=== PATIENT | male | born 1980 | race Caucasian/White ===

== ENCOUNTER 2017-05-05 04:35 | Inpatient (IN) | payer OTHER ==
[~2017-05-05] VITALS: Ht 180.3 cm; Wt 136.3 kg
[2017-05-05] VITALS (35 sets, daily range): BP systolic 122–194; BP diastolic 56–106; PULSE 59–83; TEMP 36.7–37.1; O2SAT 92–100; Ht 180.3 cm; Wt 136.3 kg
[~2017-05-05 04:35] MED LIST: AMLO10TA2 PO; APR25 PO; ASPI81TA85 PO; ATV/1 PO; B-COCAP2 PO; CALC1CAP36 PO; CARV25TA2 PO; CLON0.5T3 PO; DILT240C57 PO; FOLI1TAB7 PO; FURO40TA3 PO; GLIM4TAB PO; INSUINJ4 SC; LISI40TA PO; MINO2.5T PO; SEVE1TAB PO; SIMV40TA4 PO
--- NOTE | 2017-05-05 08:14 | History and Physical ---
History & Physical Date & Time of Service: May 05, 2017 at 08:13 Chief Complaint: Hyperkalemia Primary Care Physician: Romie Paez D.O. History of Present Illness Source: patient This is a 36 yo M with PMHx of ESRD on HD MWF, HTN, HLD, obesity, hx of MRSA, chronic venous stasis changes with weeping leg wound, hx of DVT, depression, anxiety, chronic low back pain, morbid obesity, CARMEN, hx of DM but pt reports is not currently taking any medications, GERD, who presents from [facility] for hyperkalemia, volume overload and needs for emergent dialysis. The patient received dialysis at [facility] dialysis [facility] in [facility]. Reports he has missed 5 dialysis sessions, with his last being on 04/23 due to his car breaking down and not being able to get transported there. He reports since then he has becoming progressively short of breath, and that it worsened over the past 2-3 days. He reports his normal weight is around 270 lbs, and does not know if or how much weight he has gained. He has been less able to ambulate long distances, and chronically uses a cane. He has been taking regularly scheduled medications, however reports his manages this, although she doesn't live with him. Last time he took lasix was yesterday. The patient has been self medicating with ativan and roxicodone for pain associated with his legs which has also increased in the past 2-3 days. He reports being prescribed ativan 1 mg 2-3 times per day for anxiety, although it is written for only once daily. His klonopin is written as 0.5 mg prior to dialysis sessions, but the patient admits he has been using them in the past 10 days even without dialysis. Nursing notes his bottle is currently emptied, and was only recently filled on 04/23 for 12 pills which should have been a 1 month supply. The patient reports requiring paracentesis in the past, with last time being about 2 months ago wher he reports multiple containers of fluid were drained, but doesn't know a specific volume. He currently reports his abdomen is nearly as big as he's ever seen it. He has not eaten x 2 days due to nausea, but no vomiting. Pt denies any GI illnesses, and had a regular BM yesterday morning. At OSH: K elevated at 8.4, and Cr.= 17.30 (rechecking), CBC is essentially WNL. No imaging studies were obtained. An EKG shows 1st degree AV block with old RBBB. Initial trop at 0300 was 0.047 , BNP > 250,000 He received calcium gluconate 1 gm, dextrose 25 g and insulin 10 U in attempts to reduce hyperkalemia. He also got Lasix 40 mg IV, sodium polystyrene sulfonate 15 gm. Pts BP was noted elevated and was administered hydralazine 10 mg IV and enalapril 1.25 mg IV. He was given dilaudid 0.5 mg once. Past Medical/Surgical History ESRD on HD MWF\ HTN HLD obesity hx of MRSA chronic venous stasis changes with weeping leg wound hx of DVT depression anxiety chronic low back pain morbid obesity CARMEN hx of DM but pt reports is not currently taking any medications GERD Family History Mother: DM, heart disease requiring triple bypass Father: HTN, DM Social History Smoking Status: Current Every Day Smoker Smokeless Tobacco Use: No Alcohol Use: none Marital Status: Housing status: lives with family (mother and son) Occupational Status: unemployed Allergies Coded Allergies: Ketorolac Tromethamine (Verified Allergy, Unknown, Itchiness and hives, 09/05/14) Reported by PT Tramadol (Verified Allergy, Unknown, Itchiness and hives, 09/05/14) Reported by PT Acetaminophen (Verified Adverse Reaction, Unknown, NAUSEA,VOMITING, ) REPORTED BY PT. Codeine (Verified Adverse Reaction, Unknown, NAUSEA,VOMITING, 05/05/17) REPORTED BY PT. Home Medications Scheduled Amlodipine Besylate (Norvasc), 10 MG PO DAILY Aspirin (Aspirin Dr), 81 MG PO DAILY Calcitriol (Calcitriol), 1 MCG PO UD Carvedilol (Coreg), 25 MG PO BID Cinecalcet (Sensipar), 60 MG PO DAILY Clonazepam (Klonopin), 0.5 MG PO UD Diltiazem Hcl Coated Beads (Cardizem Cd), 240 MG PO DAILY Fentanyl (Fentanyl), 12 MCG TD EVERY 3 DAYS Folic Acid (Folvite), 1 MG PO DAILY Furosemide (Lasix), 40 MG PO DAILY Gabapentin (Neurontin), 100 MG PO TID Lisinopril (Zestril), 40 MG PO BID Lorazepam (Ativan), 1 MG PO HS Metoclopramide (Reglan), 5 MG PO ACHS Multivitamin (Multivitamin), 1 TAB PO DAILY Nadolol (Corgard), 80 MG PO HS Pantoprazole (Protonix), 40 MG PO DAILY Sevelamer Hydroch (Renagel), 800 MG PO TIDM Simvastatin (Zocor), 40 MG PO HS Valsartan (Diovan), 160 MG PO DAILY Vitamin B Cmplx/Vitc/Folic Ac (Nephrocaps), 1 CAP PO HS Scheduled PRN Cyclobenzaprine Hcl (Flexeril), 10 MG PO TID PRN for Pain Oxycodone/Acetaminophen 10MG/325MG (Percocet 10MG/325MG), 1 TAB PO Q6 PRN for Pain Review of Systems Constitutional: + chills, No fever, No sweats, No fatigue Eyes: No diplopia, No problem reported ENT: + problem reported (dry mouth), No trouble swallowing Cardiovascular: + orthopnea, + edema (BLE), No chest pain, No palpitations Abdomen: + pain, + nausea, No vomiting, No diarrhea, No constipation Musculoskeletal: + swelling, No joint pain, No calf pain Genitourinary - Male: + problem reported (does make small amount of urine, twice daily), No dysuria Neurologic: No weakness, No numbness/tingling Psychiatric: + depression symptoms, + anxiety, + substance abuse Integumentary: + problem reported (weeping on left lower leg), No rash, No itch Physical Exam Vital Signs Date Time Temp Pulse Resp B/P (MAP) Pulse Ox O2 Delivery O2 Flow Rate FiO2 05/05/17 07:00 37.1 77 17 194/102 General Appearance: + obese, + pertinent finding (appears older than stated age ) Head: normocephalic, atraumatic Eyes: PERRL, EOMI, + pertinent finding (MM dry) ENT: hearing grossly normal, pharynx normal Neck: no adenopathy, + JVD (mild) Respiratory/Chest: lungs clear, no respiratory distress, no accessory muscle use Cardiovascular: regular rate, rhythm, normal peripheral pulses, + JVD (mild), + systolic murmur Abdomen/GI: non tender, + pertinent finding (hypoactive bowel sounds, + dullness to percussion) Back: normal inspection Extremities/Musculoskelatal: + pertinent finding (+ AVF with bruit and palpable trill in RUE, chronic venous stasis changes with weeping leg wounds on Left lateral side, weeping over R lateral lower leg, + decreased sensation to light touch. ) Neurologic/Psych: alert, oriented x 3 Skin: warm/dry Diagnostics Laboratory Results Microbiology Results 05/05/17 MRSA DNA Surveillance Screen, Received Pending EKG From OSH - reviewed showing NSR with 1st degree AV block with possible old RBBB. NO signs of ST wave inversions or acute ischemia. Impression Assessment and Plan This is a 36 yo M with PMHx of ESRD on HD MWF, HTN, HLD, obesity, hx of MRSA, chronic venous stasis changes with weeping leg wound, hx of DVT, depression, anxiety, chronic low back pain, morbid obesity, CARMEN, hx of DM but pt reports is not currently taking any medications, GERD, who presents from [facility] for hyperkalemia, volume overload and needs for emergent dialysis. ESRD on HD Hyperkalemia Volume overload - Admitted to ICU as transfer from [place] - Nephrology consulted, plan for emergent dialysis today. I spoke with Dr. Luna at bedside. He will not get dialysis tomorrow as staff not present, likely repeat dialysis on Sunday and resume regular MWF schedule. - checking CMP, LFTs, INR, ammonia - Received insulin, calcium gluconate and dextrose at OSH - Renal diet - Will continue nephrocaps - Daily weights - Strict I/Os ? Cirrhosis - Hx of paracentesis ~ 2 months ago, , possibly that he was supposed to be on lactulose 30 mg daily on 04/[address] Samaniego ?? - Checking RUQ u/s to assess liver, and checking abdominal US for possible drainage - Checking ammonia level - Follow LFTs Elevated Trop - Will trend x 2 more sets, initial was 0.047 - Elevated BNP was > 250,000 at OSH. - EKG reviewed from OSH - Check am EKG in am and prn chest pain HTN - Continue on carvedilol 25 mg BID, nadolol 80 mg HS, valsartan 160 mg, cardiazem 240 mg QPM, pt unsure of losartan so hold for now. - PRN hydralazine ordered DM II - Pt denies being diabetic, trend glucose with accuchecks and check Hgb A1C, lipids. Outpatient records showed lantus 10 U QAM and glimepiride Venous stasis changes BLE - Check wound culture of weeping area on left lateral leg - wound consult, pt apparently was following several months ago but no longer is - will need set up as outpatient - No antibiotics right now with no WBC, afebrile, no erythema for now. Chronic Pain - Unable to verify with pt specific of fentanyl patch - checking controlled substance meds, allow dilaudid 0.5 mg Q4H for now. Depression/Anxiety - Pt klonopin and clonazepam being used differently than prescriped, - HOLD for now. GERD - Cont reglan, protonix daily. DVT ppx: heparin subq, CODE STATUS: FULL CODE Disposition: From home, d/c likely in 2-3 days PA Physician Supervision Note: I interviewed and examined the patient. Discussed with Bette Lewis PAC and agree with findings and plan as documented in the note. Any exceptions or clarifications are listed here: None This patient is a transfer from [facility] with acute on chronic renal failure in need of hemodialysis. Reportedly renal failure hypertension he also suffers from diabetes liver failure which might be Vanessa depression and anxiety as elevated troponin Patient was comfortable currently on dialysis his vitals were appropriate for being on dialysis His heart is regular His lungs have decreased breath sounds at bases and crackles slight his abdomen is morbidly obese and difficult to examine His lower extremities are with changes of chronic venous stasis some minor skin changes which would require wound care nursing spine Acute on chronic renal failure requiring dialysis, treating diabetes with insulin management, trending troponins although likely based upon renal failure. Documented By: Vin Currie Level of Care Telemetry Resuscitation Status FULL RESUSCITATION VTE Prophylaxis VTE Risk Assessment Done? Y/N: Yes Risk Level: Moderate Given or contraindicated: Unfractionated heparin SQ
[2017-05-05] MEDS ORDERED: CINA60TA PO (08:15)
[2017-05-05] MEDS ORDERED: MULT-506 PO (08:15)
[2017-05-05] MEDS ORDERED: PANT40TA PO (08:15)
[2017-05-05] MEDS ORDERED: METO-157 PO (08:15)
[2017-05-05] MEDS ORDERED: FRS/40 PO (08:15)
[2017-05-05] MEDS ORDERED: OXYC-106 PO (08:15)
[2017-05-05] MEDS ORDERED: LOSA1TAB PO (08:15)
[2017-05-05] MEDS ORDERED: CYCL10TA6 PO (08:15)
[2017-05-05] MEDS ORDERED: DVN/160 PO (08:15)
[2017-05-05] MEDS ORDERED: NADO40TA PO (08:15)
[2017-05-05] MEDS ORDERED: GABA-112 PO (08:15)
[2017-05-05] MEDS ORDERED: DRGTP12 TD (08:17)
[2017-05-05] MEDS ORDERED: INFLUENZA VIRUS QUAD VACCINE 0.5 ML SYR IM. ONE (08:30)
[2017-05-05] MEDS ORDERED: PNEUMOCOCCAL ADMINISTRATION CHARGE ONE (08:30)
[2017-05-05] MEDS ORDERED: INFLUENZA ADMINISTRATION CHARGE ONE (08:30)
[2017-05-05] MEDS ORDERED: PNEUMOCOCCAL POLYSACCHARIDES 25 MCG/0.5 ML VIAL/SYR IM. ONE (08:30)
[2017-05-05] MEDS ORDERED: FENTANYL 12 MCG/HR TDSY TD SCH (09:15)
[2017-05-05 09:20] LABS: BASO % 0.5 %; BASO ABS # 0.04 K/uL (0-0.2); COMPLETE YES; EOS % 4.1 %; HEMATOCRIT 30.4 % (42-52); IG% 0.2 %; LYMPH ABS # 1.07 K/uL (1.2-3.4); MEAN CELL VOLUME 91.6 fL (80-100); MEAN CORPUSCULAR HEMOGLOBIN 28.6 pg (25-34); MEAN CORPUSCULAR HGB CONC 31.3 g/dl (32-36); MONO % 8.4 %; NEUT % 73.8 %; PLATELET COUNT 177 K/uL (130-400); RED BLOOD COUNT 3.32 M/uL (4.7-6.1); WHITE BLOOD COUNT 8.25 K/uL (4.8-10.8)
[2017-05-05 09:29] LABS: INR 1.2 (0.9-1.1); PARTIAL THROMBOPLASTIN RATIO 1.2; PROTHROMBIN TIME (PATIENT) 12.7 SECONDS (9.0-12.0)
[2017-05-05 10:02] LABS: HEPATITIS B AB POS
--- NOTE | 2017-05-05 10:11 | Nephrology Consultation ---
Nephrology Consultation Date & Providers Date of Consultation: May 05, 2017. Primary Care Provider: Romie Paez D.O. Referring Provider: Reason for Consultation Evaluation and management for ESRD with volume overload and hyperkalemia and need for emergency dialysis. History of Present Illness Jd is a 36-year-old gentlemen with past medical history significant for end- stage renal disease on hemodialysis, hypertension, questionable history of cirrhosis with ascites admitted to the hospital as a direct transfer from [facility] for emergency dialysis for hyperkalemia and volume overload. Medical records from [facility] EMR reviewed in detail during patient's visit. Jd has end-stage renal disease secondary to hypertensive nephropathy, has been on hemodialysis Sunday, Sunday, Sunday at [facility] dialysis unit at [place] for last several years. Primary hand paint mixer is Dr. Loaiza. His last dialysis was in April 24 and he missed dialysis for almost 2 weeks since and patient attributes that to difficulty with transportation to and from dialysis unit. He still urinates and has been on Lasix 40 daily. However, over last 1 week he was getting progressively short of breath and tired with any exertion and presented to [facility] ER yesterday. On arrival there he was found to have systolic blood pressure more than 200, significantly volume overloaded with respiratory distress and pulmonary congestion on x-ray. His potassium was 8.4. We were consulted for transfer as a direct admit for emergency hemodialysis. Currently he denies any significant shortness of breath, requiring 4 L of oxygen via nasal cannula to maintain oxygen saturation above 90, main complain is fatigue. He has hypertension has been on amlodipine, valsartan however intensive care unit nurse reviewed his medication bottles and found that he did not refill any prescription over last 1 year. He has history of being noncompliant with dialysis and he mentioned that previously he went without dialysis many times for almost a week but this time he has been without dialysis for nearly 2 weeks. He has questionable history of cirrhosis, ascites requiring paracentesis at certain interval, last paracentesis was few months ago. His a ex-smoker, denies drinking alcohol currently, no history of diabetes or coronary artery disease. Allergies Coded Allergies: Ketorolac Tromethamine (Verified Allergy, Unknown, Itchiness and hives, 09/05/14) Reported by PT Tramadol (Verified Allergy, Unknown, Itchiness and hives, 09/05/14) Reported by PT Acetaminophen (Verified Adverse Reaction, Unknown, NAUSEA,VOMITING, ) REPORTED BY PT. Codeine (Verified Adverse Reaction, Unknown, NAUSEA,VOMITING, 05/05/17) REPORTED BY PT. Social History Smoking Status: Never Smoker Review of Systems A complete review of systems was performed. Pertinent positives are noted above. All other systems are negative. Physical Exam Date Time Temp Pulse Resp B/P (MAP) Pulse Ox O2 Delivery O2 Flow Rate FiO2 05/05/17 07:00 37.1 77 17 194/102 100 Nasal Cannula 5.0 GENERAL: young male, AAA x 3, not in any distress. HEENT: Atraumatic, normocephalic. NECK: Supple, no JVD, no carotid bruit appreciated. ENT: No sinus tenderness MOUTH and THROAT: Moist oral mucosa, no oral ulcer or pharyngeal erythema RESPIRATORY: bibasilar rales. CARDIOVASCULAR: S1, S2 normal, rate rhythm regular. ABDOMEN: Soft, nontender, positive bowel sound. MUSCULOSKELETAL: No CVA tenderness. No joint swelling, erythema or tenderness. Normal range of motion. SKIN: No skin rash EXTREMITY: lower extremity non pitting edema, chronic ulcer with oozing, skin thickening NEURO: No gross focal neurological deficit, speech fluent. PSYCHIATRY: Normal mood and judgment Laboratory Results Last 24 Hours Test 05/05/17 08:22 Impression (1) End stage renal disease due to hypertension (2) Hyperkalemia (3) Volume overload (4) Hypertensive emergency (5) Secondary hyperparathyroidism of renal origin (6) Anemia (7) Chronic ulcer of leg with fat layer exposed Jd is a 36 y o m with ESRD secondary to hypertensive nephropathy on hemodialysis Sunday, Sunday, Sunday, presented with respiratory distress, volume overload and hyperkalemia after missing dialysis for 2 weeks. Blood pressure elevated with systolic 190s to 210, has evidence of volume overload and pulmonary condition as well as potassium of 8.3. He has a well-functioning left brachiocephalic AV fistula. Recommendations --schedule for emergency dialysis with 2 K bath, UF 3-4 L as tolerated --will skip Sunday unless there is any significant electrolyte abnormality however patient may need dialysis few days [id number] --resume his antihypertensive medications including valsartan, Lasix and amlodipine --PSA 19523 units x1 dose with hemodialysis today --continue on sevelamer and calcitriol --discussed in detail with the patient about the risk associated with missing dialysis volume overloaded electrolyte abnormality including respiratory failure , acute coronary event and sudden cardiac and encourage patient to be compliant with dialysis treatment. --suggest wound culture, blood culture and wound care consult --continue on low-potassium, renal diet Thank you for allowing me to participate in your patient's care. It was a pleasure to see Jd
--- NOTE | 2017-05-05 10:14 | Dialysis Progress Note ---
Hemodialysis Note Date of Service May 05, 2017. Chief Complaint Evaluation for emergency dialysis. Subjective [place] was evaluated during hemodialysis. He is otherwise feeling well but continues to feel fatigue. Blood pressure continues to run high. Review of Systems A complete review of systems was performed. Pertinent positives are noted above. All other systems are negative. Vital Signs Last 8 Hrs Date Time Temp Pulse Resp B/P (MAP) Pulse Ox O2 Delivery O2 Flow Rate FiO2 05/05/17 10:01 73 19 164/87 (112) 100 05/05/17 09:46 72 23 163/90 (114) 98 05/05/17 09:35 Nasal Cannula 6.0 05/05/17 09:34 76 25 173/91 (118) 100 05/05/17 09:34 36.8 83 173/91 (118) 05/05/17 07:09 73 22 194/102 (132) 97 Room Air 05/05/17 07:00 37.1 77 17 194/102 100 Nasal Cannula 5.0 Last Recorded Weight Weight (Kilograms): 141.800 Physical Exam GENERAL: Young male, AAA x 3, not in any distress. NECK: Supple, no JVD. RESPIRATORY: Normal breathing efforts, no accessory muscle use, clear to auscultation bilaterally, no wheezes or rales. CARDIOVASCULAR: S1, S2 normal, rate rhythm regular. EXTREMITY: Nonpitting bilateral lower extremity edema, skin thickening, bilateral chronic ulcer with losing. Left brachiocephalic AV fistula with thrill and bruit NEURO: speech fluent. PSYCHIATRY: Normal mood and judgment Laboratory Results Past 24 Hours 05/05/17 09:06 Red Blood Count 3.32, Mean Corpuscular Volume 91.6, Mean Corpuscular Hemoglobin 28.6, Mean Corpuscular Hemoglobin Concent 31.3, Mean Platelet Volume 9.0, Neutrophils (%) (Auto) 73.8, Lymphocytes (%) (Auto) 13.0, Monocytes (%) (Auto) 8.4, Eosinophils (%) (Auto) 4.1, Basophils (%) (Auto) 0.5, Neutrophils # (Auto) 6.09, Lymphocytes # (Auto) 1.07, Monocytes # (Auto) 0.69, Eosinophils # (Auto) 0.34, Basophils # (Auto) 0.04 Test 05/05/17 09:06 05/05/17 09:09 05/05/17 09:11 05/05/17 09:49 White Blood Count 8.25 K/uL (4.8-10.8) Red Blood Count 3.32 M/uL (4.7-6.1) Hemoglobin 9.5 g/dL (14.0-18.0) Hematocrit 30.4 % (42-52) Mean Corpuscular Volume 91.6 fL (80-100) Mean Corpuscular Hemoglobin 28.6 pg (25-34) Mean Corpuscular Hemoglobin Concent 31.3 g/dl (32-36) Platelet Count 177 K/uL (130-400) Mean Platelet Volume 9.0 fL (7.4-10.4) Neutrophils (%) (Auto) 73.8 % Lymphocytes (%) (Auto) 13.0 % Monocytes (%) (Auto) 8.4 % Eosinophils (%) (Auto) 4.1 % Basophils (%) (Auto) 0.5 % Neutrophils # (Auto) 6.09 K/uL (1.4-6.5) Lymphocytes # (Auto) 1.07 K/uL (1.2-3.4) Monocytes # (Auto) 0.69 K/uL (0.11-0.59) Eosinophils # (Auto) 0.34 K/uL (0-0.5) Basophils # (Auto) 0.04 K/uL (0-0.2) RDW Standard Deviation 52.7 fL (36.4-46.3) RDW Coefficient of Variation 15.5 % (11.5-14.5) Immature Granulocyte % (Auto) 0.2 % Immature Granulocyte # (Auto) 0.02 K/uL (0.00-0.02) Prothrombin Time 12.7 SECONDS (9.0-12.0) Prothromb Time International Ratio 1.2 (0.9-1.1) Activated Partial Thromboplast Time 30.5 SECONDS (21.0-31.0) Partial Thromboplastin Ratio 1.2 Hepatitis B Surface Antibody POS Lactic Acid Level 0.9 mmol/L (0.4-2.0) Test 05/05/17 10:00 Date/Time Source Procedure Growth Status 05/05/17 00:00 Nasal MRSA DNA Surveillance Screen - Final Specimen Positive for MRSA by DNA Probe Complete Allergies Coded Allergies: Ketorolac Tromethamine (Verified Allergy, Unknown, Itchiness and hives, 09/05/14) Reported by PT Tramadol (Verified Allergy, Unknown, Itchiness and hives, 09/05/14) Reported by PT Acetaminophen (Verified Adverse Reaction, Unknown, NAUSEA,VOMITING, ) REPORTED BY PT. Codeine (Verified Adverse Reaction, Unknown, NAUSEA,VOMITING, 05/05/17) REPORTED BY PT. Medications Current Inpatient Medications Medications (Trade) Dose Ordered Sig/Julio Route Start Time Stop Time Status Last Admin Dose Admin Influenza Virus Vaccine Quadrival (Flucelvax Quad Vaccine) 0.5 ml ONCE ONCE IM. 05/05/17 08:30 05/05/17 08:31 UNV Pneumococcal Polysaccharide Vaccine (Pneumovax-23 Inj) 25 mcg ONCE ONCE IM. 05/05/17 08:30 05/05/17 08:31 UNV Heparin Sodium (Porcine) (Heparin Sq 5000 Unit/0.5ml) 5,000 unit Q12 SQ 05/05/17 09:00 06/04/17 08:59 Acetaminophen (Tylenol Tab) 650 mg Q4H PRN PO 05/05/17 08:30 06/04/17 08:29 Pantoprazole Sodium 40 mg/ Syringe 10 ml @ 5 mls/min DAILY IV 05/05/17 09:00 06/04/17 08:59 Hydromorphone HCl (Dilaudid Tab) 0.5 mg Q4H PRN PO 05/05/17 08:30 05/19/17 08:29 Amlodipine Besylate (Norvasc Tab) 10 mg DAILY PO 05/06/17 09:00 06/05/17 08:59 UNV Aspirin (Ecotrin Tab) 81 mg DAILY PO 05/06/17 09:00 06/05/17 08:59 UNV Calcitriol (Rocaltrol Cap) 1 mcg UD PO 05/05/17 09:15 06/04/17 09:14 UNV Carvedilol (Coreg Tab) 25 mg BID PO 05/05/17 21:00 06/04/17 20:59 UNV Cyclobenzaprine HCl (Flexeril Tab) 10 mg TID PRN PO 05/05/17 09:15 06/04/17 09:14 UNV Diltiazem HCl (Cardizem Cd Cap) 240 mg DAILY PO 05/06/17 09:00 06/05/17 08:59 UNV Fentanyl (Duragesic Patch) 12 mcg Q3D TD 05/05/17 09:15 05/19/17 09:14 UNV Folic Acid (Folvite Tab) 1 mg DAILY PO 05/06/17 09:00 06/05/17 08:59 UNV Furosemide (Lasix Tab) 40 mg DAILY PO 05/06/17 09:00 06/05/17 08:59 UNV Gabapentin (Neurontin Cap) 100 mg TID PO 05/05/17 14:00 06/04/17 13:59 UNV Metoclopramide HCl (Reglan Tab) 5 mg ACHS PO 05/05/17 11:00 06/04/17 10:59 UNV Multivitamins (Multivitamin Tab) 1 tab DAILY PO 05/06/17 09:00 06/05/17 08:59 UNV Nadolol (Corgard Tab) 80 mg HS PO 05/05/17 21:00 06/04/17 20:59 UNV Pantoprazole Sodium (Protonix Tab) 40 mg DAILY PO 05/06/17 09:00 06/05/17 08:59 UNV Simvastatin (Zocor Tab) 40 mg HS PO 05/05/17 21:00 06/04/17 20:59 UNV Valsartan (Diovan Tab) 160 mg DAILY PO 05/06/17 09:00 06/05/17 08:59 UNV Vitamin B Complex/ Vit C/Folic Acid (Nephrocaps) 1 cap HS PO 05/05/17 21:00 06/04/17 20:59 UNV Non-Formulary Medication (Cinecalcet (Sensipar)) 60 mg DAILY PO 05/06/17 09:00 06/05/17 08:59 UNV Epoetin Conor (Procrit Inj) 20,000 units ONE IV 05/05/17 09:30 06/04/17 09:29 UNV Sevelamer HCl (Renagel Tab) 800 mg TIDM PO 05/05/17 11:30 06/04/17 11:29 UNV Impression (1) End stage renal disease due to hypertension (2) Hyperkalemia (3) Volume overload (4) Hypertensive emergency (5) Secondary hyperparathyroidism of renal origin (6) Anemia (7) Chronic ulcer of leg with fat layer exposed Jd is a 36 y o m with ESRD secondary to hypertensive nephropathy on hemodialysis Sunday, Sunday, Sunday, presented with respiratory distress, volume overload and hyperkalemia after missing dialysis for 2 weeks. Blood pressure elevated with systolic 190s to 210, has evidence of volume overload and pulmonary condition as well as potassium of 8.3. He has a well-functioning left brachiocephalic AV fistula. Recommendations --schedule for emergency dialysis with 2 K bath, UF 3-4 L as tolerated, will skip Sunday unless there is any significant electrolyte abnormality however patient may need dialysis few days [id number] --resume his antihypertensive medications including valsartan, Lasix and amlodipine --PSA 85161 units x1 dose with hemodialysis today --continue on sevelamer and calcitriol --discussed in detail with the patient about the risk associated with missing dialysis volume overloaded electrolyte abnormality including respiratory failure , acute coronary event and sudden cardiac and encourage patient to be compliant with dialysis treatment. --suggest wound culture, blood culture and wound care consult --continue on low-potassium, renal diet Discussed with dialysis nurse and reviewed the orders. Will be available during dialysis treatment.
[2017-05-05 10:15] LABS: ALB/GLOB RATIO 0.7 (0.9-2); BUN/CREATININE RATIO 5.6 (10-20); CALCIUM 8.8 mg/dl (8.5-10.1); MAGNESIUM 2.1 mg/dl (1.8-2.4); PHOSPHORUS 8.3 mg/dl (2.5-4.9); POTASSIUM 7.4 mmol/L (3.5-5.1)
[2017-05-05] MEDS ORDERED: GLUCOSE 40% GEL 15 GM TUBE PO PRN (10:30)
[2017-05-05] MEDS ORDERED: DEXTROSE 50% 50 ML SYR IV PRN (10:30)
[2017-05-05] MEDS ORDERED: GLUCOSE 10 TABS/TUBE PO PRN (10:30)
[2017-05-05] MEDS ORDERED: GLUCAGON FOR INJ 1 MG VIAL SQ PRN (10:30)
[2017-05-05] MEDS ORDERED: EPOETIN ALFA 20,000 UNITS/ML VIAL IV ONE (11:00)
[2017-05-05] MEDS ORDERED: INSULIN ASPART 100 UNITS/ML 3 ML PEN SC SCH (11:00)
[2017-05-05] MEDS: METOCLOPRAMIDE HCL 10 MG TAB PO SCH ×3 (11:32→20:08)
[2017-05-05] MEDS: SEVELAMER HYDROCH 800 MG TAB PO SCH ×2 (11:32→16:52)
[2017-05-05] MEDS: PANTOprazole INJ 40 MG in SYRINGE 0 ML IV SCH (11:32)
[2017-05-05] MEDS: HEPARIN SOD 5000 UNIT/0.5 ML CARP SQ SCH ×2 (11:33→20:07)
--- NOTE | 2017-05-05 13:09 | Critical Care Consultation ---
Critical Care Consultation Date of Consultation: May 05, 2017. Attending Physician: Vin Currie M.D. Reason for Consultation: Volume overload and hyperkalemia in the setting of mixed 5 sessions of hemodialysis. History of Present Illness I personally examined this patient, reviewed his clinical and laboratory data, troponin chest x-ray in form related to the plan of care. In summary, the patient is a unfortunate 46-year-old morbidly obese man with multiple medical problems including hemodialysis dependent end-stage renal disease, hypertension, hyperlipidemia, chronic venous stasis, DVT, depression, anxiety, chronic back pain, osteoarthritis, diabetes mellitus who skipped 5 sessions of hemodialysis as his car broke and he was not able to get to hemodialysis center. He developed progressively worsening shortness of breath, lethargy and fatigue. He was taken to [facility] emergency room. Patient was found to be grossly fluid overloaded, hypertensive, hyperkalemic with potassium 8.4, creatinine 17. He was treated with glucose, insulin, calcium gluconate, Kayexalate. Patient was transferred critically ill to [facility] for arginine hemodialysis. Past Medical/Surgical History ESRD on HD MWF HTN HLD obesity hx of MRSA chronic venous stasis changes with weeping leg wound hx of DVT depression anxiety chronic low back pain morbid obesity CARMEN hx of DM but pt reports is not currently taking any medications GERD Social History Smoking Status: Never Smoker Smokeless Tobacco Use: No Alcohol Use: none Marital Status: Housing Status: lives with family Occupation Status: unemployed Allergies Coded Allergies: Ketorolac Tromethamine (Verified Allergy, Unknown, Itchiness and hives, 09/05/14) Reported by PT Tramadol (Verified Allergy, Unknown, Itchiness and hives, 09/05/14) Reported by PT Acetaminophen (Verified Adverse Reaction, Unknown, NAUSEA,VOMITING, ) REPORTED BY PT. Codeine (Verified Adverse Reaction, Unknown, NAUSEA,VOMITING, 05/05/17) REPORTED BY PT. Home Medications Scheduled Amlodipine Besylate (Norvasc), 10 MG PO DAILY Aspirin (Aspirin Dr), 81 MG PO DAILY Calcitriol (Calcitriol), 1 MCG PO UD Carvedilol (Coreg), 25 MG PO BID Cinecalcet (Sensipar), 60 MG PO DAILY Clonazepam (Klonopin), 0.5 MG PO UD Diltiazem Hcl Coated Beads (Cardizem Cd), 240 MG PO DAILY Fentanyl (Fentanyl), 12 MCG TD EVERY 3 DAYS Folic Acid (Folvite), 1 MG PO DAILY Furosemide (Lasix), 40 MG PO DAILY Gabapentin (Neurontin), 100 MG PO TID Lisinopril (Zestril), 40 MG PO BID Lorazepam (Ativan), 1 MG PO HS Metoclopramide (Reglan), 5 MG PO ACHS Multivitamin (Multivitamin), 1 TAB PO DAILY Nadolol (Corgard), 80 MG PO HS Pantoprazole (Protonix), 40 MG PO DAILY Sevelamer Hydroch (Renagel), 800 MG PO TIDM Simvastatin (Zocor), 40 MG PO HS Valsartan (Diovan), 160 MG PO DAILY Vitamin B Cmplx/Vitc/Folic Ac (Nephrocaps), 1 CAP PO HS Scheduled PRN Cyclobenzaprine Hcl (Flexeril), 10 MG PO TID PRN for Pain Oxycodone/Acetaminophen 10MG/325MG (Percocet 10MG/325MG), 1 TAB PO Q6 PRN for Pain Current Inpatient Medications Current Inpatient Medications Medications (Trade) Dose Ordered Sig/Julio Route Start Time Stop Time Status Last Admin Dose Admin Heparin Sodium (Porcine) (Heparin Sq 5000 Unit/0.5ml) 5,000 unit Q12 SQ 05/05/17 09:00 06/04/17 08:59 05/05/17 11:33 5,000 UNIT Acetaminophen (Tylenol Tab) 650 mg Q4H PRN PO 05/05/17 08:30 06/04/17 08:29 Pantoprazole Sodium 40 mg/ Syringe 10 ml @ 5 mls/min DAILY IV 05/05/17 09:00 06/04/17 08:59 05/05/17 11:32 5 MLS/MIN Hydromorphone HCl (Dilaudid Tab) 0.5 mg Q4H PRN PO 05/05/17 08:30 05/19/17 08:29 Amlodipine Besylate (Norvasc Tab) 10 mg DAILY PO 05/06/17 09:00 06/05/17 08:59 Aspirin (Ecotrin Tab) 81 mg DAILY PO 05/06/17 09:00 06/05/17 08:59 Calcitriol (Rocaltrol Cap) 1 mcg MoWeFr@0900 PO 05/05/17 10:00 06/04/17 09:59 Carvedilol (Coreg Tab) 25 mg BID PO 05/05/17 21:00 06/04/17 20:59 Cyclobenzaprine HCl (Flexeril Tab) 10 mg TID PRN PO 05/05/17 09:15 06/04/17 09:14 Diltiazem HCl (Cardizem Cd Cap) 240 mg DAILY PO 05/06/17 09:00 06/05/17 08:59 Folic Acid (Folvite Tab) 1 mg DAILY PO 05/06/17 09:00 06/05/17 08:59 Furosemide (Lasix Tab) 40 mg DAILY PO 05/06/17 09:00 06/05/17 08:59 Gabapentin (Neurontin Cap) 100 mg TID PO 05/05/17 14:00 06/04/17 13:59 Metoclopramide HCl (Reglan Tab) 5 mg ACHS PO 05/05/17 11:00 06/04/17 10:59 05/05/17 11:32 5 MG Multivitamins (Multivitamin Tab) 1 tab DAILY PO 05/06/17 09:00 06/05/17 08:59 Nadolol (Corgard Tab) 80 mg HS PO 05/05/17 21:00 06/04/17 20:59 Pantoprazole Sodium (Protonix Tab) 40 mg DAILY PO 05/06/17 09:00 06/05/17 08:59 Simvastatin (Zocor Tab) 40 mg HS PO 05/05/17 21:00 06/04/17 20:59 Valsartan (Diovan Tab) 160 mg DAILY PO 05/06/17 09:00 06/05/17 08:59 Vitamin B Complex/ Vit C/Folic Acid (Nephrocaps) 1 cap HS PO 05/05/17 21:00 06/04/17 20:59 Miscellaneous Information (Order Awaiting Action) 1 ea QS N/A 05/06/17 11:00 06/05/17 10:59 Sevelamer HCl (Renagel Tab) 800 mg TIDM PO 05/05/17 11:30 06/04/17 11:29 05/05/17 11:32 800 MG Glucose (Glucose 40% Gel) 15-30 GRAMS 15 GRAMS... UD PRN PO 05/05/17 10:30 06/04/17 10:29 Glucose (Glucose Chew Tab) 4-8 Tablets 4 Tabl... UD PRN PO 05/05/17 10:30 06/04/17 10:29 Dextrose (Dextrose 50% 50ML Syringe) 25-50ML OF 50% DW IV FOR... UD PRN IV 05/05/17 10:30 06/04/17 10:29 Glucagon (Glucagon Inj) 1 mg UD PRN SQ 05/05/17 10:30 06/04/17 10:29 Review of Systems Constitutional: + fatigue Respiratory: + cough, + shortness of breath, + dyspnea on exertion Cardiovascular: + edema Abdomen: + nausea Psychiatric: + depression symptoms Physical Exam Date Time Temp Pulse Resp B/P (MAP) Pulse Ox O2 Delivery O2 Flow Rate FiO2 05/05/17 12:45 71 157/83 05/05/17 12:30 74 188/100 05/05/17 12:15 78 168/94 05/05/17 12:01 80 19 172/85 (114) 98 Nasal Cannula 5.0 05/05/17 12:00 Nasal Cannula 5.0 05/05/17 12:00 75 172/85 05/05/17 11:45 75 152/92 05/05/17 11:30 80 166/88 05/05/17 11:15 69 140/78 05/05/17 11:00 76 153/73 05/05/17 10:45 74 146/74 05/05/17 10:30 71 144/71 05/05/17 10:15 73 149/74 05/05/17 10:01 73 19 164/87 (112) 100 05/05/17 10:00 73 164/87 05/05/17 09:46 72 23 163/90 (114) 98 05/05/17 09:45 71 163/90 05/05/17 09:35 Nasal Cannula 6.0 05/05/17 09:34 76 25 173/91 (118) 100 05/05/17 09:34 36.8 83 173/91 (118) 05/05/17 07:09 73 22 194/102 (132) 97 05/05/17 07:00 37.1 77 17 194/102 100 Nasal Cannula 5.0 GENERAL: young male, sleepy, easily arousable, slightly uncomfortable due to shortness of breath. HEENT: Atraumatic, normocephalic. NECK: Supple, no carotid bruit appreciated. ENT: No sinus tenderness MOUTH and THROAT: Moist oral mucosa, no oral ulcer or pharyngeal erythema RESPIRATORY: bibasilar rales decreased breath sounds at the bases, CARDIOVASCULAR: S1, S2 normal, rate rhythm regular. ABDOMEN: Soft, large, nontender, positive bowel sound. No hepatosplenomegaly MUSCULOSKELETAL: No CVA tenderness. No joint swelling, erythema or tenderness. Normal range of motion. SKIN: No skin rash EXTREMITY: lower extremity non pitting edema, chronic ulcer with oozing, skin thickening, chronic changes NEURO: No gross focal neurological deficit, speech fluent. PSYCHIATRY: Flat affect Laboratory Results Last 24 Hours Test 05/05/17 09:06 05/05/17 09:09 05/05/17 09:11 05/05/17 09:49 White Blood Count 8.25 K/uL Red Blood Count 3.32 M/uL Hemoglobin 9.5 g/dL Hematocrit 30.4 % Mean Corpuscular Volume 91.6 fL Mean Corpuscular Hemoglobin 28.6 pg Mean Corpuscular Hemoglobin Concent 31.3 g/dl Platelet Count 177 K/uL Mean Platelet Volume 9.0 fL Neutrophils (%) (Auto) 73.8 % Lymphocytes (%) (Auto) 13.0 % Monocytes (%) (Auto) 8.4 % Eosinophils (%) (Auto) 4.1 % Basophils (%) (Auto) 0.5 % Neutrophils # (Auto) 6.09 K/uL Lymphocytes # (Auto) 1.07 K/uL Monocytes # (Auto) 0.69 K/uL Eosinophils # (Auto) 0.34 K/uL Basophils # (Auto) 0.04 K/uL RDW Standard Deviation 52.7 fL RDW Coefficient of Variation 15.5 % Immature Granulocyte % (Auto) 0.2 % Immature Granulocyte # (Auto) 0.02 K/uL Prothrombin Time 12.7 SECONDS Prothromb Time International Ratio 1.2 Activated Partial Thromboplast Time 30.5 SECONDS Partial Thromboplastin Ratio 1.2 Hepatitis B Surface Antigen NEG Hepatitis B Surface Antibody POS Lactic Acid Level 0.9 mmol/L Sodium Level 136 mmol/L Potassium Level 7.4 mmol/L Chloride Level 102 mmol/L Carbon Dioxide Level 23 mmol/L Anion Gap 10.0 mmol/L Blood Urea Nitrogen 96 mg/dl Creatinine 17.00 mg/dl Est Creatinine Clear Calc Drug Dose 8.5 ml/min Estimated GFR () 3.6 Estimated GFR (Non- 3.1 BUN/Creatinine Ratio 5.6 Random Glucose 77 mg/dl Estimated Average Glucose 103 mg/dl Hemoglobin A1c 5.2 % Calcium Level 8.8 mg/dl Phosphorus Level 8.3 mg/dl Magnesium Level 2.1 mg/dl Total Bilirubin 0.6 mg/dl Direct Bilirubin 0.3 mg/dl Aspartate Amino Transf (AST/SGOT) 11 U/L Alanine Aminotransferase (ALT/SGPT) 11 U/L Alkaline Phosphatase 193 U/L Troponin I 0.061 ng/ml Total Protein 6.7 gm/dl Albumin 2.8 gm/dl Globulin 3.9 gm/dl Albumin/Globulin Ratio 0.7 Test 05/05/17 11:31 Bedside Glucose 100 mg/dl Assessment & Plan 1. Noncompliance with hemodialysis, fluid overload, severe hyperkalemia. Patient underwent urgent hemodialysis treatment with removal of 4 L of fluid. 2. Respiratory insufficiency, improvement following [place] removal. 3. Hemodynamics are acceptable. We'll restart his antihypertensive regimen including carvedilol 25 mg BID, nadolol 80 mg HS, valsartan 160 mg, cardiazem. 4. ID: No obvious source of infection... 5. GI: History of present eases, suspect ascites secondary to volume overload. We'll check right upper quadrant ultrasound to assess the liver. 6. Chronic skin changes, seeping lower extremity wounds. Wound care consult. Does not appear to be infected. Off antibiotics. CCT 31 min.7. Patient remains full code.
[2017-05-05] MEDS: GABAPENTIN 100 MG CAP PO SCH ×2 (14:28→20:08)
[2017-05-05] MEDS: CALCITRIOL 0.25 MCG CAP PO SCH (14:29)
[2017-05-05] MEDS: HYDROmorphone HCL 2 MG TAB PO PRN ×3 (15:06→23:47)
[2017-05-05] MEDS: ACETAMINOPHEN 325 MG TAB PO PRN (20:00)
[2017-05-05] MEDS: SIMVASTATIN 40 MG TAB PO SCH (20:07)
[2017-05-05] MEDS: NEPHROCAPS PO SCH (20:08)
[2017-05-05] MEDS ORDERED: CARVEDILOL 25 MG TAB PO SCH (21:00)
[2017-05-05] MEDS ORDERED: NADOLOL 40 MG TAB PO SCH (21:00)
[2017-05-06] VITALS (19 sets, daily range): BP systolic 101–153; BP diastolic 50–90; PULSE 47–59; TEMP 36.2–36.6; O2SAT 93–100
[2017-05-06 00:01] LABS: BUN/CREATININE RATIO 5.2 (10-20); CALCIUM 7.9 mg/dl (8.5-10.1); MAGNESIUM 1.8 mg/dl (1.8-2.4)
[2017-05-06 00:02] LABS: POTASSIUM 5.8 mmol/L (3.5-5.1)
[2017-05-06] MEDS: HYDROmorphone HCL 2 MG TAB PO PRN ×5 (06:06→23:56)
[2017-05-06] MEDS: METOCLOPRAMIDE HCL 10 MG TAB PO SCH ×4 (06:06→20:18)
[2017-05-06 06:10] LABS: INR 1.2 (0.9-1.1); PROTHROMBIN TIME (PATIENT) 12.7 SECONDS (9.0-12.0)
--- NOTE | 2017-05-06 06:21 | DIAGNOSTIC IMAGING REPORT ---
(LIVER) ABDOMEN LIMITED CLINICAL HISTORY: 36 years-old Male presenting with assess for cirrhosis, hyperkalemia, ascites. TECHNIQUE: Real-time grayscale and limited color Doppler ultrasound imaging of the abdomen limited to the right upper quadrant was performed. COMPARISON: None. FINDINGS: Pancreas: Largely obscured due to overlying bowel gas. Liver: Hyperechogenic parenchyma with slightly heterogeneous echotexture, possibly indicating fibrosis or steatosis. The liver measures 20 cm in maximal sagittal dimension. No sonographic evidence of hepatic mass. Main portal vein patent with normal directional flow. Biliary: No intrahepatic biliary ductal dilatation. Common bile duct measures up to 5 mm in diameter. Gallbladder: Decompressed. No gallstones. Right kidney: Cortical thinning with increased echogenicity of the parenchyma. No hydronephrosis. Ascites: Small volume ascites. IMPRESSION: 1. Hyperechogenic and slightly heterogeneous hepatic echotexture, could indicate underlying fibrosis or steatosis. 2. Hepatomegaly. 3. Ascites. 4. Medical renal disease suggested. Electronically signed by: Keith Holly M.D. 05/06/2017 6:19 AM Dictated Date/Time: 05/06/2017 6:16 AM
--- NOTE | 2017-05-06 06:22 | DIAGNOSTIC IMAGING REPORT ---
ASCITES-ABDOMEN LIMITED CLINICAL HISTORY: 36 years-old Male presenting with drew for drainage, ascites. TECHNIQUE: Real-time grayscale ultrasound imaging of the abdomen was performed for a limited and focused evaluation for ascites. COMPARISON: None. FINDINGS: Small volume ascites in the right upper and lower quadrants of the abdomen. Moderate volume ascites in the left upper and lower quadrants. Minimal debris may be present. IMPRESSION: 1. Moderate volume ascites in the left abdomen. Electronically signed by: Keith Holly M.D. 05/06/2017 6:21 AM Dictated Date/Time: 05/06/2017 6:19 AM
[2017-05-06 06:40] LABS: BUN/CREATININE RATIO 5.4 (10-20); CALCIUM 8.1 mg/dl (8.5-10.1); MAGNESIUM 1.9 mg/dl (1.8-2.4); PHOSPHORUS 6.6 mg/dl (2.5-4.9); POTASSIUM 5.9 mmol/L (3.5-5.1)
[2017-05-06 06:53] LABS: HEMATOCRIT 27.3 % (42-52); MEAN CELL VOLUME 91.9 fL (80-100); MEAN CORPUSCULAR HEMOGLOBIN 27.9 pg (25-34); MEAN CORPUSCULAR HGB CONC 30.4 g/dl (32-36); MEAN PLATELET VOLUME 8.8 fL (7.4-10.4); PLATELET COUNT 154 K/uL (130-400); RED BLOOD COUNT 2.97 M/uL (4.7-6.1); WHITE BLOOD COUNT 4.61 K/uL (4.8-10.8)
[2017-05-06] MEDS ORDERED: SODIUM POLYST. SULF SUSP 15G/60ML PO STA ×3 (07:06→13:42)
--- NOTE | 2017-05-06 07:29 | Hospitalist Progress Note ---
Hospitalist Progress Note Date of Service May 06, 2017. (Bette Lewis PA-C) Subjective Pt evaluation today including: conversation w/ patient, physical exam, chart review, lab review, review of studies PO Intake: Excellent Voiding: no voiding problems The patient was seen and examined this morning. Pt reports he was not allowed ativan yesterday, and is having abdominal pain because his stomach is so full of fluid. He did not get much sleep last night. Pt states dialysis went well. Discussion held about taking kayexalate- he reports he didn't really take it as prescribed last month because he felt well, and mentions it tastes bad. He reports again having his stomach drained about 2 months ago at [place]. Reports hx of having ascites drained off 5-6 x in the past 1.5 years. Additional Comments: Constitutional: No fever, No sweats or chills, No fatigue Eyes: No diplopia, No problem reported ENT: No trouble swallowing Cardiovascular: + orthopnea at baseline, + edema (BLE) improving, No chest pain , No palpitations Abdomen: +Abdominal hernia, + pain, +excess fluid, No nausea, No vomiting, No diarrhea, No constipation Musculoskeletal: + swelling- improving, No joint pain, No calf pain Genitourinary - Male: + problem reported (does make small amount of urine, twice daily), No dysuria Neurologic: No weakness, No numbness/tingling Psychiatric: + depression symptoms, + anxiety, + substance abuse Integumentary: + problem reported (weeping on left lower leg improving), No rash, No itch (Bette eLwis PA-C) Objective Vital Signs Date Time Temp Pulse Resp B/P (MAP) Pulse Ox O2 Delivery O2 Flow Rate FiO2 05/06/17 07:01 55 24 138/80 (94) 98 05/06/17 06:53 55 24 135/75 (94) 98 05/06/17 06:04 54 22 135/75 (94) 98 05/06/17 05:01 54 24 116/72 (84) 93 05/06/17 04:01 54 26 123/69 (84) 95 05/06/17 04:00 96 Nasal Cannula 2.0 05/06/17 04:00 36.5 05/06/17 03:01 54 28 131/64 (81) 96 05/06/17 02:01 57 23 101/50 (65) 94 05/06/17 01:01 57 21 107/50 (67) 95 05/06/17 00:01 59 27 131/62 (83) 94 05/06/17 00:01 36.5 05/05/17 23:59 94 Nasal Cannula 2.0 05/05/17 23:01 59 24 125/69 (94) 92 05/05/17 22:01 60 12 122/56 (81) 92 05/05/17 21:01 63 23 138/74 (81) 96 05/05/17 20:01 75 23 183/106 (116) 96 05/05/17 20:00 98 Nasal Cannula 2.0 05/05/17 20:00 36.7 05/05/17 19:01 77 26 176/95 (122) 96 05/05/17 18:00 75 19 178/92 (120) 98 Nasal Cannula 2.0 05/05/17 17:01 36.9 75 23 170/91 (117) 94 Nasal Cannula 2.0 05/05/17 16:01 73 24 170/90 (116) 94 Nasal Cannula 2.0 05/05/17 16:00 Nasal Cannula 2.0 05/05/17 14:16 75 21 153/78 (103) 95 Nasal Cannula 5.0 05/05/17 14:01 73 17 140/73 (95) 95 Nasal Cannula 5.0 05/05/17 13:46 36.7 73 160/72 (101) 05/05/17 13:30 78 152/80 05/05/17 13:15 72 162/83 05/05/17 13:00 76 168/83 05/05/17 12:45 71 157/83 05/05/17 12:30 74 188/100 05/05/17 12:15 78 168/94 05/05/17 12:01 80 19 172/85 (114) 98 Nasal Cannula 5.0 05/05/17 12:00 Nasal Cannula 5.0 05/05/17 12:00 75 172/85 05/05/17 11:45 75 152/92 05/05/17 11:30 80 166/88 05/05/17 11:15 69 140/78 05/05/17 11:00 76 153/73 05/05/17 10:45 74 146/74 05/05/17 10:30 71 144/71 05/05/17 10:15 73 149/74 05/05/17 10:01 73 19 164/87 (112) 100 05/05/17 10:00 73 164/87 05/05/17 09:46 72 23 163/90 (114) 98 05/05/17 09:45 71 163/90 05/05/17 09:35 Nasal Cannula 6.0 05/05/17 09:34 76 25 173/91 (118) 100 05/05/17 09:34 36.8 83 173/91 (118) (Bette Lewis PA-C) Physical Exam Notes: General Appearance: + obese, + pertinent finding (appears older than stated age ) Head: normocephalic, atraumatic Eyes: PERRL, EOMI, + pertinent finding (MM dry) ENT: hearing grossly normal, pharynx normal, + poor dentition - chewing snuff. Neck: no adenopathy, + JVD (mild) Respiratory/Chest: lungs clear, no respiratory distress, no accessory muscle use Cardiovascular: regular rate, rhythm, normal peripheral pulses, + JVD (mild), + systolic murmur Abdomen/GI: non tender, + pertinent finding (hypoactive bowel sounds, + dullness to percussion over LUQ, + abdominal hernia, outpouching area of skin in the RLQ) Back: normal inspection Extremities/Musculoskeletal: + pertinent finding (+ AVF with bruit and palpable trill in RUE, chronic venous stasis changes with weeping leg wounds on Left lateral side, weeping over R lateral lower leg appears improved, + decreased sensation to light touch. ) Neurologic/Psych: alert, oriented x 3 Skin: warm/dry (Bette Lewis PA-C) Laboratory Results Last 24 Hours Test 05/05/17 09:06 05/05/17 09:09 05/05/17 09:11 05/05/17 11:31 White Blood Count 8.25 K/uL Red Blood Count 3.32 M/uL Hemoglobin 9.5 g/dL Hematocrit 30.4 % Mean Corpuscular Volume 91.6 fL Mean Corpuscular Hemoglobin 28.6 pg Mean Corpuscular Hemoglobin Concent 31.3 g/dl Platelet Count 177 K/uL Mean Platelet Volume 9.0 fL Neutrophils (%) (Auto) 73.8 % Lymphocytes (%) (Auto) 13.0 % Monocytes (%) (Auto) 8.4 % Eosinophils (%) (Auto) 4.1 % Basophils (%) (Auto) 0.5 % Neutrophils # (Auto) 6.09 K/uL Lymphocytes # (Auto) 1.07 K/uL Monocytes # (Auto) 0.69 K/uL Eosinophils # (Auto) 0.34 K/uL Basophils # (Auto) 0.04 K/uL RDW Standard Deviation 52.7 fL RDW Coefficient of Variation 15.5 % Immature Granulocyte % (Auto) 0.2 % Immature Granulocyte # (Auto) 0.02 K/uL Prothrombin Time 12.7 SECONDS Prothromb Time International Ratio 1.2 Activated Partial Thromboplast Time 30.5 SECONDS Partial Thromboplastin Ratio 1.2 Hepatitis B Surface Antigen NEG Hepatitis B Surface Antibody POS Lactic Acid Level 0.9 mmol/L Sodium Level 136 mmol/L Potassium Level 7.4 mmol/L Chloride Level 102 mmol/L Carbon Dioxide Level 23 mmol/L Anion Gap 10.0 mmol/L Blood Urea Nitrogen 96 mg/dl Creatinine 17.00 mg/dl Est Creatinine Clear Calc Drug Dose 8.5 ml/min Estimated GFR () 3.6 Estimated GFR (Non- 3.1 BUN/Creatinine Ratio 5.6 Random Glucose 77 mg/dl Estimated Average Glucose 103 mg/dl Hemoglobin A1c 5.2 % Calcium Level 8.8 mg/dl Phosphorus Level 8.3 mg/dl Magnesium Level 2.1 mg/dl Total Bilirubin 0.6 mg/dl Direct Bilirubin 0.3 mg/dl Aspartate Amino Transf (AST/SGOT) 11 U/L Alanine Aminotransferase (ALT/SGPT) 11 U/L Alkaline Phosphatase 193 U/L Troponin I 0.061 ng/ml Total Protein 6.7 gm/dl Albumin 2.8 gm/dl Globulin 3.9 gm/dl Albumin/Globulin Ratio 0.7 Bedside Glucose 100 mg/dl Test 05/05/17 14:46 05/05/17 15:52 05/05/17 17:57 05/05/17 20:02 Ammonia 49.7 umol/L Bedside Glucose 99 mg/dl 93 mg/dl Troponin I 0.061 ng/ml Test 05/05/17 23:12 05/06/17 05:28 05/06/17 06:00 Sodium Level 136 mmol/L 136 mmol/L Potassium Level 5.8 mmol/L 5.9 mmol/L Chloride Level 103 mmol/L 102 mmol/L Carbon Dioxide Level 24 mmol/L 24 mmol/L Anion Gap 9.0 mmol/L 10.0 mmol/L Blood Urea Nitrogen 62 mg/dl 65 mg/dl Creatinine 12.00 mg/dl 12.00 mg/dl Est Creatinine Clear Calc Drug Dose 11.8 ml/min 11.5 ml/min Estimated GFR () 5.5 5.5 Estimated GFR (Non- 4.7 4.7 BUN/Creatinine Ratio 5.2 5.4 Random Glucose 157 mg/dl 81 mg/dl Calcium Level 7.9 mg/dl 8.1 mg/dl Magnesium Level 1.8 mg/dl 1.9 mg/dl White Blood Count 4.61 K/uL Red Blood Count 2.97 M/uL Hemoglobin 8.3 g/dL Hematocrit 27.3 % Mean Corpuscular Volume 91.9 fL Mean Corpuscular Hemoglobin 27.9 pg Mean Corpuscular Hemoglobin Concent 30.4 g/dl Platelet Count 154 K/uL Mean Platelet Volume 8.8 fL RDW Standard Deviation 52.7 fL RDW Coefficient of Variation 15.6 % Prothrombin Time 12.7 SECONDS Prothromb Time International Ratio 1.2 Activated Partial Thromboplast Time 26.0 SECONDS Partial Thromboplastin Ratio 1.0 Phosphorus Level 6.6 mg/dl Bedside Glucose 81 mg/dl (Bette Lewis, PA-C) Assessment and Plan This is a 36 yo M with PMHx of ESRD on HD MWF, HTN, HLD, obesity, hx of MRSA, chronic venous stasis changes with weeping leg wound, hx of DVT, depression, anxiety, chronic low back pain, morbid obesity, CARMEN, hx of DM but pt reports is not currently taking any medications, GERD, who presents from [facility] for hyperkalemia, volume overload and needs for emergent dialysis. ESRD on HD Hyperkalemia Volume overload - Admitted to ICU as transfer from [place] - Nephrology on board - underwent emergent dialysis on 05/05, resume regular MWF schedule as dialysis not in house on Sundays. Pt given Kayexalate 15 gm this am with Cr.=12, and K= 5.9, likely will need to titrate kayexalate up. Recheck PRP at noon. - Renal diet - Will continue nephrocaps - Daily weights - Strict I/Os - A1C- 5.2. No needs to continue iss with accuchecks. Renal disease due to hypertension, not diabetes ? Cirrhosis - Hx of paracentesis ~ 2 months ago, , possibly that he was supposed to be on lactulose 30 mg daily on 04/[address] Samaniego ?? - Checking RUQ u/s to assess liver- IMPRESSION: Moderate volume ascites in the left abdomen. - Liver US: IMPRESSION: 1. Hyperechogenic and slightly heterogeneous hepatic echotexture, could indicate underlying fibrosis or steatosis. 2. Hepatomegaly. 3. Ascites. 4. Medical renal disease suggested. - Ammonia ok, no signs of encephalopathy - Follow LFTs - Will discuss possibility of paracentesis with attending - currently tolerating full diet, no fever, chills, VSS and no leukocytosis. May need diagnostic and therapeutic tap prior to d/c? Elevated Trop - Will trend x 2 more sets, initial was 0.047, the next two consecutive sets were 0.061 - Elevated BNP was > 250,000 at OSH. - EKG reviewed from OSH - Check am EKG in am and prn chest pain - appears stable without changes. HTN - BP dropped quite significantly into 120s/80s with HR around 50s. - Med rec completed yesterday but there are some conflicting orders and pt is a poor historian. - Reduce carvedilol to 25 mg BID, continue valsartan 160 mg, switch cardizem to IR 60 mg Q6H so if needed can hold a dose, and will stop nadolol 80 mg HS. Holding losartan as pt not sure he was on this. Venous stasis changes BLE - Check wound culture of weeping area on left lateral leg - wound consult, pt apparently was following several months ago but no longer is - will need set up as outpatient - No antibiotics right now with no WBC, afebrile, no erythema for now. Chronic Pain - Unable to verify with pt specific of fentanyl patch - checking controlled substance meds, allow dilaudid 0.5 mg Q4H for now. - Pt appears to be using fentanyl patch 12 mcg Q3d as an outpt Depression/Anxiety - Pt klonopin and clonazepam being used differently than prescriped, - HOLD for now. GERD - Cont reglan, protonix daily. DVT ppx: heparin subq, CODE STATUS: FULL CODE Disposition: From home, d/c likely in 2-3 days (Bette Lewis, [place]) PA Physician Supervision Note: I interviewed and examined the patient. Discussed with Bette Lewis PAC and agree with findings and plan as documented in the note. Any exceptions or clarifications are listed here: None Patient is about the same as some improvement in his labs after dialysis potassium remains ultrasound of abdomen shows ascites patient states he was told his about a month ago outside facility looks steatosis hepatitis with these studies could also be from his fluid overload from missing his dialysis Vital signs remained stable exam shows heart is regular with murmur lungs decreased breath sounds at bases abdomen is with normal bowel sounds mildly tender extremities no changes chronic venous stasis Continue supportive care with electrolyte correction trending troponin is likely from his renal disease. Treating his Hyperkalemia. will move to telemetry status Documented By: Vin Currie (Vin Currie M.D.)
[2017-05-06 07:37] LABS: BASO % 0.9 %; BASO ABS # 0.04 K/uL (0-0.2); COMPLETE YES; EOS % 5.6 %; IG% 0.2 %; LYMPH % 21.7 %; MONO % 9.5 %; NEUT % 62.1 %; OVALOCYTES 1+
[2017-05-06] MEDS: MULTIVITAMIN TAB PO SCH (07:37)
[2017-05-06] MEDS: ASPIRIN 81 MG ECTAB PO SCH (07:37)
[2017-05-06] MEDS: SEVELAMER HYDROCH 800 MG TAB PO SCH ×3 (07:37→16:31)
[2017-05-06] MEDS: PANTOprazole SOD 40 MG TAB PO SCH (07:37)
[2017-05-06] MEDS: GABAPENTIN 100 MG CAP PO SCH ×3 (07:37→20:22)
[2017-05-06] MEDS: HEPARIN SOD 5000 UNIT/0.5 ML CARP SQ SCH ×2 (07:38→20:27)
[2017-05-06] MEDS: PANTOprazole INJ 40 MG in SYRINGE 0 ML IV SCH (07:38)
[2017-05-06] MEDS ORDERED: AMLODIPINE BESYLATE 5 MG TAB PO SCH (09:00)
[2017-05-06] MEDS ORDERED: DILTIAZEM HCL 240 MG CAPCR PO SCH (09:00)
[2017-05-06] MEDS: FUROSEMIDE 40 MG TAB PO SCH (09:31)
[2017-05-06] MEDS ORDERED: FUROSEMIDE INJ 120 MG in SYRINGE 0 ML IV SCH (10:00)
[2017-05-06] MEDS: VALSARTAN 80 MG TAB PO SCH (10:06)
[2017-05-06] MEDS: DILTIAZEM HCL 60 MG TAB PO SCH ×3 (10:07→20:19)
[2017-05-06] MEDS: CARVEDILOL 12.5 MG TAB PO SCH ×2 (10:25→20:21)
[2017-05-06] MEDS: SENSIPAR~ORDER AWAITING ACTION SCH ×3 (11:31→22:45)
--- NOTE | 2017-05-06 12:01 | Nephrology Progress Note ---
Nephrology Progress Note Date of Service May 06, 2017. Chief Complaint Follow-up for end-stage renal disease on hemodialysis. Jaiden Miles was seen and examined in his room in ICU this morning. He was lying in bed and complaining of abdominal pain but otherwise denied any shortness of breath or chest pain. Appetite has been decent. Had dialysis yesterday, uneventful. Had 4 liters UF. This morning, his potassium still elevated at 5.9 , has been on low-potassium diet. Review of Systems A complete review of systems was performed. Pertinent positives are noted above. All other systems are negative. Vital Signs Last 8 Hrs Date Time Temp Pulse Resp B/P (MAP) Pulse Ox O2 Delivery O2 Flow Rate FiO2 05/06/17 10:01 52 18 121/67 (85) 94 Nasal Cannula 2.0 05/06/17 09:01 59 28 137/90 (106) 96 Nasal Cannula 2.0 05/06/17 08:01 36.6 56 28 134/77 (96) 99 Nasal Cannula 2.0 05/06/17 08:00 Nasal Cannula 2.0 05/06/17 07:01 55 24 138/80 (99) 98 Nasal Cannula 2.0 05/06/17 07:01 55 24 138/80 (94) 98 05/06/17 06:53 55 24 135/75 (94) 98 05/06/17 06:04 54 22 135/75 (94) 98 05/06/17 05:01 54 24 116/72 (84) 93 05/06/17 04:01 54 26 123/69 (84) 95 05/06/17 04:00 96 Nasal Cannula 2.0 05/06/17 04:00 36.5 Last Recorded Weight Weight (Kilograms): 130.300 Physical Exam GENERAL: Young male, AAA x 3, not in any distress. NECK: Supple, no JVD. RESPIRATORY: Normal breathing efforts, no accessory muscle use, clear to auscultation bilaterally, no wheezes or rales. CARDIOVASCULAR: S1, S2 normal, rate rhythm regular. ABDOMEN: Distended, mild diffuse tenderness, positive bowel sound. EXTREMITY: Bilateral no lower extremity nonpitting edema, skin thickening, chronic ulcer NEURO: speech fluent. PSYCHIATRY: Normal mood and judgment Social History Smokeless Tobacco Use: No Alcohol Use: none Marital Status: Housing Status: lives with family (mother and son) Occupation: unemployed Laboratory Results Past 24 Hours 05/06/17 05:28 Red Blood Count 2.97, Mean Corpuscular Volume 91.9, Mean Corpuscular Hemoglobin 27.9, Mean Corpuscular Hemoglobin Concent 30.4, Mean Platelet Volume 8.8, Neutrophils (%) (Auto) 62.1, Lymphocytes (%) (Auto) 21.7, Monocytes (%) (Auto) 9.5, Eosinophils (%) (Auto) 5.6, Basophils (%) (Auto) 0.9, Neutrophils # (Auto) 2.86, Lymphocytes # (Auto) 1.00, Monocytes # (Auto) 0.44, Eosinophils # (Auto) 0.26, Basophils # (Auto) 0.04 05/05/17 23:12 05/06/17 05:28 Test 05/05/17 14:46 05/05/17 15:52 05/05/17 17:57 05/05/17 20:02 Ammonia 49.7 umol/L (11-32) Bedside Glucose 99 mg/dl (70-99) 93 mg/dl (70-99) Troponin I 0.061 ng/ml (0-0.045) Test 05/05/17 23:12 05/06/17 05:28 05/06/17 06:00 Anion Gap 9.0 mmol/L (3-11) 10.0 mmol/L (3-11) Est Creatinine Clear Calc Drug Dose 11.8 ml/min 11.5 ml/min Estimated GFR () 5.5 5.5 Estimated GFR (Non- 4.7 4.7 BUN/Creatinine Ratio 5.2 (10-20) 5.4 (10-20) Calcium Level 7.9 mg/dl (8.5-10.1) 8.1 mg/dl (8.5-10.1) Magnesium Level 1.8 mg/dl (1.8-2.4) 1.9 mg/dl (1.8-2.4) White Blood Count 4.61 K/uL (4.8-10.8) Red Blood Count 2.97 M/uL (4.7-6.1) Hemoglobin 8.3 g/dL (14.0-18.0) Hematocrit 27.3 % (42-52) Mean Corpuscular Volume 91.9 fL (80-100) Mean Corpuscular Hemoglobin 27.9 pg (25-34) Mean Corpuscular Hemoglobin Concent 30.4 g/dl (32-36) Platelet Count 154 K/uL (130-400) Mean Platelet Volume 8.8 fL (7.4-10.4) Neutrophils (%) (Auto) 62.1 % Lymphocytes (%) (Auto) 21.7 % Monocytes (%) (Auto) 9.5 % Eosinophils (%) (Auto) 5.6 % Basophils (%) (Auto) 0.9 % Neutrophils # (Auto) 2.86 K/uL (1.4-6.5) Lymphocytes # (Auto) 1.00 K/uL (1.2-3.4) Monocytes # (Auto) 0.44 K/uL (0.11-0.59) Eosinophils # (Auto) 0.26 K/uL (0-0.5) Basophils # (Auto) 0.04 K/uL (0-0.2) RDW Standard Deviation 52.7 fL (36.4-46.3) RDW Coefficient of Variation 15.6 % (11.5-14.5) Immature Granulocyte % (Auto) 0.2 % Immature Granulocyte # (Auto) 0.01 K/uL (0.00-0.02) Ovalocytes 1+ Prothrombin Time 12.7 SECONDS (9.0-12.0) Prothromb Time International Ratio 1.2 (0.9-1.1) Activated Partial Thromboplast Time 26.0 SECONDS (21.0-31.0) Partial Thromboplastin Ratio 1.0 Phosphorus Level 6.6 mg/dl (2.5-4.9) Bedside Glucose 81 mg/dl (70-99) Allergies Coded Allergies: Ketorolac Tromethamine (Verified Allergy, Unknown, Itchiness and hives, 09/05/14) Reported by PT Tramadol (Verified Allergy, Unknown, Itchiness and hives, 09/05/14) Reported by PT Acetaminophen (Verified Adverse Reaction, Unknown, NAUSEA,VOMITING, ) REPORTED BY PT. Codeine (Verified Adverse Reaction, Unknown, NAUSEA,VOMITING, 05/05/17) REPORTED BY PT. Medications Current Inpatient Medications Medications (Trade) Dose Ordered Sig/Julio Route Start Time Stop Time Status Last Admin Dose Admin Heparin Sodium (Porcine) (Heparin Sq 5000 Unit/0.5ml) 5,000 unit Q12 SQ 05/05/17 09:00 06/04/17 08:59 05/06/17 07:38 5,000 UNIT Acetaminophen (Tylenol Tab) 650 mg Q4H PRN PO 05/05/17 08:30 06/04/17 08:29 05/05/17 20:00 650 MG Pantoprazole Sodium 40 mg/ Syringe 10 ml @ 5 mls/min DAILY IV 05/05/17 09:00 06/04/17 08:59 05/05/17 11:32 5 MLS/MIN Hydromorphone HCl (Dilaudid Tab) 0.5 mg Q4H PRN PO 05/05/17 08:30 05/19/17 08:29 05/06/17 10:07 0.5 MG Aspirin (Ecotrin Tab) 81 mg DAILY PO 05/06/17 09:00 06/05/17 08:59 05/06/17 07:37 81 MG Calcitriol (Rocaltrol Cap) 1 mcg MoWeFr@0900 PO 05/05/17 10:00 06/04/17 09:59 05/05/17 14:29 1 MCG Cyclobenzaprine HCl (Flexeril Tab) 10 mg TID PRN PO 05/05/17 09:15 06/04/17 09:14 Folic Acid (Folvite Tab) 1 mg DAILY PO 05/06/17 09:00 06/05/17 08:59 05/06/17 07:37 1 MG Furosemide (Lasix Tab) 40 mg DAILY PO 05/06/17 09:00 06/05/17 08:59 Gabapentin (Neurontin Cap) 100 mg TID PO 05/05/17 14:00 06/04/17 13:59 05/06/17 07:37 100 MG Metoclopramide HCl (Reglan Tab) 5 mg ACHS PO 05/05/17 11:00 06/04/17 10:59 05/06/17 11:41 5 MG Multivitamins (Multivitamin Tab) 1 tab DAILY PO 05/06/17 09:00 06/05/17 08:59 05/06/17 07:37 1 TAB Pantoprazole Sodium (Protonix Tab) 40 mg DAILY PO 05/06/17 09:00 06/05/17 08:59 05/06/17 07:37 40 MG Simvastatin (Zocor Tab) 40 mg HS PO 05/05/17 21:00 06/04/17 20:59 05/05/17 20:07 40 MG Valsartan (Diovan Tab) 160 mg DAILY PO 05/06/17 09:00 06/05/17 08:59 05/06/17 10:06 160 MG Vitamin B Complex/ Vit C/Folic Acid (Nephrocaps) 1 cap HS PO 05/05/17 21:00 06/04/17 20:59 05/05/17 20:08 1 CAP Miscellaneous Information (Order Awaiting Action) 1 ea QS N/A 05/06/17 11:00 06/05/17 10:59 Sevelamer HCl (Renagel Tab) 800 mg TIDM PO 05/05/17 11:30 06/04/17 11:29 05/06/17 11:41 800 MG Glucose (Glucose 40% Gel) 15-30 GRAMS 15 GRAMS... UD PRN PO 05/05/17 10:30 06/04/17 10:29 Glucose (Glucose Chew Tab) 4-8 Tablets 4 Tabl... UD PRN PO 05/05/17 10:30 06/04/17 10:29 Dextrose (Dextrose 50% 50ML Syringe) 25-50ML OF 50% DW IV FOR... UD PRN IV 05/05/17 10:30 06/04/17 10:29 Glucagon (Glucagon Inj) 1 mg UD PRN SQ 05/05/17 10:30 06/04/17 10:29 Carvedilol (Coreg Tab) 12.5 mg BID PO 05/06/17 09:00 06/04/17 20:59 Diltiazem HCl (Cardizem Tab) 60 mg Q6H PO 05/06/17 09:00 06/05/17 08:59 05/06/17 10:07 60 MG Impression (1) End stage renal disease due to hypertension (2) Hyperkalemia (3) Volume overload (4) Hypertensive emergency (5) Secondary hyperparathyroidism of renal origin (6) Anemia (7) Chronic ulcer of leg with fat layer exposed Jd is a 36 y o m with ESRD secondary to hypertensive nephropathy on hemodialysis Sunday, Sunday, Sunday, presented with respiratory distress, volume overload and hyperkalemia after missing dialysis for 2 weeks. Blood pressure elevated with systolic 190s to 210, has evidence of volume overload and pulmonary condition as well as potassium of 8.3. He has a well-functioning left brachiocephalic AV fistula. Recommendations --patient received 1 dose of Kayexalate this morning, will wait for the repeat potassium level, if potassium stays below 5.7, weight on dialysis tomorrow otherwise we may have to schedule for emergency dialysis this afternoon --will give 1 extra dose of Lasix 120 mg IV --continue antihypertensive medications including valsartan, Lasix and amlodipine --continue on sevelamer and calcitriol --continue on low-potassium, renal diet Will follow
[2017-05-06 13:26] LABS: BUN/CREATININE RATIO 5.1 (10-20); CALCIUM 8.1 mg/dl (8.5-10.1); POTASSIUM 5.6 mmol/L (3.5-5.1)
--- NOTE | 2017-05-06 13:49 | Critical Care Progress Note ---
Critical Care Progress Note Date of Service May 06, 2017. Attending Dr. Pato Hwang I personally examined this patient, reviewed his clinical and laboratory data, troponin chest x-ray in form related to the plan of care. In summary, the patient is a unfortunate 46-year-old morbidly obese man with multiple medical problems including hemodialysis dependent end-stage renal disease, hypertension, hyperlipidemia, chronic venous stasis, DVT, depression, anxiety, chronic back pain, osteoarthritis, diabetes mellitus who skipped 5 sessions of hemodialysis as his car broke and he was not able to get to hemodialysis center. He developed progressively worsening shortness of breath, lethargy and fatigue. He was taken to [facility] emergency room. Patient was found to be grossly fluid overloaded, hypertensive, hyperkalemic with potassium 8.4, creatinine 17. He was treated with glucose, insulin, calcium gluconate, Kayexalate. Patient was transferred critically ill to [facility] for arginine hemodialysis. Objective GENERAL: young male, sleepy, easily arousable, slightly uncomfortable due to shortness of breath. HEENT: Atraumatic, normocephalic. NECK: Supple, no carotid bruit appreciated. ENT: No sinus tenderness MOUTH and THROAT: Moist oral mucosa, no oral ulcer or pharyngeal erythema RESPIRATORY: bibasilar rales decreased breath sounds at the bases, CARDIOVASCULAR: S1, S2 normal, rate rhythm regular. ABDOMEN: Soft, large, nontender, positive bowel sound. No hepatosplenomegaly MUSCULOSKELETAL: No CVA tenderness. No joint swelling, erythema or tenderness. Normal range of motion. SKIN: No skin rash EXTREMITY: lower extremity non pitting edema, chronic ulcer with oozing, skin thickening, chronic changes NEURO: No gross focal neurological deficit, speech fluent. PSYCHIATRY: Flat affect Assessment & Plan 1. Noncompliance with hemodialysis, fluid overload, severe hyperkalemia. Patient underwent urgent hemodialysis treatment yesterday with removal of 4 L of fluid. Mild hyperkalemia this morning. Patient was treated with Kayexalate. If there is any improvement in lowering potassium level next modalities treatment will be scheduled for tomorrow. 2. Respiratory: Good gas exchange on room air. 3. Hemodynamics are acceptable. Hypertension is adequately controlled on Cardizem, carvedilol, valsartan. Lasix was restarted. 4. ID: No obvious source of infection. 5. GI: Tolerates diet well. Ultrasound of the liver revealed hyperechogenic and slightly heterogenous hepatic echotexture, could indicate underlying fibrosis or steatosis, hepatomegaly, ascites. No biliary tree obstruction. Suspect changes from increased right sided pressures. 6. Chronic skin changes, seeping lower extremity wounds. Wound care consult. Does not appear to be infected. Off antibiotics. He has improved so we'll transfer him to the regular nursing floor for further management. [id number] note. [place] II Score Date Score Was Generated: May 06, 2017 Consults & Procedures Consultants: Nephrology. Critical care medicine. Procedures: None. Data Medications: Current Inpatient Medications Medications (Trade) Dose Ordered Sig/Julio Route Start Time Stop Time Status Last Admin Dose Admin Heparin Sodium (Porcine) (Heparin Sq 5000 Unit/0.5ml) 5,000 unit Q12 SQ 05/05/17 09:00 06/04/17 08:59 05/06/17 07:38 5,000 UNIT Acetaminophen (Tylenol Tab) 650 mg Q4H PRN PO 05/05/17 08:30 06/04/17 08:29 05/05/17 20:00 650 MG Pantoprazole Sodium 40 mg/ Syringe 10 ml @ 5 mls/min DAILY IV 05/05/17 09:00 06/04/17 08:59 05/05/17 11:32 5 MLS/MIN Hydromorphone HCl (Dilaudid Tab) 0.5 mg Q4H PRN PO 05/05/17 08:30 05/19/17 08:29 05/06/17 10:07 0.5 MG Aspirin (Ecotrin Tab) 81 mg DAILY PO 05/06/17 09:00 06/05/17 08:59 05/06/17 07:37 81 MG Calcitriol (Rocaltrol Cap) 1 mcg MoWeFr@0900 PO 05/05/17 10:00 06/04/17 09:59 05/05/17 14:29 1 MCG Cyclobenzaprine HCl (Flexeril Tab) 10 mg TID PRN PO 05/05/17 09:15 06/04/17 09:14 Folic Acid (Folvite Tab) 1 mg DAILY PO 05/06/17 09:00 06/05/17 08:59 05/06/17 07:37 1 MG Furosemide (Lasix Tab) 40 mg DAILY PO 05/06/17 09:00 06/05/17 08:59 Gabapentin (Neurontin Cap) 100 mg TID PO 05/05/17 14:00 06/04/17 13:59 05/06/17 07:37 100 MG Metoclopramide HCl (Reglan Tab) 5 mg ACHS PO 05/05/17 11:00 06/04/17 10:59 05/06/17 11:41 5 MG Multivitamins (Multivitamin Tab) 1 tab DAILY PO 05/06/17 09:00 06/05/17 08:59 05/06/17 07:37 1 TAB Pantoprazole Sodium (Protonix Tab) 40 mg DAILY PO 05/06/17 09:00 06/05/17 08:59 05/06/17 07:37 40 MG Simvastatin (Zocor Tab) 40 mg HS PO 05/05/17 21:00 06/04/17 20:59 05/05/17 20:07 40 MG Valsartan (Diovan Tab) 160 mg DAILY PO 05/06/17 09:00 06/05/17 08:59 05/06/17 10:06 160 MG Vitamin B Complex/ Vit C/Folic Acid (Nephrocaps) 1 cap HS PO 05/05/17 21:00 06/04/17 20:59 05/05/17 20:08 1 CAP Miscellaneous Information (Order Awaiting Action) 1 ea QS N/A 05/06/17 11:00 06/05/17 10:59 Sevelamer HCl (Renagel Tab) 800 mg TIDM PO 05/05/17 11:30 06/04/17 11:29 05/06/17 11:41 800 MG Glucose (Glucose 40% Gel) 15-30 GRAMS 15 GRAMS... UD PRN PO 05/05/17 10:30 06/04/17 10:29 Glucose (Glucose Chew Tab) 4-8 Tablets 4 Tabl... UD PRN PO 05/05/17 10:30 06/04/17 10:29 Dextrose (Dextrose 50% 50ML Syringe) 25-50ML OF 50% DW IV FOR... UD PRN IV 05/05/17 10:30 06/04/17 10:29 Glucagon (Glucagon Inj) 1 mg UD PRN SQ 05/05/17 10:30 06/04/17 10:29 Carvedilol (Coreg Tab) 12.5 mg BID PO 05/06/17 09:00 06/04/17 20:59 Diltiazem HCl (Cardizem Tab) 60 mg Q6H PO 05/06/17 09:00 06/05/17 08:59 05/06/17 10:07 60 MG Vital Signs: Date Time Temp Pulse Resp B/P (MAP) Pulse Ox O2 Delivery O2 Flow Rate FiO2 05/06/17 12:44 36.3 54 18 119/66 (83) 98 Room Air 05/06/17 12:22 36.6 57 15 95 2.0 05/06/17 12:00 Nasal Cannula 2.0 05/06/17 11:01 57 15 153/87 (109) 95 Nasal Cannula 2.0 05/06/17 10:01 52 18 121/67 (85) 94 Nasal Cannula 2.0 05/06/17 09:01 59 28 137/90 (106) 96 Nasal Cannula 2.0 05/06/17 08:01 36.6 56 28 134/77 (96) 99 Nasal Cannula 2.0 05/06/17 08:00 Nasal Cannula 2.0 05/06/17 07:01 55 24 138/80 (99) 98 Nasal Cannula 2.0 05/06/17 07:01 55 24 138/80 (94) 98 05/06/17 06:53 55 24 135/75 (94) 98 05/06/17 06:04 54 22 135/75 (94) 98 05/06/17 05:01 54 24 116/72 (84) 93 05/06/17 04:01 54 26 123/69 (84) 95 05/06/17 04:00 96 Nasal Cannula 2.0 05/06/17 04:00 36.5 05/06/17 03:01 54 28 131/64 (81) 96 05/06/17 02:01 57 23 101/50 (65) 94 05/06/17 01:01 57 21 107/50 (67) 95 05/06/17 00:01 59 27 131/62 (83) 94 05/06/17 00:01 36.5 05/05/17 23:59 94 Nasal Cannula 2.0 05/05/17 23:01 59 24 125/69 (94) 92 05/05/17 22:01 60 12 122/56 (81) 92 05/05/17 21:01 63 23 138/74 (81) 96 05/05/17 20:01 75 23 183/106 (116) 96 05/05/17 20:00 98 Nasal Cannula 2.0 05/05/17 20:00 36.7 05/05/17 19:01 77 26 176/95 (122) 96 05/05/17 18:00 75 19 178/92 (120) 98 Nasal Cannula 2.0 05/05/17 17:01 36.9 75 23 170/91 (117) 94 Nasal Cannula 2.0 05/05/17 16:01 73 24 170/90 (116) 94 Nasal Cannula 2.0 05/05/17 16:00 Nasal Cannula 2.0 05/05/17 14:16 75 21 153/78 (103) 95 Nasal Cannula 5.0 05/05/17 14:01 73 17 140/73 (95) 95 Nasal Cannula 5.0 05/05/17 13:46 36.7 73 160/72 (101) Laboratory Results: Last 24 Hours Test 05/05/17 14:46 05/05/17 15:52 05/05/17 17:57 05/05/17 20:02 Ammonia 49.7 umol/L Bedside Glucose 99 mg/dl 93 mg/dl Troponin I 0.061 ng/ml Test 05/05/17 23:12 05/06/17 05:28 05/06/17 06:00 05/06/17 12:05 Sodium Level 136 mmol/L 136 mmol/L 138 mmol/L Potassium Level 5.8 mmol/L 5.9 mmol/L 5.6 mmol/L Chloride Level 103 mmol/L 102 mmol/L 102 mmol/L Carbon Dioxide Level 24 mmol/L 24 mmol/L 26 mmol/L Anion Gap 9.0 mmol/L 10.0 mmol/L 10.0 mmol/L Blood Urea Nitrogen 62 mg/dl 65 mg/dl 66 mg/dl Creatinine 12.00 mg/dl 12.00 mg/dl 13.00 mg/dl Est Creatinine Clear Calc Drug Dose 11.8 ml/min 11.5 ml/min 10.6 ml/min Estimated GFR () 5.5 5.5 5.0 Estimated GFR (Non- 4.7 4.7 4.3 BUN/Creatinine Ratio 5.2 5.4 5.1 Random Glucose 157 mg/dl 81 mg/dl 103 mg/dl Calcium Level 7.9 mg/dl 8.1 mg/dl 8.1 mg/dl Magnesium Level 1.8 mg/dl 1.9 mg/dl White Blood Count 4.61 K/uL Red Blood Count 2.97 M/uL Hemoglobin 8.3 g/dL Hematocrit 27.3 % Mean Corpuscular Volume 91.9 fL Mean Corpuscular Hemoglobin 27.9 pg Mean Corpuscular Hemoglobin Concent 30.4 g/dl Platelet Count 154 K/uL Mean Platelet Volume 8.8 fL Neutrophils (%) (Auto) 62.1 % Lymphocytes (%) (Auto) 21.7 % Monocytes (%) (Auto) 9.5 % Eosinophils (%) (Auto) 5.6 % Basophils (%) (Auto) 0.9 % Neutrophils # (Auto) 2.86 K/uL Lymphocytes # (Auto) 1.00 K/uL Monocytes # (Auto) 0.44 K/uL Eosinophils # (Auto) 0.26 K/uL Basophils # (Auto) 0.04 K/uL RDW Standard Deviation 52.7 fL RDW Coefficient of Variation 15.6 % Immature Granulocyte % (Auto) 0.2 % Immature Granulocyte # (Auto) 0.01 K/uL Ovalocytes 1+ Prothrombin Time 12.7 SECONDS Prothromb Time International Ratio 1.2 Activated Partial Thromboplast Time 26.0 SECONDS Partial Thromboplastin Ratio 1.0 Phosphorus Level 6.6 mg/dl Bedside Glucose 81 mg/dl
[2017-05-06] MEDS: SIMVASTATIN 40 MG TAB PO SCH (20:18)
[2017-05-06] MEDS: NEPHROCAPS PO SCH (20:18)
[2017-05-06] MEDS: EUCERIN CR 120 GM JAR EXT SCH (20:23)
[2017-05-06] MEDS ORDERED: NURSING VERBAL MED ORDER ONE (21:45)
[2017-05-06] MEDS ORDERED: LORAZEPAM 1 MG TAB PO ONE (22:00)
[2017-05-07] VITALS (26 sets, daily range): BP systolic 108–152; BP diastolic 54–80; PULSE 53–62; TEMP 36.6; O2SAT 94–99
[2017-05-07] MEDS: DILTIAZEM HCL 60 MG TAB PO SCH ×3 (01:17→23:46)
[2017-05-07 06:24] LABS: BASO % 0.7 %; BASO ABS # 0.04 K/uL (0-0.2); EOS % 8.5 %; HEMATOCRIT 28.2 % (42-52); IG% 0.4 %; LYMPH % 16.5 %; LYMPH ABS # 0.89 K/uL (1.2-3.4); MEAN CELL VOLUME 92.8 fL (80-100); MEAN CORPUSCULAR HEMOGLOBIN 28.3 pg (25-34); MEAN CORPUSCULAR HGB CONC 30.5 g/dl (32-36); MEAN PLATELET VOLUME 8.8 fL (7.4-10.4); MONO % 9.6 %; NEUT % 64.3 %; PLATELET COUNT 157 K/uL (130-400); RED BLOOD COUNT 3.04 M/uL (4.7-6.1); WHITE BLOOD COUNT 5.41 K/uL (4.8-10.8)
[2017-05-07 06:43] LABS: INR 1.1 (0.9-1.1); PARTIAL THROMBOPLASTIN RATIO 1.1; PROTHROMBIN TIME (PATIENT) 12.2 SECONDS (9.0-12.0)
[2017-05-07 07:05] LABS: BUN/CREATININE RATIO 5.5 (10-20); CALCIUM 8.1 mg/dl (8.5-10.1); PHOSPHORUS 7.8 mg/dl (2.5-4.9); POTASSIUM 5.9 mmol/L (3.5-5.1)
[2017-05-07 07:08] LABS: COMPLETE YES; HYPERSEGMENTED POLYS 1+
[2017-05-07] MEDS: HYDROmorphone HCL 2 MG TAB PO PRN ×3 (08:18→22:02)
[2017-05-07] MEDS: PANTOprazole INJ 40 MG in SYRINGE 0 ML IV SCH (08:19)
[2017-05-07] MEDS: METOCLOPRAMIDE HCL 10 MG TAB PO SCH ×4 (08:19→21:53)
[2017-05-07] MEDS: SEVELAMER HYDROCH 800 MG TAB PO SCH ×3 (08:19→16:41)
[2017-05-07] MEDS: FUROSEMIDE 40 MG TAB PO SCH (08:20)
[2017-05-07] MEDS: EUCERIN CR 120 GM JAR EXT SCH ×2 (08:20→21:59)
[2017-05-07] MEDS: VALSARTAN 80 MG TAB PO SCH (08:21)
[2017-05-07] MEDS: MULTIVITAMIN TAB PO SCH (08:21)
[2017-05-07] MEDS: ASPIRIN 81 MG ECTAB PO SCH (08:22)
[2017-05-07] MEDS: CALCITRIOL 0.25 MCG CAP PO SCH (08:22)
[2017-05-07] MEDS: GABAPENTIN 100 MG CAP PO SCH ×3 (08:23→21:53)
[2017-05-07] MEDS: PANTOprazole SOD 40 MG TAB PO SCH (08:23)
[2017-05-07] MEDS: HEPARIN SOD 5000 UNIT/0.5 ML CARP SQ SCH ×2 (08:24→21:58)
[2017-05-07] MEDS ORDERED: CLONAZEPAM 1 MG TAB ONE (08:35)
[2017-05-07] MEDS: CARVEDILOL 12.5 MG TAB PO SCH ×2 (09:00→21:53)
--- NOTE | 2017-05-07 10:14 | Nephrology Progress Note ---
Nephrology Progress Note Date of Service May 07, 2017. Chief Complaint Follow-up for end-stage renal disease on hemodialysis. Jaiden Miles was seen and examined in his room in ICU this morning. He was lying in bed and complaining of abdominal pain but otherwise denied any shortness of breath or chest pain. No fever,chills. Appetite has been decent. BP stable, potassium still elevated, has been on low-potassium diet. Review of Systems A complete review of systems was performed. Pertinent positives are noted above. All other systems are negative. Vital Signs Last 8 Hrs Date Time Temp Pulse Resp B/P (MAP) Pulse Ox O2 Delivery O2 Flow Rate FiO2 05/07/17 09:45 56 135/75 05/07/17 09:30 59 152/80 05/07/17 09:07 36.6 59 146/78 (100) 05/07/17 08:30 94 Nasal Cannula 5.0 05/07/17 07:40 36.6 57 18 108/54 (72) 94 5.0 05/07/17 04:00 Nasal Cannula 5.0 05/07/17 03:59 36.6 54 21 135/75 (95) 98 Nasal Cannula 5.0 Last Recorded Weight Weight (Kilograms): 141.800 Physical Exam GENERAL: young male, AAA x 3, not in any distress. NECK: Supple, no JVD. RESPIRATORY: Normal breathing efforts, no accessory muscle use, clear to auscultation bilaterally, no wheezes or rales. CARDIOVASCULAR: S1, S2 normal, rate rhythm regular. ABDOMEN: Distended, mild diffuse tenderness, positive bowel sound EXTREMITY: Bilateral lower extremity with chronic ulcer, the rough thickened skin. NEURO: speech fluent. PSYCHIATRY: Normal mood and judgment Social History Smokeless Tobacco Use: No Alcohol Use: none Marital Status: Housing Status: lives with family (mother and son) Occupation: unemployed Laboratory Results Past 24 Hours 05/07/17 06:08 Red Blood Count 3.04, Mean Corpuscular Volume 92.8, Mean Corpuscular Hemoglobin 28.3, Mean Corpuscular Hemoglobin Concent 30.5, Mean Platelet Volume 8.8, Neutrophils (%) (Auto) 64.3, Lymphocytes (%) (Auto) 16.5, Monocytes (%) (Auto) 9.6, Eosinophils (%) (Auto) 8.5, Basophils (%) (Auto) 0.7, Neutrophils # (Auto) 3.48, Lymphocytes # (Auto) 0.89, Monocytes # (Auto) 0.52, Eosinophils # (Auto) 0.46, Basophils # (Auto) 0.04 05/06/17 12:05 05/07/17 06:08 Test 05/06/17 12:05 05/06/17 21:39 05/07/17 06:04 05/07/17 06:08 Anion Gap 10.0 mmol/L (3-11) 10.0 mmol/L (3-11) Est Creatinine Clear Calc Drug Dose 10.6 ml/min 11.0 ml/min Estimated GFR () 5.0 5.0 Estimated GFR (Non- 4.3 4.3 BUN/Creatinine Ratio 5.1 (10-20) 5.5 (10-20) Calcium Level 8.1 mg/dl (8.5-10.1) 8.1 mg/dl (8.5-10.1) Bedside Glucose 99 mg/dl (70-99) 80 mg/dl (70-99) White Blood Count 5.41 K/uL (4.8-10.8) Red Blood Count 3.04 M/uL (4.7-6.1) Hemoglobin 8.6 g/dL (14.0-18.0) Hematocrit 28.2 % (42-52) Mean Corpuscular Volume 92.8 fL (80-100) Mean Corpuscular Hemoglobin 28.3 pg (25-34) Mean Corpuscular Hemoglobin Concent 30.5 g/dl (32-36) Platelet Count 157 K/uL (130-400) Mean Platelet Volume 8.8 fL (7.4-10.4) Neutrophils (%) (Auto) 64.3 % Lymphocytes (%) (Auto) 16.5 % Monocytes (%) (Auto) 9.6 % Eosinophils (%) (Auto) 8.5 % Basophils (%) (Auto) 0.7 % Neutrophils # (Auto) 3.48 K/uL (1.4-6.5) Lymphocytes # (Auto) 0.89 K/uL (1.2-3.4) Monocytes # (Auto) 0.52 K/uL (0.11-0.59) Eosinophils # (Auto) 0.46 K/uL (0-0.5) Basophils # (Auto) 0.04 K/uL (0-0.2) RDW Standard Deviation 52.9 fL (36.4-46.3) RDW Coefficient of Variation 15.5 % (11.5-14.5) Immature Granulocyte % (Auto) 0.4 % Immature Granulocyte # (Auto) 0.02 K/uL (0.00-0.02) Hypersegmented Polys 1+ Red Blood Cell Morphology Unremarkable Prothrombin Time 12.2 SECONDS (9.0-12.0) Prothromb Time International Ratio 1.1 (0.9-1.1) Activated Partial Thromboplast Time 28.3 SECONDS (21.0-31.0) Partial Thromboplastin Ratio 1.1 Phosphorus Level 7.8 mg/dl (2.5-4.9) Magnesium Level 2.0 mg/dl (1.8-2.4) Allergies Coded Allergies: Ketorolac Tromethamine (Verified Allergy, Unknown, Itchiness and hives, 09/05/14) Reported by PT Tramadol (Verified Allergy, Unknown, Itchiness and hives, 09/05/14) Reported by PT Acetaminophen (Verified Adverse Reaction, Unknown, NAUSEA,VOMITING, ) REPORTED BY PT. Codeine (Verified Adverse Reaction, Unknown, NAUSEA,VOMITING, 05/05/17) REPORTED BY PT. Medications Current Inpatient Medications Medications (Trade) Dose Ordered Sig/Julio Route Start Time Stop Time Status Last Admin Dose Admin Heparin Sodium (Porcine) (Heparin Sq 5000 Unit/0.5ml) 5,000 unit Q12 SQ 05/05/17 09:00 06/04/17 08:59 05/07/17 08:24 5,000 UNIT Acetaminophen (Tylenol Tab) 650 mg Q4H PRN PO 05/05/17 08:30 06/04/17 08:29 05/05/17 20:00 650 MG Pantoprazole Sodium 40 mg/ Syringe 10 ml @ 5 mls/min DAILY IV 05/05/17 09:00 06/04/17 08:59 05/07/17 08:19 5 MLS/MIN Hydromorphone HCl (Dilaudid Tab) 0.5 mg Q4H PRN PO 05/05/17 08:30 05/19/17 08:29 05/07/17 08:18 0.5 MG Aspirin (Ecotrin Tab) 81 mg DAILY PO 05/06/17 09:00 06/05/17 08:59 05/07/17 08:22 81 MG Calcitriol (Rocaltrol Cap) 1 mcg MoWeFr@0900 PO 05/05/17 10:00 06/04/17 09:59 05/07/17 08:22 1 MCG Cyclobenzaprine HCl (Flexeril Tab) 10 mg TID PRN PO 05/05/17 09:15 06/04/17 09:14 Folic Acid (Folvite Tab) 1 mg DAILY PO 05/06/17 09:00 06/05/17 08:59 05/07/17 08:21 1 MG Furosemide (Lasix Tab) 40 mg DAILY PO 05/06/17 09:00 06/05/17 08:59 05/07/17 08:20 40 MG Gabapentin (Neurontin Cap) 100 mg TID PO 05/05/17 14:00 06/04/17 13:59 05/07/17 08:23 100 MG Metoclopramide HCl (Reglan Tab) 5 mg ACHS PO 05/05/17 11:00 06/04/17 10:59 05/07/17 08:19 5 MG Multivitamins (Multivitamin Tab) 1 tab DAILY PO 05/06/17 09:00 06/05/17 08:59 05/07/17 08:21 1 TAB Pantoprazole Sodium (Protonix Tab) 40 mg DAILY PO 05/06/17 09:00 06/05/17 08:59 05/07/17 08:23 40 MG Simvastatin (Zocor Tab) 40 mg HS PO 05/05/17 21:00 06/04/17 20:59 05/06/17 20:18 40 MG Valsartan (Diovan Tab) 160 mg DAILY PO 05/06/17 09:00 06/05/17 08:59 05/07/17 08:21 160 MG Vitamin B Complex/ Vit C/Folic Acid (Nephrocaps) 1 cap HS PO 05/05/17 21:00 06/04/17 20:59 05/06/17 20:18 1 CAP Miscellaneous Information (Order Awaiting Action) 1 ea QS N/A 05/06/17 11:00 06/05/17 10:59 Sevelamer HCl (Renagel Tab) 800 mg TIDM PO 05/05/17 11:30 06/04/17 11:29 05/07/17 08:19 800 MG Glucose (Glucose 40% Gel) 15-30 GRAMS 15 GRAMS... UD PRN PO 05/05/17 10:30 06/04/17 10:29 Glucose (Glucose Chew Tab) 4-8 Tablets 4 Tabl... UD PRN PO 05/05/17 10:30 06/04/17 10:29 Dextrose (Dextrose 50% 50ML Syringe) 25-50ML OF 50% DW IV FOR... UD PRN IV 05/05/17 10:30 06/04/17 10:29 Glucagon (Glucagon Inj) 1 mg UD PRN SQ 05/05/17 10:30 06/04/17 10:29 Carvedilol (Coreg Tab) 12.5 mg BID PO 05/06/17 09:00 06/04/17 20:59 Diltiazem HCl (Cardizem Tab) 60 mg Q6H PO 05/06/17 09:00 06/05/17 08:59 05/06/17 20:19 60 MG Multi-Ingredient Ointment (Eucerin Unscented Cr) 1 appln BID EXT 05/06/17 21:00 06/05/17 20:59 05/07/17 08:20 1 APPLN Clonazepam (Klonopin Tab) 1 mg UD PRN PO 05/07/17 08:45 06/06/17 08:44 Impression (1) End stage renal disease due to hypertension (2) Hyperkalemia (3) Volume overload (4) Hypertensive emergency (5) Secondary hyperparathyroidism of renal origin (6) Anemia (7) Chronic ulcer of leg with fat layer exposed Jd is a 36 y o m with ESRD secondary to hypertensive nephropathy on hemodialysis Sunday, Sunday, Sunday, presented with respiratory distress, volume overload and hyperkalemia after missing dialysis for 2 weeks. Blood pressure elevated with systolic 190s to 210, has evidence of volume overload and pulmonary condition as well as potassium of 8.3. He has a well-functioning left brachiocephalic AV fistula. Recommendations --plan for dialysis this morning with 2 K bath and 4 L UF --continue antihypertensive medications including valsartan, Lasix and amlodipine --continue on sevelamer and calcitriol --continue on low-potassium, renal diet --avoid IV fluid Will follow
--- NOTE | 2017-05-07 15:45 | Progress Note ---
Subjective Date of Service: May 07, 2017. Subjective pt is feeling somewhat better, for dialysis, did discuss with Dr Luna and will consider diagnostic paracentesis as has some abdominal pain, still with weakness and leg swelling Review of Systems Constitutional: + weakness, + fatigue, No fever, No chills Respiratory: + dyspnea on exertion, No cough, No shortness of breath Cardiac: + orthopnea, + edema, No chest pain, No PND Abdomen: No pain, No nausea, No vomiting, No diarrhea Musculoskeletal: No joint pain, No muscle pain Neurologic: No memory loss, No paralysis, No weakness Psychiatric: + depression symptoms, + anxiety Endo: + fatigue Skin: + rash, + new/changing skin lesions Objective Vital Signs Date Time Temp Pulse Resp B/P (MAP) Pulse Ox O2 Delivery O2 Flow Rate FiO2 05/07/17 13:25 36.6 57 129/64 (85) 05/07/17 13:15 53 111/56 05/07/17 13:00 55 109/62 05/07/17 12:45 54 133/61 05/07/17 12:30 55 135/68 05/07/17 12:15 56 132/59 05/07/17 12:05 Nasal Cannula 5.0 05/07/17 12:00 57 122/63 05/07/17 11:45 60 114/77 05/07/17 11:30 60 124/63 05/07/17 11:15 57 125/68 05/07/17 11:00 57 110/66 05/07/17 10:45 62 123/69 05/07/17 10:30 61 141/64 05/07/17 10:15 61 137/80 05/07/17 10:00 57 122/67 05/07/17 09:45 56 135/75 05/07/17 09:30 59 152/80 05/07/17 09:07 36.6 59 146/78 (100) 05/07/17 08:30 94 Nasal Cannula 5.0 05/07/17 07:40 36.6 57 18 108/54 (72) 94 5.0 05/07/17 04:00 Nasal Cannula 5.0 05/07/17 03:59 36.6 54 21 135/75 (95) 98 Nasal Cannula 5.0 05/06/17 23:59 Nasal Cannula 5.0 05/06/17 23:44 36.4 52 18 104/71 (82) 99 5.0 05/06/17 20:00 Nasal Cannula 5.0 05/06/17 19:53 36.3 47 20 113/67 (82) 100 Nasal Cannula 5.0 05/06/17 16:34 36.2 51 18 136/79 (98) 100 Nasal Cannula 5.0 05/06/17 16:00 Nasal Cannula 2.0 Physical Exam General Appearance: + mild distress, + obese Respiratory/Chest: no respiratory distress, + decreased breath sounds Cardiovascular: regular rate, rhythm, no murmur Abdomen: soft, + distended, + guarding, + tenderness Extremities: + pedal edema, + pertinent finding (changes of chronic venous stasis) Neurologic/Psychiatric: alert, oriented x 3 Laboratory Results Last 24 Hours Test 05/06/17 21:39 05/07/17 06:04 05/07/17 06:08 05/07/17 11:13 Bedside Glucose 99 mg/dl 80 mg/dl 110 mg/dl White Blood Count 5.41 K/uL Red Blood Count 3.04 M/uL Hemoglobin 8.6 g/dL Hematocrit 28.2 % Mean Corpuscular Volume 92.8 fL Mean Corpuscular Hemoglobin 28.3 pg Mean Corpuscular Hemoglobin Concent 30.5 g/dl Platelet Count 157 K/uL Mean Platelet Volume 8.8 fL Neutrophils (%) (Auto) 64.3 % Lymphocytes (%) (Auto) 16.5 % Monocytes (%) (Auto) 9.6 % Eosinophils (%) (Auto) 8.5 % Basophils (%) (Auto) 0.7 % Neutrophils # (Auto) 3.48 K/uL Lymphocytes # (Auto) 0.89 K/uL Monocytes # (Auto) 0.52 K/uL Eosinophils # (Auto) 0.46 K/uL Basophils # (Auto) 0.04 K/uL RDW Standard Deviation 52.9 fL RDW Coefficient of Variation 15.5 % Immature Granulocyte % (Auto) 0.4 % Immature Granulocyte # (Auto) 0.02 K/uL Hypersegmented Polys 1+ Red Blood Cell Morphology Unremarkable Prothrombin Time 12.2 SECONDS Prothromb Time International Ratio 1.1 Activated Partial Thromboplast Time 28.3 SECONDS Partial Thromboplastin Ratio 1.1 Sodium Level 137 mmol/L Potassium Level 5.9 mmol/L Chloride Level 102 mmol/L Carbon Dioxide Level 25 mmol/L Anion Gap 10.0 mmol/L Blood Urea Nitrogen 72 mg/dl Creatinine 13.00 mg/dl Est Creatinine Clear Calc Drug Dose 11.0 ml/min Estimated GFR () 5.0 Estimated GFR (Non- 4.3 BUN/Creatinine Ratio 5.5 Random Glucose 72 mg/dl Calcium Level 8.1 mg/dl Phosphorus Level 7.8 mg/dl Magnesium Level 2.0 mg/dl Assessment and Plan 36 yo M presented with acute on chronic end stage renal disease with volume overload and hyperkalemia due to missing hemodialysis appointments, significant venous stasis changes to lower extremities and open wounds ESRD on HD/Hyperkalemia, original cause HTN nephropathy, will have Dr Cheryl cartagena ? Cirrhosis/ [facility] suggested - Hx of paracentesis ~ 2 months ago, will consider diagnostic tap, as has some abdominal pain but not acute abdomen Elevated Trop, felt secondary to renal disease HTN carvedilol to 25 mg BID, stop nadolol 80 mg HS. Holding losartan and make diltiazem not extended release Venous stasis changes BLE wound consult,- No antibiotics right now with no WBC, afebrile, culture is polymicrobial, will follow clinically Chronic Pain dilaudid 0.5 mg Q4H, fentanyl patch 12 mcg Q3d as an outpt Depression/Anxiety klonipin pre dialysis. GERD reglan, protonix daily. DVT ppx: heparin subq, CODE STATUS: FULL CODE
[2017-05-07] MEDS: CYCLOBENZAPRINE HCL 10 MG TAB PO PRN (17:14)
[2017-05-07] MEDS ORDERED: ALBUMIN HUMAN 25% 12.5 GM/50 ML VIAL IV ONE ×2 (18:15→21:15)
--- NOTE | 2017-05-07 19:06 | DIAGNOSTIC IMAGING REPORT ---
PARACENTESIS ABDOMEN W/IMAGING CLINICAL HISTORY: 36 years-old Male presenting with pt with persistent ascites and abd pain rule out SBP. COMPARISON: 05/06/2017. PROCEDURE: The procedure and its risks, benefits and alternatives were discussed with the patient, and written informed consent was obtained. A timeout was performed to confirm patient identity. Limited ultrasound of the abdomen was performed to determine a safe needle entry site. The left lower quadrant was prepped and draped in the usual aseptic fashion. 1% Lidocaine was used for local anesthesia. A paracentesis needle-sheath was inserted into the peritoneal space using ultrasound guidance. The needle was removed and the sheath was connected to tubing and a vacuum suction device. A total of 2.12 L of clear yellow ascites was aspirated (120 mL sent to the laboratory for evaluation). The sheath was removed, and a dressing applied. The patient tolerated the procedure well. No immediate complications. IMPRESSION: Ultrasound-guided diagnostic and therapeutic paracentesis with aspiration of 2.12 L of ascites. Electronically signed by: Keith Holly M.D. 05/07/2017 7:04 PM Dictated Date/Time: 05/07/2017 7:03 PM
[2017-05-07 20:17] LABS: PERIT FL WBC 226 /uL (0-300); PERITONEAL FLUID RBC < 3000 /uL
[2017-05-07] MEDS: SIMVASTATIN 40 MG TAB PO SCH (21:53)
[2017-05-07] MEDS: NEPHROCAPS PO SCH (21:53)
[2017-05-08] VITALS (8 sets, daily range): BP systolic 112–170; BP diastolic 53–97; PULSE 55–60; TEMP 36.4–37; O2SAT 95–100
[2017-05-08] MEDS: HYDROmorphone HCL 2 MG TAB PO PRN ×4 (04:44→20:32)
--- NOTE | 2017-05-08 05:24 | Progress Note ---
Subjective Date of Service: May 08, 2017. Subjective pt is grumpy still with abdominal pain, he feels his legs are about the same for him, multiple loose ends Review of Systems Constitutional: No fever, No chills Respiratory: + shortness of breath, No cough Cardiac: + orthopnea, + PND, + edema, No chest pain Abdomen: + pain, + nausea, + problem reported (distension) Psychiatric: + depression symptoms, + anxiety Objective Vital Signs Date Time Temp Pulse Resp B/P (MAP) Pulse Ox O2 Delivery O2 Flow Rate FiO2 05/08/17 04:00 Nasal Cannula 5.0 05/08/17 03:45 37.0 58 20 128/76 (93) 99 Nasal Cannula 4.0 05/08/17 00:01 37.0 05/07/17 23:59 Nasal Cannula 5.0 05/07/17 23:52 58 16 123/59 (80) 96 Nasal Cannula 5.0 05/07/17 20:30 99 Nasal Cannula 4.5 05/07/17 20:15 36.6 57 16 149/74 (99) 96 Nasal Cannula 4.0 05/07/17 16:45 36.6 54 16 139/65 (89) 97 Nasal Cannula 5.0 05/07/17 16:30 97 Nasal Cannula 5.0 05/07/17 13:25 36.6 57 129/64 (85) 05/07/17 13:15 53 111/56 05/07/17 13:00 55 109/62 05/07/17 12:45 54 133/61 05/07/17 12:30 55 135/68 05/07/17 12:15 56 132/59 05/07/17 12:05 Nasal Cannula 5.0 05/07/17 12:00 57 122/63 05/07/17 11:45 60 114/77 05/07/17 11:30 60 124/63 05/07/17 11:15 57 125/68 05/07/17 11:00 57 110/66 05/07/17 10:45 62 123/69 05/07/17 10:30 61 141/64 05/07/17 10:15 61 137/80 05/07/17 10:00 57 122/67 05/07/17 09:45 56 135/75 05/07/17 09:30 59 152/80 05/07/17 09:07 36.6 59 146/78 (100) 05/07/17 08:30 94 Nasal Cannula 5.0 05/07/17 07:40 36.6 57 18 108/54 (72) 94 5.0 Physical Exam General Appearance: + mild distress, + obese Respiratory/Chest: + decreased breath sounds, + accessory muscle use Cardiovascular: regular rate, rhythm, + systolic murmur Abdomen: + distended, + guarding, + tenderness, + pertinent finding (umbilical hernia) Extremities: + pedal edema, + pertinent finding (chronic venous stasis dermatitis) Neurologic/Psychiatric: alert, oriented x 3 Laboratory Results Last 24 Hours Test 05/07/17 06:04 05/07/17 06:08 05/07/17 11:13 05/07/17 16:25 Bedside Glucose 80 mg/dl 110 mg/dl 88 mg/dl White Blood Count 5.41 K/uL Red Blood Count 3.04 M/uL Hemoglobin 8.6 g/dL Hematocrit 28.2 % Mean Corpuscular Volume 92.8 fL Mean Corpuscular Hemoglobin 28.3 pg Mean Corpuscular Hemoglobin Concent 30.5 g/dl Platelet Count 157 K/uL Mean Platelet Volume 8.8 fL Neutrophils (%) (Auto) 64.3 % Lymphocytes (%) (Auto) 16.5 % Monocytes (%) (Auto) 9.6 % Eosinophils (%) (Auto) 8.5 % Basophils (%) (Auto) 0.7 % Neutrophils # (Auto) 3.48 K/uL Lymphocytes # (Auto) 0.89 K/uL Monocytes # (Auto) 0.52 K/uL Eosinophils # (Auto) 0.46 K/uL Basophils # (Auto) 0.04 K/uL RDW Standard Deviation 52.9 fL RDW Coefficient of Variation 15.5 % Immature Granulocyte % (Auto) 0.4 % Immature Granulocyte # (Auto) 0.02 K/uL Hypersegmented Polys 1+ Red Blood Cell Morphology Unremarkable Prothrombin Time 12.2 SECONDS Prothromb Time International Ratio 1.1 Activated Partial Thromboplast Time 28.3 SECONDS Partial Thromboplastin Ratio 1.1 Sodium Level 137 mmol/L Potassium Level 5.9 mmol/L Chloride Level 102 mmol/L Carbon Dioxide Level 25 mmol/L Anion Gap 10.0 mmol/L Blood Urea Nitrogen 72 mg/dl Creatinine 13.00 mg/dl Est Creatinine Clear Calc Drug Dose 11.0 ml/min Estimated GFR () 5.0 Estimated GFR (Non- 4.3 BUN/Creatinine Ratio 5.5 Random Glucose 72 mg/dl Calcium Level 8.1 mg/dl Phosphorus Level 7.8 mg/dl Magnesium Level 2.0 mg/dl Test 05/08/17 04:44 Assessment and Plan 36 yo M presented with acute on chronic end stage renal disease with volume overload and hyperkalemia due to missing hemodialysis appointments, significant venous stasis changes to lower extremities and open wounds ESRD on HD/Hyperkalemia, original cause HTN nephropathy, will have Dr Luna continues to manage ? Cirrhosis/ [facility] suggested - Hx of paracentesis ~ 2 months ago, s/p paracentesis, wbc just under cut off for SBP(<250), will await culture, no clinical signs of infection, gi medicine makes xifaxan bid and will look at [facility] Elevated Trop, felt secondary to renal disease, favorable trend HTN carvedilol to 25 mg BID, stop nadolol 80 mg HS. Holding losartan and make diltiazem not extended release with hold parameters Venous stasis changes BLE wound consult,-, culture is polymicrobial some MRSA noted, will start on po linezolid and have ID Evaluation Chronic Pain dilaudid 0.5 - 1mg Q4H, fentanyl patch 12 mcg Q3d as an outpt Depression/Anxiety klonipin pre dialysis. GERD reglan, protonix daily. DVT ppx: heparin subq, CODE STATUS: FULL CODE
[2017-05-08] MEDS: DILTIAZEM HCL 60 MG TAB PO SCH ×3 (06:09→22:49)
[2017-05-08] MEDS: METOCLOPRAMIDE HCL 10 MG TAB PO SCH ×4 (06:09→20:39)
[2017-05-08 07:06] LABS: BASO % 0.7 %; BASO ABS # 0.03 K/uL (0-0.2); EOS % 7.5 %; HEMATOCRIT 27.5 % (42-52); IG% 0.2 %; LYMPH ABS # 0.68 K/uL (1.2-3.4); MEAN CELL VOLUME 93.5 fL (80-100); MEAN CORPUSCULAR HEMOGLOBIN 27.6 pg (25-34); MEAN CORPUSCULAR HGB CONC 29.5 g/dl (32-36); MEAN PLATELET VOLUME 9.1 fL (7.4-10.4); MONO % 13.2 %; NEUT % 63.4 %; PLATELET COUNT 144 K/uL (130-400); RED BLOOD COUNT 2.94 M/uL (4.7-6.1); WHITE BLOOD COUNT 4.53 K/uL (4.8-10.8)
[2017-05-08 07:14] LABS: INR 1.1 (0.9-1.1); PARTIAL THROMBOPLASTIN RATIO 1.1; PROTHROMBIN TIME (PATIENT) 12.3 SECONDS (9.0-12.0)
[2017-05-08] MEDS: SEVELAMER HYDROCH 800 MG TAB PO SCH ×4 (07:30→16:46)
[2017-05-08 07:32] LABS: COMPLETE YES
[2017-05-08 07:57] LABS: BUN/CREATININE RATIO 4.8 (10-20); CREATININE 9.4 mg/dl (0.60-1.40); MAGNESIUM 1.8 mg/dl (1.8-2.4); PHOSPHORUS 5.9 mg/dl (2.5-4.9); POTASSIUM 5.4 mmol/L (3.5-5.1)
[2017-05-08] MEDS: GABAPENTIN 100 MG CAP PO SCH ×3 (09:00→20:42)
[2017-05-08] MEDS: EUCERIN CR 120 GM JAR EXT SCH ×2 (09:00→21:41)
[2017-05-08] MEDS: HEPARIN SOD 5000 UNIT/0.5 ML CARP SQ SCH ×2 (09:00→20:55)
[2017-05-08] MEDS: MULTIVITAMIN TAB PO SCH (09:00)
[2017-05-08] MEDS: FUROSEMIDE 40 MG TAB PO SCH (09:00)
[2017-05-08] MEDS: VALSARTAN 80 MG TAB PO SCH (09:00)
[2017-05-08] MEDS: CARVEDILOL 12.5 MG TAB PO SCH ×2 (09:00→19:25)
[2017-05-08] MEDS: PANTOprazole SOD 40 MG TAB PO SCH (09:00)
[2017-05-08] MEDS: ASPIRIN 81 MG ECTAB PO SCH (09:00)
--- NOTE | 2017-05-08 09:49 | Nephrology Progress Note ---
Nephrology Progress Note Date of Service May 08, 2017. Chief Complaint Follow-up for end-stage renal disease on hemodialysis. Jaiden Miles was seen and examined in his room this morning. He was having breakfast and complaining of abdominal pain but otherwise denied any shortness of breath or chest pain. No fever,chills. Appetite has been decent. BP stable, potassium still elevated, has been on low-potassium diet. Review of Systems A complete review of systems was performed. Pertinent positives are noted above. All other systems are negative. Vital Signs Last 8 Hrs Date Time Temp Pulse Resp B/P (MAP) Pulse Ox O2 Delivery O2 Flow Rate FiO2 05/08/17 08:10 37.0 55 18 128/72 (90) 95 Nasal Cannula 4.0 05/08/17 06:09 57 112/53 (72) 05/08/17 04:00 Nasal Cannula 5.0 05/08/17 03:45 37.0 58 20 128/76 (93) 99 Nasal Cannula 4.0 Last Recorded Weight Weight (Kilograms): 134.500 Physical Exam GENERAL: young male, AAA x 3, not in any distress. NECK: Supple, no JVD. RESPIRATORY: Normal breathing efforts, no accessory muscle use, clear to auscultation bilaterally, no wheezes or rales. CARDIOVASCULAR: S1, S2 normal, rate rhythm regular. ABDOMEN: Distended, mild diffuse tenderness, positive bowel sound EXTREMITY: Bilateral lower extremity with chronic ulcer, the rough thickened skin. NEURO: speech fluent. PSYCHIATRY: Normal mood and judgment Social History Smokeless Tobacco Use: No Alcohol Use: none Marital Status: Housing Status: lives with family (mother and son) Occupation: unemployed Laboratory Results Past 24 Hours 05/08/17 06:37 Red Blood Count 2.94, Mean Corpuscular Volume 93.5, Mean Corpuscular Hemoglobin 27.6, Mean Corpuscular Hemoglobin Concent 29.5, Mean Platelet Volume 9.1, Neutrophils (%) (Auto) 63.4, Lymphocytes (%) (Auto) 15.0, Monocytes (%) (Auto) 13.2, Eosinophils (%) (Auto) 7.5, Basophils (%) (Auto) 0.7, Neutrophils # (Auto ) 2.87, Lymphocytes # (Auto) 0.68, Monocytes # (Auto) 0.60, Eosinophils # (Auto ) 0.34, Basophils # (Auto) 0.03 05/08/17 06:37 Test 05/07/17 11:13 05/07/17 16:25 05/08/17 06:37 Bedside Glucose 110 mg/dl (70-99) 88 mg/dl (70-99) White Blood Count 4.53 K/uL (4.8-10.8) Red Blood Count 2.94 M/uL (4.7-6.1) Hemoglobin 8.1 g/dL (14.0-18.0) Hematocrit 27.5 % (42-52) Mean Corpuscular Volume 93.5 fL (80-100) Mean Corpuscular Hemoglobin 27.6 pg (25-34) Mean Corpuscular Hemoglobin Concent 29.5 g/dl (32-36) Platelet Count 144 K/uL (130-400) Mean Platelet Volume 9.1 fL (7.4-10.4) Neutrophils (%) (Auto) 63.4 % Lymphocytes (%) (Auto) 15.0 % Monocytes (%) (Auto) 13.2 % Eosinophils (%) (Auto) 7.5 % Basophils (%) (Auto) 0.7 % Neutrophils # (Auto) 2.87 K/uL (1.4-6.5) Lymphocytes # (Auto) 0.68 K/uL (1.2-3.4) Monocytes # (Auto) 0.60 K/uL (0.11-0.59) Eosinophils # (Auto) 0.34 K/uL (0-0.5) Basophils # (Auto) 0.03 K/uL (0-0.2) RDW Standard Deviation 53.2 fL (36.4-46.3) RDW Coefficient of Variation 15.6 % (11.5-14.5) Immature Granulocyte % (Auto) 0.2 % Immature Granulocyte # (Auto) 0.01 K/uL (0.00-0.02) Red Blood Cell Morphology Unremarkable Prothrombin Time 12.3 SECONDS (9.0-12.0) Prothromb Time International Ratio 1.1 (0.9-1.1) Activated Partial Thromboplast Time 29.6 SECONDS (21.0-31.0) Partial Thromboplastin Ratio 1.1 Anion Gap 8.0 mmol/L (3-11) Est Creatinine Clear Calc Drug Dose 14.9 ml/min Estimated GFR () 7.3 Estimated GFR (Non- 6.3 BUN/Creatinine Ratio 4.8 (10-20) Calcium Level 8.0 mg/dl (8.5-10.1) Phosphorus Level 5.9 mg/dl (2.5-4.9) Magnesium Level 1.8 mg/dl (1.8-2.4) Allergies Coded Allergies: Ketorolac Tromethamine (Verified Allergy, Unknown, Itchiness and hives, 09/05/14) Reported by PT Tramadol (Verified Allergy, Unknown, Itchiness and hives, 09/05/14) Reported by PT Acetaminophen (Verified Adverse Reaction, Unknown, NAUSEA,VOMITING, ) REPORTED BY PT. Codeine (Verified Adverse Reaction, Unknown, NAUSEA,VOMITING, 05/05/17) REPORTED BY PT. Medications Current Inpatient Medications Medications (Trade) Dose Ordered Sig/Julio Route Start Time Stop Time Status Last Admin Dose Admin Heparin Sodium (Porcine) (Heparin Sq 5000 Unit/0.5ml) 5,000 unit Q12 SQ 05/05/17 09:00 06/04/17 08:59 05/07/17 21:58 5,000 UNIT Acetaminophen (Tylenol Tab) 650 mg Q4H PRN PO 05/05/17 08:30 06/04/17 08:29 05/05/17 20:00 650 MG Pantoprazole Sodium 40 mg/ Syringe 10 ml @ 5 mls/min DAILY IV 05/05/17 09:00 06/04/17 08:59 05/07/17 08:19 5 MLS/MIN Aspirin (Ecotrin Tab) 81 mg DAILY PO 05/06/17 09:00 06/05/17 08:59 05/07/17 08:22 81 MG Calcitriol (Rocaltrol Cap) 1 mcg MoWeFr@0900 PO 05/05/17 10:00 06/04/17 09:59 05/07/17 08:22 1 MCG Cyclobenzaprine HCl (Flexeril Tab) 10 mg TID PRN PO 05/05/17 09:15 06/04/17 09:14 05/07/17 17:14 10 MG Folic Acid (Folvite Tab) 1 mg DAILY PO 05/06/17 09:00 06/05/17 08:59 05/07/17 08:21 1 MG Furosemide (Lasix Tab) 40 mg DAILY PO 05/06/17 09:00 06/05/17 08:59 05/07/17 08:20 40 MG Gabapentin (Neurontin Cap) 100 mg TID PO 05/05/17 14:00 06/04/17 13:59 05/07/17 21:53 100 MG Metoclopramide HCl (Reglan Tab) 5 mg ACHS PO 05/05/17 11:00 06/04/17 10:59 05/08/17 06:09 5 MG Multivitamins (Multivitamin Tab) 1 tab DAILY PO 05/06/17 09:00 06/05/17 08:59 05/07/17 08:21 1 TAB Pantoprazole Sodium (Protonix Tab) 40 mg DAILY PO 05/06/17 09:00 06/05/17 08:59 05/07/17 08:23 40 MG Simvastatin (Zocor Tab) 40 mg HS PO 05/05/17 21:00 06/04/17 20:59 05/07/17 21:53 40 MG Valsartan (Diovan Tab) 160 mg DAILY PO 05/06/17 09:00 06/05/17 08:59 05/07/17 08:21 160 MG Vitamin B Complex/ Vit C/Folic Acid (Nephrocaps) 1 cap HS PO 05/05/17 21:00 06/04/17 20:59 05/07/17 21:53 1 CAP Miscellaneous Information (Order Awaiting Action) 1 ea QS N/A 05/06/17 11:00 06/05/17 10:59 Sevelamer HCl (Renagel Tab) 800 mg TIDM PO 05/05/17 11:30 06/04/17 11:29 05/07/17 16:41 800 MG Glucose (Glucose 40% Gel) 15-30 GRAMS 15 GRAMS... UD PRN PO 05/05/17 10:30 06/04/17 10:29 Glucose (Glucose Chew Tab) 4-8 Tablets 4 Tabl... UD PRN PO 05/05/17 10:30 06/04/17 10:29 Dextrose (Dextrose 50% 50ML Syringe) 25-50ML OF 50% DW IV FOR... UD PRN IV 05/05/17 10:30 06/04/17 10:29 Glucagon (Glucagon Inj) 1 mg UD PRN SQ 05/05/17 10:30 06/04/17 10:29 Carvedilol (Coreg Tab) 12.5 mg BID PO 05/06/17 09:00 06/04/17 20:59 05/07/17 21:53 12.5 MG Multi-Ingredient Ointment (Eucerin Unscented Cr) 1 appln BID EXT 05/06/17 21:00 06/05/17 20:59 05/07/17 21:59 1 APPLN Clonazepam (Klonopin Tab) 1 mg UD PRN PO 05/07/17 08:45 06/06/17 08:44 Diltiazem HCl (Cardizem Tab) 60 mg Q8H PO 05/07/17 23:00 06/06/17 22:59 05/08/17 06:09 60 MG Hydromorphone HCl (Dilaudid Tab) 1 mg Q4H PRN PO 05/08/17 07:30 05/22/17 07:29 Sodium Polystyrene Sulfonate (Kayexalate Susp) 15 gm NOW STAT PO 05/08/17 09:23 05/08/17 09:24 UNV Rifaximin (Xifaxan Tab) 550 mg BID PO 05/08/17 21:00 06/07/17 20:59 UNV Polyethylene (Miralax Powder Packet) 17 gm BID PO 05/08/17 21:00 06/07/17 20:59 UNV Impression (1) End stage renal disease due to hypertension (2) Hyperkalemia (3) Volume overload (4) Hypertensive emergency (5) Secondary hyperparathyroidism of renal origin (6) Anemia (7) Chronic ulcer of leg with fat layer exposed Jd is a 36 y o m with ESRD secondary to hypertensive nephropathy on hemodialysis Sunday, Sunday, Sunday, presented with respiratory distress, volume overload and hyperkalemia after missing dialysis for 2 weeks. Blood pressure elevated with systolic 190s to 210, has evidence of volume overload and pulmonary condition as well as potassium of 8.3. He has a well-functioning left brachiocephalic AV fistula. Recommendations --BP, volume status stable, had HD yesterday but K still slightly elevated --kayexalate 15 gm po x 1 dose --plan for dialysis tomorrow with 2 K bath and 4 L UF --continue antihypertensive medications including valsartan, Lasix and amlodipine --continue on sevelamer and calcitriol --continue on low-potassium, renal diet --avoid IV fluid Will follow
[2017-05-08] MEDS ORDERED: LINEZOLID 600 MG TAB PO SCH (10:15)
--- NOTE | 2017-05-08 10:28 | Gastrointestinal Consultation ---
Gastrointestinal Consultation Date of Consultation: May 08, 2017 Attending Physician: Dr. Currie Consulting Physician: Kylee Young PA-C Reason for Consultation: Ascites, liver disease History of Present Illness Patient is a 36 year old male with an unfortunate medical history including ESRD on HD, MRSA, HTN, HLD, depression, anxiety, chronic low back pain, morbid obesity, diabetes mellitus type 2, Venous stasis issues, & GERD. The patient was transferred from [facility] for some unclear reason after he missed 3 dialysis sessions and was volume overloaded. The patient reports a history of being diagnosed with cirrhosis while hospitalized at [facility] in [place]. He states that he had many tests performed, but he is unaware of the outcome. He reports he has not seen a personal caregiver since. He reports he has intermittently been undergoing therapeutic paracenteses approximately every 2 months. He reports large volumes have been drained, often requiring albumin replacement. He admits to being noncompliant with his home doses of diuretic therapy as well as his Lactulose. He denies being prescribed Xifaxan. He reports a history of hepatic encephalopathy. He reports heavy alcohol use from his teens-20s. He is unsure if he was given a reason for cirrhosis, but it is presumed [place]ST[place] vs alcoholic per our records. He denies a history of IVDA. He denies family history of liver disease. He underwent a paracentesis yesterday during which time 2.1 L was removed. Fluid studies were sent for--WBC count was <250. Albumin is pending as is fluid culture. He does not have physical exam findings of SBP at the present time. He received dialysis yesterday. He is receiving Lasix 40 mg daily at present. Past Medical/Surgical History ESRD on HD, MRSA, HTN, HLD depression, anxiety, low back pain, CARMEN, Obesity, diabetes mellitus 2, GERD, cirrhosis Past Medical History: As per HPI Past Surgical History: Dialysis catheter placement Social History Smoking Status: Never Smoker Alcohol Use: heavy (in teens and 20s) Drug Use: none Marital Status: Housing Status: lives with family Occupation Status: unemployed Allergies Coded Allergies: Ketorolac Tromethamine (Verified Allergy, Unknown, Itchiness and hives, 09/05/14) Reported by PT Tramadol (Verified Allergy, Unknown, Itchiness and hives, 09/05/14) Reported by PT Acetaminophen (Verified Adverse Reaction, Unknown, NAUSEA,VOMITING, ) REPORTED BY PT. Codeine (Verified Adverse Reaction, Unknown, NAUSEA,VOMITING, 05/05/17) REPORTED BY PT. Current Medications Home Meds and Scripts Medications Dose Route/Sig Max Daily Dose Days Date Category Dose Instructions Fentanyl 12 Mcg Tdsy 12 Mcg TD EVERY 3 DAYS 05/05/17 Reported Percocet 10MG/325MG (Oxycodone/Acetaminophen) Tab 1 Tab PO Q6 PRN 05/05/17 Reported Multivitamin (Multivitamins) Tab 1 Tab PO DAILY 05/05/17 Reported Lasix (Furosemide) 40 Mg Tab 40 Mg PO DAILY 05/05/17 Reported Protonix (Pantoprazole Sodium) 40 Mg Tab 40 Mg PO DAILY 05/05/17 Reported Sensipar (Cinecalcet) 60 Mg Tab 60 Mg PO DAILY 05/05/17 Reported Neurontin (Gabapentin) 100 Mg Cap 100 Mg PO TID 05/05/17 Reported Diovan (Valsartan) 160 Mg Tab 160 Mg PO DAILY 05/05/17 Reported Flexeril (Cyclobenzaprine Hcl) 10 Mg Tab 10 Mg PO TID PRN 05/05/17 Reported Reglan (Metoclopramide HCl) 10 Mg Tab 5 Mg PO ACHS 05/05/17 Reported Corgard (Nadolol) 40 Mg Tab 80 Mg PO HS 05/05/17 Reported Klonopin (Clonazepam) 0.5 Mg Tab 0.5 Mg PO UD 09/05/14 Reported TAKE 0.5 ON DIALYSIS DAYS. Nephrocaps (Vitamin B Complex/Vit C/Folic Acid) 1 Cap Cap 1 Cap PO HS 07/30/14 Reported Renagel (Sevelamer HCl) 800 Mg Tab 800 Mg PO TIDM 07/30/14 Reported Cardizem Cd (Diltiazem Hcl Coated Beads) 240 Mg Cap 240 Mg PO DAILY 07/30/14 Reported Ativan (Lorazepam) 1 Mg Tab 1 Mg PO HS 07/30/14 Reported Zestril (Lisinopril) 40 Mg Tab 40 Mg PO BID 07/30/14 Reported Folvite (Folic Acid) 1 Mg Tab 1 Mg PO DAILY 07/30/14 Reported Norvasc (Amlodipine Besylate) 10 Mg Tab 10 Mg PO DAILY 07/30/14 Reported Coreg (Carvedilol) 25 Mg Tab 25 Mg PO BID 07/30/[address] (Aspirin) 81 Mg Tab 81 Mg PO DAILY 07/30/14 Reported Zocor (Simvastatin) 40 Mg Tab 40 Mg PO HS 07/30/14 Reported Calcitriol 0.25 Mcg Cap 1 Mcg PO UD 07/30/14 Reported TAKE 4 CAPSULES IN THE MORNING ON DIALYSIS DAYS. Review of Systems Constitutional: + fatigue, No fever, No chills Eyes: No problem reported Respiratory: + dyspnea on exertion, No cough Cardiac: No chest pain Abdomen: + pain, No nausea, No vomiting, No diarrhea, No constipation, No GI bleeding Musculoskeletal: + swelling, No joint pain Psych: No problem reported Skin: + color change Physical Exam Date Time Temp Pulse Resp B/P (MAP) Pulse Ox O2 Delivery O2 Flow Rate FiO2 05/08/17 08:10 37.0 55 18 128/72 (90) 95 Nasal Cannula 4.0 05/08/17 06:09 57 112/53 (72) 05/08/17 04:00 Nasal Cannula 5.0 05/08/17 03:45 37.0 58 20 128/76 (93) 99 Nasal Cannula 4.0 05/08/17 00:01 37.0 05/07/17 23:59 Nasal Cannula 5.0 05/07/17 23:52 58 16 123/59 (80) 96 Nasal Cannula 5.0 05/07/17 20:30 99 Nasal Cannula 4.5 05/07/17 20:15 36.6 57 16 149/74 (99) 96 Nasal Cannula 4.0 05/07/17 16:45 36.6 54 16 139/65 (89) 97 Nasal Cannula 5.0 05/07/17 16:30 97 Nasal Cannula 5.0 05/07/17 13:25 36.6 57 129/64 (85) 05/07/17 13:15 53 111/56 05/07/17 13:00 55 109/62 05/07/17 12:45 54 133/61 05/07/17 12:30 55 135/68 05/07/17 12:15 56 132/59 05/07/17 12:05 Nasal Cannula 5.0 05/07/17 12:00 57 122/63 05/07/17 11:45 60 114/77 05/07/17 11:30 60 124/63 05/07/17 11:15 57 125/68 05/07/17 11:00 57 110/66 05/07/17 10:45 62 123/69 05/07/17 10:30 61 141/64 05/07/17 10:15 61 137/80 General Appearance: no apparent distress Eyes: normal inspection, PERRL ENT: hearing grossly normal Respiratory/Chest: lungs clear Cardiovascular: regular rate, rhythm Abdomen: normal bowel sounds, non tender, soft Extremities: + swelling Neurologic/Psych: alert, oriented x 3 Skin: + pertinent finding (discoloring of lower extremities) Laboratory Results Last 24 Hours Test 05/07/17 11:13 05/07/17 16:25 05/08/17 06:37 Bedside Glucose 110 mg/dl 88 mg/dl White Blood Count 4.53 K/uL Red Blood Count 2.94 M/uL Hemoglobin 8.1 g/dL Hematocrit 27.5 % Mean Corpuscular Volume 93.5 fL Mean Corpuscular Hemoglobin 27.6 pg Mean Corpuscular Hemoglobin Concent 29.5 g/dl Platelet Count 144 K/uL Mean Platelet Volume 9.1 fL Neutrophils (%) (Auto) 63.4 % Lymphocytes (%) (Auto) 15.0 % Monocytes (%) (Auto) 13.2 % Eosinophils (%) (Auto) 7.5 % Basophils (%) (Auto) 0.7 % Neutrophils # (Auto) 2.87 K/uL Lymphocytes # (Auto) 0.68 K/uL Monocytes # (Auto) 0.60 K/uL Eosinophils # (Auto) 0.34 K/uL Basophils # (Auto) 0.03 K/uL RDW Standard Deviation 53.2 fL RDW Coefficient of Variation 15.6 % Immature Granulocyte % (Auto) 0.2 % Immature Granulocyte # (Auto) 0.01 K/uL Red Blood Cell Morphology Unremarkable Prothrombin Time 12.3 SECONDS Prothromb Time International Ratio 1.1 Activated Partial Thromboplast Time 29.6 SECONDS Partial Thromboplastin Ratio 1.1 Sodium Level 135 mmol/L Potassium Level 5.4 mmol/L Chloride Level 99 mmol/L Carbon Dioxide Level 28 mmol/L Anion Gap 8.0 mmol/L Blood Urea Nitrogen 45 mg/dl Creatinine 9.40 mg/dl Est Creatinine Clear Calc Drug Dose 14.9 ml/min Estimated GFR () 7.3 Estimated GFR (Non- 6.3 BUN/Creatinine Ratio 4.8 Random Glucose 103 mg/dl Calcium Level 8.0 mg/dl Phosphorus Level 5.9 mg/dl Magnesium Level 1.8 mg/dl Impression Patient is a 36 year old male with ascites and a reported history of cirrhosis which he states was diagnosed with cirrhosis. He is hospitalized with volume overload after missing 1 week of hemodialysis for his ESRD. Plan 1) Obtain records from [facility] as patient has had a work-up from GI & hepatology there. 2) Await fluid culture & albumin to calculate SAAG from paracentesis that was performed. 3) Continue Lasix as dosed by nephrology. Continue hemodialysis per their recommendations. 4) Continue to monitor volume status & continually reevaluate need for repeat paracentesis. 5) Add Xifaxan 550 mg BID for hepatic encephalopathy as patient reports previous struggles with his ammonia level as well as his mental status. He is non-compliant with Lactulose and refuses to take this. Discussed Miralax and titrating dosage to 3 bowel movements daily. 6) Pending review of records, patient will likely need further work-up for liver disease and monitoring for HCC surveillance as well as variceal screening. This can all likely be completed as an outpatient. He may need evaluation per hepatology as an outpatient as well. Thank you for allowing us to participate in the care of this patient. If you should have any further questions or concerns, do not hesitate to contact us. Agree with LUCILLE Rogel as above Abd: Soft, Distended, NT Continue current therapy Will need full evaluation at Hepatology upon discharge Continue supportive care.
[2017-05-08] MEDS ORDERED: SODIUM POLYST. SULF SUSP 15G/60ML PO ONE (10:30)
[2017-05-08] MEDS: SENSIPAR~ORDER AWAITING ACTION SCH ×4 (10:35→23:22)
[2017-05-08] MEDS: PANTOprazole INJ 40 MG in SYRINGE 0 ML IV SCH (10:35)
--- NOTE | 2017-05-08 11:50 | Medical Consult ---
Consultation Date of Consultation: May 08, 2017. Attending Physician: Vin Currie M.D. Reason for Consultation: significance of MRSA in wound culture History of Present Illness 36-year-old male with end-stage renal disease on dialysis from hypertensive nephropathy who was admitted May 05 with 3 day history of progressively worsening shortness of breath and leg swelling. He was found to have severe fluid overload and has been treated with dialysis. Has also had problem with worsening ascites from his chronic liver disease, and has undergone paracentesis with results unremarkable so far. He has suffered from severe lower extremity edema with chronic venous stasis disease. Has bilateral leg ulcerations which have not been healing well. Cultures have been taken and have grown MRSA as well as Acinetobacter. Patient has not been on antibiotics, no fever. Past Medical/Surgical History Medical Problems: (1) Anemia (2) Chronic ulcer of leg with fat layer exposed (3) End stage renal disease due to hypertension (4) Hyperkalemia (5) Hypertensive emergency (6) Secondary hyperparathyroidism of renal origin (7) Volume overloa (8) Cirrhosis Family History noncontributory Social History Smoking Status: Never Smoker Smokeless Tobacco Use: No Alcohol Use: none Drug Use: none Marital Status: Housing Status: lives with family Occupation Status: unemployed Allergies Coded Allergies: Ketorolac Tromethamine (Verified Allergy, Unknown, Itchiness and hives, 09/05/14) Reported by PT Tramadol (Verified Allergy, Unknown, Itchiness and hives, 09/05/14) Reported by PT Acetaminophen (Verified Adverse Reaction, Unknown, NAUSEA,VOMITING, ) REPORTED BY PT. Codeine (Verified Adverse Reaction, Unknown, NAUSEA,VOMITING, 05/05/17) REPORTED BY PT. Current Inpatient Medications Current Inpatient Medications Medications (Trade) Dose Ordered Sig/Julio Route Start Time Stop Time Status Last Admin Dose Admin Heparin Sodium (Porcine) (Heparin Sq 5000 Unit/0.5ml) 5,000 unit Q12 SQ 05/05/17 09:00 06/04/17 08:59 05/08/17 09:00 5,000 UNIT Acetaminophen (Tylenol Tab) 650 mg Q4H PRN PO 05/05/17 08:30 06/04/17 08:29 05/05/17 20:00 650 MG Pantoprazole Sodium 40 mg/ Syringe 10 ml @ 5 mls/min DAILY IV 05/05/17 09:00 06/04/17 08:59 05/07/17 08:19 5 MLS/MIN Aspirin (Ecotrin Tab) 81 mg DAILY PO 05/06/17 09:00 06/05/17 08:59 05/08/17 09:00 81 MG Calcitriol (Rocaltrol Cap) 1 mcg MoWeFr@0900 PO 05/05/17 10:00 06/04/17 09:59 05/07/17 08:22 1 MCG Cyclobenzaprine HCl (Flexeril Tab) 10 mg TID PRN PO 05/05/17 09:15 06/04/17 09:14 05/07/17 17:14 10 MG Folic Acid (Folvite Tab) 1 mg DAILY PO 05/06/17 09:00 06/05/17 08:59 05/08/17 09:00 1 MG Furosemide (Lasix Tab) 40 mg DAILY PO 05/06/17 09:00 06/05/17 08:59 05/08/17 09:00 40 MG Gabapentin (Neurontin Cap) 100 mg TID PO 05/05/17 14:00 06/04/17 13:59 05/08/17 09:00 100 MG Metoclopramide HCl (Reglan Tab) 5 mg ACHS PO 05/05/17 11:00 06/04/17 10:59 05/08/17 10:39 5 MG Multivitamins (Multivitamin Tab) 1 tab DAILY PO 05/06/17 09:00 06/05/17 08:59 05/08/17 09:00 1 TAB Pantoprazole Sodium (Protonix Tab) 40 mg DAILY PO 05/06/17 09:00 06/05/17 08:59 05/08/17 09:00 40 MG Simvastatin (Zocor Tab) 40 mg HS PO 05/05/17 21:00 06/04/17 20:59 05/07/17 21:53 40 MG Valsartan (Diovan Tab) 160 mg DAILY PO 05/06/17 09:00 06/05/17 08:59 05/08/17 09:00 160 MG Vitamin B Complex/ Vit C/Folic Acid (Nephrocaps) 1 cap HS PO 05/05/17 21:00 06/04/17 20:59 05/07/17 21:53 1 CAP Miscellaneous Information (Order Awaiting Action) 1 ea QS N/A 05/06/17 11:00 06/05/17 10:59 Sevelamer HCl (Renagel Tab) 800 mg TIDM PO 05/05/17 11:30 06/04/17 11:29 05/08/17 11:12 800 MG Glucose (Glucose 40% Gel) 15-30 GRAMS 15 GRAMS... UD PRN PO 05/05/17 10:30 06/04/17 10:29 Glucose (Glucose Chew Tab) 4-8 Tablets 4 Tabl... UD PRN PO 05/05/17 10:30 06/04/17 10:29 Dextrose (Dextrose 50% 50ML Syringe) 25-50ML OF 50% DW IV FOR... UD PRN IV 05/05/17 10:30 06/04/17 10:29 Glucagon (Glucagon Inj) 1 mg UD PRN SQ 05/05/17 10:30 06/04/17 10:29 Carvedilol (Coreg Tab) 12.5 mg BID PO 05/06/17 09:00 06/04/17 20:59 05/08/17 09:00 12.5 MG Multi-Ingredient Ointment (Eucerin Unscented Cr) 1 appln BID EXT 05/06/17 21:00 06/05/17 20:59 05/08/17 09:00 1 APPLN Clonazepam (Klonopin Tab) 1 mg UD PRN PO 05/07/17 08:45 06/06/17 08:44 Diltiazem HCl (Cardizem Tab) 60 mg Q8H PO 05/07/17 23:00 06/06/17 22:59 05/08/17 06:09 60 MG Hydromorphone HCl (Dilaudid Tab) 1 mg Q4H PRN PO 05/08/17 07:30 05/22/17 07:29 05/08/17 09:14 1 MG Rifaximin (Xifaxan Tab) 550 mg BID PO 05/08/17 20:00 06/07/17 20:59 Polyethylene (Miralax Powder Packet) 17 gm BID PO 05/08/17 20:00 06/07/17 20:59 Linezolid (Zyvox Tab) 600 mg BID PO 05/08/17 10:15 05/18/17 10:14 05/08/17 11:20 600 MG Review of Systems Constitutional: + fatigue, No fever Eyes: No problem reported ENT: No problem reported Respiratory: + shortness of breath Cardiovascular: + edema Abdomen: + pain Musculoskeletal: + swelling Genitourinary - Male: No problem reported Neurologic: No problem reported Psychiatric: No problem reported Hematologic / Lymphatic: No problem reported Integumentary: + new/changing skin lesions Allergic / Immunologic: No problem reported Physical Exam Date Time Temp Pulse Resp B/P (MAP) Pulse Ox O2 Delivery O2 Flow Rate FiO2 05/08/17 11:08 57 16 149/83 (105) 100 Nasal Cannula 5.0 05/08/17 08:10 37.0 55 18 128/72 (90) 95 Nasal Cannula 4.0 05/08/17 08:00 99 Nasal Cannula 5.0 05/08/17 06:09 57 112/53 (72) 05/08/17 04:00 Nasal Cannula 5.0 05/08/17 03:45 37.0 58 20 128/76 (93) 99 Nasal Cannula 4.0 05/08/17 00:01 37.0 05/07/17 23:59 Nasal Cannula 5.0 05/07/17 23:52 58 16 123/59 (80) 96 Nasal Cannula 5.0 05/07/17 20:30 99 Nasal Cannula 4.5 05/07/17 20:15 36.6 57 16 149/74 (99) 96 Nasal Cannula 4.0 05/07/17 16:45 36.6 54 16 139/65 (89) 97 Nasal Cannula 5.0 05/07/17 16:30 97 Nasal Cannula 5.0 05/07/17 13:25 36.6 57 129/64 (85) 05/07/17 13:15 53 111/56 05/07/17 13:00 55 109/62 05/07/17 12:45 54 133/61 05/07/17 12:30 55 135/68 05/07/17 12:15 56 132/59 05/07/17 12:05 Nasal Cannula 5.0 05/07/17 12:00 57 122/63 General Appearance: WD/WN, no apparent distress Head: normocephalic, atraumatic Eyes: normal inspection, EOMI, sclerae normal ENT: normal ENT inspection, pharynx normal Neck: supple, no adenopathy, thyroid normal, trachea midline Respiratory/Chest: chest non-tender, lungs clear, normal breath sounds, no respiratory distress Cardiovascular: regular rate, rhythm, no gallop, no murmur Abdomen/GI: normal bowel sounds, no organomegaly, + tenderness, + distended Back: normal inspection, no CVA tenderness Extremities/Musculoskelatal: + inflammation, + swelling Neurologic/Psych: alert, oriented x 3 Skin: normal color, no rash, + pertinent finding (Bilateral lower extremity venous stasis disease, ulceration) Lymphatic: no adenopathy Laboratory Results RUN DATE: 05/08/17 [facility] PAGE 1 RUN TIME: 952 Specimen Inquiry PATIENT: TIANNA OCHOA [facility] : [id number] AGE/SX: 36/M ROOM: 08 REG : 05/06/[address]: Vin Currie M : 1980 BED: 1 DIS : STATUS: ADM IN TLOC: SPEC #: [id number] FERNANDO: 05/05/17 STATUS: BEVERLY REQ #: [id number] RECD: 05/05/[address] [facility] [address]: Bette Lewis PA-C SOURCE: SKIN ENTR: 05/05/17 [facility] DR: Vin Currie M.D. [facility]: Romie Rodgers D.O. Mockus, Linas., MD Nasreen, Fahima MD Pasquariello, Rick D M.D. ORDERED: SURF BOWEN SCHNEIDER/BRANDON COMMENTS: Has Specimen Been Obtained/Collected? Y Procedure Result Verified Site GRAM STAIN Final 05/06/17-816 RESULT MANY GRAM POSITIVE COCCI RARE GRAM POSITIVE BACILLI RARE EPITHELIAL CELLS NO WBCs SEEN SURFACE WOUND CULTURE Final 05/08/17-09 Organism 1 ACINETOBACTER BAUMANNII/HAEMOL QUANITY MANY SENS SENSITIVITY TO FOLLOW +MIXWOUND PLUS LOW COUNTS OF PROBABLE SKIN ALYSE Organism 2 STAPHYLOCOCCUS AUREUS QUANITY MANY SENS SENSITIVITY TO FOLLOW SENSITIVITY RESULT INDICATES A METHICILLIN RESISTANT STAPH. AUREUS. PHONED TO KARL ROMERO ON 05/08/17 AT 0904 BY Claritza Verduzco. Results were verbalized back to [facility]. RESULTS WERE ALSO CALLED TO [facility] INFECTION CONTROL ANSWERING MACHINE ON 05/08/17 BY CONTINUED ON NEXT PAGE RUN DATE: 05/08/17 [facility] PAGE 2 RUN TIME: 0953 Specimen Inquiry SPEC: [id number] PATIENT: DONTIANNA Mily [id number] ( Continued) Procedure Result Verified Site SURFACE WOUND CULTURE Final (continued) 05/08/17-952 SALENA AMIN M.I.CUziel RX M.I.C. RX --------- ------ --------- ------ TRIMET/SULFA >2/38 R <=0.5/9.5 S * OXACILLIN >2 R AMPICILLIN/SUL <=8/4 S CEFTAZIDIME 8 S CEFEPIME 8 S VANCOMYCIN 2 S GENTAMICIN <=4 S TOBRAMYCIN <=4 S ERYTHROMYCIN >4 R TETRACYCLINE <=4 S AMIKACIN <=16 S CIPROFLOXACIN <=1 S LEVOFLOXACIN <=2 S CLINDAMYCIN <=0.5 S DAPTOMYCIN <=0.5 S RIFAMPIN <=1 S 1. ACINETOBACTER BAUMANNII/HAEMOL Target Route Dose RX AB Cost M.I.C. IQ ------ ----- ------ -- ------ -------- - ------ TRIMET/SULFA R >2/38 AMPICILLIN/SUL S <=8/4 CEFTAZIDIME S 8 CEFEPIME S 8 GENTAMICIN S <=4 TOBRAMYCIN S <=4 AMIKACIN S <=16 CIPROFLOXACIN S <=1 LEVOFLOXACIN S <=2 2. STAPHYLOCOCCUS AUREUS Target Route Dose RX AB Cost M.I.C. IQ ------ ----- ------ -- ------ -------- - ------ TRIMET/SULFA S <=0.5/ 9.5 * OXACILLIN R * >2 VANCOMYCIN S 2 ERYTHROMYCIN R >4 TETRACYCLINE S <=4 CLINDAMYCIN S <=0.5 DAPTOMYCIN S <=0.5 RIFAMPIN S <=1 S = SENSITIVE I = INTERMEDIATE R = RESISTANT END OF REPORT Last 24 Hours Test 05/07/17 16:25 05/08/17 06:37 Bedside Glucose 88 mg/dl White Blood Count 4.53 K/uL Red Blood Count 2.94 M/uL Hemoglobin 8.1 g/dL Hematocrit 27.5 % Mean Corpuscular Volume 93.5 fL Mean Corpuscular Hemoglobin 27.6 pg Mean Corpuscular Hemoglobin Concent 29.5 g/dl Platelet Count 144 K/uL Mean Platelet Volume 9.1 fL Neutrophils (%) (Auto) 63.4 % Lymphocytes (%) (Auto) 15.0 % Monocytes (%) (Auto) 13.2 % Eosinophils (%) (Auto) 7.5 % Basophils (%) (Auto) 0.7 % Neutrophils # (Auto) 2.87 K/uL Lymphocytes # (Auto) 0.68 K/uL Monocytes # (Auto) 0.60 K/uL Eosinophils # (Auto) 0.34 K/uL Basophils # (Auto) 0.03 K/uL RDW Standard Deviation 53.2 fL RDW Coefficient of Variation 15.6 % Immature Granulocyte % (Auto) 0.2 % Immature Granulocyte # (Auto) 0.01 K/uL Red Blood Cell Morphology Unremarkable Prothrombin Time 12.3 SECONDS Prothromb Time International Ratio 1.1 Activated Partial Thromboplast Time 29.6 SECONDS Partial Thromboplastin Ratio 1.1 Sodium Level 135 mmol/L Potassium Level 5.4 mmol/L Chloride Level 99 mmol/L Carbon Dioxide Level 28 mmol/L Anion Gap 8.0 mmol/L Blood Urea Nitrogen 45 mg/dl Creatinine 9.40 mg/dl Est Creatinine Clear Calc Drug Dose 14.9 ml/min Estimated GFR () 7.3 Estimated GFR (Non- 6.3 BUN/Creatinine Ratio 4.8 Random Glucose 103 mg/dl Calcium Level 8.0 mg/dl Phosphorus Level 5.9 mg/dl Magnesium Level 1.8 mg/dl CC: Vin Currie M.D. Filipowicz, Gwendolyn G., Romie Modi D.O. Endcc: [~ rep ct add3]] ASCITES-ABDOMEN LIMITED CLINICAL HISTORY: 36 years-old Male presenting with drew for drainage, ascites. TECHNIQUE: Real-time grayscale ultrasound imaging of the abdomen was performed for a limited and focused evaluation for ascites. COMPARISON: None. FINDINGS: Small volume ascites in the right upper and lower quadrants of the abdomen. Moderate volume ascites in the left upper and lower quadrants. Minimal debris may be present. IMPRESSION: 1. Moderate volume ascites in the left abdomen. Electronically signed by: Keith Holly M.D. 05/06/2017 6:21 AM Dictated Date/Time: 05/06/2017 6:19 AM The status of this report is Signed. Draft = Not yet reviewed Assessment & Plan 36-year-old male with severe lower extremity chronic venous stasis disease with superficial ulceration and weeping. Antibiotics may provide some benefit in reducing bacterial burden to help in wound healing, and will begin patient on combination of doxycycline and levofloxacin to cover MRSA and Acinetobacter. Will follow clinical response.
[2017-05-08] MEDS ORDERED: LEVOFLOXACIN 500 MG TAB PO ONE (14:00)
[2017-05-08] MEDS: POLYETHYLENE (MIRALAX) 17 GM PACK PO SCH (20:38)
[2017-05-08] MEDS: NEPHROCAPS PO SCH (20:41)
[2017-05-08] MEDS: RIFAXIMIN TAB 550 MG TAB PO SCH (20:44)
[2017-05-08] MEDS: DOXYCYCLINE HYCLATE 100 MG CAP PO SCH (20:46)
[2017-05-08] MEDS: SIMVASTATIN 40 MG TAB PO SCH (20:47)
[2017-05-09] VITALS (23 sets, daily range): BP systolic 124–171; BP diastolic 51–95; PULSE 51–63; TEMP 36.3–36.8; O2SAT 100
[2017-05-09] MEDS: HYDROmorphone HCL 2 MG TAB PO PRN ×4 (01:02→13:58)
[2017-05-09 06:02] LABS: BASO % 0.7 %; BASO ABS # 0.04 K/uL (0-0.2); EOS % 7.7 %; HEMATOCRIT 29.1 % (42-52); IG% 0.2 %; LYMPH ABS # 0.89 K/uL (1.2-3.4); MEAN CELL VOLUME 94.2 fL (80-100); MEAN CORPUSCULAR HEMOGLOBIN 28.8 pg (25-34); MEAN CORPUSCULAR HGB CONC 30.6 g/dl (32-36); MEAN PLATELET VOLUME 8.9 fL (7.4-10.4); NEUT % 64.4 %; PLATELET COUNT 148 K/uL (130-400); RED BLOOD COUNT 3.09 M/uL (4.7-6.1); WHITE BLOOD COUNT 5.56 K/uL (4.8-10.8)
[2017-05-09] MEDS: METOCLOPRAMIDE HCL 10 MG TAB PO SCH ×4 (06:07→21:47)
[2017-05-09] MEDS: DILTIAZEM HCL 60 MG TAB PO SCH ×3 (06:09→23:57)
[2017-05-09 06:22] LABS: INR 1.1 (0.9-1.1); PARTIAL THROMBOPLASTIN RATIO 1.1; PROTHROMBIN TIME (PATIENT) 12.2 SECONDS (9.0-12.0)
[2017-05-09 06:45] LABS: BUN/CREATININE RATIO 4.9 (10-20); CALCIUM 8.4 mg/dl (8.5-10.1); MAGNESIUM 1.8 mg/dl (1.8-2.4); PHOSPHORUS 6.3 mg/dl (2.5-4.9); POTASSIUM 5.5 mmol/L (3.5-5.1)
[2017-05-09 06:59] LABS: COMPLETE YES; HYPERSEGMENTED POLYS 1+
[2017-05-09] MEDS: GABAPENTIN 100 MG CAP PO SCH ×3 (08:00→21:50)
[2017-05-09] MEDS: SEVELAMER HYDROCH 800 MG TAB PO SCH ×3 (08:00→21:48)
[2017-05-09] MEDS: CLONAZEPAM 1 MG TAB PO PRN (08:23)
[2017-05-09] MEDS: PANTOprazole INJ 40 MG in SYRINGE 0 ML IV SCH (08:24)
[2017-05-09] MEDS: HEPARIN SOD 5000 UNIT/0.5 ML CARP SQ SCH ×2 (09:00→22:01)
--- NOTE | 2017-05-09 10:16 | Nephrology Progress Note ---
Nephrology Progress Note Date of Service May 09, 2017. Chief Complaint Follow-up for end-stage renal disease on hemodialysis. Jaiden Miles was seen and examined in his room this morning during HD treatment. He was complaining of abdominal pain but otherwise denied any shortness of breath or chest pain. No fever,chills. Appetite has been decent. BP stable, potassium still elevated, has been on low-potassium diet. Review of Systems A complete review of systems was performed. Pertinent positives are noted above. All other systems are negative. Vital Signs Last 8 Hrs Date Time Temp Pulse Resp B/P (MAP) Pulse Ox O2 Delivery O2 Flow Rate FiO2 05/09/17 09:45 54 142/71 05/09/17 09:30 55 145/74 05/09/17 09:23 55 138/74 05/09/17 09:03 36.5 57 155/82 (106) 05/09/17 07:43 36.4 56 18 163/90 (114) 100 Nasal Cannula 05/09/17 06:00 60 161/89 (113) 100 Nasal Cannula 5.0 Last Recorded Weight Weight (Kilograms): 141.000 Physical Exam GENERAL: young male, AAA x 3, not in any distress. NECK: Supple, no JVD. RESPIRATORY: Normal breathing efforts, no accessory muscle use, clear to auscultation bilaterally, no wheezes or rales. CARDIOVASCULAR: S1, S2 normal, rate rhythm regular. ABDOMEN: Distended, mild diffuse tenderness, positive bowel sound EXTREMITY: Bilateral lower extremity with chronic ulcer, rough thickened skin. NEURO: speech fluent. PSYCHIATRY: Normal mood and judgment Social History Smokeless Tobacco Use: No Alcohol Use: none Drug Use: none Marital Status: Housing Status: lives with family (mother and son) Occupation: unemployed Laboratory Results Past 24 Hours 05/09/17 05:40 Red Blood Count 3.09, Mean Corpuscular Volume 94.2, Mean Corpuscular Hemoglobin 28.8, Mean Corpuscular Hemoglobin Concent 30.6, Mean Platelet Volume 8.9, Neutrophils (%) (Auto) 64.4, Lymphocytes (%) (Auto) 16.0, Monocytes (%) (Auto) 11.0, Eosinophils (%) (Auto) 7.7, Basophils (%) (Auto) 0.7, Neutrophils # (Auto ) 3.58, Lymphocytes # (Auto) 0.89, Monocytes # (Auto) 0.61, Eosinophils # (Auto ) 0.43, Basophils # (Auto) 0.04 05/09/17 05:40 Test 05/08/17 19:45 05/09/17 05:40 Bedside Glucose 131 mg/dl (70-99) White Blood Count 5.56 K/uL (4.8-10.8) Red Blood Count 3.09 M/uL (4.7-6.1) Hemoglobin 8.9 g/dL (14.0-18.0) Hematocrit 29.1 % (42-52) Mean Corpuscular Volume 94.2 fL (80-100) Mean Corpuscular Hemoglobin 28.8 pg (25-34) Mean Corpuscular Hemoglobin Concent 30.6 g/dl (32-36) Platelet Count 148 K/uL (130-400) Mean Platelet Volume 8.9 fL (7.4-10.4) Neutrophils (%) (Auto) 64.4 % Lymphocytes (%) (Auto) 16.0 % Monocytes (%) (Auto) 11.0 % Eosinophils (%) (Auto) 7.7 % Basophils (%) (Auto) 0.7 % Neutrophils # (Auto) 3.58 K/uL (1.4-6.5) Lymphocytes # (Auto) 0.89 K/uL (1.2-3.4) Monocytes # (Auto) 0.61 K/uL (0.11-0.59) Eosinophils # (Auto) 0.43 K/uL (0-0.5) Basophils # (Auto) 0.04 K/uL (0-0.2) RDW Standard Deviation 52.7 fL (36.4-46.3) RDW Coefficient of Variation 15.4 % (11.5-14.5) Immature Granulocyte % (Auto) 0.2 % Immature Granulocyte # (Auto) 0.01 K/uL (0.00-0.02) Hypersegmented Polys 1+ Red Blood Cell Morphology Unremarkable Prothrombin Time 12.2 SECONDS (9.0-12.0) Prothromb Time International Ratio 1.1 (0.9-1.1) Activated Partial Thromboplast Time 29.2 SECONDS (21.0-31.0) Partial Thromboplastin Ratio 1.1 Anion Gap 10.0 mmol/L (3-11) Est Creatinine Clear Calc Drug Dose 12.7 ml/min Estimated GFR () 6.1 Estimated GFR (Non- 5.2 BUN/Creatinine Ratio 4.9 (10-20) Calcium Level 8.4 mg/dl (8.5-10.1) Phosphorus Level 6.3 mg/dl (2.5-4.9) Magnesium Level 1.8 mg/dl (1.8-2.4) Allergies Coded Allergies: Ketorolac Tromethamine (Verified Allergy, Unknown, Itchiness and hives, 09/05/14) Reported by PT Tramadol (Verified Allergy, Unknown, Itchiness and hives, 09/05/14) Reported by PT Acetaminophen (Verified Adverse Reaction, Unknown, NAUSEA,VOMITING, ) REPORTED BY PT. Codeine (Verified Adverse Reaction, Unknown, NAUSEA,VOMITING, 05/05/17) REPORTED BY PT. Medications Current Inpatient Medications Medications (Trade) Dose Ordered Sig/Julio Route Start Time Stop Time Status Last Admin Dose Admin Heparin Sodium (Porcine) (Heparin Sq 5000 Unit/0.5ml) 5,000 unit Q12 SQ 05/05/17 09:00 06/04/17 08:59 05/08/17 20:55 5,000 UNIT Acetaminophen (Tylenol Tab) 650 mg Q4H PRN PO 05/05/17 08:30 06/04/17 08:29 05/05/17 20:00 650 MG Pantoprazole Sodium 40 mg/ Syringe 10 ml @ 5 mls/min DAILY IV 05/05/17 09:00 06/04/17 08:59 05/09/17 08:24 5 MLS/MIN Aspirin (Ecotrin Tab) 81 mg DAILY PO 05/06/17 09:00 06/05/17 08:59 05/08/17 09:00 81 MG Calcitriol (Rocaltrol Cap) 1 mcg MoWeFr@0900 PO 05/05/17 10:00 06/04/17 09:59 05/07/17 08:22 1 MCG Cyclobenzaprine HCl (Flexeril Tab) 10 mg TID PRN PO 05/05/17 09:15 06/04/17 09:14 05/07/17 17:14 10 MG Folic Acid (Folvite Tab) 1 mg DAILY PO 05/06/17 09:00 11/7/17 08:59 05/08/17 09:00 1 MG Furosemide (Lasix Tab) 40 mg DAILY PO 05/06/17 09:00 06/05/17 08:59 05/08/17 09:00 40 MG Gabapentin (Neurontin Cap) 100 mg TID PO 05/05/17 14:00 06/04/17 13:59 05/08/17 20:42 100 MG Metoclopramide HCl (Reglan Tab) 5 mg ACHS PO 05/05/17 11:00 06/04/17 10:59 05/09/17 06:07 5 MG Multivitamins (Multivitamin Tab) 1 tab DAILY PO 05/06/17 09:00 06/05/17 08:59 05/08/17 09:00 1 TAB Pantoprazole Sodium (Protonix Tab) 40 mg DAILY PO 05/06/17 09:00 06/05/17 08:59 05/08/17 09:00 40 MG Simvastatin (Zocor Tab) 40 mg HS PO 05/05/17 21:00 06/04/17 20:59 05/08/17 20:47 40 MG Valsartan (Diovan Tab) 160 mg DAILY PO 05/06/17 09:00 06/05/17 08:59 05/08/17 09:00 160 MG Vitamin B Complex/ Vit C/Folic Acid (Nephrocaps) 1 cap HS PO 05/05/17 21:00 06/04/17 20:59 05/08/17 20:41 1 CAP Miscellaneous Information (Order Awaiting Action) 1 ea QS N/A 05/06/17 11:00 06/05/17 10:59 Sevelamer HCl (Renagel Tab) 800 mg TIDM PO 05/05/17 11:30 06/04/17 11:29 05/08/17 16:46 800 MG Glucose (Glucose 40% Gel) 15-30 GRAMS 15 GRAMS... UD PRN PO 05/05/17 10:30 06/04/17 10:29 Glucose (Glucose Chew Tab) 4-8 Tablets 4 Tabl... UD PRN PO 05/05/17 10:30 06/04/17 10:29 Dextrose (Dextrose 50% 50ML Syringe) 25-50ML OF 50% DW IV FOR... UD PRN IV 10/7/17 10:30 06/04/17 10:29 Glucagon (Glucagon Inj) 1 mg UD PRN SQ 05/05/17 10:30 06/04/17 10:29 Carvedilol (Coreg Tab) 12.5 mg BID PO 05/06/17 09:00 06/04/17 20:59 05/08/17 09:00 12.5 MG Multi-Ingredient Ointment (Eucerin Unscented Cr) 1 appln BID EXT 05/06/17 21:00 06/05/17 20:59 05/08/17 21:41 1 APPLN Clonazepam (Klonopin Tab) 1 mg UD PRN PO 05/07/17 08:45 06/06/17 08:44 05/09/17 08:23 1 MG Diltiazem HCl (Cardizem Tab) 60 mg Q8H PO 05/07/17 23:00 06/06/17 22:59 05/09/17 06:09 60 MG Hydromorphone HCl (Dilaudid Tab) 1 mg Q4H PRN PO 05/08/17 07:30 05/22/17 07:29 05/09/17 08:24 1 MG Rifaximin (Xifaxan Tab) 550 mg BID PO 05/08/17 20:00 06/07/17 20:59 05/08/17 20:44 550 MG Polyethylene (Miralax Powder Packet) 17 gm BID PO 05/08/17 20:00 06/07/17 20:59 05/08/17 20:38 17 GM Doxycycline Hyclate (Vibramycin Cap) 100 mg BID PO 05/08/17 20:00 05/18/17 19:59 05/08/17 20:46 100 MG Levofloxacin (Levaquin Tab) 500 mg Q48H PO 05/10/17 11:00 05/18/17 10:59 Impression (1) End stage renal disease due to hypertension (2) Hyperkalemia (3) Volume overload (4) Hypertensive emergency (5) Secondary hyperparathyroidism of renal origin (6) Anemia (7) Chronic ulcer of leg with fat layer exposed Jd is a 36 y o m with ESRD secondary to hypertensive nephropathy on hemodialysis Sunday, Sunday, Sunday, presented with respiratory distress, volume overload and hyperkalemia after missing dialysis for 2 weeks. Has known h/o noncompliance with HD Rx and medications. Blood pressure was elevated with systolic 190s to 210, on admission potassium of 8.3 and had emergency dialysis. He has a well-functioning left brachiocephalic AV fistula. Chronic leg ulcer growing MRSA. Questionable h/o cirrhosis, ascites. Recommendations --HD now with 2 k bath and 4 L UF --continue antihypertensive medications including valsartan, Lasix and amlodipine --continue on sevelamer and calcitriol --continue on low-potassium, renal diet --avoid IV fluid Will follow
[2017-05-09] MEDS: SENSIPAR~ORDER AWAITING ACTION SCH ×2 (11:11→16:00)
[2017-05-09] MEDS: CARVEDILOL 12.5 MG TAB PO SCH ×2 (13:39→21:49)
[2017-05-09] MEDS: ASPIRIN 81 MG ECTAB PO SCH (13:56)
[2017-05-09] MEDS: EUCERIN CR 120 GM JAR EXT SCH ×2 (13:56→19:55)
[2017-05-09] MEDS: VALSARTAN 80 MG TAB PO SCH (13:56)
[2017-05-09] MEDS: RIFAXIMIN TAB 550 MG TAB PO SCH ×2 (13:57→21:55)
[2017-05-09] MEDS: MULTIVITAMIN TAB PO SCH (13:57)
[2017-05-09] MEDS: CALCITRIOL 0.25 MCG CAP PO SCH (13:57)
[2017-05-09] MEDS: PANTOprazole SOD 40 MG TAB PO SCH (13:57)
[2017-05-09] MEDS: FUROSEMIDE 40 MG TAB PO SCH (13:57)
[2017-05-09] MEDS: DOXYCYCLINE HYCLATE 100 MG CAP PO SCH ×2 (13:57→21:53)
[2017-05-09] MEDS: POLYETHYLENE (MIRALAX) 17 GM PACK PO SCH ×2 (13:59→21:51)
[2017-05-09] MEDS: HYDROmorphone INJ 1 MG/ML SYR IV PRN ×2 (18:57→23:57)
--- NOTE | 2017-05-09 20:11 | Infectious Disease Progress Nt ---
Progress Note Date of Service May 09, 2017. Subjective Pt evaluation today including: conversation w/ patient, physical exam, chart review, lab review, review of studies, conversation w/ it sales consultant, review of inpatient medication list Patient is status post hemodialysis. Still with abdominal leg pain. Remains afebrile. Cultures remain negative. All Other Systems: Reviewed and Negative Medications Current Inpatient Medications Medications (Trade) Dose Ordered Sig/Julio Route Start Time Stop Time Status Last Admin Dose Admin Heparin Sodium (Porcine) (Heparin Sq 5000 Unit/0.5ml) 5,000 unit Q12 SQ 05/05/17 09:00 06/04/17 08:59 05/08/17 20:55 5,000 UNIT Acetaminophen (Tylenol Tab) 650 mg Q4H PRN PO 05/05/17 08:30 06/04/17 08:29 05/05/17 20:00 650 MG Pantoprazole Sodium 40 mg/ Syringe 10 ml @ 5 mls/min DAILY IV 05/05/17 09:00 06/04/17 08:59 05/09/17 08:24 5 MLS/MIN Aspirin (Ecotrin Tab) 81 mg DAILY PO 05/06/17 09:00 06/05/17 08:59 05/09/17 13:56 81 MG Calcitriol (Rocaltrol Cap) 1 mcg MoWeFr@0900 PO 05/05/17 10:00 06/04/17 09:59 05/09/17 13:57 1 MCG Cyclobenzaprine HCl (Flexeril Tab) 10 mg TID PRN PO 05/05/17 09:15 06/04/17 09:14 05/07/17 17:14 10 MG Folic Acid (Folvite Tab) 1 mg DAILY PO 05/06/17 09:00 06/05/17 08:59 05/09/17 13:56 1 MG Furosemide (Lasix Tab) 40 mg DAILY PO 05/06/17 09:00 06/05/17 08:59 05/09/17 13:57 40 MG Gabapentin (Neurontin Cap) 100 mg TID PO 05/05/17 14:00 06/04/17 13:59 05/09/17 13:58 100 MG Metoclopramide HCl (Reglan Tab) 5 mg ACHS PO 05/05/17 11:00 06/04/17 10:59 05/09/17 13:58 5 MG Multivitamins (Multivitamin Tab) 1 tab DAILY PO 05/06/17 09:00 06/05/17 08:59 05/09/17 13:57 1 TAB Pantoprazole Sodium (Protonix Tab) 40 mg DAILY PO 05/06/17 09:00 06/05/17 08:59 05/09/17 13:57 40 MG Simvastatin (Zocor Tab) 40 mg HS PO 05/05/17 21:00 06/04/17 20:59 05/08/17 20:47 40 MG Valsartan (Diovan Tab) 160 mg DAILY PO 05/06/17 09:00 06/05/17 08:59 05/09/17 13:56 160 MG Vitamin B Complex/ Vit C/Folic Acid (Nephrocaps) 1 cap HS PO 05/05/17 21:00 06/04/17 20:59 05/08/17 20:41 1 CAP Miscellaneous Information (Order Awaiting Action) 1 ea QS N/A 05/06/17 11:00 06/05/17 10:59 Sevelamer HCl (Renagel Tab) 800 mg TIDM PO 05/05/17 11:30 06/04/17 11:29 05/09/17 13:58 800 MG Glucose (Glucose 40% Gel) 15-30 GRAMS 15 GRAMS... UD PRN PO 05/05/17 10:30 06/04/17 10:29 Glucose (Glucose Chew Tab) 4-8 Tablets 4 Tabl... UD PRN PO 05/05/17 10:30 06/04/17 10:29 Dextrose (Dextrose 50% 50ML Syringe) 25-50ML OF 50% DW IV FOR... UD PRN IV 05/05/17 10:30 06/04/17 10:29 Glucagon (Glucagon Inj) 1 mg UD PRN SQ 05/05/17 10:30 06/04/17 10:29 Carvedilol (Coreg Tab) 12.5 mg BID PO 05/06/17 09:00 06/04/17 20:59 05/08/17 09:00 12.5 MG Multi-Ingredient Ointment (Eucerin Unscented Cr) 1 appln BID EXT 05/06/17 21:00 06/05/17 20:59 05/09/17 19:55 1 APPLN Clonazepam (Klonopin Tab) 1 mg UD PRN PO 05/07/17 08:45 06/06/17 08:44 05/09/17 08:23 1 MG Diltiazem HCl (Cardizem Tab) 60 mg Q8H PO 05/07/17 23:00 06/06/17 22:59 05/09/17 13:58 60 MG Hydromorphone HCl (Dilaudid Tab) 1 mg Q4H PRN PO 05/08/17 07:30 05/22/17 07:29 05/09/17 13:58 1 MG Rifaximin (Xifaxan Tab) 550 mg BID PO 05/08/17 20:00 06/07/17 20:59 05/09/17 13:57 550 MG Polyethylene (Miralax Powder Packet) 17 gm BID PO 05/08/17 20:00 06/07/17 20:59 05/08/17 20:38 17 GM Doxycycline Hyclate (Vibramycin Cap) 100 mg BID PO 05/08/17 20:00 05/18/17 19:59 05/09/17 13:57 100 MG Levofloxacin (Levaquin Tab) 500 mg Q48H PO 05/10/17 11:00 05/18/17 10:59 Hydromorphone HCl (Dilaudid Inj) 1 mg Q4H PRN IV 05/09/17 17:30 05/23/17 17:29 05/09/17 18:57 1 MG Objective Vital Signs Date Time Temp Pulse Resp B/P (MAP) Pulse Ox O2 Delivery O2 Flow Rate FiO2 05/09/17 16:25 36.3 56 18 166/86 (112) 100 Nasal Cannula 5.0 05/09/17 16:00 Nasal Cannula 5.0 05/09/17 13:29 36.5 57 134/64 (87) 05/09/17 13:15 54 147/74 05/09/17 13:00 52 128/76 05/09/17 12:45 54 171/69 05/09/17 12:30 51 129/63 05/09/17 12:15 58 135/76 05/09/17 12:00 54 124/56 05/09/17 11:45 60 129/67 05/09/17 11:35 Nasal Cannula 5.0 05/09/17 11:30 55 129/69 05/09/17 11:15 58 137/65 05/09/17 11:00 55 124/67 05/09/17 10:45 56 127/64 05/09/17 10:30 55 127/64 05/09/17 10:15 54 125/62 05/09/17 10:00 54 126/51 05/09/17 09:45 54 142/71 05/09/17 09:30 55 145/74 05/09/17 09:23 55 138/74 05/09/17 09:03 36.5 57 155/82 (106) 05/09/17 07:43 36.4 56 18 163/90 (114) 100 Nasal Cannula 05/09/17 06:00 60 161/89 (113) 100 Nasal Cannula 5.0 05/09/17 01:25 Nasal Cannula 5.0 05/09/17 00:16 36.8 63 18 161/95 (117) 100 Nasal Cannula 5.0 05/08/17 22:45 60 170/97 (121) Physical Exam General Appearance: WD/WN, + mild distress Eyes: normal inspection, sclerae normal ENT: normal ENT inspection, pharynx normal Neck: supple, no adenopathy, trachea midline Respiratory/Chest: chest non-tender, lungs clear, normal breath sounds, no respiratory distress Cardiovascular: regular rate, rhythm, no gallop, no murmur Abdomen: normal bowel sounds, no organomegaly, + distended, + tenderness Extremities: non-tender, + swelling Neurologic/Psychiatric: alert, oriented x 3 Skin: normal color, no rash Lymphatic: no adenopathy Laboratory Results Last 24 Hours Test 05/09/17 05:40 05/09/17 17:49 White Blood Count 5.56 K/uL Red Blood Count 3.09 M/uL Hemoglobin 8.9 g/dL Hematocrit 29.1 % Mean Corpuscular Volume 94.2 fL Mean Corpuscular Hemoglobin 28.8 pg Mean Corpuscular Hemoglobin Concent 30.6 g/dl Platelet Count 148 K/uL Mean Platelet Volume 8.9 fL Neutrophils (%) (Auto) 64.4 % Lymphocytes (%) (Auto) 16.0 % Monocytes (%) (Auto) 11.0 % Eosinophils (%) (Auto) 7.7 % Basophils (%) (Auto) 0.7 % Neutrophils # (Auto) 3.58 K/uL Lymphocytes # (Auto) 0.89 K/uL Monocytes # (Auto) 0.61 K/uL Eosinophils # (Auto) 0.43 K/uL Basophils # (Auto) 0.04 K/uL RDW Standard Deviation 52.7 fL RDW Coefficient of Variation 15.4 % Immature Granulocyte % (Auto) 0.2 % Immature Granulocyte # (Auto) 0.01 K/uL Hypersegmented Polys 1+ Red Blood Cell Morphology Unremarkable Prothrombin Time 12.2 SECONDS Prothromb Time International Ratio 1.1 Activated Partial Thromboplast Time 29.2 SECONDS Partial Thromboplastin Ratio 1.1 Sodium Level 135 mmol/L Potassium Level 5.5 mmol/L Chloride Level 100 mmol/L Carbon Dioxide Level 25 mmol/L Anion Gap 10.0 mmol/L Blood Urea Nitrogen 54 mg/dl Creatinine 11.00 mg/dl Est Creatinine Clear Calc Drug Dose 12.7 ml/min Estimated GFR () 6.1 Estimated GFR (Non- 5.2 BUN/Creatinine Ratio 4.9 Random Glucose 99 mg/dl Calcium Level 8.4 mg/dl Phosphorus Level 6.3 mg/dl Magnesium Level 1.8 mg/dl Total Bilirubin 0.4 mg/dl Direct Bilirubin 0.2 mg/dl Aspartate Amino Transf (AST/SGOT) 8 U/L Alanine Aminotransferase (ALT/SGPT) 11 U/L Alkaline Phosphatase 171 U/L Total Protein 6.1 gm/dl Albumin 2.4 gm/dl Lipase 108 U/L Assessment and Plan 36-year-old male with severe lower extremity chronic venous stasis disease with superficial ulceration and weeping. Antibiotics may provide some benefit in reducing bacterial burden to help in wound healing, and will begin patient on combination of doxycycline and levofloxacin to cover MRSA and Acinetobacter. Will follow clinical response.
--- NOTE | 2017-05-09 20:48 | DIAGNOSTIC IMAGING REPORT ---
CT OF THE ABDOMEN AND PELVIS WITH ORAL CONTRAST CLINICAL HISTORY: Severe abdominal pain. Evaluate for pancreatitis. COMPARISON STUDY: Right upper quadrant ultrasound May 06, 2017. TECHNIQUE: Axial images of the abdomen and pelvis were obtained without IV contrast. Oral contrast was administered. FINDINGS: Visualized portions of the lower chest demonstrate gynecomastia, moderate cardiomegaly and extensive coronary artery calcification, greater than expected for age. There is extensive atherosclerotic plaque within the abdominal aorta and branch vessels. Evaluation of the abdomen and pelvis is suboptimal on this unenhanced exam. There is probable fatty infiltration of the liver. There is possible fissural widening. The size of the spleen is normal. Unenhanced images of the adrenal glands and pancreas are normal. Both kidneys are markedly atrophic. There is no hydronephrosis. There is moderate to large abdominal and pelvic ascites with extensive subcutaneous edema and skin thickening of the anterior abdominal wall. There is no bowel obstruction. No pneumatosis, free air or portal venous gas is present. No lymphadenopathy is identified. No suspicious skeletal lesions are identified. There is diffuse increased sclerosis of skeletal structures which could be related to chronic renal failure. Note is made of an ascites containing umbilical hernia. IMPRESSION: 1. No CT evidence of acute pancreatitis on this unenhanced exam. 2. Moderate to large abdominal and pelvic ascites with extensive subcutaneous edema and skin thickening of the anterior abdominal wall which could be due to anasarca or cellulitis. 3. Moderate cardiomegaly. 4. Extensive atherosclerotic plaque, including coronary artery calcification, greater than expected for age. 5. Fatty infiltration of the liver. 6. Study compromised given lack of IV contrast and artifact related to body wall contacting the gantry. Electronically signed by: Doyle Herron M.D. 05/09/2017 8:47 PM Dictated Date/Time: 05/09/2017 8:35 PM
--- NOTE | 2017-05-09 21:48 | Progress Note ---
Subjective Date of Service: May 09, 2017. Subjective Pt evaluation today including: conversation w/ patient, physical exam, chart review, lab review, review of studies (recent u/s of abdomen, etc), review of inpatient medication list Pain: abdomen; left flank radiating to left groin, and epigastric; started wkend PO Intake: eating 100% meals despite his abdominal pain had HD today without any events c/o ongoing abdominal pain takes dilaudid orally at home for chronic pain in back as well as fentanyl patch complains we have not drained enough fluid from his abdomen no vomiting no diarrhea no constipation denies dyspnea Review of Systems Constitutional: No fever, No chills Respiratory: No shortness of breath Cardiac: No chest pain Abdomen: + pain, No nausea, No vomiting, No diarrhea, No constipation, No GI bleeding Objective Vital Signs Date Time Temp Pulse Resp B/P (MAP) Pulse Ox O2 Delivery O2 Flow Rate FiO2 05/09/17 16:25 36.3 56 18 166/86 (112) 100 Nasal Cannula 5.0 05/09/17 16:00 Nasal Cannula 5.0 05/09/17 13:29 36.5 57 134/64 (87) 05/09/17 13:15 54 147/74 05/09/17 13:00 52 128/76 05/09/17 12:45 54 171/69 05/09/17 12:30 51 129/63 05/09/17 12:15 58 135/76 05/09/17 12:00 54 124/56 05/09/17 11:45 60 129/67 05/09/17 11:35 Nasal Cannula 5.0 05/09/17 11:30 55 129/69 05/09/17 11:15 58 137/65 05/09/17 11:00 55 124/67 05/09/17 10:45 56 127/64 05/09/17 10:30 55 127/64 05/09/17 10:15 54 125/62 05/09/17 10:00 54 126/51 05/09/17 09:45 54 142/71 05/09/17 09:30 55 145/74 05/09/17 09:23 55 138/74 05/09/17 09:03 36.5 57 155/82 (106) 05/09/17 07:43 36.4 56 18 163/90 (114) 100 Nasal Cannula 05/09/17 06:00 60 161/89 (113) 100 Nasal Cannula 5.0 05/09/17 01:25 Nasal Cannula 5.0 05/09/17 00:16 36.8 63 18 161/95 (117) 100 Nasal Cannula 5.0 05/08/17 22:45 60 170/97 (121) 05/08/17 19:37 Nasal Cannula 5.0 Physical Exam General Appearance: no apparent distress, + obese ENT: pharynx normal Neck: no JVD Respiratory/Chest: lungs clear, no respiratory distress, no accessory muscle use Cardiovascular: regular rate, rhythm, no gallop, no murmur Abdomen: no organomegaly, + distended (with ascites), + tenderness (epigastric - severe), + hernia (umbilical - reducible) Extremities: + pedal edema, + swelling Neurologic/Psychiatric: alert, oriented x 3 Skin: + pertinent finding (severe stasis changes b/l shins) Comments: vascular - left arm fistula Laboratory Results Last 24 Hours Test 05/08/17 19:45 05/09/17 05:40 05/09/17 17:49 Bedside Glucose 131 mg/dl White Blood Count 5.56 K/uL Red Blood Count 3.09 M/uL Hemoglobin 8.9 g/dL Hematocrit 29.1 % Mean Corpuscular Volume 94.2 fL Mean Corpuscular Hemoglobin 28.8 pg Mean Corpuscular Hemoglobin Concent 30.6 g/dl Platelet Count 148 K/uL Mean Platelet Volume 8.9 fL Neutrophils (%) (Auto) 64.4 % Lymphocytes (%) (Auto) 16.0 % Monocytes (%) (Auto) 11.0 % Eosinophils (%) (Auto) 7.7 % Basophils (%) (Auto) 0.7 % Neutrophils # (Auto) 3.58 K/uL Lymphocytes # (Auto) 0.89 K/uL Monocytes # (Auto) 0.61 K/uL Eosinophils # (Auto) 0.43 K/uL Basophils # (Auto) 0.04 K/uL RDW Standard Deviation 52.7 fL RDW Coefficient of Variation 15.4 % Immature Granulocyte % (Auto) 0.2 % Immature Granulocyte # (Auto) 0.01 K/uL Hypersegmented Polys 1+ Red Blood Cell Morphology Unremarkable Prothrombin Time 12.2 SECONDS Prothromb Time International Ratio 1.1 Activated Partial Thromboplast Time 29.2 SECONDS Partial Thromboplastin Ratio 1.1 Sodium Level 135 mmol/L Potassium Level 5.5 mmol/L Chloride Level 100 mmol/L Carbon Dioxide Level 25 mmol/L Anion Gap 10.0 mmol/L Blood Urea Nitrogen 54 mg/dl Creatinine 11.00 mg/dl Est Creatinine Clear Calc Drug Dose 12.7 ml/min Estimated GFR () 6.1 Estimated GFR (Non- 5.2 BUN/Creatinine Ratio 4.9 Random Glucose 99 mg/dl Calcium Level 8.4 mg/dl Phosphorus Level 6.3 mg/dl Magnesium Level 1.8 mg/dl Total Bilirubin 0.4 mg/dl Direct Bilirubin 0.2 mg/dl Aspartate Amino Transf (AST/SGOT) 8 U/L Alanine Aminotransferase (ALT/SGPT) 11 U/L Alkaline Phosphatase 171 U/L Total Protein 6.1 gm/dl Albumin 2.4 gm/dl Lipase 108 U/L Assessment and Plan 36yo male - 1. severe abdominal pain - just had paracentesis and cell counts not c/w SBP. Will recheck CT abd/pelvis - r/o kidney stone, pancreatitis, obstruction, any other pathology check LFTs and lipase dilaudid IV prn 2. cirrhosis with decompensation - cont HD per dialysis schedule will likely need another therapeutic paracentesis 3. ESRD on HD M/W/F - appreciate nephrology consultation & assistance with HD needs 4. recent hyperkalemia - severe - 2nd to #3 - K today just about normal 5. DVT proph - heparin BID 6. anemia of chronic kidney disease - H/H stable 7. T2DM - controlled 8. HTN - poor control; follow and reassess after dialysis as BPs may improve with such 9. chronic LE wounds - surface culture from [facility] with MRSA, etc - appreciate ID consultation - continue doxycycline & levaquin by mouth 10. morbid obesity w/ BMI 42 11. CARMEN - noted Continued [facility] stay due to: multiple IV medications needed Discharge planning: uncertain
[2017-05-09] MEDS: SIMVASTATIN 40 MG TAB PO SCH (21:54)
[2017-05-09] MEDS: NEPHROCAPS PO SCH (21:56)
[2017-05-10] VITALS (8 sets, daily range): BP systolic 142–175; BP diastolic 68–84; PULSE 57–70; TEMP 36.5–36.7; O2SAT 94–100
[2017-05-10] MEDS: HYDROmorphone INJ 1 MG/ML SYR IV PRN ×3 (03:56→12:48)
[2017-05-10] MEDS: METOCLOPRAMIDE HCL 10 MG TAB PO SCH ×4 (05:52→19:52)
[2017-05-10] MEDS: DILTIAZEM HCL 60 MG TAB PO SCH ×3 (05:53→23:48)
[2017-05-10] MEDS: SENSIPAR~ORDER AWAITING ACTION SCH ×4 (08:00→19:21)
[2017-05-10] MEDS: EUCERIN CR 120 GM JAR EXT SCH ×2 (08:29→19:50)
[2017-05-10] MEDS: CARVEDILOL 12.5 MG TAB PO SCH ×2 (08:30→19:51)
[2017-05-10] MEDS: SEVELAMER HYDROCH 800 MG TAB PO SCH ×3 (08:30→15:38)
[2017-05-10] MEDS: PANTOprazole INJ 40 MG in SYRINGE 0 ML IV SCH (08:30)
[2017-05-10] MEDS: ASPIRIN 81 MG ECTAB PO SCH (08:31)
[2017-05-10] MEDS: VALSARTAN 80 MG TAB PO SCH (08:31)
[2017-05-10] MEDS: MULTIVITAMIN TAB PO SCH (08:31)
[2017-05-10] MEDS: FUROSEMIDE 40 MG TAB PO SCH (08:31)
[2017-05-10] MEDS: PANTOprazole SOD 40 MG TAB PO SCH (08:31)
[2017-05-10] MEDS: RIFAXIMIN TAB 550 MG TAB PO SCH ×2 (08:31→19:52)
[2017-05-10] MEDS: POLYETHYLENE (MIRALAX) 17 GM PACK PO SCH ×2 (08:32→20:00)
[2017-05-10] MEDS: DOXYCYCLINE HYCLATE 100 MG CAP PO SCH ×2 (08:32→19:52)
[2017-05-10] MEDS: GABAPENTIN 100 MG CAP PO SCH ×3 (08:32→19:51)
[2017-05-10] MEDS: HEPARIN SOD 5000 UNIT/0.5 ML CARP SQ SCH ×2 (08:34→21:00)
[2017-05-10 08:37] LABS: BUN/CREATININE RATIO 4.9 (10-20); CALCIUM 8.7 mg/dl (8.5-10.1); CREATININE 8.1 mg/dl (0.60-1.40); PHOSPHORUS 4.9 mg/dl (2.5-4.9); POTASSIUM 5.3 mmol/L (3.5-5.1)
--- NOTE | 2017-05-10 09:40 | Nephrology Progress Note ---
Nephrology Progress Note Date of Service May 10, 2017. Chief Complaint Follow-up for end-stage renal disease on hemodialysis. Jaiden Miles was seen and examined in his room this morning. Had HD yesterday, had 4 L UF. He was complaining of abdominal pain but otherwise denied any shortness of breath or chest pain. No fever,chills. Appetite has been decent. BP stable, potassium still elevated, has been on low-potassium diet. Review of Systems A complete review of systems was performed. Pertinent positives are noted above. All other systems are negative. Vital Signs Last 8 Hrs Date Time Temp Pulse Resp B/P (MAP) Pulse Ox O2 Delivery O2 Flow Rate FiO2 05/10/17 06:00 62 164/80 (108) 05/10/17 00:48 36.7 64 20 175/80 (111) 100 5.0 05/10/17 00:30 Nasal Cannula 5.0 Last Recorded Weight Weight (Kilograms): 137.000 Physical Exam GENERAL: young male, AAA x 3, not in any distress. NECK: Supple, no JVD. RESPIRATORY: Normal breathing efforts, no accessory muscle use, clear to auscultation bilaterally, no wheezes or rales. CARDIOVASCULAR: S1, S2 normal, rate rhythm regular. ABDOMEN: Distended, mild diffuse tenderness, positive bowel sound EXTREMITY: Bilateral lower extremity with chronic ulcer, rough thickened skin. NEURO: speech fluent. PSYCHIATRY: Normal mood and judgment Social History Smokeless Tobacco Use: No Alcohol Use: none Drug Use: none Marital Status: Housing Status: lives with family (mother and son) Occupation: unemployed Laboratory Results Past 24 Hours Test 05/09/17 17:49 05/10/17 04:44 Total Bilirubin 0.4 mg/dl (0.2-1) Direct Bilirubin 0.2 mg/dl (0-0.2) Aspartate Amino Transf (AST/SGOT) 8 U/L (15-37) Alanine Aminotransferase (ALT/SGPT) 11 U/L (12-78) Alkaline Phosphatase 171 U/L (45-117) Total Protein 6.1 gm/dl (6.4-8.2) Albumin 2.4 gm/dl (3.4-5.0) Lipase 108 U/L (73-393) Allergies Coded Allergies: Ketorolac Tromethamine (Verified Allergy, Unknown, Itchiness and hives, 09/05/14) Reported by PT Tramadol (Verified Allergy, Unknown, Itchiness and hives, 09/05/14) Reported by PT Acetaminophen (Verified Adverse Reaction, Unknown, NAUSEA,VOMITING, ) REPORTED BY PT. Codeine (Verified Adverse Reaction, Unknown, NAUSEA,VOMITING, 05/05/17) REPORTED BY PT. Medications Current Inpatient Medications Medications (Trade) Dose Ordered Sig/Julio Route Start Time Stop Time Status Last Admin Dose Admin Heparin Sodium (Porcine) (Heparin Sq 5000 Unit/0.5ml) 5,000 unit Q12 SQ 05/05/17 09:00 06/04/17 08:59 05/09/17 22:01 5,000 UNIT Acetaminophen (Tylenol Tab) 650 mg Q4H PRN PO 05/05/17 08:30 06/04/17 08:29 05/05/17 20:00 650 MG Pantoprazole Sodium 40 mg/ Syringe 10 ml @ 5 mls/min DAILY IV 05/05/17 09:00 06/04/17 08:59 05/09/17 08:24 5 MLS/MIN Aspirin (Ecotrin Tab) 81 mg DAILY PO 05/06/17 09:00 06/05/17 08:59 05/09/17 13:56 81 MG Calcitriol (Rocaltrol Cap) 1 mcg MoWeFr@0900 PO 05/05/17 10:00 06/04/17 09:59 05/09/17 13:57 1 MCG Cyclobenzaprine HCl (Flexeril Tab) 10 mg TID PRN PO 05/05/17 09:15 06/04/17 09:14 05/07/17 17:14 10 MG Folic Acid (Folvite Tab) 1 mg DAILY PO 05/06/17 09:00 06/05/17 08:59 05/09/17 13:56 1 MG Furosemide (Lasix Tab) 40 mg DAILY PO 05/06/17 09:00 06/05/17 08:59 05/09/17 13:57 40 MG Gabapentin (Neurontin Cap) 100 mg TID PO 05/05/17 14:00 06/04/17 13:59 05/09/17 21:50 100 MG Metoclopramide HCl (Reglan Tab) 5 mg ACHS PO 05/05/17 11:00 06/04/17 10:59 05/10/17 05:52 5 MG Multivitamins (Multivitamin Tab) 1 tab DAILY PO 05/06/17 09:00 06/05/17 08:59 05/09/17 13:57 1 TAB Pantoprazole Sodium (Protonix Tab) 40 mg DAILY PO 05/06/17 09:00 06/05/17 08:59 05/09/17 13:57 40 MG Simvastatin (Zocor Tab) 40 mg HS PO 05/05/17 21:00 06/04/17 20:59 05/09/17 21:54 40 MG Valsartan (Diovan Tab) 160 mg DAILY PO 05/06/17 09:00 06/05/17 08:59 05/09/17 13:56 160 MG Vitamin B Complex/ Vit C/Folic Acid (Nephrocaps) 1 cap HS PO 05/05/17 21:00 06/04/17 20:59 05/09/17 21:56 1 CAP Miscellaneous Information (Order Awaiting Action) 1 ea QS N/A 05/06/17 11:00 06/05/17 10:59 Sevelamer HCl (Renagel Tab) 800 mg TIDM PO 05/05/17 11:30 06/04/17 11:29 05/09/17 21:48 800 MG Glucose (Glucose 40% Gel) 15-30 GRAMS 15 GRAMS... UD PRN PO 05/05/17 10:30 06/04/17 10:29 Glucose (Glucose Chew Tab) 4-8 Tablets 4 Tabl... UD PRN PO 05/05/17 10:30 06/04/17 10:29 Dextrose (Dextrose 50% 50ML Syringe) 25-50ML OF 50% DW IV FOR... UD PRN IV 05/05/17 10:30 06/04/17 10:29 Glucagon (Glucagon Inj) 1 mg UD PRN SQ 05/05/17 10:30 06/04/17 10:29 Carvedilol (Coreg Tab) 12.5 mg BID PO 05/06/17 09:00 06/04/17 20:59 05/09/17 21:49 12.5 MG Multi-Ingredient Ointment (Eucerin Unscented Cr) 1 appln BID EXT 05/06/17 21:00 06/05/17 20:59 05/09/17 19:55 1 APPLN Clonazepam (Klonopin Tab) 1 mg UD PRN PO 05/07/17 08:45 06/06/17 08:44 05/09/17 08:23 1 MG Diltiazem HCl (Cardizem Tab) 60 mg Q8H PO 05/07/17 23:00 06/06/17 22:59 05/10/17 05:53 60 MG Hydromorphone HCl (Dilaudid Tab) 1 mg Q4H PRN PO 05/08/17 07:30 05/22/17 07:29 05/09/17 13:58 1 MG Rifaximin (Xifaxan Tab) 550 mg BID PO 05/08/17 20:00 06/07/17 20:59 05/09/17 21:55 550 MG Polyethylene (Miralax Powder Packet) 17 gm BID PO 05/08/17 20:00 06/07/17 20:59 05/09/17 21:51 17 GM Doxycycline Hyclate (Vibramycin Cap) 100 mg BID PO 05/08/17 20:00 05/18/17 19:59 05/09/17 21:53 100 MG Levofloxacin (Levaquin Tab) 500 mg Q48H PO 05/10/17 11:00 05/18/17 10:59 Hydromorphone HCl (Dilaudid Inj) 1 mg Q4H PRN IV 05/09/17 17:30 05/23/17 17:29 05/10/17 03:56 1 MG Albumin Human (Albumin 25%) 25 gm ONE ONCE IV 05/10/17 07:30 05/10/17 07:31 UNV Impression (1) End stage renal disease due to hypertension (2) Hyperkalemia (3) Volume overload (4) Hypertensive emergency (5) Secondary hyperparathyroidism of renal origin (6) Anemia (7) Chronic ulcer of leg with fat layer exposed Jd is a 36 y o m with ESRD secondary to hypertensive nephropathy on hemodialysis Sunday, Sunday, Sunday, presented with respiratory distress, volume overload and hyperkalemia after missing dialysis for 2 weeks. Has known h/o noncompliance with HD Rx and medications. Blood pressure was elevated with systolic 190s to 210, on admission potassium of 8.3 and had emergency dialysis. He has a well-functioning left brachiocephalic AV fistula. Chronic leg ulcer growing MRSA. Questionable h/o cirrhosis, ascites. Recommendations --plan for HD tomorrow with 2 k bath --discontinue valsartan as K remain elevated --BP better on amlodipine --received SHOLA 86120 unit on 04/29/17 --continue on sevelamer and calcitriol --continue on low-potassium, renal diet --avoid IV fluid Will follow
--- NOTE | 2017-05-10 10:10 | Gastroenterology Progress Note ---
Progress Note Date of Service: May 10, 2017 Subjective Pt evaluation today including: conversation w/ patient, physical exam, lab review, review of studies Patient is a 36 yo male with cirrhosis struggling with volume overload managed by nephrology and ascites. Patient reports he feels that his abdomen is becoming more fluid-filled. CT imaging yesterday indicated moderate to large volume ascites. He reports abdominal discomfort, bloating, and fatigue. He denies new complaints at present. He had dialysis yesterday. Review of Systems Constitutional: No fever, No chills Eyes: No problem reported Respiratory: + dyspnea on exertion, No cough, No shortness of breath Cardiac: No chest pain Abdomen: + pain, + problem reported (ascites), No nausea, No vomiting, No diarrhea Musculoskeletal: No problem reported Psych: No problem reported Skin: No problem reported Medications Current Inpatient Medications Medications (Trade) Dose Ordered Sig/Julio Route Start Time Stop Time Status Last Admin Dose Admin Heparin Sodium (Porcine) (Heparin Sq 5000 Unit/0.5ml) 5,000 unit Q12 SQ 05/05/17 09:00 06/04/17 08:59 05/10/17 08:34 5,000 UNIT Acetaminophen (Tylenol Tab) 650 mg Q4H PRN PO 05/05/17 08:30 06/04/17 08:29 05/05/17 20:00 650 MG Pantoprazole Sodium 40 mg/ Syringe 10 ml @ 5 mls/min DAILY IV 05/05/17 09:00 06/04/17 08:59 05/10/17 08:30 5 MLS/MIN Aspirin (Ecotrin Tab) 81 mg DAILY PO 05/06/17 09:00 06/05/17 08:59 05/10/17 08:31 81 MG Calcitriol (Rocaltrol Cap) 1 mcg MoWeFr@0900 PO 05/05/17 10:00 06/04/17 09:59 05/09/17 13:57 1 MCG Cyclobenzaprine HCl (Flexeril Tab) 10 mg TID PRN PO 05/05/17 09:15 06/04/17 09:14 05/07/17 17:14 10 MG Folic Acid (Folvite Tab) 1 mg DAILY PO 05/06/17 09:00 06/05/17 08:59 05/10/17 08:31 1 MG Furosemide (Lasix Tab) 40 mg DAILY PO 05/06/17 09:00 06/05/17 08:59 05/10/17 08:31 40 MG Gabapentin (Neurontin Cap) 100 mg TID PO 05/05/17 14:00 06/04/17 13:59 05/10/17 08:32 100 MG Metoclopramide HCl (Reglan Tab) 5 mg ACHS PO 05/05/17 11:00 06/04/17 10:59 05/10/17 05:52 5 MG Multivitamins (Multivitamin Tab) 1 tab DAILY PO 05/06/17 09:00 06/05/17 08:59 05/10/17 08:31 1 TAB Pantoprazole Sodium (Protonix Tab) 40 mg DAILY PO 05/06/17 09:00 06/05/17 08:59 05/10/17 08:31 40 MG Simvastatin (Zocor Tab) 40 mg HS PO 05/05/17 21:00 06/04/17 20:59 05/09/17 21:54 40 MG Vitamin B Complex/ Vit C/Folic Acid (Nephrocaps) 1 cap HS PO 05/05/17 21:00 06/04/17 20:59 05/09/17 21:56 1 CAP Miscellaneous Information (Order Awaiting Action) 1 ea QS N/A 05/06/17 11:00 06/05/17 10:59 Sevelamer HCl (Renagel Tab) 800 mg TIDM PO 05/05/17 11:30 06/04/17 11:29 05/10/17 08:30 800 MG Glucose (Glucose 40% Gel) 15-30 GRAMS 15 GRAMS... UD PRN PO 05/05/17 10:30 06/04/17 10:29 Glucose (Glucose Chew Tab) 4-8 Tablets 4 Tabl... UD PRN PO 05/05/17 10:30 06/04/17 10:29 Dextrose (Dextrose 50% 50ML Syringe) 25-50ML OF 50% DW IV FOR... UD PRN IV 05/05/17 10:30 06/04/17 10:29 Glucagon (Glucagon Inj) 1 mg UD PRN SQ 05/05/17 10:30 06/04/17 10:29 Carvedilol (Coreg Tab) 12.5 mg BID PO 05/06/17 09:00 06/04/17 20:59 05/10/17 08:30 12.5 MG Multi-Ingredient Ointment (Eucerin Unscented Cr) 1 appln BID EXT 05/06/17 21:00 06/05/17 20:59 05/10/17 08:29 1 APPLN Clonazepam (Klonopin Tab) 1 mg UD PRN PO 05/07/17 08:45 06/06/17 08:44 05/09/17 08:23 1 MG Diltiazem HCl (Cardizem Tab) 60 mg Q8H PO 05/07/17 23:00 06/06/17 22:59 05/10/17 05:53 60 MG Hydromorphone HCl (Dilaudid Tab) 1 mg Q4H PRN PO 05/08/17 07:30 05/22/17 07:29 05/09/17 13:58 1 MG Rifaximin (Xifaxan Tab) 550 mg BID PO 05/08/17 20:00 06/07/17 20:59 05/10/17 08:31 550 MG Polyethylene (Miralax Powder Packet) 17 gm BID PO 05/08/17 20:00 06/07/17 20:59 05/09/17 21:51 17 GM Doxycycline Hyclate (Vibramycin Cap) 100 mg BID PO 05/08/17 20:00 05/18/17 19:59 05/10/17 08:32 100 MG Levofloxacin (Levaquin Tab) 500 mg Q48H PO 05/10/17 11:00 05/18/17 10:59 Hydromorphone HCl (Dilaudid Inj) 1 mg Q4H PRN IV 05/09/17 17:30 05/23/17 17:29 05/10/17 08:29 1 MG Albumin Human (Albumin 25%) 12.5 gm TODAY@1000,1100 IV 05/10/17 10:00 05/10/17 23:59 Objective Vital Signs Date Time Temp Pulse Resp B/P (MAP) Pulse Ox O2 Delivery O2 Flow Rate FiO2 05/10/17 09:30 Nasal Cannula 5.0 05/10/17 07:46 36.7 57 18 142/68 (92) 100 5.0 05/10/17 06:00 62 164/80 (108) 05/10/17 00:48 36.7 64 20 175/80 (111) 100 5.0 05/10/17 00:30 Nasal Cannula 5.0 05/09/17 16:25 36.3 56 18 166/86 (112) 100 Nasal Cannula 5.0 05/09/17 16:00 Nasal Cannula 5.0 05/09/17 13:29 36.5 57 134/64 (87) 05/09/17 13:15 54 147/74 05/09/17 13:00 52 128/76 05/09/17 12:45 54 171/69 05/09/17 12:30 51 129/63 05/09/17 12:15 58 135/76 05/09/17 12:00 54 124/56 05/09/17 11:45 60 129/67 05/09/17 11:35 Nasal Cannula 5.0 05/09/17 11:30 55 129/69 05/09/17 11:15 58 137/65 05/09/17 11:00 55 124/67 05/09/17 10:45 56 127/64 05/09/17 10:30 55 127/64 05/09/17 10:15 54 125/62 05/09/17 10:00 54 126/51 Physical Exam General Appearance: WD/WN, no apparent distress Eyes: normal inspection, PERRL Respiratory/Chest: lungs clear, normal breath sounds Cardiovascular: regular rate, rhythm Abdomen: normal bowel sounds, + tenderness, + pertinent finding (ascites) Extremities: non-tender Neurologic/Psych: alert, oriented x 3 Skin: normal color Laboratory Results Last 24 Hours Test 05/09/17 17:49 05/10/17 07:43 Total Bilirubin 0.4 mg/dl Direct Bilirubin 0.2 mg/dl Aspartate Amino Transf (AST/SGOT) 8 U/L Alanine Aminotransferase (ALT/SGPT) 11 U/L Alkaline Phosphatase 171 U/L Total Protein 6.1 gm/dl Albumin 2.4 gm/dl Lipase 108 U/L Sodium Level 135 mmol/L Potassium Level 5.3 mmol/L Chloride Level 99 mmol/L Carbon Dioxide Level 28 mmol/L Anion Gap 8.0 mmol/L Blood Urea Nitrogen 39 mg/dl Creatinine 8.10 mg/dl Est Creatinine Clear Calc Drug Dose 17.5 ml/min Estimated GFR () 8.8 Estimated GFR (Non- 7.6 BUN/Creatinine Ratio 4.9 Random Glucose 85 mg/dl Calcium Level 8.7 mg/dl Phosphorus Level 4.9 mg/dl Assessment and Plan Patient is a 36 yo male with cirrhosis and ascites. 1) Await records from [facility] hepatology/GI 2) Paracentesis today with fluid studies as ordered. Albumin replacement pending volume removed. 3) Continue Lasix as dose by nephrology. 4) Xifaxan 550 mg BID. Discussed Miralax & setting a goal of 3 bowel movements daily minimum. 5) Patient will need an outpatient hepatology evaluation upon discharge. Thank you for allowing us to participate in the care of this patient. If you should have any further questions or concerns, do not hesitate to contact us. Agree with LUCILLE Rogel as above Abd: Distended, +BS No evidence of SBP on ascitic fluid studies Continue current therapy
[2017-05-10] MEDS: LEVOFLOXACIN 500 MG TAB PO SCH (12:48)
[2017-05-10] MEDS ORDERED: NURSING VERBAL MED ORDER ONE (13:30)
--- NOTE | 2017-05-10 14:39 | DIAGNOSTIC IMAGING REPORT ---
ULTRASOUND GUIDED DIAGNOSTIC AND THERAPEUTIC PARACENTESIS CLINICAL HISTORY: Ascites. Cirrhosis. COMPARISON STUDY: CT of the abdomen and pelvis May 09, 2017. PROCEDURE: The risks, benefits, and alternatives to the procedure were discussed with the patient including the risk of bleeding, infection and injury to adjacent structures. The patient agreed to the procedure and informed written consent was obtained. Following real-time ultrasound localization, the skin of the left lower quadrant was prepped and draped. Following local anesthesia with Xylocaine, the sheath paracentesis needle was inserted and approximately 7 liters of straw-colored fluid was removed by vacuum suction. The patient tolerated the procedure well and no immediate complications were evident. IMPRESSION: Ultrasound-guided paracentesis with removal of 7 liters of ascites. 1 L of ascites was sent to the laboratory for analysis. Electronically signed by: Doyle Herron M.D. 05/10/2017 2:38 PM Dictated Date/Time: 05/10/2017 2:31 PM
[2017-05-10] MEDS: ALBUMIN HUMAN 25% 12.5 GM/50 ML VIAL IV SCH ×2 (15:37→16:11)
[2017-05-10] MEDS ORDERED: ALBUMIN HUMAN 25% 12.5 GM/50 ML VIAL IV ONE (16:00)
[2017-05-10 16:54] LABS: PERIT FL WBC 312 /uL (0-300); PERITONEAL FLUID RBC < 3000 /uL
[2017-05-10] MEDS: OXYCODONE HCL IR 5 MG TAB (IMMEDIATE RELEASE) PO PRN (18:09)
[2017-05-10] MEDS: SIMVASTATIN 40 MG TAB PO SCH (19:52)
[2017-05-10] MEDS: NEPHROCAPS PO SCH (19:52)
[2017-05-10] MEDS: ACETAMINOPHEN 325 MG TAB PO PRN (21:33)
[2017-05-11] VITALS (24 sets, daily range): BP systolic 103–149; BP diastolic 46–76; PULSE 55–64; TEMP 36.4–36.6; O2SAT 92–100
[2017-05-11] MEDS: OXYCODONE HCL IR 5 MG TAB (IMMEDIATE RELEASE) PO PRN ×4 (00:48→22:38)
--- NOTE | 2017-05-11 00:58 | Progress Note ---
Subjective Date of Service: May 10, 2017. Subjective Pt evaluation today including: conversation w/ patient, physical exam, chart review, lab review, review of studies (CT abd/pelvis, ascitic fluid studies ), review of inpatient medication list Pain: abdomen, severe at times, requesting dilaudid PO Intake: tolerating meals; eating 100% of meals upon my arrival patient was sleeping he awoke easily immediately started complaining of abdominal pain but appeared comfortable states he "takes dilaudid 3mg by mouth at a time" for chronic back pain at home states he has been on it for "a few months" has been on fentanyl patch for several years no other new complaints Review of Systems Constitutional: No fever Respiratory: No shortness of breath Cardiac: No chest pain Abdomen: + pain, No nausea, No vomiting, No diarrhea, No constipation, No GI bleeding Objective Vital Signs Date Time Temp Pulse Resp B/P (MAP) Pulse Ox O2 Delivery O2 Flow Rate FiO2 05/10/17 17:30 65 153/80 (104) 05/10/17 16:45 70 143/78 (99) 94 Room Air 05/10/17 16:04 Nasal Cannula 5.0 05/10/17 15:33 36.5 57 18 162/84 (110) 100 Nasal Cannula 5.0 05/10/17 09:30 Nasal Cannula 5.0 05/10/17 07:46 36.7 57 18 142/68 (92) 100 5.0 05/10/17 06:00 62 164/80 (108) 05/10/17 00:48 36.7 64 20 175/80 (111) 100 5.0 05/10/17 00:30 Nasal Cannula 5.0 Physical Exam General Appearance: no apparent distress, + obese, + pertinent finding (looks older than stated age) ENT: pharynx normal Neck: no JVD Respiratory/Chest: lungs clear, no respiratory distress, no accessory muscle use Cardiovascular: regular rate, rhythm, no gallop Abdomen: + distended (with ascites), + tenderness (multiple locations, worst in the mid abdomen (epigastric region)), + hernia (umbilical) Extremities: + pedal edema, + swelling (no change) Neurologic/Psychiatric: alert, oriented x 3 Skin: + pertinent finding (severe stasis changes b/l legs, left leg is larger than right leg ) Laboratory Results Last 24 Hours Test 05/10/17 00:00 05/10/17 07:43 Peritoneal Fluid Color YELLOW Peritoneal Fluid Appearance CLEAR Peritoneal Fluid WBC 312 /uL Peritoneal Fluid RBC < 3000 /uL Peritoneal Fld Mononuclear WBCs (%) 91.6 % Peritoneal Fld Polynuclear WBCs (%) 8.4 % Peritoneal Fluid Total Protein 3.0 g/dl Peritoneal Fluid Albumin 1.4 g/dl Sodium Level 135 mmol/L Potassium Level 5.3 mmol/L Chloride Level 99 mmol/L Carbon Dioxide Level 28 mmol/L Anion Gap 8.0 mmol/L Blood Urea Nitrogen 39 mg/dl Creatinine 8.10 mg/dl Est Creatinine Clear Calc Drug Dose 17.5 ml/min Estimated GFR () 8.8 Estimated GFR (Non- 7.6 BUN/Creatinine Ratio 4.9 Random Glucose 85 mg/dl Calcium Level 8.7 mg/dl Phosphorus Level 4.9 mg/dl Assessment and Plan 36yo male - 1. severe abdominal pain - ongoing. Despite the pain he is eating 100% of meals. No nausea, emesis or diarrhea. CT abd/pelvis without pancreatitis, mass, renal stones, or other findings except the ascites. Suspect the ascites is causing some discomfort but his tenderness appears out of proportion to his complaints. He underwent diagnostic/therapeutic paracentesis - cell counts NOT c/w SBP. Previous culture of the ascites fluid from earlier paracentesis was negative. LFTs & lipase acceptable. Exact etiology?? 2. cirrhosis with decompensation - cont HD per dialysis schedule s/p therapeutic paracentesis today gave 37.5gm of albumin following the paracentesis 3. ESRD on HD M/W/F - appreciate nephrology consultation & assistance with HD needs 4. recent hyperkalemia - severe - 2nd to #3 - K nearly normal 5. DVT proph - heparin BID 6. anemia of chronic kidney disease - H/H stable 7. T2DM - controlled 8. HTN - if still high tomorrow then adjust meds 9. chronic LE wounds - surface culture from LLE with MRSA, etc - appreciate ID consultation - continue doxycycline & levaquin by mouth 10. morbid obesity w/ BMI 42 11. CARMEN - noted 12. chronic pain syndrome - I researched the [facility] Narcotic Database and the patient does NOT receive dilaudid by any provider It appears he follows with pain management in [place] will address this with patient tomorrow d/c any dilaudid oxycodone prn only (he is prescribed such by pain management as outpatient) making slow progress Continued [facility] stay due to: multiple IV medications needed Discharge planning: uncertain
[2017-05-11] MEDS: CYCLOBENZAPRINE HCL 10 MG TAB PO PRN (01:19)
[2017-05-11] MEDS: METOCLOPRAMIDE HCL 10 MG TAB PO SCH ×4 (06:40→20:10)
[2017-05-11] MEDS: DILTIAZEM HCL 60 MG TAB PO SCH ×3 (06:40→22:36)
[2017-05-11 07:47] LABS: HEMATOCRIT 25.5 % (42-52); MEAN CELL VOLUME 94.8 fL (80-100); MEAN CORPUSCULAR HGB CONC 30.6 g/dl (32-36); MEAN PLATELET VOLUME 9.2 fL (7.4-10.4); PLATELET COUNT 110 K/uL (130-400); RED BLOOD COUNT 2.69 M/uL (4.7-6.1); WHITE BLOOD COUNT 4.58 K/uL (4.8-10.8)
[2017-05-11] MEDS: POLYETHYLENE (MIRALAX) 17 GM PACK PO SCH ×2 (08:00→20:00)
[2017-05-11] MEDS: SENSIPAR~ORDER AWAITING ACTION SCH ×2 (08:00→16:00)
[2017-05-11] MEDS: EUCERIN CR 120 GM JAR EXT SCH ×2 (08:19→20:00)
[2017-05-11] MEDS: CALCITRIOL 0.25 MCG CAP PO SCH (08:21)
[2017-05-11] MEDS: SEVELAMER HYDROCH 800 MG TAB PO SCH ×3 (08:21→17:59)
[2017-05-11] MEDS: GABAPENTIN 100 MG CAP PO SCH ×3 (08:30→20:07)
[2017-05-11] MEDS: HEPARIN SOD 5000 UNIT/0.5 ML CARP SQ SCH ×2 (08:30→20:15)
[2017-05-11 08:38] LABS: BUN/CREATININE RATIO 5.7 (10-20); CALCIUM 8.3 mg/dl (8.5-10.1); CREATININE 9.5 mg/dl (0.60-1.40); POTASSIUM 5.8 mmol/L (3.5-5.1)
[2017-05-11] MEDS ORDERED: IRON SUCROSE INJ 100 MG in SYRINGE 0 ML IV SCH (09:00)
[2017-05-11] MEDS ORDERED: EPOETIN ALFA 10,000 UNITS/ML VIAL IV SCH (09:00)
[2017-05-11] MEDS: CLONAZEPAM 1 MG TAB PO PRN (09:08)
--- NOTE | 2017-05-11 10:42 | Nephrology Progress Note ---
Nephrology Progress Note Date of Service May 11, 2017. Chief Complaint ESRD Subjective No acute events overnight. Jd continues to experience back pain. He was sleeping when I entered his room this morning. He told me that he did not feel like speaking. He did not endorse any shortness of breath. Plan for HD reviewed. Review of Systems A complete review of systems was performed. Pertinent positives are noted above. All other systems are negative. Vital Signs Last 8 Hrs Date Time Temp Pulse Resp B/P (MAP) Pulse Ox O2 Delivery O2 Flow Rate FiO2 05/11/17 10:30 55 124/47 05/11/17 10:15 55 112/56 05/11/17 10:10 57 117/63 05/11/17 08:27 36.6 55 19 129/72 (91) 92 5.0 05/11/17 06:40 55 20 121/63 (82) 98 Nasal Cannula 5.0 Last Recorded Weight Weight (Kilograms): 137.000 Physical Exam General Appearance: WD/WN, no apparent distress Head: normocephalic, atraumatic Eyes: normal inspection, sclerae normal ENT: normal ENT inspection, pharynx normal Neck: supple, no JVD Respiratory/Chest: lungs clear, no accessory muscle use, + decreased breath sounds Cardiovascular: regular rate, rhythm, no gallop Abdomen/GI: non tender, soft Extremities/Musculoskelatal: normal inspection, + pedal edema, + pertinent finding (AVF with thrill and bruit) Neurologic/Psych: alert, + depressed affect Social History Smokeless Tobacco Use: No Alcohol Use: none Drug Use: none Marital Status: Housing Status: lives with family (mother and son) Occupation: unemployed Laboratory Results Past 24 Hours 05/11/17 07:23 05/11/17 07:23 Test 05/11/17 07:23 Red Blood Count 2.69 M/uL (4.7-6.1) Mean Corpuscular Volume 94.8 fL (80-100) Mean Corpuscular Hemoglobin 29.0 pg (25-34) Mean Corpuscular Hemoglobin Concent 30.6 g/dl (32-36) RDW Standard Deviation 53.4 fL (36.4-46.3) RDW Coefficient of Variation 15.5 % (11.5-14.5) Mean Platelet Volume 9.2 fL (7.4-10.4) Anion Gap 7.0 mmol/L (3-11) Est Creatinine Clear Calc Drug Dose 14.9 ml/min Estimated GFR () 7.2 Estimated GFR (Non- 6.3 BUN/Creatinine Ratio 5.7 (10-20) Calcium Level 8.3 mg/dl (8.5-10.1) Allergies Coded Allergies: Ketorolac Tromethamine (Verified Allergy, Unknown, Itchiness and hives, 09/05/14) Reported by PT Tramadol (Verified Allergy, Unknown, Itchiness and hives, 09/05/14) Reported by PT Acetaminophen (Verified Adverse Reaction, Unknown, NAUSEA,VOMITING, ) REPORTED BY PT. Codeine (Verified Adverse Reaction, Unknown, NAUSEA,VOMITING, 05/05/17) REPORTED BY PT. Medications Current Inpatient Medications Medications (Trade) Dose Ordered Sig/Julio Route Start Time Stop Time Status Last Admin Dose Admin Heparin Sodium (Porcine) (Heparin Sq 5000 Unit/0.5ml) 5,000 unit Q12 SQ 05/05/17 09:00 06/04/17 08:59 05/10/17 08:34 5,000 UNIT Acetaminophen (Tylenol Tab) 650 mg Q4H PRN PO 05/05/17 08:30 06/04/17 08:29 05/10/17 21:33 650 MG Aspirin (Ecotrin Tab) 81 mg DAILY PO 05/06/17 09:00 06/05/17 08:59 05/10/17 08:31 81 MG Calcitriol (Rocaltrol Cap) 1 mcg MoWeFr@0900 PO 05/05/17 10:00 06/04/17 09:59 05/11/17 08:21 1 MCG Cyclobenzaprine HCl (Flexeril Tab) 10 mg TID PRN PO 05/05/17 09:15 06/04/17 09:14 05/11/17 01:19 10 MG Folic Acid (Folvite Tab) 1 mg DAILY PO 05/06/17 09:00 06/05/17 08:59 05/10/17 08:31 1 MG Furosemide (Lasix Tab) 40 mg DAILY PO 05/06/17 09:00 06/05/17 08:59 05/10/17 08:31 40 MG Gabapentin (Neurontin Cap) 100 mg TID PO 05/05/17 14:00 06/04/17 13:59 05/10/17 19:51 100 MG Metoclopramide HCl (Reglan Tab) 5 mg ACHS PO 05/05/17 11:00 06/04/17 10:59 05/11/17 06:40 5 MG Multivitamins (Multivitamin Tab) 1 tab DAILY PO 05/06/17 09:00 06/05/17 08:59 05/10/17 08:31 1 TAB Pantoprazole Sodium (Protonix Tab) 40 mg DAILY PO 05/06/17 09:00 06/05/17 08:59 05/10/17 08:31 40 MG Simvastatin (Zocor Tab) 40 mg HS PO 05/05/17 21:00 06/04/17 20:59 05/10/17 19:52 40 MG Vitamin B Complex/ Vit C/Folic Acid (Nephrocaps) 1 cap HS PO 05/05/17 21:00 06/04/17 20:59 05/10/17 19:52 1 CAP Miscellaneous Information (Order Awaiting Action) 1 ea QS N/A 05/06/17 11:00 06/05/17 10:59 Sevelamer HCl (Renagel Tab) 800 mg TIDM PO 05/05/17 11:30 06/04/17 11:29 05/11/17 08:21 800 MG Glucose (Glucose 40% Gel) 15-30 GRAMS 15 GRAMS... UD PRN PO 05/05/17 10:30 06/04/17 10:29 Glucose (Glucose Chew Tab) 4-8 Tablets 4 Tabl... UD PRN PO 05/05/17 10:30 06/04/17 10:29 Dextrose (Dextrose 50% 50ML Syringe) 25-50ML OF 50% DW IV FOR... UD PRN IV 05/05/17 10:30 06/04/17 10:29 Glucagon (Glucagon Inj) 1 mg UD PRN SQ 05/05/17 10:30 06/04/17 10:29 Carvedilol (Coreg Tab) 12.5 mg BID PO 05/06/17 09:00 06/04/17 20:59 05/10/17 19:51 12.5 MG Multi-Ingredient Ointment (Eucerin Unscented Cr) 1 appln BID EXT 05/06/17 21:00 06/05/17 20:59 05/11/17 08:19 1 APPLN Clonazepam (Klonopin Tab) 1 mg UD PRN PO 05/07/17 08:45 06/06/17 08:44 05/11/17 09:08 1 MG Diltiazem HCl (Cardizem Tab) 60 mg Q8H PO 05/07/17 23:00 06/06/17 22:59 05/11/17 06:40 60 MG Rifaximin (Xifaxan Tab) 550 mg BID PO 05/08/17 20:00 06/07/17 20:59 05/10/17 19:52 550 MG Polyethylene (Miralax Powder Packet) 17 gm BID PO 05/08/17 20:00 06/07/17 20:59 05/09/17 21:51 17 GM Doxycycline Hyclate (Vibramycin Cap) 100 mg BID PO 05/08/17 20:00 05/18/17 19:59 05/10/17 19:52 100 MG Levofloxacin (Levaquin Tab) 500 mg Q48H PO 05/10/17 11:00 05/18/17 10:59 05/10/17 12:48 500 MG Oxycodone HCl (Roxicodone Immediate Rel Tab) 10 mg Q6H PRN PO 05/10/17 11:00 05/24/17 10:59 05/11/17 08:18 10 MG Iron Sucrose 100 mg/Syringe 5 ml @ 0 mls/min TODAY@0900 IV 05/11/17 09:00 05/11/17 18:00 Epoetin Conor (Procrit Inj) 10,000 units TODAY@0900 IV 05/11/17 09:00 05/11/17 18:00 Impression (1) End stage renal disease due to hypertension (2) Hyperkalemia (3) Volume overload (4) Hypertensive emergency (5) Secondary hyperparathyroidism of renal origin (6) Anemia (7) Chronic ulcer of leg with fat layer exposed Jd is a 36 year-old male with ESRD secondary to hypertensive nephropathy. He is on hemodialysis Sunday, Sunday, Sunday. He presented with respiratory distress, volume overload and hyperkalemia after missing dialysis for 2 weeks. There is a history of noncompliance with HD Rx and medications. He had hypertensive urgency and severe hyperkalemia necessitating emergent dialysis on admission. He has a well-functioning left brachiocephalic AV fistula. Chronic leg ulcer growing MRSA. Questionable h/o cirrhosis, ascites. Recommendations -- Orders for HD have been entered today. Patient evaluated at treatment start as well. Qb appropriate. BP acceptable. -- 2K bath for hyperkalemia and reviewed low K diet. -- Epogen today with HD. Venofer if tolerated by patient. -- Sevelamer and calcitriol as ordered for CKD/MBD -- Low-potassium, renal diet
[2017-05-11] MEDS: PANTOprazole SOD 40 MG TAB PO SCH (14:30)
[2017-05-11] MEDS: ASPIRIN 81 MG ECTAB PO SCH (14:30)
[2017-05-11] MEDS: FUROSEMIDE 40 MG TAB PO SCH (14:30)
[2017-05-11] MEDS: RIFAXIMIN TAB 550 MG TAB PO SCH ×2 (14:31→20:08)
[2017-05-11] MEDS: DOXYCYCLINE HYCLATE 100 MG CAP PO SCH (14:31)
[2017-05-11] MEDS: CARVEDILOL 12.5 MG TAB PO SCH ×2 (14:31→20:06)
[2017-05-11] MEDS: MULTIVITAMIN TAB PO SCH (14:33)
--- NOTE | 2017-05-11 14:47 | Infectious Disease Progress Nt ---
Progress Note Date of Service May 11, 2017. Subjective Pt evaluation today including: conversation w/ patient, physical exam, chart review, lab review, review of studies, conversation w/ test consultant, review of inpatient medication list Continues to complain of back pain. Denies shortness of breath. Remains afebrile. All Other Systems: Reviewed and Negative Medications Current Inpatient Medications Medications (Trade) Dose Ordered Sig/Julio Route Start Time Stop Time Status Last Admin Dose Admin Heparin Sodium (Porcine) (Heparin Sq 5000 Unit/0.5ml) 5,000 unit Q12 SQ 05/05/17 09:00 06/04/17 08:59 05/11/17 08:30 5,000 UNIT Acetaminophen (Tylenol Tab) 650 mg Q4H PRN PO 05/05/17 08:30 06/04/17 08:29 05/10/17 21:33 650 MG Aspirin (Ecotrin Tab) 81 mg DAILY PO 05/06/17 09:00 06/05/17 08:59 05/11/17 14:30 81 MG Calcitriol (Rocaltrol Cap) 1 mcg MoWeFr@0900 PO 05/05/17 10:00 06/04/17 09:59 05/11/17 08:21 1 MCG Cyclobenzaprine HCl (Flexeril Tab) 10 mg TID PRN PO 05/05/17 09:15 06/04/17 09:14 05/11/17 01:19 10 MG Folic Acid (Folvite Tab) 1 mg DAILY PO 05/06/17 09:00 06/05/17 08:59 05/11/17 14:31 1 MG Furosemide (Lasix Tab) 40 mg DAILY PO 05/06/17 09:00 06/05/17 08:59 05/11/17 14:30 40 MG Gabapentin (Neurontin Cap) 100 mg TID PO 05/05/17 14:00 06/04/17 13:59 05/11/17 14:30 100 MG Metoclopramide HCl (Reglan Tab) 5 mg ACHS PO 05/05/17 11:00 06/04/17 10:59 05/11/17 14:30 5 MG Multivitamins (Multivitamin Tab) 1 tab DAILY PO 05/06/17 09:00 06/05/17 08:59 05/11/17 14:33 1 TAB Pantoprazole Sodium (Protonix Tab) 40 mg DAILY PO 05/06/17 09:00 06/05/17 08:59 05/11/17 14:30 40 MG Simvastatin (Zocor Tab) 40 mg HS PO 05/05/17 21:00 06/04/17 20:59 05/10/17 19:52 40 MG Vitamin B Complex/ Vit C/Folic Acid (Nephrocaps) 1 cap HS PO 05/05/17 21:00 06/04/17 20:59 05/10/17 19:52 1 CAP Miscellaneous Information (Order Awaiting Action) 1 ea QS N/A 05/06/17 11:00 06/05/17 10:59 Sevelamer HCl (Renagel Tab) 800 mg TIDM PO 05/05/17 11:30 06/04/17 11:29 05/11/17 14:31 800 MG Glucose (Glucose 40% Gel) 15-30 GRAMS 15 GRAMS... UD PRN PO 05/05/17 10:30 06/04/17 10:29 Glucose (Glucose Chew Tab) 4-8 Tablets 4 Tabl... UD PRN PO 05/05/17 10:30 06/04/17 10:29 Dextrose (Dextrose 50% 50ML Syringe) 25-50ML OF 50% DW IV FOR... UD PRN IV 05/05/17 10:30 06/04/17 10:29 Glucagon (Glucagon Inj) 1 mg UD PRN SQ 05/05/17 10:30 06/04/17 10:29 Carvedilol (Coreg Tab) 12.5 mg BID PO 05/06/17 09:00 06/04/17 20:59 05/11/17 14:31 12.5 MG Multi-Ingredient Ointment (Eucerin Unscented Cr) 1 appln BID EXT 05/06/17 21:00 06/05/17 20:59 05/11/17 08:19 1 APPLN Clonazepam (Klonopin Tab) 1 mg UD PRN PO 05/07/17 08:45 06/06/17 08:44 05/11/17 09:08 1 MG Diltiazem HCl (Cardizem Tab) 60 mg Q8H PO 05/07/17 23:00 06/06/17 22:59 05/11/17 06:40 60 MG Rifaximin (Xifaxan Tab) 550 mg BID PO 05/08/17 20:00 06/07/17 20:59 05/11/17 14:31 550 MG Polyethylene (Miralax Powder Packet) 17 gm BID PO 05/08/17 20:00 06/07/17 20:59 05/09/17 21:51 17 GM Doxycycline Hyclate (Vibramycin Cap) 100 mg BID PO 05/08/17 20:00 05/18/17 19:59 05/11/17 14:31 100 MG Levofloxacin (Levaquin Tab) 500 mg Q48H PO 05/10/17 11:00 05/18/17 10:59 05/10/17 12:48 500 MG Oxycodone HCl (Roxicodone Immediate Rel Tab) 10 mg Q6H PRN PO 05/10/17 11:00 05/24/17 10:59 05/11/17 08:18 10 MG Iron Sucrose 100 mg/Syringe 5 ml @ 0 mls/min TODAY@0900 IV 05/11/17 09:00 05/11/17 18:00 05/11/17 11:29 5 MLS/MIN Epoetin Conor (Procrit Inj) 10,000 units TODAY@0900 IV 05/11/17 09:00 05/11/17 18:00 05/11/17 13:31 10,000 UNITS Objective Vital Signs Date Time Temp Pulse Resp B/P (MAP) Pulse Ox O2 Delivery O2 Flow Rate FiO2 05/11/17 13:45 57 130/65 05/11/17 13:30 59 140/69 05/11/17 13:15 59 135/62 05/11/17 13:00 59 125/67 05/11/17 12:30 56 103/55 05/11/17 12:00 60 126/67 05/11/17 11:45 60 126/67 05/11/17 11:30 57 119/66 05/11/17 11:15 59 128/66 05/11/17 11:00 55 116/48 05/11/17 10:45 55 116/48 05/11/17 10:30 55 124/47 05/11/17 10:15 55 112/56 05/11/17 10:10 57 117/63 05/11/17 08:30 98 Nasal Cannula 5.0 05/11/17 08:27 36.6 55 19 129/72 (91) 92 5.0 05/11/17 06:40 55 20 121/63 (82) 98 Nasal Cannula 5.0 05/11/17 00:00 94 Nasal Cannula 5.0 05/10/17 23:51 36.6 64 19 155/83 (107) 99 Nasal Cannula 5.0 05/10/17 20:00 94 Nasal Cannula 5.0 05/10/17 17:30 65 153/80 (104) 05/10/17 16:45 70 143/78 (99) 94 Room Air 05/10/17 16:04 Nasal Cannula 5.0 05/10/17 15:33 36.5 57 18 162/84 (110) 100 Nasal Cannula 5.0 Physical Exam General Appearance: WD/WN, no apparent distress Eyes: normal inspection, sclerae normal ENT: normal ENT inspection, pharynx normal Neck: supple, no adenopathy, trachea midline Respiratory/Chest: chest non-tender, lungs clear, normal breath sounds, no respiratory distress Cardiovascular: regular rate, rhythm, no gallop, no murmur Abdomen: normal bowel sounds, no organomegaly, + distended, + tenderness Extremities: non-tender, no calf tenderness, + swelling Neurologic/Psychiatric: alert, oriented x 3 Skin: normal color, no rash Lymphatic: no adenopathy Laboratory Results Last 24 Hours Test 05/11/17 07:23 White Blood Count 4.58 K/uL Red Blood Count 2.69 M/uL Hemoglobin 7.8 g/dL Hematocrit 25.5 % Mean Corpuscular Volume 94.8 fL Mean Corpuscular Hemoglobin 29.0 pg Mean Corpuscular Hemoglobin Concent 30.6 g/dl RDW Standard Deviation 53.4 fL RDW Coefficient of Variation 15.5 % Platelet Count 110 K/uL Mean Platelet Volume 9.2 fL Sodium Level 135 mmol/L Potassium Level 5.8 mmol/L Chloride Level 101 mmol/L Carbon Dioxide Level 28 mmol/L Anion Gap 7.0 mmol/L Blood Urea Nitrogen 54 mg/dl Creatinine 9.50 mg/dl Est Creatinine Clear Calc Drug Dose 14.9 ml/min Estimated GFR () 7.2 Estimated GFR (Non- 6.3 BUN/Creatinine Ratio 5.7 Random Glucose 106 mg/dl Calcium Level 8.3 mg/dl Assessment and Plan 36-year-old male with severe lower extremity chronic venous stasis disease with superficial ulceration and weeping. Antibiotics may provide some benefit in reducing bacterial burden to help in wound healing, and will continue doxycycline and levofloxacin to cover MRSA and Acinetobacter. Will follow clinical response.
[2017-05-11] MEDS ORDERED: VANCOMYCIN INJ 1,000 MG in SODIUM CHLORIDE 0.9% 250ML 250 ML IV STA (17:42)
[2017-05-11] MEDS ORDERED: VANCOMYCIN CONSULT ACTIVE PRN (18:00)
[2017-05-11] MEDS ORDERED: VANCOMYCIN INJ 2,000 MG in SODIUM CHLORIDE 0.9% 500ML 500 ML IV SCH (18:30)
--- NOTE | 2017-05-11 18:57 | Pharmacy Progress Note ---
Pharmacy Abx Initial Consult Date of Service May 11, 2017. Pharmacy Dosing Scope Date of Consult: 05/11/17 Consultation requested by: Dr. Ling Pharmacy is consulted to initiate Vancomycin IV dosing therapy for an abdominal wall cellulitis, order appropriate labs and adjust drug dose/frequency. Subjective The patient is a 36 year old male admitted on May 05, 2017 at 08:38. Objective Height (Feet): 5 Height (Inches): 11.00 Weight (Kilograms): 133.600 Vital Signs (Past 12Hrs) Vital Signs Past 12 Hours Date Time Temp Pulse Resp B/P (MAP) Pulse Ox O2 Delivery O2 Flow Rate FiO2 05/11/17 15:40 36.4 60 20 143/74 (97) 100 Nasal Cannula 5.0 05/11/17 14:00 36.6 60 120/46 (70) 05/11/17 13:45 57 130/65 05/11/17 13:30 59 140/69 05/11/17 13:15 59 135/62 05/11/17 13:00 59 125/67 05/11/17 12:30 56 103/55 05/11/17 12:00 60 126/67 05/11/17 11:45 60 126/67 05/11/17 11:30 57 119/66 05/11/17 11:15 59 128/66 05/11/17 11:00 55 116/48 05/11/17 10:45 55 116/48 05/11/17 10:30 55 124/47 05/11/17 10:15 55 112/56 05/11/17 10:10 57 117/63 05/11/17 10:00 36.6 56 114/59 (77) 05/11/17 08:30 98 Nasal Cannula 5.0 05/11/17 08:27 36.6 55 19 129/72 (91) 92 5.0 Lab Results (24Hrs) Laboratory Tests (24 Hours) Test 05/11/17 07:23 White Blood Count 4.58 K/uL (4.8-10.8) L Micro Results Date/Time Source Procedure Growth Status 05/05/17 00:00 Nasal MRSA DNA Surveillance Screen - Final Specimen Positive for MRSA by DNA Probe Complete 05/10/17 00:00 Ascities Fluid Gram Stain - Final Resulted 05/10/17 00:00 [facility] Fluid Bacterial Culture - Preliminary NO GROWTH TO DATE. Resulted 05/07/17 00:00 Ascities Fluid Acid Fast Stain - Final Resulted 05/07/17 00:00 Ascities Fluid Mycobacterial Culture Pending Resulted 05/07/17 00:00 Ascities Fluid Gram Stain - Final Resulted 05/07/17 00:00 Ascities Fluid Bacterial Culture - Preliminary NO GROWTH TO DATE. Resulted 05/05/17 16:00 Skin Leg Lower Left Gram Stain - Final Complete 05/05/17 16:00 Wound Culture - Final Acinetobacter Baumannii/Haemol Staphylococcus Aureus Complete Risk Factors for Resistance * Hospitalization for 48 hours or more within the past 90 days (transferred from [facility] 05/05/17) * Current hospitalization > 5 days * Chronic dialysis within the past 30 days -- ESRD on intermittent hemodialysis every M/W/ * History of infection with a multidrug-resistant organism: MRSA, chronic weeping leg wound Assessment & Plan Assessment 36 year old male: * ESRD on HD every M/W/F (last treatment 05/11/17) * obesity (BMI greater than 35kg/m2, BMI= 41kg/m2) * hx of MRSA * chronic weeping leg wound Plan Pharmacy has been consulted for treatment of abdominal wall cellulitis Vancomycin IV * Loading dose: 2000 mg (15 mg/kg) * Goal trough level for cellulitis : ~15 mcg/mL * Random level ordered for 05/14/17 with AM labs * A less than traditional dose and/or extended dosing interval have been selected due to likelihood of drug accumulation in obese patient with h/o CKD. Pharmacy will continue to follow and will adjust dose/frequency as necessary. Thank you.
[2017-05-11] MEDS: NEPHROCAPS PO SCH (20:09)
[2017-05-11] MEDS: SIMVASTATIN 40 MG TAB PO SCH (20:10)
--- NOTE | 2017-05-11 20:13 | Progress Note ---
Subjective Date of Service: May 11, 2017. Subjective Pt evaluation today including: conversation w/ patient, physical exam, chart review, lab review, review of studies (paracentesis fluid studies), conversation w/ office 365 consultant (GI), review of inpatient medication list Pain: ongoing - abdominal - acute; chronic low back pain PO Intake: 100% of meals Voiding: no voiding problems (voids seldomly but still makes some urine) continues to c/o abdominal pain when asked to point to where it hurts the most he states "all over" again I asked him to take several fingers and point to the worst area he localizes it to the lower quadrants food does NOT make the pain worse no nausea or emesis when asked it if feels like it is on the surface of the abdomen or deep he states "deep" but had a hard time answering that question very irritable during the encounter does confirm he is on 24/7 oxygen at home Review of Systems Constitutional: No fever, No chills Respiratory: No shortness of breath Cardiac: No chest pain Abdomen: + see HPI, + pain, No nausea, No vomiting, No diarrhea, No constipation, No GI bleeding Male : No dysuria Objective Vital Signs Date Time Temp Pulse Resp B/P (MAP) Pulse Ox O2 Delivery O2 Flow Rate FiO2 05/11/17 15:40 36.4 60 20 143/74 (97) 100 Nasal Cannula 5.0 05/11/17 14:00 36.6 60 120/46 (70) 05/11/17 13:45 57 130/65 05/11/17 13:30 59 140/69 05/11/17 13:15 59 135/62 05/11/17 13:00 59 125/67 05/11/17 12:30 56 103/55 05/11/17 12:00 60 126/67 05/11/17 11:45 60 126/67 05/11/17 11:30 57 119/66 05/11/17 11:15 59 128/66 05/11/17 11:00 55 116/48 05/11/17 10:45 55 116/48 05/11/17 10:30 55 124/47 05/11/17 10:15 55 112/56 05/11/17 10:10 57 117/63 05/11/17 10:00 36.6 56 114/59 (77) 05/11/17 08:30 98 Nasal Cannula 5.0 05/11/17 08:27 36.6 55 19 129/72 (91) 92 5.0 05/11/17 06:40 55 20 121/63 (82) 98 Nasal Cannula 5.0 05/11/17 00:00 94 Nasal Cannula 5.0 05/10/17 23:51 36.6 64 19 155/83 (107) 99 Nasal Cannula 5.0 Physical Exam General Appearance: no apparent distress, + obese ENT: pharynx normal Neck: no JVD Respiratory/Chest: lungs clear, no respiratory distress, no accessory muscle use Cardiovascular: regular rate, rhythm, no gallop Abdomen: normal bowel sounds, soft, no organomegaly, + tenderness (b/l lower quadrants) Extremities: + pedal edema, + swelling (severe lymphedema b/l ) Neurologic/Psychiatric: alert, oriented x 3, + depressed affect, + pertinent finding (irritable ) Skin: + pertinent finding (severe stasis changes of b/l legs with macerated skin and mild weeping - improved from prior exams) Comments: on the abdominal wall there is mild erythema/pink extending from the groin up towards the umbilical line this area is mildly warm to palpation this is the area where he is most tender the tenderness extends in a linear/horizontal fashion from left to right optifoam in place on left side of abdomen Laboratory Results Last 24 Hours Test 05/11/17 07:23 White Blood Count 4.58 K/uL Red Blood Count 2.69 M/uL Hemoglobin 7.8 g/dL Hematocrit 25.5 % Mean Corpuscular Volume 94.8 fL Mean Corpuscular Hemoglobin 29.0 pg Mean Corpuscular Hemoglobin Concent 30.6 g/dl RDW Standard Deviation 53.4 fL RDW Coefficient of Variation 15.5 % Platelet Count 110 K/uL Mean Platelet Volume 9.2 fL Sodium Level 135 mmol/L Potassium Level 5.8 mmol/L Chloride Level 101 mmol/L Carbon Dioxide Level 28 mmol/L Anion Gap 7.0 mmol/L Blood Urea Nitrogen 54 mg/dl Creatinine 9.50 mg/dl Est Creatinine Clear Calc Drug Dose 14.9 ml/min Estimated GFR () 7.2 Estimated GFR (Non- 6.3 BUN/Creatinine Ratio 5.7 Random Glucose 106 mg/dl Calcium Level 8.3 mg/dl Assessment and Plan 36yo male - 1. severe abdominal pain - ongoing. Despite the pain he is eating 100% of meals. No nausea, emesis or diarrhea. CT abd/pelvis without pancreatitis, mass, renal stones, or other findings except the ascites. Despite 7 liters of ascites extracted yesterday he has no pain relief. Ascites cell counts on 2 occasions w/o SBP. Culture x 2 from the ascites negative. LFTs & lipase acceptable. Since he still makes urine send for u/a and urine cx. Looking at the abdominal wall does he have abdominal wall cellulitis? Could he also have a mild amount of panniculitis? CT with some suggestion of cellulitis of the abdominal wall. Stop the doxy. Start IV vancomycin; pharmacy consulted. Cont levaquin. Reassess in am. Pain control. 2. cirrhosis with decompensation - cont HD per dialysis schedule s/p therapeutic paracentesis yesterday with 7 liters. tolerated such. s/p albumin following the paracentesis 3. ESRD on HD M/W/F - appreciate nephrology consultation & assistance with HD needs 4. recent hyperkalemia - severe - 2nd to #3 - improved from admission. 5. DVT proph - heparin BID 6. anemia of chronic kidney disease - H/H worse today; to receive procrit/Fe on HD today. CBC in am. 7. T2DM - controlled 8. HTN - improved. 9. chronic LE wounds - surface culture from LLE with MRSA, etc - appreciate ID consultation - continue abx 10. morbid obesity w/ BMI 42 11. CARMEN - noted 12. chronic pain syndrome - I researched the [facility] Narcotic Database and the patient does NOT receive dilaudid by any provider It appears he follows with pain management in [place] when I asked him today why he had told me he took dilaudid at home he became very irritated, yelling & cursing, stating that his gives him his pain medications and that he sometimes doesn't know what he is taking cont oxycodone; reasonable to adjust to 15mg q4h prn (prescribed oxy's by pain management) 13. chronic hypoxic respiratory failure - on [place] O2 and stable Continued [facility] stay due to: multiple IV medications needed Discharge planning: home
[2017-05-12] VITALS: O2SAT 94
[2017-05-12] MEDS: OXYCODONE HCL IR 5 MG TAB (IMMEDIATE RELEASE) PO PRN ×4 (03:21→22:05)
[2017-05-12 03:37] LABS: URINE APPEARANCE CLEAR (CLEAR); URINE BILIRUBIN NEG (NEG); URINE COLOR YELLOW; URINE EPITHELIAL CELL AUTO 0-5 /lpf (0-5); URINE NITRITE NEG (NEG); URINE PH 8.5 (4.5-7.5); URINE SPECIFIC GRAVITY 1.007 (1.000-1.030); UROBILINOGEN NEG (NEG)
[2017-05-12 04:02] LABS: BENZODIAZEPINE, URINE NEG (NEG); COCAINE,URINE NEG (NEG); PHENCYCLIDINE, URINE NEG (NEG)
[2017-05-12 04:12] LABS: MANUAL MICROSCOPIC REQUIRED? NO; REVIEW REQ? NO; SULFASALICYLIC ACID POS (NEG)
[2017-05-12 06:14] LABS: BASO % 0.6 %; BASO ABS # 0.03 K/uL (0-0.2); EOS % 7.1 %; HEMATOCRIT 26.3 % (42-52); IG% 0.4 %; LYMPH ABS # 0.79 K/uL (1.2-3.4); MEAN CELL VOLUME 94.9 fL (80-100); MEAN CORPUSCULAR HEMOGLOBIN 29.2 pg (25-34); MEAN CORPUSCULAR HGB CONC 30.8 g/dl (32-36); MEAN PLATELET VOLUME 8.9 fL (7.4-10.4); MONO % 12.1 %; NEUT % 63.8 %; PLATELET COUNT 126 K/uL (130-400); RED BLOOD COUNT 2.77 M/uL (4.7-6.1); WHITE BLOOD COUNT 4.95 K/uL (4.8-10.8)
[2017-05-12] MEDS: METOCLOPRAMIDE HCL 10 MG TAB PO SCH ×4 (06:36→21:51)
[2017-05-12] MEDS: DILTIAZEM HCL 60 MG TAB PO SCH ×3 (06:37→22:05)
[2017-05-12 06:42] LABS: COMPLETE YES; OVALOCYTES 1+; TEAR DROP CELLS OCCASIONAL
[2017-05-12 07:14] VITALS: BP 129/62; PULSE 63; TEMP 36.8; O2SAT 97
[2017-05-12] MEDS: SENSIPAR~ORDER AWAITING ACTION SCH ×3 (08:00→16:00)
[2017-05-12] MEDS: POLYETHYLENE (MIRALAX) 17 GM PACK PO SCH ×2 (08:00→21:48)
[2017-05-12] MEDS: EUCERIN CR 120 GM JAR EXT SCH ×2 (08:10→21:49)
[2017-05-12] MEDS: CARVEDILOL 12.5 MG TAB PO SCH ×2 (08:13→21:56)
[2017-05-12] MEDS: FUROSEMIDE 40 MG TAB PO SCH ×2 (08:14→17:29)
[2017-05-12] MEDS: ASPIRIN 81 MG ECTAB PO SCH (08:14)
[2017-05-12] MEDS: PANTOprazole SOD 40 MG TAB PO SCH (08:15)
[2017-05-12] MEDS: MULTIVITAMIN TAB PO SCH (08:15)
[2017-05-12] MEDS: GABAPENTIN 100 MG CAP PO SCH ×3 (08:15→21:57)
[2017-05-12] MEDS: RIFAXIMIN TAB 550 MG TAB PO SCH ×2 (08:16→21:50)
[2017-05-12] MEDS: SEVELAMER HYDROCH 800 MG TAB PO SCH ×3 (08:17→17:30)
[2017-05-12] MEDS: HEPARIN SOD 5000 UNIT/0.5 ML CARP SQ SCH ×2 (08:19→21:52)
[2017-05-12] MEDS: LEVOFLOXACIN 500 MG TAB PO SCH (12:19)
--- NOTE | 2017-05-12 12:26 | Nephrology Progress Note ---
Nephrology Progress Note Date of Service May 12, 2017. Chief Complaint ESRD Subjective No acute events overnight. Jd was sleeping when I entered his room. He was drowsy and kept his eyes closed during our discussion. He states that he continues to have "pain all over." He states that he can hardly get out of bed because it hurts too much. He said that the medications are not workings for him anymore an he thinks that he may need something stronger. I asked him if he thought that he was any closer to being discharged and he stated, "not without a lot of pain medicine." He states that the pain is in his arms, neck, back, abdomen and "alll over." We ended the conversation as he started to experience a headache and stated that he needed to go back to sleep. No fevers or chills. No shortness of breath. He tolerated dialysis well yesterday. Review of Systems A complete review of systems was performed. Pertinent positives are noted above. All other systems are negative. Vital Signs Last 8 Hrs Date Time Temp Pulse Resp B/P (MAP) Pulse Ox O2 Delivery O2 Flow Rate FiO2 05/12/17 08:00 Nasal Cannula 5.0 05/12/17 07:14 36.8 63 20 129/62 (84) 97 Room Air Last Recorded Weight Weight (Kilograms): 135.900 Physical Exam General Appearance: no apparent distress, + obese Head: normocephalic, atraumatic Eyes: normal inspection, sclerae normal ENT: normal ENT inspection, pharynx normal Neck: supple, + JVD (increased JVP) Respiratory/Chest: no respiratory distress, no accessory muscle use, + decreased breath sounds Cardiovascular: regular rate, rhythm Abdomen/GI: non tender, soft Extremities/Musculoskelatal: normal inspection, + pertinent finding (LE lympehdema, AVF with thrill and bruit) Neurologic/Psych: alert, + depressed affect Social History Smokeless Tobacco Use: No Alcohol Use: none Drug Use: none Marital Status: Housing Status: lives with family (mother and son) Occupation: unemployed Laboratory Results Past 24 Hours 05/12/17 05:41 Red Blood Count 2.77, Mean Corpuscular Volume 94.9, Mean Corpuscular Hemoglobin 29.2, Mean Corpuscular Hemoglobin Concent 30.8, Mean Platelet Volume 8.9, Neutrophils (%) (Auto) 63.8, Lymphocytes (%) (Auto) 16.0, Monocytes (%) (Auto) 12.1, Eosinophils (%) (Auto) 7.1, Basophils (%) (Auto) 0.6, Neutrophils # (Auto ) 3.16, Lymphocytes # (Auto) 0.79, Monocytes # (Auto) 0.60, Eosinophils # (Auto ) 0.35, Basophils # (Auto) 0.03 05/12/17 05:41 Test 05/12/17 03:20 05/12/17 05:41 Urine Color YELLOW Urine Appearance CLEAR (CLEAR) Urine pH 8.5 (4.5-7.5) Urine Specific [place] 1.007 (1.000-1.030) Urine Protein 2+ (NEG) Urine Glucose (UA) NEG (NEG) Urine Ketones NEG (NEG) Urine Occult Blood NEG (NEG) Urine Nitrite NEG (NEG) Urine Bilirubin NEG (NEG) Urine Urobilinogen NEG (NEG) Urine Leukocyte Esterase TRACE (NEG) Urine WBC (Auto) 1-5 /hpf (0-5) Urine RBC (Auto) 0-4 /hpf (0-4) Urine Hyaline Casts (Auto) 0 /lpf (0-5) Urine Epithelial Cells (Auto) 0-5 /lpf (0-5) Urine Bacteria (Auto) NEG (NEG) Urine Opiates Screen POS (NEG) Urine Methadone, Qualitative NEG (NEG) Urine Barbiturates NEG (NEG) Urine Phencyclidine (PCP) Level NEG (NEG) Ur Amphetamine/Methamphetamine NEG (NEG) MDMA (Ecstasy) Screen NEG (NEG) Urine Benzodiazepines Screen NEG (NEG) Urine Cocaine Metabolite NEG (NEG) Urine Marijuana (THC) NEG (NEG) White Blood Count 4.95 K/uL (4.8-10.8) Red Blood Count 2.77 M/uL (4.7-6.1) Hemoglobin 8.1 g/dL (14.0-18.0) Hematocrit 26.3 % (42-52) Mean Corpuscular Volume 94.9 fL (80-100) Mean Corpuscular Hemoglobin 29.2 pg (25-34) Mean Corpuscular Hemoglobin Concent 30.8 g/dl (32-36) Platelet Count 126 K/uL (130-400) Mean Platelet Volume 8.9 fL (7.4-10.4) Neutrophils (%) (Auto) 63.8 % Lymphocytes (%) (Auto) 16.0 % Monocytes (%) (Auto) 12.1 % Eosinophils (%) (Auto) 7.1 % Basophils (%) (Auto) 0.6 % Neutrophils # (Auto) 3.16 K/uL (1.4-6.5) Lymphocytes # (Auto) 0.79 K/uL (1.2-3.4) Monocytes # (Auto) 0.60 K/uL (0.11-0.59) Eosinophils # (Auto) 0.35 K/uL (0-0.5) Basophils # (Auto) 0.03 K/uL (0-0.2) RDW Standard Deviation 53.4 fL (36.4-46.3) RDW Coefficient of Variation 15.4 % (11.5-14.5) Immature Granulocyte % (Auto) 0.4 % Immature Granulocyte # (Auto) 0.02 K/uL (0.00-0.02) Basophilic Stippling 1+ Tear Drop Cells OCCASIONAL Ovalocytes 1+ Allergies Coded Allergies: Ketorolac Tromethamine (Verified Allergy, Unknown, Itchiness and hives, 09/05/14) Reported by PT Tramadol (Verified Allergy, Unknown, Itchiness and hives, 09/05/14) Reported by PT Acetaminophen (Verified Adverse Reaction, Unknown, NAUSEA,VOMITING, ) REPORTED BY PT. Codeine (Verified Adverse Reaction, Unknown, NAUSEA,VOMITING, 05/05/17) REPORTED BY PT. Medications Current Inpatient Medications Medications (Trade) Dose Ordered Sig/Julio Route Start Time Stop Time Status Last Admin Dose Admin Heparin Sodium (Porcine) (Heparin Sq 5000 Unit/0.5ml) 5,000 unit Q12 SQ 05/05/17 09:00 06/04/17 08:59 05/12/17 08:19 5,000 UNIT Acetaminophen (Tylenol Tab) 650 mg Q4H PRN PO 05/05/17 08:30 06/04/17 08:29 05/10/17 21:33 650 MG Aspirin (Ecotrin Tab) 81 mg DAILY PO 05/06/17 09:00 06/05/17 08:59 05/12/17 08:14 81 MG Calcitriol (Rocaltrol Cap) 1 mcg MoWeFr@0900 PO 05/05/17 10:00 06/04/17 09:59 05/11/17 08:21 1 MCG Cyclobenzaprine HCl (Flexeril Tab) 10 mg TID PRN PO 05/05/17 09:15 06/04/17 09:14 05/11/17 01:19 10 MG Folic Acid (Folvite Tab) 1 mg DAILY PO 05/06/17 09:00 06/05/17 08:59 05/12/17 08:14 1 MG Furosemide (Lasix Tab) 40 mg DAILY PO 05/06/17 09:00 06/05/17 08:59 05/12/17 08:14 40 MG Gabapentin (Neurontin Cap) 100 mg TID PO 05/05/17 14:00 06/04/17 13:59 05/12/17 08:15 100 MG Metoclopramide HCl (Reglan Tab) 5 mg ACHS PO 05/05/17 11:00 06/04/17 10:59 05/12/17 11:16 5 MG Multivitamins (Multivitamin Tab) 1 tab DAILY PO 05/06/17 09:00 06/05/17 08:59 05/12/17 08:15 1 TAB Pantoprazole Sodium (Protonix Tab) 40 mg DAILY PO 05/06/17 09:00 06/05/17 08:59 05/12/17 08:15 40 MG Simvastatin (Zocor Tab) 40 mg HS PO 05/05/17 21:00 06/04/17 20:59 05/11/17 20:10 40 MG Vitamin B Complex/ Vit C/Folic Acid (Nephrocaps) 1 cap HS PO 05/05/17 21:00 06/04/17 20:59 05/11/17 20:09 1 CAP Miscellaneous Information (Order Awaiting Action) 1 ea QS N/A 05/06/17 11:00 06/05/17 10:59 Sevelamer HCl (Renagel Tab) 800 mg TIDM PO 05/05/17 11:30 06/04/17 11:29 05/12/17 08:17 800 MG Glucose (Glucose 40% Gel) 15-30 GRAMS 15 GRAMS... UD PRN PO 05/05/17 10:30 06/04/17 10:29 Glucose (Glucose Chew Tab) 4-8 Tablets 4 Tabl... UD PRN PO 05/05/17 10:30 06/04/17 10:29 Dextrose (Dextrose 50% 50ML Syringe) 25-50ML OF 50% DW IV FOR... UD PRN IV 05/05/17 10:30 06/04/17 10:29 Glucagon (Glucagon Inj) 1 mg UD PRN SQ 05/05/17 10:30 06/04/17 10:29 Carvedilol (Coreg Tab) 12.5 mg BID PO 05/06/17 09:00 06/04/17 20:59 05/12/17 08:13 12.5 MG Multi-Ingredient Ointment (Eucerin Unscented Cr) 1 appln BID EXT 05/06/17 21:00 06/05/17 20:59 05/12/17 08:10 1 APPLN Clonazepam (Klonopin Tab) 1 mg UD PRN PO 05/07/17 08:45 06/06/17 08:44 05/11/17 09:08 1 MG Diltiazem HCl (Cardizem Tab) 60 mg Q8H PO 05/07/17 23:00 06/06/17 22:59 05/12/17 06:37 60 MG Rifaximin (Xifaxan Tab) 550 mg BID PO 05/08/17 20:00 06/07/17 20:59 05/12/17 08:16 550 MG Polyethylene (Miralax Powder Packet) 17 gm BID PO 05/08/17 20:00 06/07/17 20:59 05/09/17 21:51 17 GM Doxycycline Hyclate (Vibramycin Cap) 100 mg BID PO 05/08/17 20:00 05/18/17 19:59 Future Hold 05/11/17 14:31 100 MG Levofloxacin (Levaquin Tab) 500 mg Q48H PO 05/10/17 11:00 05/18/17 10:59 05/10/17 12:48 500 MG Oxycodone HCl (Roxicodone Immediate Rel Tab) 15 mg Q4H PRN PO 05/11/17 17:45 05/24/17 10:59 05/12/17 08:16 15 MG Vancomycin HCl (Consult) 1 ea UD PRN N/A 05/11/17 18:00 06/10/17 17:59 Impression (1) End stage renal disease due to hypertension (2) Hyperkalemia (3) Volume overload (4) Hypertensive emergency (5) Secondary hyperparathyroidism of renal origin (6) Anemia (7) Chronic ulcer of leg with fat layer exposed Jd is a 36 year-old male with ESRD secondary to hypertensive nephropathy. He is on hemodialysis Sunday, Sunday, Sunday. He presented with respiratory distress, volume overload and hyperkalemia after missing dialysis for 2 weeks. He is being treated for lower extremity cellulitis. Chronic leg ulcer growing MRSA. There is a history of noncompliance with HD Rx and medications. He had hypertensive urgency and severe hyperkalemia necessitating emergent dialysis on admission. He has a well-functioning left brachiocephalic AV fistula. He has evidence of advanced chronic liver disease. The patient's primary concern is generalized pain. Unfortunately, he does not seem to comprehend the severity of his multiple medical comorbidities. Overall, his prognosis is guarded due to the patient's failure to appropriately manage ESRD and to address underlying liver disease. Palliative consultation to assist with establishing Jd's overall goals of care given multiple complicated medical conditions would be most appropriate. Recommendations -- Blood pressure, volume status and electrolytes are acceptable -- Monitor metabolic profile daily as inpatient -- No need for HD today -- Maintain strict dietary potassium restriction -- Sevelamer and calcitriol as ordered for CKD/MBD -- Consider palliative consult to assist with goals of care and disposition planning -- Increase furosemide to assist with volume and kaluresis
[2017-05-12] MEDS: FENTANYL 25 MCG/HR TDSY TD SCH (13:45)
[2017-05-12 15:31] VITALS: BP 128/72; PULSE 59; TEMP 36.8; O2SAT 100
[2017-05-12] MEDS: CHECK FENTANYL PATCH PLACEMENT SCH (16:17)
--- NOTE | 2017-05-12 17:03 | Infectious Disease Progress Nt ---
Progress Note Date of Service May 12, 2017. Subjective Pt evaluation today including: conversation w/ patient, physical exam, chart review, lab review, review of studies, conversation w/ process consultant, review of inpatient medication list Patient complaining of pain all over. Remains afebrile. Offers no new specific complaints. All Other Systems: Reviewed and Negative Medications Current Inpatient Medications Medications (Trade) Dose Ordered Sig/Julio Route Start Time Stop Time Status Last Admin Dose Admin Heparin Sodium (Porcine) (Heparin Sq 5000 Unit/0.5ml) 5,000 unit Q12 SQ 05/05/17 09:00 06/04/17 08:59 05/12/17 08:19 5,000 UNIT Acetaminophen (Tylenol Tab) 650 mg Q4H PRN PO 05/05/17 08:30 06/04/17 08:29 05/10/17 21:33 650 MG Aspirin (Ecotrin Tab) 81 mg DAILY PO 05/06/17 09:00 06/05/17 08:59 05/12/17 08:14 81 MG Calcitriol (Rocaltrol Cap) 1 mcg MoWeFr@0900 PO 05/05/17 10:00 06/04/17 09:59 05/11/17 08:21 1 MCG Cyclobenzaprine HCl (Flexeril Tab) 10 mg TID PRN PO 05/05/17 09:15 06/04/17 09:14 05/11/17 01:19 10 MG Folic Acid (Folvite Tab) 1 mg DAILY PO 05/06/17 09:00 06/05/17 08:59 05/12/17 08:14 1 MG Gabapentin (Neurontin Cap) 100 mg TID PO 05/05/17 14:00 06/04/17 13:59 05/12/17 13:48 100 MG Metoclopramide HCl (Reglan Tab) 5 mg ACHS PO 05/05/17 11:00 06/04/17 10:59 05/12/17 16:20 5 MG Multivitamins (Multivitamin Tab) 1 tab DAILY PO 05/06/17 09:00 06/05/17 08:59 05/12/17 08:15 1 TAB Pantoprazole Sodium (Protonix Tab) 40 mg DAILY PO 05/06/17 09:00 06/05/17 08:59 05/12/17 08:15 40 MG Simvastatin (Zocor Tab) 40 mg HS PO 05/05/17 21:00 06/04/17 20:59 05/11/17 20:10 40 MG Vitamin B Complex/ Vit C/Folic Acid (Nephrocaps) 1 cap HS PO 05/05/17 21:00 06/04/17 20:59 05/11/17 20:09 1 CAP Miscellaneous Information (Order Awaiting Action) 1 ea QS N/A 05/06/17 11:00 06/05/17 10:59 Sevelamer HCl (Renagel Tab) 800 mg TIDM PO 05/05/17 11:30 06/04/17 11:29 05/12/17 12:19 800 MG Glucose (Glucose 40% Gel) 15-30 GRAMS 15 GRAMS... UD PRN PO 05/05/17 10:30 06/04/17 10:29 Glucose (Glucose Chew Tab) 4-8 Tablets 4 Tabl... UD PRN PO 05/05/17 10:30 06/04/17 10:29 Dextrose (Dextrose 50% 50ML Syringe) 25-50ML OF 50% DW IV FOR... UD PRN IV 05/05/17 10:30 06/04/17 10:29 Glucagon (Glucagon Inj) 1 mg UD PRN SQ 05/05/17 10:30 06/04/17 10:29 Carvedilol (Coreg Tab) 12.5 mg BID PO 05/06/17 09:00 06/04/17 20:59 05/12/17 08:13 12.5 MG Multi-Ingredient Ointment (Eucerin Unscented Cr) 1 appln BID EXT 05/06/17 21:00 06/05/17 20:59 05/12/17 08:10 1 APPLN Clonazepam (Klonopin Tab) 1 mg UD PRN PO 05/07/17 08:45 06/06/17 08:44 05/11/17 09:08 1 MG Diltiazem HCl (Cardizem Tab) 60 mg Q8H PO 05/07/17 23:00 06/06/17 22:59 05/12/17 16:18 60 MG Rifaximin (Xifaxan Tab) 550 mg BID PO 05/08/17 20:00 06/07/17 20:59 05/12/17 08:16 550 MG Polyethylene (Miralax Powder Packet) 17 gm BID PO 05/08/17 20:00 06/07/17 20:59 05/09/17 21:51 17 GM Doxycycline Hyclate (Vibramycin Cap) 100 mg BID PO 05/08/17 20:00 05/18/17 19:59 Future Hold 05/11/17 14:31 100 MG Levofloxacin (Levaquin Tab) 500 mg Q48H PO 05/10/17 11:00 05/18/17 10:59 05/12/17 12:19 500 MG Oxycodone HCl (Roxicodone Immediate Rel Tab) 15 mg Q4H PRN PO 05/11/17 17:45 05/24/17 10:59 05/12/17 13:49 15 MG Vancomycin HCl (Consult) 1 ea UD PRN N/A 05/11/17 18:00 06/10/17 17:59 Furosemide (Lasix Tab) 80 mg BID17 PO 05/12/17 17:00 06/05/17 08:59 Fentanyl (Duragesic Patch) 25 mcg Q72H TD 05/12/17 13:30 05/26/17 13:29 05/12/17 13:45 25 MCG Miscellaneous (Fentanyl Patch Remove & Waste) 1 ea Q3D N/A 05/15/17 13:30 06/14/17 13:29 Miscellaneous Information (Check Fentanyl Patch Placement) 1 ea QS N/A 05/12/17 16:00 06/11/17 15:59 05/12/17 16:17 1 EA Objective Vital Signs Date Time Temp Pulse Resp B/P (MAP) Pulse Ox O2 Delivery O2 Flow Rate FiO2 05/12/17 15:31 36.8 59 22 128/72 (90) 100 Nasal Cannula 5.0 05/12/17 08:00 Nasal Cannula 5.0 05/12/17 07:14 36.8 63 20 129/62 (84) 97 Room Air 05/12/17 00:00 94 Nasal Cannula 5.0 05/11/17 23:05 36.6 63 20 138/63 (88) 97 Nasal Cannula 5.0 05/11/17 22:34 64 149/76 (100) Physical Exam General Appearance: no apparent distress, + obese, + pertinent finding ( Chronically ill-appearing) Eyes: normal inspection, EOMI, sclerae normal ENT: normal ENT inspection, pharynx normal Neck: supple, no adenopathy, trachea midline Respiratory/Chest: chest non-tender, lungs clear, normal breath sounds, no respiratory distress Cardiovascular: regular rate, rhythm, no gallop, no murmur Abdomen: normal bowel sounds, no organomegaly, + distended, + tenderness Extremities: non-tender, + inflammation, + swelling Neurologic/Psychiatric: alert, oriented x 3 Skin: normal color, no rash Lymphatic: no adenopathy Laboratory Results Last 24 Hours Test 05/12/17 03:20 05/12/17 05:41 Urine Color YELLOW Urine Appearance CLEAR Urine pH 8.5 Urine Specific [place] 1.007 Urine Protein 2+ Urine Glucose (UA) NEG Urine Ketones NEG Urine Occult Blood NEG Urine Nitrite NEG Urine Bilirubin NEG Urine Urobilinogen NEG Urine Leukocyte Esterase TRACE Urine WBC (Auto) 1-5 /hpf Urine RBC (Auto) 0-4 /hpf Urine Hyaline Casts (Auto) 0 /lpf Urine Epithelial Cells (Auto) 0-5 /lpf Urine Bacteria (Auto) NEG Urine Opiates Screen POS Urine Methadone, Qualitative NEG Urine Barbiturates NEG Urine Phencyclidine (PCP) Level NEG Ur Amphetamine/Methamphetamine NEG MDMA (Ecstasy) Screen NEG Urine Benzodiazepines Screen NEG Urine Cocaine Metabolite NEG Urine Marijuana (THC) NEG White Blood Count 4.95 K/uL Red Blood Count 2.77 M/uL Hemoglobin 8.1 g/dL Hematocrit 26.3 % Mean Corpuscular Volume 94.9 fL Mean Corpuscular Hemoglobin 29.2 pg Mean Corpuscular Hemoglobin Concent 30.8 g/dl Platelet Count 126 K/uL Mean Platelet Volume 8.9 fL Neutrophils (%) (Auto) 63.8 % Lymphocytes (%) (Auto) 16.0 % Monocytes (%) (Auto) 12.1 % Eosinophils (%) (Auto) 7.1 % Basophils (%) (Auto) 0.6 % Neutrophils # (Auto) 3.16 K/uL Lymphocytes # (Auto) 0.79 K/uL Monocytes # (Auto) 0.60 K/uL Eosinophils # (Auto) 0.35 K/uL Basophils # (Auto) 0.03 K/uL RDW Standard Deviation 53.4 fL RDW Coefficient of Variation 15.4 % Immature Granulocyte % (Auto) 0.4 % Immature Granulocyte # (Auto) 0.02 K/uL Basophilic Stippling 1+ Tear Drop Cells OCCASIONAL Ovalocytes 1+ Potassium Level 5.2 mmol/L Assessment and Plan 36-year-old male with severe lower extremity chronic venous stasis disease with superficial ulceration and weeping. Antibiotics may provide some benefit in reducing bacterial burden to help in wound healing, and will continue doxycycline and levofloxacin to cover MRSA and Acinetobacter. Will follow clinical response.
--- NOTE | 2017-05-12 19:44 | Progress Note ---
Subjective Date of Service: May 12, 2017. Subjective Pt evaluation today including: conversation w/ patient, physical exam, chart review, lab review, review of studies (ascites fluid), review of inpatient medication list Pain: abdomen and also "all over" PO Intake: eating well 100% of meals Voiding: no voiding problems patient asks when he will be discharged home abdominal pain remains no nausea/emesis/diarrhea c/o pain all over; when asked specifically which locations he says "my hips" and back Review of Systems Constitutional: No fever, No chills Respiratory: No shortness of breath Cardiac: No chest pain Abdomen: + see HPI, + pain Objective Vital Signs Date Time Temp Pulse Resp B/P (MAP) Pulse Ox O2 Delivery O2 Flow Rate FiO2 05/12/17 16:00 Nasal Cannula 5.0 05/12/17 15:31 36.8 59 22 128/72 (90) 100 Nasal Cannula 5.0 05/12/17 08:00 Nasal Cannula 5.0 05/12/17 07:14 36.8 63 20 129/62 (84) 97 Room Air 05/12/17 00:00 94 Nasal Cannula 5.0 05/11/17 23:05 36.6 63 20 138/63 (88) 97 Nasal Cannula 5.0 05/11/17 22:34 64 149/76 (100) Physical Exam General Appearance: no apparent distress, + obese ENT: pharynx normal Neck: no JVD Respiratory/Chest: lungs clear, no respiratory distress, no accessory muscle use Cardiovascular: regular rate, rhythm, no gallop, + systolic murmur (2/6 FLORA LSB ) Abdomen: normal bowel sounds, soft, no organomegaly, + distended (mild, with ascities), + tenderness (lower quadrants - mild), + hernia (umbilical - reducible) Extremities: + pedal edema, + swelling (no change) Neurologic/Psychiatric: alert, oriented x 3 Skin: + pertinent finding (stasis changes legs - weeping improved; hyperpigmentation - severe; lymphedema unchanged) Comments: abdominal wall - cellulitis unchanged; primarily b/l lower quadrants and partially the left flank (and bottom portion of LUQ) Laboratory Results Last 24 Hours Test 05/12/17 03:20 05/12/17 05:41 Urine Color YELLOW Urine Appearance CLEAR Urine pH 8.5 Urine Specific [place] 1.007 Urine Protein 2+ Urine Glucose (UA) NEG Urine Ketones NEG Urine Occult Blood NEG Urine Nitrite NEG Urine Bilirubin NEG Urine Urobilinogen NEG Urine Leukocyte Esterase TRACE Urine WBC (Auto) 1-5 /hpf Urine RBC (Auto) 0-4 /hpf Urine Hyaline Casts (Auto) 0 /lpf Urine Epithelial Cells (Auto) 0-5 /lpf Urine Bacteria (Auto) NEG Urine Opiates Screen POS Urine Methadone, Qualitative NEG Urine Barbiturates NEG Urine Phencyclidine (PCP) Level NEG Ur Amphetamine/Methamphetamine NEG MDMA (Ecstasy) Screen NEG Urine Benzodiazepines Screen NEG Urine Cocaine Metabolite NEG Urine Marijuana (THC) NEG White Blood Count 4.95 K/uL Red Blood Count 2.77 M/uL Hemoglobin 8.1 g/dL Hematocrit 26.3 % Mean Corpuscular Volume 94.9 fL Mean Corpuscular Hemoglobin 29.2 pg Mean Corpuscular Hemoglobin Concent 30.8 g/dl Platelet Count 126 K/uL Mean Platelet Volume 8.9 fL Neutrophils (%) (Auto) 63.8 % Lymphocytes (%) (Auto) 16.0 % Monocytes (%) (Auto) 12.1 % Eosinophils (%) (Auto) 7.1 % Basophils (%) (Auto) 0.6 % Neutrophils # (Auto) 3.16 K/uL Lymphocytes # (Auto) 0.79 K/uL Monocytes # (Auto) 0.60 K/uL Eosinophils # (Auto) 0.35 K/uL Basophils # (Auto) 0.03 K/uL RDW Standard Deviation 53.4 fL RDW Coefficient of Variation 15.4 % Immature Granulocyte % (Auto) 0.4 % Immature Granulocyte # (Auto) 0.02 K/uL Basophilic Stippling 1+ Tear Drop Cells OCCASIONAL Ovalocytes 1+ Potassium Level 5.2 mmol/L Assessment and Plan 36yo male - 1. severe abdominal pain - ongoing. I believe this is 2nd to abdominal wall cellulitis; I cannot rule out component of panniculitis but CT did not show such. Despite the pain he is eating 100% of meals. No nausea, emesis or diarrhea. CT abd/pelvis without pancreatitis, mass, renal stones, or other findings except the ascites. Culture x 2 from the ascites negative. LFTs & lipase acceptable. Urine cx thus far negative. Cont IV vanco Levaquin as well (oral) Pain control. 2. cirrhosis with decompensation - cont HD per dialysis schedule s/p therapeutic paracentesis with 7 liters 2 days ago, and 2 liters earlier in his stay. 3. ESRD on HD M/W/F - appreciate nephrology consultation & assistance with HD needs 4. recent hyperkalemia - severe - 2nd to #3 - improved from admission. 5. DVT proph - heparin BID 6. anemia of chronic kidney disease - H/H acceptable today. 7. T2DM - controlled 8. HTN - improved. 9. chronic LE wounds - surface culture from LLE with MRSA, etc - appreciate ID consultation - continue abx 10. morbid obesity w/ BMI 42 11. CARMEN - noted 12. chronic pain syndrome - I researched the [facility] Narcotic Database and the patient does NOT receive dilaudid by any provider It appears he follows with pain management in [place] he uses fentanyl patch 12mcg at home unsure why it was d/c this admission will resume but increase to 25mcg q3days due to refractory pain despite prn use of oxycodone 13. chronic hypoxic respiratory failure - on [place] O2 and stable Continued [facility] stay due to: multiple IV medications needed Discharge planning: home
[2017-05-12] MEDS: NEPHROCAPS PO SCH (21:51)
[2017-05-12] MEDS: SIMVASTATIN 40 MG TAB PO SCH (21:51)
[2017-05-12 21:55] VITALS: BP 124/75; PULSE 56; O2SAT 98
[2017-05-12 23:57] VITALS: BP 111/71; PULSE 56; TEMP 36.7; O2SAT 100
[2017-05-13] MEDS: CHECK FENTANYL PATCH PLACEMENT SCH ×3 (00:19→16:35)
[2017-05-13] MEDS: OXYCODONE HCL IR 5 MG TAB (IMMEDIATE RELEASE) PO PRN ×5 (03:37→22:34)
[2017-05-13] MEDS: METOCLOPRAMIDE HCL 10 MG TAB PO SCH ×4 (06:01→19:59)
[2017-05-13] MEDS: DILTIAZEM HCL 60 MG TAB PO SCH ×3 (06:05→22:35)
[2017-05-13 07:27] VITALS: BP 130/70; PULSE 61; TEMP 37.3; O2SAT 100
[2017-05-13 07:27] LABS: HEMATOCRIT 28.2 % (42-52); MEAN CORPUSCULAR HGB CONC 30.9 g/dl (32-36); MEAN PLATELET VOLUME 8.7 fL (7.4-10.4); PLATELET COUNT 121 K/uL (130-400); WHITE BLOOD COUNT 5.44 K/uL (4.8-10.8)
[2017-05-13] MEDS: SENSIPAR~ORDER AWAITING ACTION SCH ×3 (08:00→15:39)
[2017-05-13] MEDS: POLYETHYLENE (MIRALAX) 17 GM PACK PO SCH ×2 (08:00→19:57)
[2017-05-13 08:15] LABS: BUN/CREATININE RATIO 6.5 (10-20); CALCIUM 8.6 mg/dl (8.5-10.1); CREATININE 9.2 mg/dl (0.60-1.40); PHOSPHORUS 5.6 mg/dl (2.5-4.9); POTASSIUM 6.4 mmol/L (3.5-5.1)
[2017-05-13] MEDS: EUCERIN CR 120 GM JAR EXT SCH ×2 (08:16→19:56)
[2017-05-13] MEDS: CARVEDILOL 12.5 MG TAB PO SCH ×2 (08:17→20:09)
[2017-05-13] MEDS: ASPIRIN 81 MG ECTAB PO SCH (08:18)
[2017-05-13] MEDS: MULTIVITAMIN TAB PO SCH (08:19)
[2017-05-13] MEDS: PANTOprazole SOD 40 MG TAB PO SCH (08:19)
[2017-05-13] MEDS: GABAPENTIN 100 MG CAP PO SCH ×3 (08:19→19:59)
[2017-05-13] MEDS: SEVELAMER HYDROCH 800 MG TAB PO SCH ×3 (08:20→17:33)
[2017-05-13] MEDS: RIFAXIMIN TAB 550 MG TAB PO SCH ×2 (08:20→20:00)
[2017-05-13] MEDS: FUROSEMIDE 40 MG TAB PO SCH ×2 (08:21→17:32)
[2017-05-13] MEDS: HEPARIN SOD 5000 UNIT/0.5 ML CARP SQ SCH ×2 (08:24→20:10)
[2017-05-13] MEDS ORDERED: SODIUM POLYST. SULF SUSP 15G/60ML PO ONE (09:00)
--- NOTE | 2017-05-13 10:17 | Nephrology Progress Note ---
Nephrology Progress Note Date of Service May 13, 2017. Chief Complaint ESRD Subjective No acute events overnight. Mr. Sanz was sitting in bed this morning. He pain appears to be improving though abdominal pain persists. Jd denies constipation. He denies diarrhea. Appetite reported as good. No high potassium foods identified however patient was using potassium based salt substitute. Brain does not want hemodialysis today. He is receptive to taking a dose of Kayexalate and states that he has used the medication in the past. He will avoid dietary potassium. Jd stated this morning that he has transportation including community transport to hemodialysis. He states that he travels to [place] because he was not happy at [facility] in the past. Review of Systems A complete review of systems was performed. Pertinent positives are noted above. All other systems are negative. Vital Signs Last 8 Hrs Date Time Temp Pulse Resp B/P (MAP) Pulse Ox O2 Delivery O2 Flow Rate FiO2 05/13/17 07:27 37.3 61 16 130/70 (90) 100 Nasal Cannula 5.0 Last Recorded Weight Weight (Kilograms): 136.300 Physical Exam General Appearance: no apparent distress, + obese Head: normocephalic, atraumatic Eyes: normal inspection, sclerae normal ENT: normal ENT inspection, pharynx normal Neck: supple, no JVD Respiratory/Chest: lungs clear, no respiratory distress, no accessory muscle use Cardiovascular: regular rate, rhythm Abdomen/GI: + tenderness, + distended, + pertinent finding (large umbilical hernia) Extremities/Musculoskelatal: normal inspection, + pedal edema (BL LE edema unchanged) Neurologic/Psych: alert, normal mood/affect Social History Smokeless Tobacco Use: No Alcohol Use: none Drug Use: none Marital Status: Housing Status: lives with family (mother and son) Occupation: unemployed Laboratory Results Past 24 Hours 05/13/17 07:16 05/13/17 07:16 Test 05/13/17 07:16 Red Blood Count 3.00 M/uL (4.7-6.1) Mean Corpuscular Volume 94.0 fL (80-100) Mean Corpuscular Hemoglobin 29.0 pg (25-34) Mean Corpuscular Hemoglobin Concent 30.9 g/dl (32-36) RDW Standard Deviation 53.1 fL (36.4-46.3) RDW Coefficient of Variation 15.5 % (11.5-14.5) Mean Platelet Volume 8.7 fL (7.4-10.4) Anion Gap 6.0 mmol/L (3-11) Est Creatinine Clear Calc Drug Dose 15.3 ml/min Estimated GFR () 7.5 Estimated GFR (Non- 6.5 BUN/Creatinine Ratio 6.5 (10-20) Calcium Level 8.6 mg/dl (8.5-10.1) Phosphorus Level 5.6 mg/dl (2.5-4.9) Albumin 2.6 gm/dl (3.4-5.0) Allergies Coded Allergies: Ketorolac Tromethamine (Verified Allergy, Unknown, Itchiness and hives, 09/05/14) Reported by PT Tramadol (Verified Allergy, Unknown, Itchiness and hives, 09/05/14) Reported by PT Acetaminophen (Verified Adverse Reaction, Unknown, NAUSEA,VOMITING, ) REPORTED BY PT. Codeine (Verified Adverse Reaction, Unknown, NAUSEA,VOMITING, 05/05/17) REPORTED BY PT. Medications Current Inpatient Medications Medications (Trade) Dose Ordered Sig/Julio Route Start Time Stop Time Status Last Admin Dose Admin Heparin Sodium (Porcine) (Heparin Sq 5000 Unit/0.5ml) 5,000 unit Q12 SQ 05/05/17 09:00 06/04/17 08:59 05/13/17 08:24 5,000 UNIT Acetaminophen (Tylenol Tab) 650 mg Q4H PRN PO 05/05/17 08:30 06/04/17 08:29 05/10/17 21:33 650 MG Aspirin (Ecotrin Tab) 81 mg DAILY PO 05/06/17 09:00 06/05/17 08:59 05/13/17 08:18 81 MG Calcitriol (Rocaltrol Cap) 1 mcg MoWeFr@0900 PO 05/05/17 10:00 06/04/17 09:59 05/11/17 08:21 1 MCG Cyclobenzaprine HCl (Flexeril Tab) 10 mg TID PRN PO 05/05/17 09:15 06/04/17 09:14 05/11/17 01:19 10 MG Folic Acid (Folvite Tab) 1 mg DAILY PO 05/06/17 09:00 11/7/17 08:59 05/13/17 08:18 1 MG Gabapentin (Neurontin Cap) 100 mg TID PO 05/05/17 14:00 06/04/17 13:59 05/13/17 08:19 100 MG Metoclopramide HCl (Reglan Tab) 5 mg ACHS PO 05/05/17 11:00 06/04/17 10:59 05/13/17 06:01 5 MG Multivitamins (Multivitamin Tab) 1 tab DAILY PO 05/06/17 09:00 06/05/17 08:59 05/13/17 08:19 1 TAB Pantoprazole Sodium (Protonix Tab) 40 mg DAILY PO 05/06/17 09:00 06/05/17 08:59 05/13/17 08:19 40 MG Simvastatin (Zocor Tab) 40 mg HS PO 05/05/17 21:00 06/04/17 20:59 05/12/17 21:51 40 MG Vitamin B Complex/ Vit C/Folic Acid (Nephrocaps) 1 cap HS PO 05/05/17 21:00 06/04/17 20:59 05/12/17 21:51 1 CAP Miscellaneous Information (Order Awaiting Action) 1 ea QS N/A 05/06/17 11:00 06/05/17 10:59 Sevelamer HCl (Renagel Tab) 800 mg TIDM PO 05/05/17 11:30 06/04/17 11:29 05/13/17 08:20 800 MG Glucose (Glucose 40% Gel) 15-30 GRAMS 15 GRAMS... UD PRN PO 05/05/17 10:30 06/04/17 10:29 Glucose (Glucose Chew Tab) 4-8 Tablets 4 Tabl... UD PRN PO 05/05/17 10:30 06/04/17 10:29 Dextrose (Dextrose 50% 50ML Syringe) 25-50ML OF 50% DW IV FOR... UD PRN IV 05/05/17 10:30 06/04/17 10:29 Glucagon (Glucagon Inj) 1 mg UD PRN SQ 05/05/17 10:30 06/04/17 10:29 Carvedilol (Coreg Tab) 12.5 mg BID PO 05/06/17 09:00 06/04/17 20:59 05/13/17 08:17 12.5 MG Multi-Ingredient Ointment (Eucerin Unscented Cr) 1 appln BID EXT 05/06/17 21:00 06/05/17 20:59 05/13/17 08:16 1 APPLN Clonazepam (Klonopin Tab) 1 mg UD PRN PO 05/07/17 08:45 06/06/17 08:44 05/11/17 09:08 1 MG Diltiazem HCl (Cardizem Tab) 60 mg Q8H PO 05/07/17 23:00 06/06/17 22:59 05/13/17 06:05 60 MG Rifaximin (Xifaxan Tab) 550 mg BID PO 05/08/17 20:00 06/07/17 20:59 05/13/17 08:20 550 MG Polyethylene (Miralax Powder Packet) 17 gm BID PO 05/08/17 20:00 06/07/17 20:59 05/09/17 21:51 17 GM Doxycycline Hyclate (Vibramycin Cap) 100 mg BID PO 05/08/17 20:00 05/18/17 19:59 Future Hold 05/11/17 14:31 100 MG Levofloxacin (Levaquin Tab) 500 mg Q48H PO 05/10/17 11:00 05/18/17 10:59 05/12/17 12:19 500 MG Oxycodone HCl (Roxicodone Immediate Rel Tab) 15 mg Q4H PRN PO 05/11/17 17:45 05/24/17 10:59 05/13/17 08:21 15 MG Vancomycin HCl (Consult) 1 ea UD PRN N/A 05/11/17 18:00 06/10/17 17:59 Furosemide (Lasix Tab) 80 mg BID17 PO 05/12/17 17:00 06/05/17 08:59 05/13/17 08:21 80 MG Fentanyl (Duragesic Patch) 25 mcg Q72H TD 05/12/17 13:30 05/26/17 13:29 05/12/17 13:45 25 MCG Miscellaneous (Fentanyl Patch Remove & Waste) 1 ea Q3D N/A 05/15/17 13:30 06/14/17 13:29 Miscellaneous Information (Check Fentanyl Patch Placement) 1 ea QS N/A 05/12/17 16:00 06/11/17 15:59 05/13/17 08:16 1 EA Impression (1) End stage renal disease due to hypertension (2) Hyperkalemia (3) Volume overload (4) Hypertensive emergency (5) Secondary hyperparathyroidism of renal origin (6) Anemia (7) Chronic ulcer of leg with fat layer exposed Jd is a 36 year-old male with ESRD secondary to hypertensive nephropathy. He is on hemodialysis Sunday, Sunday, Sunday. He presented with respiratory distress, volume overload and hyperkalemia after missing dialysis for 2 weeks. He is being treated for lower extremity cellulitis. Chronic leg ulcer growing MRSA. There is a history of noncompliance with HD Rx and medications. He had hypertensive urgency and severe hyperkalemia necessitating emergent dialysis on admission. He has a well-functioning left brachiocephalic AV fistula. He has evidence of advanced chronic liver disease. Brain remains hospitalized for abdominal wall cellulitis/panniculitis. He has hyperkalemia. Diet was reviewed in detail today. Avoiding potassium based sodium substitutes was stressed. Jd was given Kayexalate this morning. Metabolic profile will be repeated this afternoon. Patient was previously on dialysis in [place] but opted to switch to [place]. He denies transportation issues that would affect his ability to get to his treatments in [place] in the future. Recommendations -- Blood pressure, volume status acceptable -- Kayexalate 15 gm x 1 dose this morning -- Repeat metabolic profile this afternoon -- Maintain strict dietary potassium restriction - No more salt substitute -- Sevelamer and calcitriol as ordered for CKD/MBD -- Continue furosemide 80 mg twice daily -- Overall, palliative discussion regarding goals of care moving forward remains
[2017-05-13] MEDS ORDERED: NURSING VERBAL MED ORDER ONE (11:15)
[2017-05-13] MEDS ORDERED: METOCLOPRAMIDE HCL INJ 5 MG/ML 2 ML VIAL IV STA (11:25)
[2017-05-13] MEDS ORDERED: LIDOCAINE HCL 1% 20 ML VIAL ONE (13:33)
[2017-05-13 14:58] VITALS: BP 174/86; PULSE 68; TEMP 36.8; O2SAT 98
[2017-05-13] MEDS ORDERED: IMIPENEM/CILASTATIN CONSULT ACTIVE PRN (16:45)
--- NOTE | 2017-05-13 16:45 | Procedure Note ---
Procedure Note Date of Service May 13, 2017. Procedure Note time - 9945 Procedure - suture closure of leaking paracentesis needle site Verbal consent obtained Description - After betadine prep and draping in sterile fashion, along with 1% lidocaine for local analgesia, one 3-0 prolene suture was used to close the site. Tolerated well. Suture will need to be removed in 10 days. Blood loss - none Tolerated well by patient Jordan Ling MD
[2017-05-13 16:48] LABS: CALCIUM 8.6 mg/dl (8.5-10.1); CREATININE 9.31 mg/dl (0.60-1.40); POTASSIUM 6.2 mmol/L (3.5-5.1)
[2017-05-13] MEDS: IMIPENEM-CILASTATIN 200 MG in DEXTROSE 5% 100ML 100 ML IV SCH (18:18)
[2017-05-13] MEDS: SIMVASTATIN 40 MG TAB PO SCH (19:58)
[2017-05-13] MEDS: NEPHROCAPS PO SCH (19:58)
--- NOTE | 2017-05-13 20:50 | Progress Note ---
Subjective Date of Service: May 13, 2017. Subjective Pt evaluation today including: conversation w/ patient, physical exam, chart review, lab review, conversation w/ hadoop consultant (nephrology, ID), review of inpatient medication list Pain: abdomen - "slightly better" PO Intake: normal, eating well Voiding: no voiding problems (makes urine at least once daily) following kayexalate this AM he had multiple stools and significant nausea needed IV reglan for such his paracentesis site (from the first tap this admission) continues to leak fluid; this is bothersome to him denies any pulmonary symptoms thinks the redness on abdominal wall is worse Review of Systems Constitutional: + fatigue, No fever, No chills Respiratory: No cough, No shortness of breath Cardiac: No chest pain Abdomen: + pain, + nausea, + vomiting, No constipation Male : No dysuria Objective Vital Signs Date Time Temp Pulse Resp B/P (MAP) Pulse Ox O2 Delivery O2 Flow Rate FiO2 05/13/17 16:00 Nasal Cannula 5.0 05/13/17 14:58 36.8 68 18 174/86 (115) 98 Nasal Cannula 6.0 05/13/17 08:00 Nasal Cannula 5.0 05/13/17 07:27 37.3 61 16 130/70 (90) 100 Nasal Cannula 5.0 05/13/17 00:00 Nasal Cannula 5.0 05/12/17 23:57 36.7 56 18 111/71 (84) 100 Nasal Cannula 2.0 05/12/17 21:55 56 124/75 (91) 98 Nasal Cannula 2.0 Physical Exam General Appearance: no apparent distress, + obese ENT: pharynx normal Neck: no JVD Respiratory/Chest: lungs clear, no respiratory distress, no accessory muscle use Cardiovascular: regular rate, rhythm, no gallop, no murmur Abdomen: normal bowel sounds, no organomegaly, + distended (w/ ascites), + tenderness (over areas of cellulitis (RLQ, LUQ, LLQ)) Extremities: + pedal edema (lymphedema - no change) Neurologic/Psychiatric: alert, oriented x 3, + depressed affect Skin: + pertinent finding (severe stasis changes/hyperpigmentation on both legs /feet from lymphedema; areas of macerated skin on legs but wheeping has resolved ; he has 2 abdominal paracentesis holes/tracts on the left abdominal wall; medial hole is leaking clear ascites; erythema/cellultis of abdominal wall is slightly worse in the LUQ area as it appears to track more superiorly; the left flank, right flank, RUQ are spared of cellulitis ) Laboratory Results Last 24 Hours Test 05/13/17 07:16 05/13/17 15:40 White Blood Count 5.44 K/uL Red Blood Count 3.00 M/uL Hemoglobin 8.7 g/dL Hematocrit 28.2 % Mean Corpuscular Volume 94.0 fL Mean Corpuscular Hemoglobin 29.0 pg Mean Corpuscular Hemoglobin Concent 30.9 g/dl RDW Standard Deviation 53.1 fL RDW Coefficient of Variation 15.5 % Platelet Count 121 K/uL Mean Platelet Volume 8.7 fL Sodium Level 132 mmol/L 132 mmol/L Potassium Level 6.4 mmol/L 6.2 mmol/L Chloride Level 99 mmol/L 97 mmol/L Carbon Dioxide Level 27 mmol/L 26 mmol/L Anion Gap 6.0 mmol/L 10.0 mmol/L Blood Urea Nitrogen 60 mg/dl 65 mg/dl Creatinine 9.20 mg/dl 9.31 mg/dl Est Creatinine Clear Calc Drug Dose 15.3 ml/min 15.2 ml/min Estimated GFR () 7.5 7.4 Estimated GFR (Non- 6.5 6.4 BUN/Creatinine Ratio 6.5 7.0 Random Glucose 73 mg/dl 80 mg/dl Calcium Level 8.6 mg/dl 8.6 mg/dl Phosphorus Level 5.6 mg/dl Albumin 2.6 gm/dl Assessment and Plan 36yo male - 1. abdominal wall cellulitis - ongoing despite use of IV vanco (and levaquin, which had been used for his legs). I cannot rule out component of panniculitis but CT did not show such. Spoke with Dr. Ana ansari d/c anatoly, change to imipenem for broader coverage. Cont IV vanco. Serial exams. Pain control. 2. cirrhosis with decompensation - cont HD per dialysis schedule to help with fluid retention. s/p therapeutic paracentesis with 7 liters on one occasion and 2 liters earlier in his stay. One of his paracentesis sites continued with ascites leaking - placed suture to stop leaking. See separate procedure note. [facility] is following. Apparently had w/u at [facility] in [place] for his cirrhosis. Records requested but not received. Recommend referral back there after discharge. Ascites fluid x 2 --- negative for SBP. Cont beta farida and rifaximin for hepatic encephalopathy prevention. 3. ESRD on HD M/W/F - appreciate nephrology consultation & assistance with HD needs To have HD first thing tomorrow am. Apparently he dialyzes in [place] and has had transportation troubles getting there. Could he dialyze at [facility] in [place] (his hometown)?? I spoke to Dr. Elise about this. We will need to reach out to his primary stonework tracer (Dr. Acevedo, [place]) to discuss this possibility. 4. hyperkalemia - severe - improved from admission but ongoing. Cause? dietary? Check cortisol in AM to r/o adrenal insufficiency (but doubt). Kayexalate x 1 given today. NINA & ARB discontinued. 5. DVT proph - heparin BID 6. anemia of chronic kidney disease - H/H acceptable. 7. T2DM - controlled 8. HTN - improved. 9. chronic LE wounds - surface culture from LLE with MRSA and ACINETOBACTER - appreciate ID consultation - continue abx per their recommendations 10. morbid obesity w/ BMI 42 11. CARMEN - noted; on chronic NC O2 12. chronic pain syndrome - I researched the [facility] Narcotic Database and the patient does NOT receive dilaudid by any provider It appears he follows with pain management in [place] he uses fentanyl patch 12mcg at home unsure why it was d/c this admission this was increased to 25mcg q3days due to refractory pain despite prn use of oxycodone (for his abdominal pain) 13. chronic hypoxic respiratory failure - on NC O2 and stable Cont PT, OT Continued [facility] stay due to: multiple IV medications needed, other (abdominal wall cellulitis ) Discharge planning: uncertain
[2017-05-13 23:38] VITALS: BP 131/74; PULSE 60; TEMP 36.3; O2SAT 100
[2017-05-14] VITALS (23 sets, daily range): BP systolic 93–159; BP diastolic 45–81; PULSE 55–74; TEMP 36.4–37.1; O2SAT 97–100
[2017-05-14] MEDS: IMIPENEM-CILASTATIN 200 MG in DEXTROSE 5% 100ML 100 ML IV SCH ×5 (00:13→23:43)
[2017-05-14] MEDS: CHECK FENTANYL PATCH PLACEMENT SCH ×4 (00:13→23:46)
[2017-05-14] MEDS: OXYCODONE HCL IR 5 MG TAB (IMMEDIATE RELEASE) PO PRN ×4 (03:35→21:20)
[2017-05-14] MEDS: METOCLOPRAMIDE HCL 10 MG TAB PO SCH ×4 (05:34→21:08)
[2017-05-14 05:44] LABS: COD UR NEGATIVE NG/ML (CUTOFF=50); HYDROCOD UR NEGATIVE NG/ML (CUTOFF=50); HYDROMOR UR 121 NG/ML (CUTOFF=50); MORPHINE UR NEGATIVE NG/ML (CUTOFF=50); NORHYDROCODONE CONF UR NEGATIVE NG/ML (CUTOFF=50); OXYMORPH UR 159 NG/ML (CUTOFF=50)
[2017-05-14] MEDS: EPOETIN ALFA 4000 UNITS/ML VIAL IV SCH ×2 (06:57→13:01)
[2017-05-14] MEDS: HEPARIN SOD (PORCINE) 1000 UNIT/ML 10 ML VIAL IV SCH ×3 (06:57→09:53)
[2017-05-14] MEDS: SENSIPAR~ORDER AWAITING ACTION SCH ×4 (06:58→23:46)
[2017-05-14] MEDS: DILTIAZEM HCL 60 MG TAB PO SCH ×3 (07:00→22:36)
[2017-05-14] MEDS: POLYETHYLENE (MIRALAX) 17 GM PACK PO SCH ×2 (07:51→21:06)
[2017-05-14] MEDS: SEVELAMER HYDROCH 800 MG TAB PO SCH ×3 (07:51→17:30)
[2017-05-14] MEDS: EUCERIN CR 120 GM JAR EXT SCH ×2 (07:52→21:21)
[2017-05-14] MEDS: HEPARIN SOD 5000 UNIT/0.5 ML CARP SQ SCH ×2 (07:53→21:19)
[2017-05-14] MEDS ORDERED: HEPARIN SOD (PORCINE) 1000 UNIT/ML 10 ML VIAL IV SCH (08:00)
[2017-05-14] MEDS: CARVEDILOL 12.5 MG TAB PO SCH ×2 (08:00→21:06)
[2017-05-14] MEDS: GABAPENTIN 100 MG CAP PO SCH ×3 (08:00→21:06)
[2017-05-14 08:19] LABS: BUN/CREATININE RATIO 7.3 (10-20); CREATININE 10.3 mg/dl (0.60-1.40); FERRITIN 618.7 ng/ml (8.0-388.0); PHOSPHORUS 6.5 mg/dl (2.5-4.9); POTASSIUM 6.7 mmol/L (3.5-5.1)
[2017-05-14] MEDS: CLONAZEPAM 1 MG TAB PO PRN (08:40)
[2017-05-14 08:52] LABS: HEMATOCRIT 27.2 % (42-52); MEAN CELL VOLUME 93.8 fL (80-100); MEAN CORPUSCULAR HEMOGLOBIN 29.7 pg (25-34); MEAN CORPUSCULAR HGB CONC 31.6 g/dl (32-36); MEAN PLATELET VOLUME 8.8 fL (7.4-10.4); PLATELET COUNT 140 K/uL (130-400); WHITE BLOOD COUNT 6.26 K/uL (4.8-10.8)
--- NOTE | 2017-05-14 10:24 | Dialysis Progress Note ---
Hemodialysis Note Date of Service May 14, 2017. Chief Complaint ESRD Subjective Jd was seen and evaluated during hemodialysis this morning. He was sleeping during the treatment. No acute events overnight. Abdominal pain persists. No fevers or chills. Qb appropriate. BP slightly low but acceptable. Dietary restrictions reviewed. Review of Systems A complete review of systems was performed. Pertinent positives are noted above. All other systems are negative. Vital Signs Last 8 Hrs Date Time Temp Pulse Resp B/P (MAP) Pulse Ox O2 Delivery O2 Flow Rate FiO2 05/14/17 10:00 59 98/49 05/14/17 09:45 59 108/52 05/14/17 09:30 62 129/59 05/14/17 09:09 36.5 61 130/64 (86) 05/14/17 08:00 100 Nasal Cannula 6.0 05/14/17 07:14 37.1 55 16 146/81 (102) 100 Nasal Cannula 6.0 Last Recorded Weight Weight (Kilograms): 141.000 Physical Exam General Appearance: no apparent distress, + obese Head: normocephalic, atraumatic Eyes: normal inspection, sclerae normal ENT: normal ENT inspection, pharynx normal Neck: supple, + JVD Respiratory/Chest: lungs clear, no respiratory distress, no accessory muscle use Cardiovascular: regular rate, rhythm Abdomen/GI: soft, + tenderness, + distended, + pertinent finding (warm without noticable improvement in induration) Extremities/Musculoskelatal: normal inspection, + pedal edema (lymphedema) Neurologic/Psych: alert Social History Smokeless Tobacco Use: No Alcohol Use: none Drug Use: none Marital Status: Housing Status: lives with family (mother and son) Occupation: unemployed Laboratory Results Past 24 Hours 05/14/17 08:38 05/13/17 15:40 05/14/17 07:17 Test 05/13/17 15:40 05/14/17 07:17 05/14/17 08:38 Anion Gap 10.0 mmol/L (3-11) 10.0 mmol/L (3-11) Est Creatinine Clear Calc Drug Dose 15.2 ml/min 13.8 ml/min Estimated GFR () 7.4 6.6 Estimated GFR (Non- 6.4 5.7 BUN/Creatinine Ratio 7.0 (10-20) 7.3 (10-20) Calcium Level 8.6 mg/dl (8.5-10.1) 9.0 mg/dl (8.5-10.1) Phosphorus Level 6.5 mg/dl (2.5-4.9) Iron Level 54 mcg/dl (35-175) Total Iron Binding Capacity 314 mcg/dl (250-450) Transferrin 193 mg/dl (200-360) Transferrin % Saturation 20 % (20-50) Ferritin 618.7 ng/ml (8.0-388.0) Albumin 2.8 gm/dl (3.4-5.0) Random Cortisol 7.13 mcg/dl Random Vancomycin Level 15.4 mcg/ml Red Blood Count 2.90 M/uL (4.7-6.1) Mean Corpuscular Volume 93.8 fL (80-100) Mean Corpuscular Hemoglobin 29.7 pg (25-34) Mean Corpuscular Hemoglobin Concent 31.6 g/dl (32-36) RDW Standard Deviation 52.8 fL (36.4-46.3) RDW Coefficient of Variation 15.4 % (11.5-14.5) Mean Platelet Volume 8.8 fL (7.4-10.4) Allergies Coded Allergies: Ketorolac Tromethamine (Verified Allergy, Unknown, Itchiness and hives, 09/05/14) Reported by PT Tramadol (Verified Allergy, Unknown, Itchiness and hives, 09/05/14) Reported by PT Acetaminophen (Verified Adverse Reaction, Unknown, NAUSEA,VOMITING, ) REPORTED BY PT. Codeine (Verified Adverse Reaction, Unknown, NAUSEA,VOMITING, 05/05/17) REPORTED BY PT. Medications Current Inpatient Medications Medications (Trade) Dose Ordered Sig/Julio Route Start Time Stop Time Status Last Admin Dose Admin Heparin Sodium (Porcine) (Heparin Sq 5000 Unit/0.5ml) 5,000 unit Q12 SQ 05/05/17 09:00 06/04/17 08:59 05/13/17 08:24 5,000 UNIT Acetaminophen (Tylenol Tab) 650 mg Q4H PRN PO 05/05/17 08:30 06/04/17 08:29 05/10/17 21:33 650 MG Aspirin (Ecotrin Tab) 81 mg DAILY PO 05/06/17 09:00 06/05/17 08:59 10/15/17 08:18 81 MG Calcitriol (Rocaltrol Cap) 1 mcg MoWeFr@0900 PO 05/05/17 10:00 06/04/17 09:59 05/11/17 08:21 1 MCG Cyclobenzaprine HCl (Flexeril Tab) 10 mg TID PRN PO 05/05/17 09:15 06/04/17 09:14 05/11/17 01:19 10 MG Folic Acid (Folvite Tab) 1 mg DAILY PO 05/06/17 09:00 06/05/17 08:59 05/13/17 08:18 1 MG Gabapentin (Neurontin Cap) 100 mg TID PO 05/05/17 14:00 06/04/17 13:59 05/13/17 19:59 100 MG Metoclopramide HCl (Reglan Tab) 5 mg ACHS PO 05/05/17 11:00 06/04/17 10:59 05/14/17 05:34 5 MG Multivitamins (Multivitamin Tab) 1 tab DAILY PO 05/06/17 09:00 06/05/17 08:59 05/13/17 08:19 1 TAB Pantoprazole Sodium (Protonix Tab) 40 mg DAILY PO 05/06/17 09:00 06/05/17 08:59 05/13/17 08:19 40 MG Simvastatin (Zocor Tab) 40 mg HS PO 05/05/17 21:00 06/04/17 20:59 05/13/17 19:58 40 MG Vitamin B Complex/ Vit C/Folic Acid (Nephrocaps) 1 cap HS PO 05/05/17 21:00 06/04/17 20:59 05/13/17 19:58 1 CAP Miscellaneous Information (Order Awaiting Action) 1 ea QS N/A 05/06/17 11:00 06/05/17 10:59 Sevelamer HCl (Renagel Tab) 800 mg TIDM PO 05/05/17 11:30 06/04/17 11:29 05/14/17 07:51 800 MG Glucose (Glucose 40% Gel) 15-30 GRAMS 15 GRAMS... UD PRN PO 05/05/17 10:30 06/04/17 10:29 Glucose (Glucose Chew Tab) 4-8 Tablets 4 Tabl... UD PRN PO 05/05/17 10:30 06/04/17 10:29 Dextrose (Dextrose 50% 50ML Syringe) 25-50ML OF 50% DW IV FOR... UD PRN IV 05/05/17 10:30 06/04/17 10:29 Glucagon (Glucagon Inj) 1 mg UD PRN SQ 05/05/17 10:30 06/04/17 10:29 Carvedilol (Coreg Tab) 12.5 mg BID PO 05/06/17 09:00 06/04/17 20:59 05/13/17 20:09 12.5 MG Multi-Ingredient Ointment (Eucerin Unscented Cr) 1 appln BID EXT 05/06/17 21:00 06/05/17 20:59 05/14/17 07:52 1 APPLN Clonazepam (Klonopin Tab) 1 mg UD PRN PO 05/07/17 08:45 06/06/17 08:44 05/14/17 08:40 1 MG Diltiazem HCl (Cardizem Tab) 60 mg Q8H PO 05/07/17 23:00 06/06/17 22:59 05/13/17 22:35 60 MG Rifaximin (Xifaxan Tab) 550 mg BID PO 05/08/17 20:00 06/07/17 20:59 05/13/17 20:00 550 MG Polyethylene (Miralax Powder Packet) 17 gm BID PO 05/08/17 20:00 06/07/17 20:59 05/14/17 07:51 17 GM Doxycycline Hyclate (Vibramycin Cap) 100 mg BID PO 05/08/17 20:00 05/18/17 19:59 Future Hold 05/11/17 14:31 100 MG Oxycodone HCl (Roxicodone Immediate Rel Tab) 15 mg Q4H PRN PO 05/11/17 17:45 05/24/17 10:59 05/14/17 07:47 15 MG Vancomycin HCl (Consult) 1 ea UD PRN N/A 05/11/17 18:00 06/10/17 17:59 Furosemide (Lasix Tab) 80 mg BID17 PO 05/12/17 17:00 06/05/17 08:59 05/13/17 17:32 80 MG Fentanyl (Duragesic Patch) 25 mcg Q72H TD 05/12/17 13:30 05/26/17 13:29 05/12/17 13:45 25 MCG Miscellaneous (Fentanyl Patch Remove & Waste) 1 ea Q3D N/A 05/15/17 13:30 06/14/17 13:29 Miscellaneous Information (Check Fentanyl Patch Placement) 1 ea QS N/A 05/12/17 16:00 06/11/17 15:59 05/14/17 07:51 1 EA Epoetin Conor (Procrit Inj) 4,000 units TODAY@0800 IV 05/14/17 08:00 05/14/17 13:59 Imipenem/ Cilastatin Sodium 200 mg/Dextrose 108 ml @ 100 mls/hr Q6H IV 05/13/17 18:00 05/23/17 17:59 05/14/17 05:32 100 MLS/HR Imipenem/ Cilastatin Sodium (Consult) 1 ea UD PRN N/A 05/13/17 16:45 06/12/17 16:44 Impression (1) End stage renal disease due to hypertension (2) Hyperkalemia (3) Volume overload (4) Hypertensive emergency (5) Secondary hyperparathyroidism of renal origin (6) Anemia (7) Chronic ulcer of leg with fat layer exposed Jd is a 36 year-old male with ESRD secondary to hypertensive nephropathy. He is on hemodialysis Sunday, Sunday, Sunday. He presented with respiratory distress, volume overload and hyperkalemia after missing dialysis for 2 weeks. He is being treated for lower extremity cellulitis. Chronic leg ulcer growing MRSA. There is a history of noncompliance with HD Rx and medications. He had hypertensive urgency and severe hyperkalemia necessitating emergent dialysis on admission. He has a well-functioning left brachiocephalic AV fistula. He has evidence of advanced chronic liver disease. Brain remains hospitalized for abdominal wall cellulitis/panniculitis. Diet was reviewed in detail. There is a history of hyperkalemia associated with increased dietary potassium intake. Avoiding potassium based sodium substitutes was stressed. Jd was given Kayexalate yesterday morning. Patient was previously on dialysis in [place] but opted to switch to [place]. He denies transportation issues that would affect his ability to get to his treatments in [place] in the future. Recommendations -- HD today, 4 hours, 2K, UF goal 4 kg -- Qb appropriate -- BP acceptable -- Repeat metabolic profile tomorrow AM -- Epogen 4000 QHD -- Venofer 100 mg QHD - iron studies reviewed this AM -- Maintain strict dietary potassium restriction -- Sevelamer and calcitriol as ordered for CKD/MBD -- Continue furosemide 80 mg twice daily -- Overall, palliative discussion regarding goals of care moving forward remains
[2017-05-14] MEDS: ASPIRIN 81 MG ECTAB PO SCH (13:51)
[2017-05-14] MEDS: CALCITRIOL 0.25 MCG CAP PO SCH (13:51)
[2017-05-14] MEDS: MULTIVITAMIN TAB PO SCH (13:51)
[2017-05-14] MEDS: PANTOprazole SOD 40 MG TAB PO SCH (13:52)
[2017-05-14] MEDS: RIFAXIMIN TAB 550 MG TAB PO SCH ×2 (13:52→21:07)
[2017-05-14] MEDS: FUROSEMIDE 40 MG TAB PO SCH ×2 (13:52→17:30)
--- NOTE | 2017-05-14 14:22 | Pharmacy Progress Note ---
Pharmacy Abx Dose Progress Nt Date of Service May 14, 2017. Pharmacy Dosing Scope Date of Consult: 05/11/17 Consultation requested by: Dr. Ling Pharmacy is consulted to initiate Vancomycin IV dosing therapy for an abdominal wall cellulitis, order appropriate labs and adjust drug dose/frequency. The patient is currently receiving the following antimicrobial agents per Pharmacy consult: Patient receiving intermittent vancomycin based on serial levels between HD sessions. Objective Height (Feet): 5 Height (Inches): 11.00 Weight (Kilograms): 141.000 Vital Signs (Past 12Hrs) Vital Signs Past 12 Hours Date Time Temp Pulse Resp B/P (MAP) Pulse Ox O2 Delivery O2 Flow Rate FiO2 05/14/17 13:00 72 123/65 05/14/17 12:45 65 117/53 05/14/17 12:30 62 107/54 05/14/17 12:15 65 129/58 05/14/17 12:00 65 100/58 05/14/17 11:45 62 106/53 05/14/17 11:30 59 99/47 05/14/17 11:15 68 112/55 05/14/17 11:00 65 107/64 05/14/17 10:45 59 104/53 05/14/17 10:30 58 95/45 05/14/17 10:15 59 93/48 05/14/17 10:00 59 98/49 05/14/17 09:45 59 108/52 05/14/17 09:30 62 129/59 05/14/17 09:09 36.5 61 130/64 (86) 05/14/17 08:00 100 Nasal Cannula 6.0 05/14/17 07:14 37.1 55 16 146/81 (102) 100 Nasal Cannula 6.0 Lab Results (24Hrs) Item Value Date Time Random Vancomycin Level 15.4 mcg/ml 05/14/17 0717 Laboratory Tests (24 Hours) Test 05/14/17 08:38 White Blood Count 6.26 K/uL (4.8-10.8) Micro Results Date/Time Source Procedure Growth Status 05/05/17 00:00 Nasal MRSA DNA Surveillance Screen - Final Specimen Positive for MRSA by DNA Probe Complete 05/12/17 03:20 Urine , Clean Catch Urine Culture - Final NO GROWTH - LESS THAN 1,000 COLONIES/ML Complete 05/10/17 00:00 Ascities Fluid Gram Stain - Final Resulted 05/10/17 00:00 Ascities Fluid Bacterial Culture - Preliminary NO GROWTH TO DATE. Resulted 05/07/17 00:00 Ascities Fluid Acid Fast Stain - Final Resulted 05/07/17 00:00 Ascities Fluid Mycobacterial Culture - Preliminary NO ACID-FAST BACILLI ISOLATED - REPOR... Resulted 05/07/17 00:00 Ascities Fluid Gram Stain - Final Complete 05/07/17 00:00 Ascities Fluid Bacterial Culture - Final NO GROWTH Complete 05/05/17 16:00 Skin Leg Lower Left Gram Stain - Final Complete 05/05/17 16:00 Wound Culture - Final Acinetobacter Baumannii/Haemol Staphylococcus Aureus Complete Risk Factors for Resistance Hospitalization for 48 hours or more within the past 90 days (transferred from [facility] 05/05/17) * Current hospitalization > 5 days * Chronic dialysis within the past 30 days -- ESRD on intermittent hemodialysis every M/W/F * History of infection with a multidrug-resistant organism: MRSA, chronic weeping leg wound Assessment & Plan Assessment 36 year old male: * ESRD on HD every M/W/F (last treatment 05/11/17) * obesity (BMI greater than 35kg/m2, BMI= 41kg/m2) * hx of MRSA * chronic weeping leg wound * Day #4 of vancomycin therapy Plan Vancomycin IV * Based on pre-dialysis Random vanc level of 15.4 mcg/mL a dose of vanco 1000mg was ordered for 1800 post HD. * Goal trough level for cellulitis : ~15 mcg/mL * Random level ordered for: 05/16/17 with am labs. Pharmacy will continue to follow and will adjust dose/frequency as necessary. Thank you.
[2017-05-14 15:26] LABS: BUN/CREATININE RATIO 6.3 (10-20); CALCIUM 7.9 mg/dl (8.5-10.1); CREATININE 5.89 mg/dl (0.60-1.40); POTASSIUM 4.1 mmol/L (3.5-5.1)
--- NOTE | 2017-05-14 15:49 | Family Medicine Progress Note ---
Progress Note Date of Service May 14, 2017. Subjective patient asleep and undergoing dialysis in room. Constitutional: No fever Respiratory: No shortness of breath Cardiovascular: No chest pain Abdomen: + pain Medications Current Inpatient Medications Medications (Trade) Dose Ordered Sig/Julio Route Start Time Stop Time Status Last Admin Dose Admin Heparin Sodium (Porcine) (Heparin Sq 5000 Unit/0.5ml) 5,000 unit Q12 SQ 05/05/17 09:00 06/04/17 08:59 05/13/17 08:24 5,000 UNIT Acetaminophen (Tylenol Tab) 650 mg Q4H PRN PO 05/05/17 08:30 06/04/17 08:29 05/10/17 21:33 650 MG Aspirin (Ecotrin Tab) 81 mg DAILY PO 05/06/17 09:00 06/05/17 08:59 05/14/17 13:51 81 MG Calcitriol (Rocaltrol Cap) 1 mcg MoWeFr@0900 PO 05/05/17 10:00 06/04/17 09:59 05/14/17 13:51 1 MCG Cyclobenzaprine HCl (Flexeril Tab) 10 mg TID PRN PO 05/05/17 09:15 06/04/17 09:14 05/11/17 01:19 10 MG Folic Acid (Folvite Tab) 1 mg DAILY PO 05/06/17 09:00 06/05/17 08:59 05/14/17 13:52 1 MG Gabapentin (Neurontin Cap) 100 mg TID PO 05/05/17 14:00 06/04/17 13:59 05/14/17 13:52 100 MG Metoclopramide HCl (Reglan Tab) 5 mg ACHS PO 05/05/17 11:00 06/04/17 10:59 05/14/17 13:51 5 MG Multivitamins (Multivitamin Tab) 1 tab DAILY PO 05/06/17 09:00 06/05/17 08:59 05/14/17 13:51 1 TAB Pantoprazole Sodium (Protonix Tab) 40 mg DAILY PO 05/06/17 09:00 06/05/17 08:59 05/14/17 13:52 40 MG Simvastatin (Zocor Tab) 40 mg HS PO 05/05/17 21:00 06/04/17 20:59 05/13/17 19:58 40 MG Vitamin B Complex/ Vit C/Folic Acid (Nephrocaps) 1 cap HS PO 05/05/17 21:00 06/04/17 20:59 05/13/17 19:58 1 CAP Miscellaneous Information (Order Awaiting Action) 1 ea QS N/A 05/06/17 11:00 06/05/17 10:59 Sevelamer HCl (Renagel Tab) 800 mg TIDM PO 05/05/17 11:30 06/04/17 11:29 05/14/17 13:51 800 MG Glucose (Glucose 40% Gel) 15-30 GRAMS 15 GRAMS... UD PRN PO 05/05/17 10:30 06/04/17 10:29 Glucose (Glucose Chew Tab) 4-8 Tablets 4 Tabl... UD PRN PO 05/05/17 10:30 06/04/17 10:29 Dextrose (Dextrose 50% 50ML Syringe) 25-50ML OF 50% DW IV FOR... UD PRN IV 05/05/17 10:30 06/04/17 10:29 Glucagon (Glucagon Inj) 1 mg UD PRN SQ 05/05/17 10:30 06/04/17 10:29 Carvedilol (Coreg Tab) 12.5 mg BID PO 05/06/17 09:00 06/04/17 20:59 05/13/17 20:09 12.5 MG Multi-Ingredient Ointment (Eucerin Unscented Cr) 1 appln BID EXT 05/06/17 21:00 06/05/17 20:59 05/14/17 07:52 1 APPLN Clonazepam (Klonopin Tab) 1 mg UD PRN PO 05/07/17 08:45 06/06/17 08:44 05/14/17 08:40 1 MG Diltiazem HCl (Cardizem Tab) 60 mg Q8H PO 05/07/17 23:00 06/06/17 22:59 05/14/17 13:51 60 MG Rifaximin (Xifaxan Tab) 550 mg BID PO 05/08/17 20:00 06/07/17 20:59 05/14/17 13:52 550 MG Polyethylene (Miralax Powder Packet) 17 gm BID PO 05/08/17 20:00 06/07/17 20:59 05/14/17 07:51 17 GM Doxycycline Hyclate (Vibramycin Cap) 100 mg BID PO 05/08/17 20:00 05/18/17 19:59 Future Hold 05/11/17 14:31 100 MG Oxycodone HCl (Roxicodone Immediate Rel Tab) 15 mg Q4H PRN PO 05/11/17 17:45 05/24/17 10:59 05/14/17 15:43 15 MG Vancomycin HCl (Consult) 1 ea UD PRN N/A 05/11/17 18:00 06/10/17 17:59 Furosemide (Lasix Tab) 80 mg BID17 PO 05/12/17 17:00 06/05/17 08:59 05/14/17 13:52 80 MG Fentanyl (Duragesic Patch) 25 mcg Q72H TD 05/12/17 13:30 05/26/17 13:29 05/12/17 13:45 25 MCG Miscellaneous (Fentanyl Patch Remove & Waste) 1 ea Q3D N/A 05/15/17 13:30 06/14/17 13:29 Miscellaneous Information (Check Fentanyl Patch Placement) 1 ea QS N/A 05/12/17 16:00 06/11/17 15:59 05/14/17 15:38 1 EA Imipenem/ Cilastatin Sodium 200 mg/Dextrose 108 ml @ 100 mls/hr Q6H IV 05/13/17 18:00 05/23/17 17:59 05/14/17 13:51 100 MLS/HR Imipenem/ Cilastatin Sodium (Consult) 1 ea UD PRN N/A 05/13/17 16:45 06/12/17 16:44 Vancomycin HCl 1000 mg/Sodium Chloride 270 ml @ 125 mls/hr ONE ONCE IV 05/14/17 18:00 05/14/17 20:09 Objective Vital Signs Last Vital Signs Documentation Date Time Temp Pulse Resp B/P (MAP) Pulse Ox O2 Delivery O2 Flow Rate FiO2 05/14/17 16:24 36.4 74 18 159/73 (101) 97 Room Air 05/14/17 08:00 6.0 Physical Exam General Appearance: no apparent distress, + obese Respiratory/Chest: lungs clear, normal breath sounds, no respiratory distress, no accessory muscle use Cardiovascular: regular rate, rhythm Abdomen: + tenderness, + pertinent finding (erythema over RLQ/LUQ) Extremities: + inflammation, + pedal edema, + pertinent finding (chronic skin changes, peeling) Assessment and Plan 36yo male - 1. abdominal wall cellulitis - likely sec to underlying edema from fluid overload due to dialysis noncompliance IV vanco and imipenem for broader coverage. (was on doxycycline and levofloxacin to cover MRSA and Acinetobacter on admission for chronic LE wounds but switched to Vanco and Imipenem for abd wall cellulitis) Afebrile. Pain control await further ID input. 2. Liver cirrhosis s/p- therapeutic paracentesis with 7 liters on one occasion and 2 liters earlier in his stay. One of his paracentesis sites continued with ascites leaking - placed suture yesterday to stop leaking. Chidi HAMMOND is following. Apparently had w/u at [facility] [address] in [place] for his cirrhosis.- reviewed records; could not find specifics about cirrhosis. Recommend f/u after discharge Ascites fluid x 2 --- negative for SBP. Rifaximin for encephalopathy prevention 3. ESRD on HD M/W/F - HD today Will discuss to CM/Nephro about about switching to [facility] in [place] from [place] 4. hyperkalemia 2/2 noncompliance with HD Random cortisol is normal Repeat bmp in PM NINA & ARB discontinued. 5. DVT proph - heparin BID 6. anemia of chronic kidney disease - H/H acceptable. 7. T2DM - controlled 8. HTN - improved. 9. chronic LE wounds - surface culture from [facility] with MRSA and ACINETOBACTER - was on doxycycline and levofloxacin to cover MRSA and Acinetobacter on admission but switched to Vanco and Imipenem for abd wall cellulitis 10. morbid obesity w/ BMI 42 11. CARMEN - noted; on chronic NC O2 12. chronic pain syndrome - PDMP queried by Dr. Hansen. It appears he follows with pain management in [place]. Fentanyl at 25 mcg. 13. chronic hypoxic respiratory failure - on NC O2 and stable Reviewed: Pt Seen/Exam by Me History sitting at the edge of bed. on my way out - asking if he can have IV dilaudid. Was given oxycodone 15mgs right before my visit with him. denied shortness of breath has been moving around in the room Constitutional: denies: fever Cardiovascular: denies chest pain General Appearance: no apparent distress Respiratory: lungs clear, no respiratory distress Cardiovascular: regular rate, rhythm Gastrointestinal: normal bowel sounds, non tender, soft, other (lower abdominal wall with edema and erythema across the lower abdominal wall) Neurologic/Psychiatric: alert, oriented x 3 Assessment/Plan Resident Physician Supervision Note: I independently interviewed and examined the patient and verified the harris history and physical, reviewed labs and image studies, discussed the case with the resident Dr. Obrien and agree with the findings and care plan.
[2017-05-14] MEDS ORDERED: VANCOMYCIN INJ 1,000 MG in SODIUM CHLORIDE 0.9% 250ML 250 ML IV ONE (18:00)
[2017-05-14] MEDS: CYCLOBENZAPRINE HCL 10 MG TAB PO PRN (19:06)
--- NOTE | 2017-05-14 19:15 | Infectious Disease Progress Nt ---
Progress Note Date of Service May 14, 2017. Subjective Pt evaluation today including: conversation w/ patient, physical exam, chart review, lab review, review of studies, conversation w/ golf tournament consultant, review of inpatient medication list Events reviewed. Has developed erythema and increased tenderness of abdominal wall, c/w abdominal wall cellulitis. Now on imipenem and vancomycin, tolerating thus far. Remains afebrile. All Other Systems: Reviewed and Negative Medications Current Inpatient Medications Medications (Trade) Dose Ordered Sig/Julio Route Start Time Stop Time Status Last Admin Dose Admin Heparin Sodium (Porcine) (Heparin Sq 5000 Unit/0.5ml) 5,000 unit Q12 SQ 05/05/17 09:00 06/04/17 08:59 05/13/17 08:24 5,000 UNIT Acetaminophen (Tylenol Tab) 650 mg Q4H PRN PO 05/05/17 08:30 06/04/17 08:29 05/10/17 21:33 650 MG Aspirin (Ecotrin Tab) 81 mg DAILY PO 05/06/17 09:00 06/05/17 08:59 05/14/17 13:51 81 MG Calcitriol (Rocaltrol Cap) 1 mcg MoWeFr@0900 PO 05/05/17 10:00 06/04/17 09:59 05/14/17 13:51 1 MCG Cyclobenzaprine HCl (Flexeril Tab) 10 mg TID PRN PO 05/05/17 09:15 06/04/17 09:14 05/14/17 19:06 10 MG Folic Acid (Folvite Tab) 1 mg DAILY PO 05/06/17 09:00 06/05/17 08:59 05/14/17 13:52 1 MG Gabapentin (Neurontin Cap) 100 mg TID PO 05/05/17 14:00 06/04/17 13:59 05/14/17 13:52 100 MG Metoclopramide HCl (Reglan Tab) 5 mg ACHS PO 05/05/17 11:00 06/04/17 10:59 05/14/17 16:30 5 MG Multivitamins (Multivitamin Tab) 1 tab DAILY PO 05/06/17 09:00 06/05/17 08:59 05/14/17 13:51 1 TAB Pantoprazole Sodium (Protonix Tab) 40 mg DAILY PO 05/06/17 09:00 06/05/17 08:59 05/14/17 13:52 40 MG Simvastatin (Zocor Tab) 40 mg HS PO 05/05/17 21:00 06/04/17 20:59 05/13/17 19:58 40 MG Vitamin B Complex/ Vit C/Folic Acid (Nephrocaps) 1 cap HS PO 05/05/17 21:00 06/04/17 20:59 05/13/17 19:58 1 CAP Miscellaneous Information (Order Awaiting Action) 1 ea QS N/A 05/06/17 11:00 06/05/17 10:59 Sevelamer HCl (Renagel Tab) 800 mg TIDM PO 05/05/17 11:30 06/04/17 11:29 05/14/17 17:30 800 MG Glucose (Glucose 40% Gel) 15-30 GRAMS 15 GRAMS... UD PRN PO 05/05/17 10:30 06/04/17 10:29 Glucose (Glucose Chew Tab) 4-8 Tablets 4 Tabl... UD PRN PO 05/05/17 10:30 06/04/17 10:29 Dextrose (Dextrose 50% 50ML Syringe) 25-50ML OF 50% DW IV FOR... UD PRN IV 05/05/17 10:30 06/04/17 10:29 Glucagon (Glucagon Inj) 1 mg UD PRN SQ 05/05/17 10:30 06/04/17 10:29 Carvedilol (Coreg Tab) 12.5 mg BID PO 05/06/17 09:00 06/04/17 20:59 05/13/17 20:09 12.5 MG Multi-Ingredient Ointment (Eucerin Unscented Cr) 1 appln BID EXT 05/06/17 21:00 06/05/17 20:59 05/14/17 07:52 1 APPLN Clonazepam (Klonopin Tab) 1 mg UD PRN PO 05/07/17 08:45 06/06/17 08:44 05/14/17 08:40 1 MG Diltiazem HCl (Cardizem Tab) 60 mg Q8H PO 05/07/17 23:00 06/06/17 22:59 05/14/17 13:51 60 MG Rifaximin (Xifaxan Tab) 550 mg BID PO 05/08/17 20:00 11/9/17 20:59 05/14/17 13:52 550 MG Polyethylene (Miralax Powder Packet) 17 gm BID PO 05/08/17 20:00 06/07/17 20:59 05/14/17 07:51 17 GM Doxycycline Hyclate (Vibramycin Cap) 100 mg BID PO 05/08/17 20:00 05/18/17 19:59 Future Hold 05/11/17 14:31 100 MG Oxycodone HCl (Roxicodone Immediate Rel Tab) 15 mg Q4H PRN PO 05/11/17 17:45 05/24/17 10:59 05/14/17 15:43 15 MG Vancomycin HCl (Consult) 1 ea UD PRN N/A 05/11/17 18:00 06/10/17 17:59 Furosemide (Lasix Tab) 80 mg BID17 PO 05/12/17 17:00 06/05/17 08:59 05/14/17 17:30 80 MG Fentanyl (Duragesic Patch) 25 mcg Q72H TD 05/12/17 13:30 05/26/17 13:29 05/12/17 13:45 25 MCG Miscellaneous (Fentanyl Patch Remove & Waste) 1 ea Q3D N/A 05/15/17 13:30 06/14/17 13:29 Miscellaneous Information (Check Fentanyl Patch Placement) 1 ea QS N/A 05/12/17 16:00 06/11/17 15:59 05/14/17 15:38 1 EA Imipenem/ Cilastatin Sodium 200 mg/Dextrose 108 ml @ 100 mls/hr Q6H IV 05/13/17 18:00 05/23/17 17:59 05/14/17 17:31 100 MLS/HR Imipenem/ Cilastatin Sodium (Consult) 1 ea UD PRN N/A 05/13/17 16:45 06/12/17 16:44 Vancomycin HCl 1000 mg/Sodium Chloride 270 ml @ 125 mls/hr ONE ONCE IV 05/14/17 18:00 05/14/17 20:09 05/14/17 19:03 125 MLS/HR Objective Vital Signs Date Time Temp Pulse Resp B/P (MAP) Pulse Ox O2 Delivery O2 Flow Rate FiO2 05/14/17 16:24 36.4 74 18 159/73 (101) 97 Room Air 05/14/17 16:00 Nasal Cannula 5.0 05/14/17 13:23 36.6 59 129/63 (85) 05/14/17 13:15 66 120/64 05/14/17 13:00 72 123/65 05/14/17 12:45 65 117/53 05/14/17 12:30 62 107/54 05/14/17 12:15 65 129/58 05/14/17 12:00 65 100/58 05/14/17 11:45 62 106/53 05/14/17 11:30 59 99/47 05/14/17 11:15 68 112/55 05/14/17 11:00 65 107/64 05/14/17 10:45 59 104/53 05/14/17 10:30 58 95/45 05/14/17 10:15 59 93/48 05/14/17 10:00 59 98/49 05/14/17 09:45 59 108/52 05/14/17 09:30 62 129/59 05/14/17 09:09 36.5 61 130/64 (86) 05/14/17 08:00 100 Nasal Cannula 6.0 05/14/17 07:14 37.1 55 16 146/81 (102) 100 Nasal Cannula 6.0 05/14/17 00:00 Nasal Cannula 5.0 05/13/17 23:38 36.3 60 20 131/74 (93) 100 Nasal Cannula 5.0 05/13/17 20:00 Nasal Cannula 5.0 Physical Exam General Appearance: WD/WN, no apparent distress Eyes: normal inspection, sclerae normal ENT: normal ENT inspection, pharynx normal Neck: supple, no adenopathy, trachea midline Respiratory/Chest: chest non-tender, lungs clear, normal breath sounds, no respiratory distress Cardiovascular: regular rate, rhythm, no gallop, no murmur Abdomen: normal bowel sounds, no organomegaly, + distended, + tenderness Extremities: non-tender, + inflammation, + swelling Neurologic/Psychiatric: alert, oriented x 3 Skin: normal color, + pertinent finding (abdominal wall erythema) Lymphatic: no adenopathy Laboratory Results Last 24 Hours Test 05/14/17 07:17 05/14/17 08:38 05/14/17 13:47 Sodium Level 130 mmol/L 134 mmol/L Potassium Level 6.7 mmol/L 4.1 mmol/L Chloride Level 97 mmol/L 99 mmol/L Carbon Dioxide Level 23 mmol/L 25 mmol/L Anion Gap 10.0 mmol/L 10.0 mmol/L Blood Urea Nitrogen 76 mg/dl 37 mg/dl Creatinine 10.30 mg/dl 5.89 mg/dl Est Creatinine Clear Calc Drug Dose 13.8 ml/min 24.0 ml/min Estimated GFR () 6.6 12.9 Estimated GFR (Non- 5.7 11.1 BUN/Creatinine Ratio 7.3 6.3 Random Glucose 82 mg/dl 115 mg/dl Calcium Level 9.0 mg/dl 7.9 mg/dl Phosphorus Level 6.5 mg/dl Iron Level 54 mcg/dl Total Iron Binding Capacity 314 mcg/dl Transferrin 193 mg/dl Transferrin % Saturation 20 % Ferritin 618.7 ng/ml Albumin 2.8 gm/dl Random Cortisol 7.13 mcg/dl Random Vancomycin Level 15.4 mcg/ml White Blood Count 6.26 K/uL Red Blood Count 2.90 M/uL Hemoglobin 8.6 g/dL Hematocrit 27.2 % Mean Corpuscular Volume 93.8 fL Mean Corpuscular Hemoglobin 29.7 pg Mean Corpuscular Hemoglobin Concent 31.6 g/dl RDW Standard Deviation 52.8 fL RDW Coefficient of Variation 15.4 % Platelet Count 140 K/uL Mean Platelet Volume 8.8 fL Assessment and Plan 36-year-old male with severe lower extremity chronic venous stasis disease with superficial ulceration and weeping. Now with probale wall cellulitis. To follow patient on vancomycin and imipenem, length of therapy to be determined by clinical response. Will follow.
[2017-05-14] MEDS: NEPHROCAPS PO SCH (21:08)
[2017-05-14] MEDS: SIMVASTATIN 40 MG TAB PO SCH (21:08)
[2017-05-15] VITALS (18 sets, daily range): BP systolic 114–159; BP diastolic 47–85; PULSE 59–69; TEMP 36.7–37.2; O2SAT 96
[2017-05-15] MEDS: OXYCODONE HCL IR 5 MG TAB (IMMEDIATE RELEASE) PO PRN ×2 (03:02→08:55)
[2017-05-15] MEDS: IMIPENEM-CILASTATIN 200 MG in DEXTROSE 5% 100ML 100 ML IV SCH ×4 (06:10→23:45)
[2017-05-15] MEDS: METOCLOPRAMIDE HCL 10 MG TAB PO SCH ×5 (06:29→22:05)
[2017-05-15] MEDS: DILTIAZEM HCL 60 MG TAB PO SCH ×3 (06:30→22:06)
[2017-05-15 06:37] LABS: CALCIUM 8.8 mg/dl (8.5-10.1); CREATININE 7.51 mg/dl (0.60-1.40); POTASSIUM 5.3 mmol/L (3.5-5.1)
[2017-05-15] MEDS ORDERED: IRON SUCROSE INJ 100 MG in SYRINGE 0 ML IV SCH (08:00)
[2017-05-15] MEDS: FUROSEMIDE 40 MG TAB PO SCH ×3 (09:08→21:57)
[2017-05-15] MEDS: PANTOprazole SOD 40 MG TAB PO SCH (09:08)
[2017-05-15] MEDS: ASPIRIN 81 MG ECTAB PO SCH (09:08)
[2017-05-15] MEDS: MULTIVITAMIN TAB PO SCH (09:08)
[2017-05-15] MEDS: SEVELAMER HYDROCH 800 MG TAB PO SCH ×4 (09:09→21:57)
[2017-05-15] MEDS: CYCLOBENZAPRINE HCL 10 MG TAB PO PRN (09:09)
--- NOTE | 2017-05-15 09:09 | Pharmacy Progress Note ---
Pharmacy Abx Dose Short Note Date of Service May 15, 2017. Assessment & Plan Assessment 36 year old male receiving Vancomycin for treatment of cellulitis. Day # 5 of antimicrobial therapy. Plan Item Value Date Time Random Vancomycin Level 20.9 mcg/ml 05/15/17 0527 Vancomycin * Random post-HD level of 20.9 mcg/mL is consistent with goal trough levels. * No dose needed at this time. * Random vanc level ordered for tomorrow am with labs. * Anticipate HD for 05/16 * Goal trough level for cellulitis: 15 to 20 mcg/mL Pharmacy will continue to follow and will adjust dose/frequency as necessary. Thank you.
[2017-05-15] MEDS: GABAPENTIN 100 MG CAP PO SCH ×3 (09:10→22:04)
[2017-05-15] MEDS: CARVEDILOL 12.5 MG TAB PO SCH ×2 (09:10→22:03)
[2017-05-15] MEDS: RIFAXIMIN TAB 550 MG TAB PO SCH ×2 (09:11→22:05)
[2017-05-15] MEDS: POLYETHYLENE (MIRALAX) 17 GM PACK PO SCH ×2 (09:11→22:03)
[2017-05-15] MEDS: SENSIPAR~ORDER AWAITING ACTION SCH ×3 (09:12→23:47)
[2017-05-15] MEDS: CHECK FENTANYL PATCH PLACEMENT SCH ×3 (09:12→23:47)
[2017-05-15] MEDS: EUCERIN CR 120 GM JAR EXT SCH ×2 (09:13→22:03)
[2017-05-15] MEDS: HEPARIN SOD 5000 UNIT/0.5 ML CARP SQ SCH ×2 (09:17→22:05)
--- NOTE | 2017-05-15 09:42 | Nephrology Progress Note ---
Nephrology Progress Note Date of Service May 15, 2017. Chief Complaint ESRD Subjective No acute events overnight. No fevers or chills. Jd feels that abdominal cellulitis is likely improving. He reports symptomatic increase in ascites. He tolerated HD well yesterday, UF 4 kg. Appetite is good. He is careful to avoid high potassium food. Review of Systems A complete review of systems was performed. Pertinent positives are noted above. All other systems are negative. Vital Signs Last 8 Hrs Date Time Temp Pulse Resp B/P (MAP) Pulse Ox O2 Delivery O2 Flow Rate FiO2 05/15/17 08:30 37.2 68 18 159/85 (109) 96 Nasal Cannula 5.0 05/15/17 07:29 67 137/69 (91) 05/15/17 06:29 69 155/76 (102) Last Recorded Weight Weight (Kilograms): 137.500 Physical Exam General Appearance: no apparent distress, + obese Head: normocephalic, atraumatic Eyes: normal inspection, sclerae normal ENT: normal ENT inspection, pharynx normal Neck: supple, no JVD Respiratory/Chest: no respiratory distress, no accessory muscle use, + decreased breath sounds Cardiovascular: regular rate, rhythm, no gallop Abdomen/GI: soft, + pertinent finding (obese, soft, distended, umbilical hernia non tender, erythema improving) Extremities/Musculoskelatal: + pertinent finding (BL LE lymphedema) Neurologic/Psych: alert, normal mood/affect Social History Smokeless Tobacco Use: No Alcohol Use: none Drug Use: none Marital Status: Housing Status: lives with family (mother and son) Occupation: unemployed Laboratory Results Past 24 Hours 05/14/17 13:47 05/15/17 05:27 Test 05/14/17 13:47 05/15/17 05:27 Anion Gap 10.0 mmol/L (3-11) 8.0 mmol/L (3-11) Est Creatinine Clear Calc Drug Dose 24.0 ml/min 18.9 ml/min Estimated GFR () 12.9 9.6 Estimated GFR (Non- 11.1 8.3 BUN/Creatinine Ratio 6.3 (10-20) 7.0 (10-20) Calcium Level 7.9 mg/dl (8.5-10.1) 8.8 mg/dl (8.5-10.1) Phosphorus Level 5.0 mg/dl (2.5-4.9) Albumin 2.6 gm/dl (3.4-5.0) Random Vancomycin Level 20.9 mcg/ml Allergies Coded Allergies: Ketorolac Tromethamine (Verified Allergy, Unknown, Itchiness and hives, 09/05/14) Reported by PT Tramadol (Verified Allergy, Unknown, Itchiness and hives, 09/05/14) Reported by PT Acetaminophen (Verified Adverse Reaction, Unknown, NAUSEA,VOMITING, ) REPORTED BY PT. Codeine (Verified Adverse Reaction, Unknown, NAUSEA,VOMITING, 05/05/17) REPORTED BY PT. Medications Current Inpatient Medications Medications (Trade) Dose Ordered Sig/Julio Route Start Time Stop Time Status Last Admin Dose Admin Heparin Sodium (Porcine) (Heparin Sq 5000 Unit/0.5ml) 5,000 unit Q12 SQ 05/05/17 09:00 06/04/17 08:59 05/14/17 21:19 5,000 UNIT Acetaminophen (Tylenol Tab) 650 mg Q4H PRN PO 05/05/17 08:30 06/04/17 08:29 05/10/17 21:33 650 MG Aspirin (Ecotrin Tab) 81 mg DAILY PO 05/06/17 09:00 06/05/17 08:59 05/14/17 13:51 81 MG Calcitriol (Rocaltrol Cap) 1 mcg MoWeFr@0900 PO 05/05/17 10:00 06/04/17 09:59 05/14/17 13:51 1 MCG Cyclobenzaprine HCl (Flexeril Tab) 10 mg TID PRN PO 05/05/17 09:15 06/04/17 09:14 05/14/17 19:06 10 MG Folic Acid (Folvite Tab) 1 mg DAILY PO 05/06/17 09:00 06/05/17 08:59 05/14/17 13:52 1 MG Gabapentin (Neurontin Cap) 100 mg TID PO 05/05/17 14:00 06/04/17 13:59 05/14/17 21:06 100 MG Metoclopramide HCl (Reglan Tab) 5 mg ACHS PO 05/05/17 11:00 06/04/17 10:59 05/15/17 06:29 5 MG Multivitamins (Multivitamin Tab) 1 tab DAILY PO 05/06/17 09:00 06/05/17 08:59 05/14/17 13:51 1 TAB Pantoprazole Sodium (Protonix Tab) 40 mg DAILY PO 05/06/17 09:00 06/05/17 08:59 05/14/17 13:52 40 MG Simvastatin (Zocor Tab) 40 mg HS PO 05/05/17 21:00 06/04/17 20:59 05/14/17 21:08 40 MG Vitamin B Complex/ Vit C/Folic Acid (Nephrocaps) 1 cap HS PO 05/05/17 21:00 06/04/17 20:59 05/14/17 21:08 1 CAP Miscellaneous Information (Order Awaiting Action) 1 ea QS N/A 05/06/17 11:00 06/05/17 10:59 Sevelamer HCl (Renagel Tab) 800 mg TIDM PO 05/05/17 11:30 06/04/17 11:29 05/14/17 17:30 800 MG Glucose (Glucose 40% Gel) 15-30 GRAMS 15 GRAMS... UD PRN PO 05/05/17 10:30 06/04/17 10:29 Glucose (Glucose Chew Tab) 4-8 Tablets 4 Tabl... UD PRN PO 05/05/17 10:30 06/04/17 10:29 Dextrose (Dextrose 50% 50ML Syringe) 25-50ML OF 50% DW IV FOR... UD PRN IV 05/05/17 10:30 06/04/17 10:29 Glucagon (Glucagon Inj) 1 mg UD PRN SQ 05/05/17 10:30 06/04/17 10:29 Carvedilol (Coreg Tab) 12.5 mg BID PO 05/06/17 09:00 06/04/17 20:59 05/14/17 21:06 12.5 MG Multi-Ingredient Ointment (Eucerin Unscented Cr) 1 appln BID EXT 05/06/17 21:00 06/05/17 20:59 05/14/17 21:21 1 APPLN Clonazepam (Klonopin Tab) 1 mg UD PRN PO 05/07/17 08:45 06/06/17 08:44 05/14/17 08:40 1 MG Diltiazem HCl (Cardizem Tab) 60 mg Q8H PO 05/07/17 23:00 06/06/17 22:59 05/15/17 06:30 60 MG Rifaximin (Xifaxan Tab) 550 mg BID PO 05/08/17 20:00 06/07/17 20:59 05/14/17 21:07 550 MG Polyethylene (Miralax Powder Packet) 17 gm BID PO 05/08/17 20:00 06/07/17 20:59 05/14/17 07:51 17 GM Doxycycline Hyclate (Vibramycin Cap) 100 mg BID PO 05/08/17 20:00 05/18/17 19:59 Future Hold 05/11/17 14:31 100 MG Oxycodone HCl (Roxicodone Immediate Rel Tab) 15 mg Q4H PRN PO 05/11/17 17:45 05/24/17 10:59 05/15/17 08:55 15 MG Vancomycin HCl (Consult) 1 ea UD PRN N/A 05/11/17 18:00 06/10/17 17:59 Furosemide (Lasix Tab) 80 mg BID17 PO 05/12/17 17:00 06/05/17 08:59 05/14/17 17:30 80 MG Fentanyl (Duragesic Patch) 25 mcg Q72H TD 05/12/17 13:30 05/26/17 13:29 05/12/17 13:45 25 MCG Miscellaneous (Fentanyl Patch Remove & Waste) 1 ea Q3D N/A 05/15/17 13:30 06/14/17 13:29 Miscellaneous Information (Check Fentanyl Patch Placement) 1 ea QS N/A 05/12/17 16:00 06/11/17 15:59 05/14/17 23:46 1 EA Imipenem/ Cilastatin Sodium 200 mg/Dextrose 108 ml @ 100 mls/hr Q6H IV 05/13/17 18:00 05/23/17 17:59 05/15/17 06:10 100 MLS/HR Imipenem/ Cilastatin Sodium (Consult) 1 ea UD PRN N/A 05/13/17 16:45 06/12/17 16:44 Iron Sucrose 100 mg/Syringe 5 ml @ 100 mls/min TODAY@0800 IV 05/15/17 08:00 05/15/17 12:00 Impression (1) End stage renal disease due to hypertension (2) Hyperkalemia (3) Volume overload (4) Hypertensive emergency (5) Secondary hyperparathyroidism of renal origin (6) Anemia (7) Chronic ulcer of leg with fat layer exposed Jd is a 36 year-old male with ESRD secondary to hypertensive nephropathy. He is on hemodialysis Sunday, Sunday, Sunday. He presented with respiratory distress, volume overload and hyperkalemia after missing dialysis for 2 weeks. There is a history of noncompliance with HD Rx and medications. [facility] privileges were also suspended due to multiple missed rides. Jd reports that the suspension ends at the end of this month. He had hypertensive urgency and severe hyperkalemia necessitating emergent dialysis on admission. He remains volume overloaded and potassium is improving but remains excessive. He has a well-functioning left brachiocephalic AV fistula. Jd has chronic liver disease including recurrent ascites. Brain remains hospitalized for abdominal wall cellulitis/panniculitis. He also had evidence of lower extremity cellulitis on admission. Chronic leg ulcer growing MRSA. Recommendations -- Additional HD treatment today, 3 hours, 2K, UF goal 2-3 kg -- Venofer 100 mg with HD -- Repeat metabolic profile tomorrow AM -- Epogen 4000 QMWF with HD -- Maintain strict dietary potassium restriction -- Sevelamer and calcitriol as ordered for CKD/MBD -- Continue furosemide 80 mg twice daily
--- NOTE | 2017-05-15 10:50 | Infectious Disease Progress Nt ---
Progress Note Date of Service May 15, 2017. Subjective Pt evaluation today including: conversation w/ patient, physical exam, chart review, lab review, review of studies, conversation w/ linux consultant, review of inpatient medication list Patient feeling somewhat better with decrease in abdominal pain. Feels ascites has increased. No fever. Tolerating antibiotics without apparent difficulty. All Other Systems: Reviewed and Negative Medications Current Inpatient Medications Medications (Trade) Dose Ordered Sig/Julio Route Start Time Stop Time Status Last Admin Dose Admin Heparin Sodium (Porcine) (Heparin Sq 5000 Unit/0.5ml) 5,000 unit Q12 SQ 05/05/17 09:00 06/04/17 08:59 05/15/17 09:17 5,000 UNIT Acetaminophen (Tylenol Tab) 650 mg Q4H PRN PO 05/05/17 08:30 06/04/17 08:29 05/10/17 21:33 650 MG Aspirin (Ecotrin Tab) 81 mg DAILY PO 05/06/17 09:00 06/05/17 08:59 05/15/17 09:08 81 MG Calcitriol (Rocaltrol Cap) 1 mcg MoWeFr@0900 PO 05/05/17 10:00 06/04/17 09:59 05/14/17 13:51 1 MCG Cyclobenzaprine HCl (Flexeril Tab) 10 mg TID PRN PO 05/05/17 09:15 06/04/17 09:14 05/15/17 09:09 10 MG Folic Acid (Folvite Tab) 1 mg DAILY PO 05/06/17 09:00 06/05/17 08:59 05/15/17 09:08 1 MG Gabapentin (Neurontin Cap) 100 mg TID PO 05/05/17 14:00 06/04/17 13:59 05/15/17 09:10 100 MG Metoclopramide HCl (Reglan Tab) 5 mg ACHS PO 05/05/17 11:00 06/04/17 10:59 05/15/17 06:29 5 MG Multivitamins (Multivitamin Tab) 1 tab DAILY PO 05/06/17 09:00 06/05/17 08:59 05/15/17 09:08 1 TAB Pantoprazole Sodium (Protonix Tab) 40 mg DAILY PO 05/06/17 09:00 06/05/17 08:59 05/15/17 09:08 40 MG Simvastatin (Zocor Tab) 40 mg HS PO 05/05/17 21:00 06/04/17 20:59 05/14/17 21:08 40 MG Vitamin B Complex/ Vit C/Folic Acid (Nephrocaps) 1 cap HS PO 05/05/17 21:00 06/04/17 20:59 05/14/17 21:08 1 CAP Miscellaneous Information (Order Awaiting Action) 1 ea QS N/A 05/06/17 11:00 06/05/17 10:59 Sevelamer HCl (Renagel Tab) 800 mg TIDM PO 05/05/17 11:30 06/04/17 11:29 05/15/17 09:09 800 MG Glucose (Glucose 40% Gel) 15-30 GRAMS 15 GRAMS... UD PRN PO 05/05/17 10:30 06/04/17 10:29 Glucose (Glucose Chew Tab) 4-8 Tablets 4 Tabl... UD PRN PO 05/05/17 10:30 06/04/17 10:29 Dextrose (Dextrose 50% 50ML Syringe) 25-50ML OF 50% DW IV FOR... UD PRN IV 05/05/17 10:30 06/04/17 10:29 Glucagon (Glucagon Inj) 1 mg UD PRN SQ 05/05/17 10:30 06/04/17 10:29 Carvedilol (Coreg Tab) 12.5 mg BID PO 05/06/17 09:00 06/04/17 20:59 05/15/17 09:10 12.5 MG Multi-Ingredient Ointment (Eucerin Unscented Cr) 1 appln BID EXT 05/06/17 21:00 06/05/17 20:59 05/15/17 09:13 1 APPLN Clonazepam (Klonopin Tab) 1 mg UD PRN PO 05/07/17 08:45 06/06/17 08:44 05/14/17 08:40 1 MG Diltiazem HCl (Cardizem Tab) 60 mg Q8H PO 05/07/17 23:00 06/06/17 22:59 05/15/17 06:30 60 MG Rifaximin (Xifaxan Tab) 550 mg BID PO 05/08/17 20:00 06/07/17 20:59 05/15/17 09:11 550 MG Polyethylene (Miralax Powder Packet) 17 gm BID PO 05/08/17 20:00 06/07/17 20:59 05/15/17 09:11 17 GM Doxycycline Hyclate (Vibramycin Cap) 100 mg BID PO 05/08/17 20:00 05/18/17 19:59 Future Hold 05/11/17 14:31 100 MG Oxycodone HCl (Roxicodone Immediate Rel Tab) 15 mg Q4H PRN PO 05/11/17 17:45 05/24/17 10:59 05/15/17 08:55 15 MG Vancomycin HCl (Consult) 1 ea UD PRN N/A 05/11/17 18:00 06/10/17 17:59 Furosemide (Lasix Tab) 80 mg BID17 PO 05/12/17 17:00 06/05/17 08:59 05/15/17 09:08 80 MG Fentanyl (Duragesic Patch) 25 mcg Q72H TD 05/12/17 13:30 05/26/17 13:29 05/12/17 13:45 25 MCG Miscellaneous (Fentanyl Patch Remove & Waste) 1 ea Q3D N/A 05/15/17 13:30 06/14/17 13:29 Miscellaneous Information (Check Fentanyl Patch Placement) 1 ea QS N/A 05/12/17 16:00 06/11/17 15:59 05/15/17 09:12 1 EA Imipenem/ Cilastatin Sodium 200 mg/Dextrose 108 ml @ 100 mls/hr Q6H IV 05/13/17 18:00 05/23/17 17:59 05/15/17 06:10 100 MLS/HR Imipenem/ Cilastatin Sodium (Consult) 1 ea UD PRN N/A 05/13/17 16:45 06/12/17 16:44 Iron Sucrose 100 mg/Syringe 5 ml @ 100 mls/min TODAY@0800 IV 05/15/17 08:00 05/15/17 12:00 Objective Vital Signs Date Time Temp Pulse Resp B/P (MAP) Pulse Ox O2 Delivery O2 Flow Rate FiO2 05/15/17 08:30 37.2 68 18 159/85 (109) 96 Nasal Cannula 5.0 05/15/17 07:29 67 137/69 (91) 05/15/17 06:29 69 155/76 (102) 05/15/17 00:15 Nasal Cannula 5.0 05/14/17 22:35 62 05/14/17 21:05 60 125/70 (88) 05/14/17 20:10 Nasal Cannula 5.0 05/14/17 16:24 36.4 74 18 159/73 (101) 97 Room Air 05/14/17 16:00 Nasal Cannula 5.0 05/14/17 13:23 36.6 59 129/63 (85) 05/14/17 13:15 66 120/64 05/14/17 13:00 72 123/65 05/14/17 12:45 65 117/53 05/14/17 12:30 62 107/54 05/14/17 12:15 65 129/58 05/14/17 12:00 65 100/58 05/14/17 11:45 62 106/53 05/14/17 11:30 59 99/47 05/14/17 11:15 68 112/55 05/14/17 11:00 65 107/64 Physical Exam General Appearance: WD/WN, no apparent distress Eyes: normal inspection, sclerae normal ENT: normal ENT inspection, pharynx normal Neck: supple, no adenopathy, trachea midline Respiratory/Chest: chest non-tender, lungs clear, normal breath sounds, no respiratory distress Cardiovascular: regular rate, rhythm, no gallop, no murmur Abdomen: normal bowel sounds, no organomegaly, + distended, + tenderness ( Improved since yesterday) Extremities: non-tender, no calf tenderness, + swelling Neurologic/Psychiatric: alert, oriented x 3 Skin: normal color, no rash, + pertinent finding (Abdominal wall erythema decreased) Lymphatic: no adenopathy Laboratory Results Last 24 Hours Test 05/14/17 13:47 05/15/17 05:27 Sodium Level 134 mmol/L 132 mmol/L Potassium Level 4.1 mmol/L 5.3 mmol/L Chloride Level 99 mmol/L 97 mmol/L Carbon Dioxide Level 25 mmol/L 27 mmol/L Anion Gap 10.0 mmol/L 8.0 mmol/L Blood Urea Nitrogen 37 mg/dl 52 mg/dl Creatinine 5.89 mg/dl 7.51 mg/dl Est Creatinine Clear Calc Drug Dose 24.0 ml/min 18.9 ml/min Estimated GFR () 12.9 9.6 Estimated GFR (Non- 11.1 8.3 BUN/Creatinine Ratio 6.3 7.0 Random Glucose 115 mg/dl 89 mg/dl Calcium Level 7.9 mg/dl 8.8 mg/dl Phosphorus Level 5.0 mg/dl Albumin 2.6 gm/dl Random Vancomycin Level 20.9 mcg/ml Assessment and Plan 36-year-old male with severe lower extremity chronic venous stasis disease with superficial ulceration and weeping. Now with probable abdominal wall cellulitis. To follow patient on vancomycin and imipenem, length of therapy to be determined by clinical response. Will follow.
[2017-05-15] MEDS: CLONAZEPAM 1 MG TAB PO PRN (11:08)
[2017-05-15] MEDS ORDERED: FENTANYL PATCH REMOVE & WASTE SCH (13:30)
[2017-05-15] MEDS: FENTANYL 25 MCG/HR TDSY TD SCH (14:32)
--- NOTE | 2017-05-15 17:00 | Family Medicine Progress Note ---
Progress Note Date of Service May 15, 2017. Subjective Pt evaluation today including: conversation w/ patient Patient reports not wanting to go to dialysis center in home town- (not to happy with the manager product support) He was on the transplant list for his kidneys however, reports that he did not have a Pysch eval and was taken off the list wants to make an effort to improve his quality of life because he has 4 kids. Has abdominal pain. also has some chest pain, reports having had 3 episodes during his stay. Left anterior chest, 3/10, lasts a couple of minutes. Resolved on its own. Constitutional: + weakness, + fatigue, No fever, No chills ENT: No hearing loss Respiratory: + shortness of breath, + dyspnea on exertion, No cough, No sputum Cardiovascular: + chest pain Abdomen: + pain, No nausea, No vomiting, No diarrhea Objective Physical Exam Eyes: PERRL, EOMI Respiratory/Chest: no respiratory distress, no accessory muscle use, + pertinent finding (decreased at the bases) Cardiovascular: regular rate, rhythm Abdomen: normal bowel sounds, + tenderness, + pertinent finding (erythema ( improved from yesterday) over LUQ, LLQ, RLQ, some edema involving pannus) Extremities: + inflammation, + pedal edema, + pertinent finding (chronic stasis changes, skin peeling) Neurologic/Psychiatric: + depressed affect Assessment and Plan 36yo male - 1. abdominal wall cellulitis - likely sec to underlying edema from fluid overload due to dialysis noncompliance IV vanco and imipenem for broader coverage. (was on doxycycline and levofloxacin to cover MRSA and Acinetobacter on admission for chronic LE wounds but switched to Vanco and Imipenem for abd wall cellulitis) Afebrile. Pain control await further ID input on duration of treatment. 2. Liver cirrhosis s/p- therapeutic paracentesis with 7 liters on one occasion and 2 liters earlier in his stay. One of his paracentesis sites continued with ascites leaking - placed suture yesterday to stop leaking. Chidi HAMMOND is following. Apparently had w/u at [facility] in [place] for his cirrhosis.- reviewed records; could not find specifics about cirrhosis. Recommend f/u after discharge Ascites fluid x 2 --- negative for SBP. Rifaximin for encephalopathy prevention 3. ESRD on HD M/W/F - HD today Will discuss to CM/Nephro about about switching to [facility] in [place] from [place] 4. hyperkalemia 2/2 noncompliance with HD Improved with HD 5. Chest pain- mentioned today - EKG with no ST T wave changes. Higher risk of ACS given ESRD (especially with noncompliance), morbid obesity and other comorbidities. Troponin since admission with minimal elevation - likely nonspecific considering ESRD. Considering overall poor prognosis - continue medical management. On aspirin, statin and b farida. 6. anemia of chronic kidney disease - H/H acceptable. 7. T2DM - controlled 8. HTN - improved. 9. chronic LE wounds - surface culture from [facility] with MRSA and ACINETOBACTER - was on doxycycline and levofloxacin to cover MRSA and Acinetobacter on admission but switched to Vanco and Imipenem for abd wall cellulitis 10. morbid obesity w/ BMI 42 11. CARMEN - noted; on chronic NC O2 12. chronic pain syndrome - PDMP queried by Dr. Hansen. It appears he follows with pain management in [place]. Fentanyl at 25 mcg. 13. chronic hypoxic respiratory failure - on NC O2 and stable Workers Compensation Adjuster goals: Patient will need to be compliant with dialysis. Had a long discussion with pt about this. He seems to be refusing to go to dialysis center close to him because he didnt think the nurses were funny enough. I explained that if he has transportation issues; he would really need to reconsider his options. Will need to readdress code status Reviewed: Pt Seen/Exam by Me History sleeping comfortably in bed. on waking up complains of pain in his feet. denied any chest pain Constitutional: denies: fever Respiratory: negative: short of breath Cardiovascular: denies chest pain General Appearance: no apparent distress Respiratory: lungs clear, no respiratory distress Cardiovascular: regular rate, rhythm Extremities: other (both legs with edema and venous stasis changes) Neurologic/Psychiatric: other (oriented on awakening) Skin Characteristics: other (lower abdominal wall with edema and overlying skin with erythema) Assessment/Plan Resident Physician Supervision Note: I independently interviewed and examined the patient and verified the harris history and physical, reviewed labs and image studies, discussed the case with the resident Dr. Obrien and agree with the findings and care plan.
[2017-05-15] MEDS: NEPHROCAPS PO SCH (22:05)
[2017-05-15] MEDS: SIMVASTATIN 40 MG TAB PO SCH (22:05)
[2017-05-16] VITALS (18 sets, daily range): BP systolic 141–190; BP diastolic 47–95; PULSE 67–77; TEMP 36.6–36.9; O2SAT 100
[2017-05-16] MEDS: OXYCODONE HCL IR 5 MG TAB (IMMEDIATE RELEASE) PO PRN ×4 (01:47→20:46)
[2017-05-16] MEDS: METOCLOPRAMIDE HCL 10 MG TAB PO SCH ×4 (06:40→20:41)
[2017-05-16] MEDS: DILTIAZEM HCL 60 MG TAB PO SCH ×3 (06:41→20:42)
[2017-05-16] MEDS: IMIPENEM-CILASTATIN 200 MG in DEXTROSE 5% 100ML 100 ML IV SCH ×3 (06:43→17:11)
[2017-05-16] MEDS: CLONAZEPAM 1 MG TAB PO PRN (07:39)
[2017-05-16] MEDS: EUCERIN CR 120 GM JAR EXT SCH ×2 (07:51→20:44)
[2017-05-16] MEDS: CHECK FENTANYL PATCH PLACEMENT SCH ×2 (07:52→15:36)
[2017-05-16] MEDS: SENSIPAR~ORDER AWAITING ACTION SCH ×2 (07:52→15:36)
[2017-05-16] MEDS: CARVEDILOL 12.5 MG TAB PO SCH ×2 (07:53→20:43)
[2017-05-16] MEDS: ASPIRIN 81 MG ECTAB PO SCH (07:54)
[2017-05-16] MEDS: MULTIVITAMIN TAB PO SCH (07:56)
[2017-05-16] MEDS: GABAPENTIN 100 MG CAP PO SCH ×3 (07:57→20:43)
[2017-05-16] MEDS: PANTOprazole SOD 40 MG TAB PO SCH (07:58)
[2017-05-16] MEDS: SEVELAMER HYDROCH 800 MG TAB PO SCH ×3 (07:59→16:41)
[2017-05-16] MEDS: RIFAXIMIN TAB 550 MG TAB PO SCH ×2 (08:00→20:43)
[2017-05-16 09:10] LABS: HEMATOCRIT 26.2 % (42-52); MEAN CELL VOLUME 93.9 fL (80-100); MEAN CORPUSCULAR HGB CONC 30.9 g/dl (32-36); MEAN PLATELET VOLUME 8.4 fL (7.4-10.4); PLATELET COUNT 131 K/uL (130-400); RED BLOOD COUNT 2.79 M/uL (4.7-6.1)
--- NOTE | 2017-05-16 09:36 | Dialysis Progress Note ---
Hemodialysis Note Date of Service May 16, 2017. Chief Complaint ESRD Subjective No acute events overnight. Jd was sleeping comfortably during hemodialysis. Afebrile. Blood pressure and Qb appropriate. Accelerated but reportedly asymptomatic BP this morning. Review of Systems A complete review of systems was performed. Pertinent positives are noted above. All other systems are negative. Vital Signs Last 8 Hrs Date Time Temp Pulse Resp B/P (MAP) Pulse Ox O2 Delivery O2 Flow Rate FiO2 05/16/17 09:15 68 157/83 05/16/17 09:00 69 167/84 05/16/17 08:50 100 Nasal Cannula 5.0 05/16/17 08:45 68 171/93 05/16/17 08:44 36.6 72 190/93 (125) 05/16/17 07:26 36.7 68 20 177/91 (119) 100 Nasal Cannula 5.0 05/16/17 06:40 73 180/95 (123) Last Recorded Weight Weight (Kilograms): 138.500 Physical Exam General Appearance: no apparent distress, + obese Head: normocephalic, atraumatic Eyes: normal inspection, sclerae normal ENT: normal ENT inspection, pharynx normal Neck: supple, + JVD Respiratory/Chest: no respiratory distress, no accessory muscle use, + decreased breath sounds Cardiovascular: regular rate, rhythm Abdomen/GI: non tender, soft Extremities/Musculoskelatal: normal inspection, + pedal edema, + pertinent finding (AVF with appropriate Qb) Neurologic/Psych: alert Social History Smokeless Tobacco Use: No Alcohol Use: none Drug Use: none Marital Status: Housing Status: lives with family (mother and son) Occupation: unemployed Laboratory Results Past 24 Hours 05/16/17 08:58 Test 05/15/17 16:59 05/16/17 08:58 Troponin I 0.052 ng/ml (0-0.045) Red Blood Count 2.79 M/uL (4.7-6.1) Mean Corpuscular Volume 93.9 fL (80-100) Mean Corpuscular Hemoglobin 29.0 pg (25-34) Mean Corpuscular Hemoglobin Concent 30.9 g/dl (32-36) RDW Standard Deviation 53.3 fL (36.4-46.3) RDW Coefficient of Variation 15.6 % (11.5-14.5) Mean Platelet Volume 8.4 fL (7.4-10.4) Allergies Coded Allergies: Ketorolac Tromethamine (Verified Allergy, Unknown, Itchiness and hives, 09/05/14) Reported by PT Tramadol (Verified Allergy, Unknown, Itchiness and hives, 09/05/14) Reported by PT Acetaminophen (Verified Adverse Reaction, Unknown, NAUSEA,VOMITING, ) REPORTED BY PT. Codeine (Verified Adverse Reaction, Unknown, NAUSEA,VOMITING, 05/05/17) REPORTED BY PT. Medications Current Inpatient Medications Medications (Trade) Dose Ordered Sig/Julio Route Start Time Stop Time Status Last Admin Dose Admin Heparin Sodium (Porcine) (Heparin Sq 5000 Unit/0.5ml) 5,000 unit Q12 SQ 05/05/17 09:00 06/04/17 08:59 05/15/17 09:17 5,000 UNIT Acetaminophen (Tylenol Tab) 650 mg Q4H PRN PO 05/05/17 08:30 06/04/17 08:29 05/10/17 21:33 650 MG Aspirin (Ecotrin Tab) 81 mg DAILY PO 05/06/17 09:00 06/05/17 08:59 05/16/17 07:54 81 MG Calcitriol (Rocaltrol Cap) 1 mcg MoWeFr@0900 PO 05/05/17 10:00 06/04/17 09:59 05/14/17 13:51 1 MCG Cyclobenzaprine HCl (Flexeril Tab) 10 mg TID PRN PO 05/05/17 09:15 06/04/17 09:14 05/15/17 09:09 10 MG Folic Acid (Folvite Tab) 1 mg DAILY PO 05/06/17 09:00 06/05/17 08:59 05/16/17 07:55 1 MG Gabapentin (Neurontin Cap) 100 mg TID PO 05/05/17 14:00 06/04/17 13:59 05/16/17 07:57 100 MG Metoclopramide HCl (Reglan Tab) 5 mg ACHS PO 05/05/17 11:00 06/04/17 10:59 05/16/17 06:40 5 MG Multivitamins (Multivitamin Tab) 1 tab DAILY PO 05/06/17 09:00 06/05/17 08:59 05/16/17 07:56 1 TAB Pantoprazole Sodium (Protonix Tab) 40 mg DAILY PO 05/06/17 09:00 06/05/17 08:59 05/16/17 07:58 40 MG Simvastatin (Zocor Tab) 40 mg HS PO 05/05/17 21:00 06/04/17 20:59 05/14/17 21:08 40 MG Vitamin B Complex/ Vit C/Folic Acid (Nephrocaps) 1 cap HS PO 05/05/17 21:00 06/04/17 20:59 05/14/17 21:08 1 CAP Miscellaneous Information (Order Awaiting Action) 1 ea QS N/A 05/06/17 11:00 06/05/17 10:59 Sevelamer HCl (Renagel Tab) 800 mg TIDM PO 05/05/17 11:30 06/04/17 11:29 05/16/17 07:59 800 MG Glucose (Glucose 40% Gel) 15-30 GRAMS 15 GRAMS... UD PRN PO 05/05/17 10:30 06/04/17 10:29 Glucose (Glucose Chew Tab) 4-8 Tablets 4 Tabl... UD PRN PO 05/05/17 10:30 06/04/17 10:29 Dextrose (Dextrose 50% 50ML Syringe) 25-50ML OF 50% DW IV FOR... UD PRN IV 05/05/17 10:30 06/04/17 10:29 Glucagon (Glucagon Inj) 1 mg UD PRN SQ 05/05/17 10:30 06/04/17 10:29 Carvedilol (Coreg Tab) 12.5 mg BID PO 05/06/17 09:00 06/04/17 20:59 05/15/17 09:10 12.5 MG Multi-Ingredient Ointment (Eucerin Unscented Cr) 1 appln BID EXT 05/06/17 21:00 06/05/17 20:59 05/16/17 07:51 1 APPLN Clonazepam (Klonopin Tab) 1 mg UD PRN PO 05/07/17 08:45 06/06/17 08:44 05/16/17 07:39 1 MG Diltiazem HCl (Cardizem Tab) 60 mg Q8H PO 05/07/17 23:00 06/06/17 22:59 10/18/17 06:41 60 MG Rifaximin (Xifaxan Tab) 550 mg BID PO 05/08/17 20:00 06/07/17 20:59 05/16/17 08:00 550 MG Polyethylene (Miralax Powder Packet) 17 gm BID PO 05/08/17 20:00 06/07/17 20:59 05/15/17 09:11 17 GM Doxycycline Hyclate (Vibramycin Cap) 100 mg BID PO 05/08/17 20:00 05/18/17 19:59 Future Hold 05/11/17 14:31 100 MG Oxycodone HCl (Roxicodone Immediate Rel Tab) 15 mg Q4H PRN PO 05/11/17 17:45 05/24/17 10:59 05/16/17 07:39 15 MG Vancomycin HCl (Consult) 1 ea UD PRN N/A 05/11/17 18:00 06/10/17 17:59 Furosemide (Lasix Tab) 80 mg BID17 PO 05/12/17 17:00 06/05/17 08:59 05/15/17 09:08 80 MG Fentanyl (Duragesic Patch) 25 mcg Q72H TD 05/12/17 13:30 05/26/17 13:29 05/15/17 14:32 25 MCG Miscellaneous (Fentanyl Patch Remove & Waste) 1 ea Q3D N/A 05/15/17 13:30 06/14/17 13:29 05/15/17 14:36 1 EA Miscellaneous Information (Check Fentanyl Patch Placement) 1 ea QS N/A 05/12/17 16:00 06/11/17 15:59 05/16/17 07:52 1 EA Imipenem/ Cilastatin Sodium 200 mg/Dextrose 108 ml @ 100 mls/hr Q6H IV 05/13/17 18:00 05/23/17 17:59 05/16/17 06:43 100 MLS/HR Imipenem/ Cilastatin Sodium (Consult) 1 ea UD PRN N/A 05/13/17 16:45 06/12/17 16:44 Impression (1) End stage renal disease due to hypertension (2) Hyperkalemia (3) Volume overload (4) Hypertensive emergency (5) Secondary hyperparathyroidism of renal origin (6) Anemia (7) Chronic ulcer of leg with fat layer exposed Jd is a 36 year-old male with ESRD secondary to hypertensive nephropathy. He is on hemodialysis Sunday, Sunday, Sunday. He presented with respiratory distress, volume overload and hyperkalemia after missing dialysis for 2 weeks. He had hypertensive urgency and severe hyperkalemia necessitating emergent dialysis on admission. He remains volume overloaded. Compliance with renal diet has been poor. He has a well-functioning left brachiocephalic AV fistula. Jd has chronic liver disease including recurrent ascites. Brain remains hospitalized for abdominal wall cellulitis/panniculitis. He also had evidence of lower extremity cellulitis on admission. Chronic leg ulcer growing MRSA. Recommendations -- HD today per F schedule -- Venofer 100 mg with HD -- Repeat metabolic profile tomorrow AM -- Epogen 4000 QMWF with HD -- Maintain strict dietary potassium restriction -- Sevelamer and calcitriol as ordered for CKD/MBD -- Continue furosemide 80 mg twice daily
[2017-05-16 09:48] LABS: BUN/CREATININE RATIO 6.3 (10-20); CALCIUM 8.2 mg/dl (8.5-10.1); CREATININE 6.05 mg/dl (0.60-1.40); PHOSPHORUS 4.2 mg/dl (2.5-4.9); POTASSIUM 4.7 mmol/L (3.5-5.1)
--- NOTE | 2017-05-16 11:00 | Pharmacy Progress Note ---
Pharmacy Abx Dose Short Note Date of Service May 16, 2017. Assessment & Plan Assessment 36 year old male receiving Vancomycin and Primaxin for treatment of cellulitis with MRSA and acinetobacter. Day # 6 of antimicrobial therapy. Pt was previously on Doxycycline and Levaquin. Per ID recommendation Levaquin and Doxy discontinued due to lack of improvement. Plan Item Value Date Time Random Vancomycin Level 14.0 mcg/ml 05/16/17 0858 Vancomycin * Pre-HD level of 14.0 mcg/mL is subtherapeutic * Ordered vancomycin 1gm IV x1 to be administered after HD today. * Goal trough level for MRSA cellulitis: 15-20 mcg/mL * Random level ordered for: 05/17/17 with am labs Pharmacy will continue to follow and will adjust dose/frequency as necessary. Thank you.
[2017-05-16] MEDS: POLYETHYLENE (MIRALAX) 17 GM PACK PO SCH ×2 (12:32→20:44)
[2017-05-16] MEDS: FUROSEMIDE 40 MG TAB PO SCH ×2 (12:33→16:40)
[2017-05-16] MEDS: CALCITRIOL 0.25 MCG CAP PO SCH (12:34)
[2017-05-16] MEDS: HEPARIN SOD 5000 UNIT/0.5 ML CARP SQ SCH ×2 (12:35→20:48)
[2017-05-16] MEDS: CYCLOBENZAPRINE HCL 10 MG TAB PO PRN (13:38)
[2017-05-16] MEDS ORDERED: VANCOMYCIN INJ 1,000 MG in SODIUM CHLORIDE 0.9% 250ML 250 ML IV ONE (14:00)
--- NOTE | 2017-05-16 15:50 | Family Medicine Progress Note ---
Progress Note Date of Service May 16, 2017. Subjective Pt evaluation today including: conversation w/ patient notes that his abdomen might be getting bigger Constitutional: No fever, No chills ENT: No hearing loss Respiratory: + shortness of breath, + dyspnea on exertion, No cough, No sputum Cardiovascular: No chest pain Abdomen: + pain, No nausea, No vomiting, No diarrhea Objective Physical Exam General Appearance: no apparent distress, + obese Eyes: PERRL, EOMI ENT: hearing grossly normal Respiratory/Chest: no respiratory distress, no accessory muscle use, + decreased breath sounds Cardiovascular: regular rate, rhythm Abdomen: normal bowel sounds, + distended, + tenderness, + hernia, + pertinent finding (erythema over LLQ and lUQ seems a little worse today, indurated. ) Extremities: + inflammation, + pedal edema, + swelling, + pertinent finding ( chronic stasis changes) Neurologic/Psychiatric: alert, + depressed affect Assessment and Plan 36yo male - 1. abdominal wall cellulitis - not improving as quickly as would be expected IV vanco and imipenem - discussed with Dr. Perez- recommended continuing Afebrile. Pain control 2. Liver cirrhosis s/p- therapeutic paracentesis with 7 liters on one occasion and 2 liters earlier in his stay. Abdominal distension seems to be worsening; concern for worsening ascites Discussed with GI- recommended US and repeat paracentesis if mod to severe. Apparently had w/u at [facility] in [place] for his cirrhosis.- reviewed records; could not find specifics about cirrhosis. Recommend f/u after discharge Ascites fluid x 2 --- negative for SBP. Rifaximin for encephalopathy prevention 3. ESRD on HD M/W/F - HD today CM discussed with patient and care team in [place] about switching dialysis centers But ultimately patient's compliance is the issue 4. hyperkalemia 2/2 noncompliance with HD Improved with HD 5. Chest pain- no further episodes- EKG with no ST T wave changes. Higher risk of ACS given ESRD (especially with noncompliance), morbid obesity and other comorbidities. Troponin since admission with minimal elevation - likely nonspecific considering ESRD. Considering overall poor prognosis - continue medical management. On aspirin, statin and b farida. 6. anemia of chronic kidney disease - H/H acceptable. 7. T2DM - controlled 8. HTN - improved. 9. chronic LE wounds - surface culture from LLE with MRSA and ACINETOBACTER - was on doxycycline and levofloxacin to cover MRSA and Acinetobacter on admission but switched to Vanco and Imipenem for abd wall cellulitis 10. morbid obesity w/ BMI 42 11. CARMEN - noted; on chronic NC O2 12. chronic pain syndrome - PDMP queried by Dr. Hansen. It appears he follows with pain management in [place]. Fentanyl at 25 mcg. 13. chronic hypoxic respiratory failure - on NC O2 and stable Mcfp goals: Patient will need to be compliant with dialysis. Had a long discussion with pt about this. He seems to be refusing to go to dialysis center close to him because he didn't think the nurses were funny enough. I explained that if he has transportation issues; he would really need to reconsider his options. Will need to readdress code status Reviewed: Pt Seen/Exam by Me History denied any complains today had argument with dialysis nurse and didn't finish his dialysis today. feels his abdomen is getting bigger due to fluid collection Constitutional: denies: fever Respiratory: negative: short of breath Cardiovascular: denies chest pain General Appearance: no apparent distress Respiratory: lungs clear, no respiratory distress Cardiovascular: regular rate, rhythm Gastrointestinal: normal bowel sounds, non tender, soft, distended (ascites), other (edema and erythema on left side lower abdominal wall) Neurologic/Psychiatric: alert, oriented x 3 Skin Characteristics: other (both lower legs with venous stasis changes) Assessment/Plan Resident Physician Supervision Note: I independently interviewed and examined the patient and verified the harris history and physical, reviewed labs and image studies, discussed the case with the resident Dr. Obrien and agree with the findings and care plan.
[2017-05-16] MEDS: NEPHROCAPS PO SCH (20:41)
[2017-05-16] MEDS: SIMVASTATIN 40 MG TAB PO SCH (20:45)
--- NOTE | 2017-05-16 22:51 | DIAGNOSTIC IMAGING REPORT ---
ULTRASOUND ASCITES CHECK CLINICAL HISTORY: Abdominal ascites. COMPARISON STUDY: Abdominal CT dated 05/09/2017. FINDINGS: Real-time grayscale sonography of all 4 quadrants of the abdomen is performed to assess for abdominal ascites. There is a small to moderate volume of abdominal ascites identified. The largest pocket is seen in the left lower quadrant. Survey images of the liver show cirrhotic morphology. There is nodularity of the hepatic surface contour. IMPRESSION: There is a small to moderate volume of abdominal ascites. Electronically signed by: Jame Post M.D. 05/16/2017 10:49 PM Dictated Date/Time: 05/16/2017 10:48 PM
[2017-05-17] VITALS (8 sets, daily range): BP systolic 138–179; BP diastolic 69–98; PULSE 60–70; TEMP 36.5–36.7; O2SAT 95–100
[2017-05-17] MEDS: IMIPENEM-CILASTATIN 200 MG in DEXTROSE 5% 100ML 100 ML IV SCH ×3 (00:05→12:19)
[2017-05-17] MEDS: CHECK FENTANYL PATCH PLACEMENT SCH ×3 (00:06→15:52)
[2017-05-17] MEDS: OXYCODONE HCL IR 5 MG TAB (IMMEDIATE RELEASE) PO PRN ×4 (01:47→14:28)
[2017-05-17] MEDS: METOCLOPRAMIDE HCL 10 MG TAB PO SCH ×3 (06:12→16:52)
[2017-05-17] MEDS: DILTIAZEM HCL 60 MG TAB PO SCH ×2 (06:16→14:29)
[2017-05-17 07:50] LABS: BUN/CREATININE RATIO 6.3 (10-20); CALCIUM 8.9 mg/dl (8.5-10.1); CREATININE 6.5 mg/dl (0.60-1.40); PHOSPHORUS 4.5 mg/dl (2.5-4.9)
[2017-05-17] MEDS: EUCERIN CR 120 GM JAR EXT SCH (08:09)
[2017-05-17] MEDS: MULTIVITAMIN TAB PO SCH (08:10)
[2017-05-17] MEDS: PANTOprazole SOD 40 MG TAB PO SCH (08:10)
[2017-05-17] MEDS: GABAPENTIN 100 MG CAP PO SCH ×2 (08:10→14:28)
[2017-05-17] MEDS: POLYETHYLENE (MIRALAX) 17 GM PACK PO SCH (08:10)
[2017-05-17] MEDS: ASPIRIN 81 MG ECTAB PO SCH (08:10)
[2017-05-17] MEDS: RIFAXIMIN TAB 550 MG TAB PO SCH (08:10)
[2017-05-17] MEDS: SEVELAMER HYDROCH 800 MG TAB PO SCH ×3 (08:10→17:16)
[2017-05-17] MEDS: CARVEDILOL 12.5 MG TAB PO SCH (08:11)
[2017-05-17] MEDS: FUROSEMIDE 40 MG TAB PO SCH ×2 (08:11→16:52)
[2017-05-17] MEDS: HEPARIN SOD 5000 UNIT/0.5 ML CARP SQ SCH (08:14)
--- NOTE | 2017-05-17 09:00 | Nephrology Progress Note ---
Nephrology Progress Note Date of Service May 17, 2017. Chief Complaint ESRD Subjective No acute events overnight. Tolerated HD well yesterday. Arterial needle dislodged ~3 hours into treatment. Net UF 3.5 kg. No specific complaints this morning. Review of Systems A complete review of systems was performed. Pertinent positives are noted above. All other systems are negative. Vital Signs Last 8 Hrs Date Time Temp Pulse Resp B/P (MAP) Pulse Ox O2 Delivery O2 Flow Rate FiO2 05/17/17 08:11 36.7 68 16 179/95 (123) 100 Nasal Cannula 5.0 05/17/17 06:13 70 171/92 (118) 100 Nasal Cannula 5.0 Last Recorded Weight Weight (Kilograms): 136.300 Physical Exam General Appearance: no apparent distress, + obese Head: normocephalic, atraumatic Eyes: normal inspection, sclerae normal ENT: normal ENT inspection, pharynx normal Neck: supple, no JVD Respiratory/Chest: lungs clear, no respiratory distress, no accessory muscle use Cardiovascular: regular rate, rhythm, no gallop Abdomen/GI: non tender, soft Extremities/Musculoskelatal: normal inspection, + pedal edema Neurologic/Psych: alert, + depressed affect Social History Smokeless Tobacco Use: No Alcohol Use: none Drug Use: none Marital Status: Housing Status: lives with family (mother and son) Occupation: unemployed Laboratory Results Past 24 Hours 05/16/17 08:58 05/16/17 08:58 05/17/17 07:03 Test 05/16/17 08:58 05/17/17 05:59 05/17/17 07:03 05/17/17 08:05 Red Blood Count 2.79 M/uL (4.7-6.1) Mean Corpuscular Volume 93.9 fL (80-100) Mean Corpuscular Hemoglobin 29.0 pg (25-34) Mean Corpuscular Hemoglobin Concent 30.9 g/dl (32-36) RDW Standard Deviation 53.3 fL (36.4-46.3) RDW Coefficient of Variation 15.6 % (11.5-14.5) Mean Platelet Volume 8.4 fL (7.4-10.4) Anion Gap 7.0 mmol/L (3-11) 6.0 mmol/L (3-11) Est Creatinine Clear Calc Drug Dose 23.6 ml/min 21.7 ml/min Estimated GFR () 12.5 11.5 Estimated GFR (Non- 10.8 9.9 BUN/Creatinine Ratio 6.3 (10-20) 6.3 (10-20) Calcium Level 8.2 mg/dl (8.5-10.1) 8.9 mg/dl (8.5-10.1) Phosphorus Level 4.2 mg/dl (2.5-4.9) 4.5 mg/dl (2.5-4.9) Albumin 2.5 gm/dl (3.4-5.0) 2.7 gm/dl (3.4-5.0) Random Vancomycin Level 14.0 mcg/ml 21.8 mcg/ml Bedside Glucose 66 mg/dl (70-99) Allergies Coded Allergies: Ketorolac Tromethamine (Verified Allergy, Unknown, Itchiness and hives, 09/05/14) Reported by PT Tramadol (Verified Allergy, Unknown, Itchiness and hives, 09/05/14) Reported by PT Acetaminophen (Verified Adverse Reaction, Unknown, NAUSEA,VOMITING, ) REPORTED BY PT. Codeine (Verified Adverse Reaction, Unknown, NAUSEA,VOMITING, 05/05/17) REPORTED BY PT. Medications Current Inpatient Medications Medications (Trade) Dose Ordered Sig/Julio Route Start Time Stop Time Status Last Admin Dose Admin Heparin Sodium (Porcine) (Heparin Sq 5000 Unit/0.5ml) 5,000 unit Q12 SQ 05/05/17 09:00 06/04/17 08:59 05/17/17 08:14 5,000 UNIT Acetaminophen (Tylenol Tab) 650 mg Q4H PRN PO 05/05/17 08:30 06/04/17 08:29 05/10/17 21:33 650 MG Aspirin (Ecotrin Tab) 81 mg DAILY PO 05/06/17 09:00 06/05/17 08:59 05/17/17 08:10 81 MG Calcitriol (Rocaltrol Cap) 1 mcg MoWeFr@0900 PO 05/05/17 10:00 06/04/17 09:59 05/16/17 12:34 1 MCG Cyclobenzaprine HCl (Flexeril Tab) 10 mg TID PRN PO 05/05/17 09:15 06/04/17 09:14 05/16/17 13:38 10 MG Folic Acid (Folvite Tab) 1 mg DAILY PO 05/06/17 09:00 06/05/17 08:59 05/17/17 08:10 1 MG Gabapentin (Neurontin Cap) 100 mg TID PO 05/05/17 14:00 06/04/17 13:59 05/17/17 08:10 100 MG Metoclopramide HCl (Reglan Tab) 5 mg ACHS PO 05/05/17 11:00 06/04/17 10:59 05/17/17 06:12 5 MG Multivitamins (Multivitamin Tab) 1 tab DAILY PO 05/06/17 09:00 06/05/17 08:59 05/17/17 08:10 1 TAB Pantoprazole Sodium (Protonix Tab) 40 mg DAILY PO 05/06/17 09:00 06/05/17 08:59 05/17/17 08:10 40 MG Simvastatin (Zocor Tab) 40 mg HS PO 05/05/17 21:00 06/04/17 20:59 05/16/17 20:45 40 MG Vitamin B Complex/ Vit C/Folic Acid (Nephrocaps) 1 cap HS PO 05/05/17 21:00 06/04/17 20:59 05/16/17 20:41 1 CAP Miscellaneous Information (Order Awaiting Action) 1 ea QS N/A 05/06/17 11:00 06/05/17 10:59 Sevelamer HCl (Renagel Tab) 800 mg TIDM PO 05/05/17 11:30 06/04/17 11:29 05/17/17 08:10 800 MG Glucose (Glucose 40% Gel) 15-30 GRAMS 15 GRAMS... UD PRN PO 05/05/17 10:30 06/04/17 10:29 Glucose (Glucose Chew Tab) 4-8 Tablets 4 Tabl... UD PRN PO 05/05/17 10:30 06/04/17 10:29 Dextrose (Dextrose 50% 50ML Syringe) 25-50ML OF 50% DW IV FOR... UD PRN IV 05/05/17 10:30 06/04/17 10:29 Glucagon (Glucagon Inj) 1 mg UD PRN SQ 05/05/17 10:30 06/04/17 10:29 Carvedilol (Coreg Tab) 12.5 mg BID PO 05/06/17 09:00 06/04/17 20:59 05/17/17 08:11 12.5 MG Multi-Ingredient Ointment (Eucerin Unscented Cr) 1 appln BID EXT 05/06/17 21:00 06/05/17 20:59 05/17/17 08:09 1 APPLN Clonazepam (Klonopin Tab) 1 mg UD PRN PO 05/07/17 08:45 06/06/17 08:44 05/16/17 07:39 1 MG Diltiazem HCl (Cardizem Tab) 60 mg Q8H PO 05/07/17 23:00 06/06/17 22:59 05/17/17 06:16 60 MG Rifaximin (Xifaxan Tab) 550 mg BID PO 05/08/17 20:00 06/07/17 20:59 05/17/17 08:10 550 MG Polyethylene (Miralax Powder Packet) 17 gm BID PO 05/08/17 20:00 06/07/17 20:59 05/17/17 08:10 17 GM Doxycycline Hyclate (Vibramycin Cap) 100 mg BID PO 05/08/17 20:00 05/18/17 19:59 Future Hold 05/11/17 14:31 100 MG Oxycodone HCl (Roxicodone Immediate Rel Tab) 15 mg Q4H PRN PO 05/11/17 17:45 05/24/17 10:59 05/17/17 06:12 15 MG Vancomycin HCl (Consult) 1 ea UD PRN N/A 05/11/17 18:00 06/10/17 17:59 Furosemide (Lasix Tab) 80 mg BID17 PO 05/12/17 17:00 06/05/17 08:59 05/17/17 08:11 80 MG Fentanyl (Duragesic Patch) 25 mcg Q72H TD 05/12/17 13:30 05/26/17 13:29 05/15/17 14:32 25 MCG Miscellaneous (Fentanyl Patch Remove & Waste) 1 ea Q3D N/A 05/15/17 13:30 06/14/17 13:29 05/15/17 14:36 1 EA Miscellaneous Information (Check Fentanyl Patch Placement) 1 ea QS N/A 05/12/17 16:00 06/11/17 15:59 05/17/17 08:02 1 EA Imipenem/ Cilastatin Sodium 200 mg/Dextrose 108 ml @ 100 mls/hr Q6H IV 05/13/17 18:00 05/23/17 17:59 05/17/17 06:07 100 MLS/HR Imipenem/ Cilastatin Sodium (Consult) 1 ea UD PRN N/A 05/13/17 16:45 06/12/17 16:44 Impression (1) End stage renal disease due to hypertension (2) Hyperkalemia (3) Volume overload (4) Hypertensive emergency (5) Secondary hyperparathyroidism of renal origin (6) Anemia (7) Chronic ulcer of leg with fat layer exposed Jd is a 36 year-old male with ESRD secondary to hypertensive nephropathy. He is on hemodialysis Sunday, Sunday, Sunday. He presented with respiratory distress, volume overload and hyperkalemia after missing dialysis for 2 weeks. He had hypertensive urgency and severe hyperkalemia necessitating emergent dialysis on admission. He remains volume overloaded. Compliance with renal diet has been poor. He has a well-functioning left brachiocephalic AV fistula. Jd has chronic liver disease including recurrent ascites. Brain remains hospitalized for abdominal wall cellulitis/panniculitis. He also had evidence of lower extremity cellulitis on admission. Chronic leg ulcer growing MRSA. Recommendations -- Blood pressure, electrolytes appropriate. No need for HD today. Resume MWF schedule tomorrow. -- Venofer 100 mg with HD. Epogen 4000 QMWF with HD -- Repeat metabolic profile tomorrow AM -- Maintain strict dietary potassium restriction -- Sevelamer and calcitriol as ordered for CKD/MBD -- Continue furosemide 80 mg twice daily -- IF BP remains elevated, may consider restarting patient's home medications such as amlodipine or carvedilol
--- NOTE | 2017-05-17 10:25 | Gastroenterology Progress Note ---
Progress Note Date of Service: May 17, 2017 Subjective Pt evaluation today including: conversation w/ patient, physical exam, chart review, lab review, review of studies, review of inpatient medication list Patient reports mild diffuse abdominal pain and swelling. Continues with antibiotic therapy per ID related to cellulitis from prior paracentesis. Repeat abdominal ultrasound with small to moderate ascites. Continue oral diuretics per nephrology and continues with dialysis three times weekly. Review of Systems Constitutional: No fever, No chills Abdomen: + see HPI Psych: No problem reported Medications Current Inpatient Medications Medications (Trade) Dose Ordered Sig/Julio Route Start Time Stop Time Status Last Admin Dose Admin Heparin Sodium (Porcine) (Heparin Sq 5000 Unit/0.5ml) 5,000 unit Q12 SQ 05/05/17 09:00 06/04/17 08:59 05/17/17 08:14 5,000 UNIT Acetaminophen (Tylenol Tab) 650 mg Q4H PRN PO 05/05/17 08:30 06/04/17 08:29 05/10/17 21:33 650 MG Aspirin (Ecotrin Tab) 81 mg DAILY PO 05/06/17 09:00 06/05/17 08:59 05/17/17 08:10 81 MG Calcitriol (Rocaltrol Cap) 1 mcg MoWeFr@0900 PO 05/05/17 10:00 06/04/17 09:59 05/16/17 12:34 1 MCG Cyclobenzaprine HCl (Flexeril Tab) 10 mg TID PRN PO 05/05/17 09:15 06/04/17 09:14 05/16/17 13:38 10 MG Folic Acid (Folvite Tab) 1 mg DAILY PO 05/06/17 09:00 06/05/17 08:59 05/17/17 08:10 1 MG Gabapentin (Neurontin Cap) 100 mg TID PO 05/05/17 14:00 06/04/17 13:59 05/17/17 08:10 100 MG Metoclopramide HCl (Reglan Tab) 5 mg ACHS PO 05/05/17 11:00 06/04/17 10:59 05/17/17 06:12 5 MG Multivitamins (Multivitamin Tab) 1 tab DAILY PO 05/06/17 09:00 06/05/17 08:59 05/17/17 08:10 1 TAB Pantoprazole Sodium (Protonix Tab) 40 mg DAILY PO 05/06/17 09:00 06/05/17 08:59 05/17/17 08:10 40 MG Simvastatin (Zocor Tab) 40 mg HS PO 05/05/17 21:00 06/04/17 20:59 05/16/17 20:45 40 MG Vitamin B Complex/ Vit C/Folic Acid (Nephrocaps) 1 cap HS PO 05/05/17 21:00 06/04/17 20:59 05/16/17 20:41 1 CAP Miscellaneous Information (Order Awaiting Action) 1 ea QS N/A 05/06/17 11:00 06/05/17 10:59 Sevelamer HCl (Renagel Tab) 800 mg TIDM PO 05/05/17 11:30 06/04/17 11:29 05/17/17 08:10 800 MG Glucose (Glucose 40% Gel) 15-30 GRAMS 15 GRAMS... UD PRN PO 05/05/17 10:30 06/04/17 10:29 Glucose (Glucose Chew Tab) 4-8 Tablets 4 Tabl... UD PRN PO 05/05/17 10:30 06/04/17 10:29 Dextrose (Dextrose 50% 50ML Syringe) 25-50ML OF 50% DW IV FOR... UD PRN IV 05/05/17 10:30 06/04/17 10:29 Glucagon (Glucagon Inj) 1 mg UD PRN SQ 05/05/17 10:30 06/04/17 10:29 Carvedilol (Coreg Tab) 12.5 mg BID PO 05/06/17 09:00 06/04/17 20:59 05/17/17 08:11 12.5 MG Multi-Ingredient Ointment (Eucerin Unscented Cr) 1 appln BID EXT 05/06/17 21:00 06/05/17 20:59 05/17/17 08:09 1 APPLN Clonazepam (Klonopin Tab) 1 mg UD PRN PO 05/07/17 08:45 06/06/17 08:44 05/16/17 07:39 1 MG Diltiazem HCl (Cardizem Tab) 60 mg Q8H PO 05/07/17 23:00 06/06/17 22:59 05/17/17 06:16 60 MG Rifaximin (Xifaxan Tab) 550 mg BID PO 05/08/17 20:00 06/07/17 20:59 05/17/17 08:10 550 MG Polyethylene (Miralax Powder Packet) 17 gm BID PO 05/08/17 20:00 06/07/17 20:59 05/17/17 08:10 17 GM Doxycycline Hyclate (Vibramycin Cap) 100 mg BID PO 05/08/17 20:00 05/18/17 19:59 Future Hold 05/11/17 14:31 100 MG Oxycodone HCl (Roxicodone Immediate Rel Tab) 15 mg Q4H PRN PO 05/11/17 17:45 05/24/17 10:59 05/17/17 06:12 15 MG Vancomycin HCl (Consult) 1 ea UD PRN N/A 05/11/17 18:00 06/10/17 17:59 Furosemide (Lasix Tab) 80 mg BID17 PO 05/12/17 17:00 06/05/17 08:59 05/17/17 08:11 80 MG Fentanyl (Duragesic Patch) 25 mcg Q72H TD 05/12/17 13:30 05/26/17 13:29 05/15/17 14:32 25 MCG Miscellaneous (Fentanyl Patch Remove & Waste) 1 ea Q3D N/A 05/15/17 13:30 06/14/17 13:29 05/15/17 14:36 1 EA Miscellaneous Information (Check Fentanyl Patch Placement) 1 ea QS N/A 05/12/17 16:00 06/11/17 15:59 05/17/17 08:02 1 EA Imipenem/ Cilastatin Sodium 200 mg/Dextrose 108 ml @ 100 mls/hr Q6H IV 05/13/17 18:00 05/23/17 17:59 05/17/17 06:07 100 MLS/HR Imipenem/ Cilastatin Sodium (Consult) 1 ea UD PRN N/A 05/13/17 16:45 06/12/17 16:44 Objective Vital Signs Date Time Temp Pulse Resp B/P (MAP) Pulse Ox O2 Delivery O2 Flow Rate FiO2 05/17/17 09:37 100 Nasal Cannula 5.0 05/17/17 08:11 36.7 68 16 179/95 (123) 100 Nasal Cannula 5.0 05/17/17 06:13 70 171/92 (118) 100 Nasal Cannula 5.0 05/17/17 00:12 36.6 64 20 150/81 (104) 95 5.0 05/17/17 00:00 Nasal Cannula 5.0 05/16/17 16:15 Nasal Cannula 5.0 05/16/17 14:29 36.9 71 20 166/82 (110) 100 Nasal Cannula 5.0 05/16/17 11:42 36.6 76 181/92 (121) 05/16/17 11:30 74 146/72 05/16/17 11:15 76 164/77 05/16/17 11:00 77 151/71 05/16/17 10:45 72 154/75 05/16/17 10:30 72 144/47 05/16/17 10:15 67 152/72 Physical Exam General Appearance: no apparent distress Abdomen: normal bowel sounds, + distended, + tenderness, + pertinent finding ( diffuse erythema. abdominal dressings in RLQ and LLQ, C/D/I) Neurologic/Psych: alert, normal mood/affect, oriented x 3 Skin: warm/dry Laboratory Results Last 24 Hours Test 05/17/17 05:59 05/17/17 07:03 05/17/17 08:05 05/17/17 08:59 Random Vancomycin Level 21.8 mcg/ml Sodium Level 134 mmol/L Potassium Level 5.0 mmol/L Chloride Level 100 mmol/L Carbon Dioxide Level 28 mmol/L Anion Gap 6.0 mmol/L Blood Urea Nitrogen 41 mg/dl Creatinine 6.50 mg/dl Est Creatinine Clear Calc Drug Dose 21.7 ml/min Estimated GFR () 11.5 Estimated GFR (Non- 9.9 BUN/Creatinine Ratio 6.3 Random Glucose 96 mg/dl Calcium Level 8.9 mg/dl Phosphorus Level 4.5 mg/dl Albumin 2.7 gm/dl Bedside Glucose 66 mg/dl 137 mg/dl Assessment and Plan Patient is a 36 yo male with cirrhosis and ascites. 1. Would not recommend paracentesis at this time as low volume noted on ultrasound, and current abdominal infection. 2. Continue diuretic therapy per nephrology. 3. Follow up with [facility] upon discharge. Agree with ALFREDO Sanchez as above Abd: Soft, NT Continue current therapy Followup with Hepatology as an outpatient as scheduled
[2017-05-17] MEDS: SENSIPAR~ORDER AWAITING ACTION SCH ×3 (10:57→15:52)
[2017-05-17] MEDS ORDERED: NURSING VERBAL MED ORDER ONE (11:30)
[2017-05-17] MEDS ORDERED: ONDANSETRON 4 MG TAB PO ONE (11:45)
[2017-05-17] MEDS ORDERED: AMOX500T PO (11:48)
[2017-05-17] MEDS ORDERED: CIPR250T3 PO (11:48)
--- NOTE | 2017-05-17 11:59 | Discharge Instructions ---
Discharge Instructions Date of Service May 17, 2017. Admission Reason for Admission: Hyperkalemia Discharge Discharge Diagnosis / Problem: Hyperkalemia, Abdominal wall cellulitis, Ascites Discharge Goals Goal(s): Decrease discomfort, Diagnostic testing, Therapeutic intervention, Screening, Prevent Disease Progression Activity Recommendations Activity Limitations: as noted below May Resume Sexual Activity: when tolerated Shower/Bathe: no limitations Driving or Machine Use: do not drive while on meds that can sedate you . Instructions / Follow-Up Instructions / Follow-Up Cameron Miles were admitted initially due to high potassium levels. This is likely due to missing your dialysis sessions. Please do not miss any dialysis sessions in the future You were found to have an infection of the skin over your stomach. This was treated with IV antibiotics. Please complete the oral antibiotics as prescribed. You were also found to have increasing amounts of fluid in your abdomen that was drained twice. Prior to discharge, gastroenterology did see you and did not recommend draining again given the lower amounts of fluid on the repeat Ultrasound. For your blood pressure, please stop lisinopril and valsartan until further evaluation by your PCP Please follow up with your PCP within 3-5 days. Please follow up with Gastroenterology to discuss further management of the fluid in your stomach. If you have worsening distention or redness, please call your pcp or go to the nearest ER. Thank Current Hospital Diet Patient's current hospital diet: Renal Diet Discharge Diet Recommended Diet: AHA Diet (Heart Healthy), Renal Diet Pending Studies Studies pending at discharge: no Laboratory Results Hemoglobin A1c Test 05/05/17 09:11 Range/Units Estimated Average Glucose 103 mg/dl Hemoglobin A1c 5.2 4.5-5.6 % Medical Emergencies . Who to Call and When: Medical Emergencies: If at any time you feel your situation is an emergency, please call 911 immediately. . Non-Emergent Contact Non-Emergency issues call your: Primary Care Provider . . "Provider Documentation" section prepared by Holli Martin. . VTE Core Measure Inpt VTE Proph given/why not?: Unfractionated heparin SQ
[2017-05-17] MEDS ORDERED: DOXY1TAB6 PO (15:05)
--- NOTE | 2017-05-17 15:59 | Pharmacy Progress Note ---
Pharmacy Abx Dose Short Note Date of Service May 17, 2017. Assessment & Plan Assessment 36 year old male receiving vancomycin and Primaxin for treatment of abdominal wall cellulitis with acinetobacter and MRSA from culture Day # 7/ of antimicrobial therapy. Plan Vancomycin * Random of 21.8 mcg/mL is supratherapeutic * Patient is not scheduled for dialysis today so would not require an additional dose today * Will order another random level tomorrow AM if patient's discharge is cancelled * Goal trough level for MRSA cellulitis: 15-20 Primaxin * Continue 200 mg IV q6h Pharmacy will continue to follow and will adjust dose/frequency as necessary. Thank you. Note: * I noted on the discharge med list that patient was going to be discharged on Augmentin and Cipro. I spoke with Dr. Bryant to notify her that the patient would need a MRSA agent. She was going to update this prior to discharge.
[2017-05-17] MEDS: CYCLOBENZAPRINE HCL 10 MG TAB PO PRN (17:25)
--- NOTE | 2017-05-18 10:50 | Discharge Summary ---
Discharge Summary Date of Service May 18, 2017. (Holli Obrien MD) Discharge Summary Admission Date: May 05, 2017 at 08:38 Discharge Date: May 17, 2017 Discharge Disposition: Home Principal Diagnosis: Hyperkalemia Problems/Secondary Diagnoses: abdominal wall cellulitis Liver cirrhosis s/p- therapeutic paracentesis ESRD on HD anemia of chronic kidney disease T2DM HTN chronic LE wounds morbid obesity w/ BMI 42 CARMEN chronic pain syndrome chronic hypoxic respiratory failure Procedures: Liver US IMPRESSION: 1. Hyperechogenic and slightly heterogeneous hepatic echotexture, could indicate underlying fibrosis or steatosis. 2. Hepatomegaly. 3. Ascites. 4. Medical renal disease suggested. ABdomen US ASCITES-ABDOMEN LIMITED CLINICAL HISTORY: 36 years-old Male presenting with drew for drainage, ascites. TECHNIQUE: Real-time grayscale ultrasound imaging of the abdomen was performed for a limited and focused evaluation for ascites. COMPARISON: None. FINDINGS: Small volume ascites in the right upper and lower quadrants of the abdomen. Moderate volume ascites in the left upper and lower quadrants. Minimal debris may be present. IMPRESSION: 1. Moderate volume ascites in the left abdomen. Paracentesis #1 IMPRESSION: Ultrasound-guided diagnostic and therapeutic paracentesis with aspiration of 2.[address] OF THE ABDOMEN AND PELVIS WITH ORAL CONTRAST CLINICAL HISTORY: Severe abdominal pain. Evaluate for pancreatitis. COMPARISON STUDY: Right upper quadrant ultrasound May 06, 2017. TECHNIQUE: Axial images of the abdomen and pelvis were obtained without IV contrast. Oral contrast was administered. FINDINGS: Visualized portions of the lower chest demonstrate gynecomastia, moderate cardiomegaly and extensive coronary artery calcification, greater than expected for age. There is extensive atherosclerotic plaque within the abdominal aorta and branch vessels. Evaluation of the abdomen and pelvis is suboptimal on this unenhanced exam. There is probable fatty infiltration of the liver. There is possible fissural widening. The size of the spleen is normal. Unenhanced images of the adrenal glands and pancreas are normal. Both kidneys are markedly atrophic. There is no hydronephrosis. There is moderate to large abdominal and pelvic ascites with extensive subcutaneous edema and skin thickening of the anterior abdominal wall. There is no bowel obstruction. No pneumatosis, free air or portal venous gas is present. No lymphadenopathy is identified. No suspicious skeletal lesions are identified. There is diffuse increased sclerosis of skeletal structures which could be related to chronic renal failure. Note is made of an ascites containing umbilical hernia. IMPRESSION: 1. No CT evidence of acute pancreatitis on this unenhanced exam. Paracenteis #2 IMPRESSION: Ultrasound-guided paracentesis with removal of 7 liters of ascites. 1 L of ascites was sent to the laboratory for analysis. Abdomen US: ULTRASOUND ASCITES CHECK CLINICAL HISTORY: Abdominal ascites. COMPARISON STUDY: Abdominal CT dated 05/09/2017. FINDINGS: Real-time grayscale sonography of all 4 quadrants of the abdomen is performed to assess for abdominal ascites. There is a small to moderate volume of abdominal ascites identified. The largest pocket is seen in the left lower quadrant. Survey images of the liver show cirrhotic morphology. There is nodularity of the hepatic surface contour. IMPRESSION: There is a small to moderate volume of abdominal ascites. Consultations: Infectious disease Gastroenterology Nephrology Intensive care (Holli Obrien MD) Medication Reconciliation New Medications: Ciprofloxacin (Cipro) 250 Mg Tab 250 MG PO Q24H for 3 Days, #3 TAB take after dialysis session Doxycycline Hyclate (Doxycycline Hyclate) 100 Mg Tab 1 TAB PO BID for 3 Days, #6 TAB Continued Medications: Amlodipine Besylate (Norvasc) 10 Mg Tab 10 MG PO DAILY, TAB Aspirin (Aspirin Dr) 81 Mg Tab 81 MG PO DAILY Calcitriol (Calcitriol) 0.25 Mcg Cap 1 MCG PO UD TAKE 4 CAPSULES IN THE MORNING ON DIALYSIS DAYS. Carvedilol (Coreg) 25 Mg Tab 25 MG PO BID, TAB Cinecalcet (Sensipar) 60 Mg Tab 60 MG PO DAILY, TAB Clonazepam (Klonopin) 0.5 Mg Tab 0.5 MG PO UD, TAB TAKE 0.5 ON DIALYSIS DAYS. Cyclobenzaprine Hcl (Flexeril) 10 Mg Tab 10 MG PO TID PRN for Pain, #21 TAB Diltiazem Hcl Coated Beads (Cardizem Cd) 240 Mg Cap 240 MG PO DAILY, CAP Fentanyl (Fentanyl) 12 Mcg Tdsy 12 MCG TD EVERY 3 DAYS Folic Acid (Folvite) 1 Mg Tab 1 MG PO DAILY, TAB Furosemide (Lasix) 40 Mg Tab 40 MG PO DAILY, TAB Gabapentin (Neurontin) 100 Mg Cap 100 MG PO TID, CAP Lorazepam (Ativan) 1 Mg Tab 1 MG PO HS, TAB Metoclopramide (Reglan) 10 Mg Tab 5 MG PO ACHS, TAB Multivitamin (Multivitamin) Tab 1 TAB PO DAILY, TAB Nadolol (Corgard) 40 Mg Tab 80 MG PO HS, TAB Oxycodone/Acetaminophen 10MG/325MG (Percocet 10MG/325MG) Tab 1 TAB PO Q6 PRN for Pain, TAB Pantoprazole (Protonix) 40 Mg Tab 40 MG PO DAILY, #30 TAB Sevelamer Hydroch (Renagel) 800 Mg Tab 800 MG PO TIDM, TAB Simvastatin (Zocor) 40 Mg Tab 40 MG PO HS, TAB Vitamin B Cmplx/Vitc/Folic Ac (Nephrocaps) 1 Cap Cap 1 CAP PO HS, CAP Discontinued Medications: Lisinopril (Zestril) 40 Mg Tab 40 MG PO BID, TAB Valsartan (Diovan) 160 Mg Tab 160 MG PO DAILY, TAB Discharge Exam Physical Exam: General Appearance: no apparent distress, + obese Eyes: PERRL, EOMI ENT: hearing grossly normal Neck: no adenopathy, thyroid normal Respiratory/Chest: no respiratory distress, no accessory muscle use, + decreased breath sounds Cardiovascular: regular rate, rhythm, no murmur Abdomen / GI: normal bowel sounds, + tenderness, + distended, + pertinent finding (improving erythema over LUQ, LLQ, UMbilical hernia) Extremities: + inflammation, + pedal edema, + swelling, + pertinent finding (CHronic LE venous stasis changes, Skin peeling/dry) Neurologic/Psychiatric: alert, + depressed affect (Holli Obrien MD) denied any complains Review of Systems: Constitutional: No fever Respiratory: No shortness of breath Cardiovascular: No chest pain Abdomen: No pain Physical Exam: General Appearance: no apparent distress (sitting at the edge of bed) Respiratory/Chest: lungs clear, no respiratory distress Cardiovascular: regular rate, rhythm Abdomen / GI: normal bowel sounds, non tender, soft, + distended, + pertinent finding (mild left lower abdominal wall erythema) Neurologic/Psychiatric: alert, oriented x 3 Skin: + pertinent finding (venous stasis changes in both legs) (Alyson Bryant M.D.) Hospital Course This is a 36 yo M with PMHx of ESRD on HD MWF, HTN, HLD, obesity, hx of MRSA, chronic venous stasis changes with weeping leg wound, hx of DVT, depression, anxiety, chronic low back pain, morbid obesity, CARMEN, hx of DM, GERD, who presented from [facility] for hyperkalemia, volume overload and needs for emergent dialysis. 1. Hyperkalemia 2/2 ESRD (from hypertensive nephropathy) requiring emergent HD- non compliant The patient was placed in the ICU under the care of seasonal sales associate and nephrology as he underwent emergent dialysis. He was found to have a potassium of 8.3 secondary to noncompliance with dialysis. During his stay at [facility], he had multiple sessions of dialysis + one dose of Kayexalate. He was counselled to ensure that he continues dialysis after discharge. Nephrology followed patient: Venofer 100 mg, Epogen 4000, Sevelamer and calcitriol given with HD furosemide 80 mg twice daily Patient restarted on Carvedilol, nadolol, diltiazem at D/C. Stopped Lisinopril and Valsartan 2. Recurrent Ascites 2/2 Liver cirrhosis paracentesis x 2 (draining 2 L and 7L each time). will follow with GI outpatient He did have another US prior to DC and GI did not feel another tap was necessary. 3. Abdominal wall cellulitis He developed abdominal pain that was attributed to cellulitis/component of panniculitis for which he was treated with Doxy and Levaquin and transitioned to Vanc and Imipenem (due to concurrent chronic LE wounds that grew MRSA and Acetinobacter). At discharge he was given Doxy and Cipro PO. Infectious disease followed patient 4. Chest pain- no further episodes- EKG with no ST T wave changes. Higher risk of ACS given ESRD (especially with noncompliance), morbid obesity and other comorbidities. Troponin since admission with minimal elevation - likely nonspecific considering ESRD. Considering overall poor prognosis - continue medical management. On aspirin, statin and b farida. 5. anemia of chronic kidney disease - H/H stable. 6. T2DM - controlled 7. HTN - improved. 8. chronic LE wounds - surface culture from [facility] with MRSA and ACINETOBACTER - was on doxycycline and levofloxacin to cover MRSA and Acinetobacter on admission but switched to Vanco and Imipenem for abd wall cellulitis. 9. morbid obesity w/ BMI 42 10. CARMEN - noted; on chronic NC O2 11. chronic pain syndrome - PDMP queried by Dr. Hansen. It appears he follows with pain management in [place]. Fentanyl at 25 mcg. 12. chronic hypoxic respiratory failure - on NC O2 and stable Total Time Spent: Greater than 30 minutes This includes examination of the patient, discharge planning, medication reconciliation, and communication with other providers. (Holli Obrien MD) Resident Physician Supervision Note: I independently interviewed and examined the patient and verified the harris history and physical, reviewed labs and image studies, discussed the case with the resident Dr. Obrien and agree with the findings and care plan. Total Time Spent: Greater than 30 minutes (35) (Alyson Bryant M.D.) Discharge Instructions Please refer to the electronic Patient Visit Report (Discharge Instructions) for additional information. (Holli Obrien MD) Additional Copies To Romie Paez D.O.
== END 2017-05-17 17:46 | disposition home or self-care (01) | DRG 682 ==
LOC: C.MSICU 07:07 → UNDOADMIN 07:07 → C.MSICU 08:38 → UNDOADMIN 05-06 08:38 → ENRESERV 05-06 11:42 → C.MSICU 05-06 12:37 → C.2E 05-06 12:37 → ENRESERV 05-08 09:59 → C.2E 05-08 11:07 → C.4E 05-08 11:07
PROVIDERS: ADMIT Hospitalist; ATTEND Family Medicine
PROC: 0W9G3ZZ Drainage of Peritoneal Cavity, Percutaneous Approach (ICD-10-PCS; principal; 2017-05-07)
PROC: 0W9G3ZZ Drainage of Peritoneal Cavity, Percutaneous Approach (ICD-10-PCS; 2017-05-10)
PROC: 0HQ7XZZ Repair Abdomen Skin, External Approach (ICD-10-PCS; 2017-05-13)
DX: I12.0 Hypertensive chronic kidney disease with stage 5 chronic kidney disease or end stage renal disease (principal); N18.6 End stage renal disease; J96.11 Chronic respiratory failure with hypoxia; N17.9 Acute kidney failure, unspecified; N25.81 Secondary hyperparathyroidism of renal origin; I16.1 Hypertensive emergency; L03.311 Cellulitis of abdominal wall; R18.8 Other ascites; L03.116 Cellulitis of left lower limb; L97.922 Non-pressure chronic ulcer of unspecified part of left lower leg with fat layer exposed; Z68.41 Body mass index [BMI] 40.0-44.9, adult; E87.5 Hyperkalemia; M79.3 Panniculitis, unspecified; E87.70 Fluid overload, unspecified; L76.82 Other postprocedural complications of skin and subcutaneous tissue; Y84.4 Aspiration of fluid as the cause of abnormal reaction of the patient, or of later complication, without mention of misadventure at the time of the procedure; Y92.230 Patient room in hospital as the place of occurrence of the external cause; Z91.15 Patient's noncompliance with renal dialysis; Z91.11 Patient's noncompliance with dietary regimen; Z91.14 Patient's other noncompliance with medication regimen; R07.9 Chest pain, unspecified; R74.8 Abnormal levels of other serum enzymes; R10.9 Unspecified abdominal pain; E11.622 Type 2 diabetes mellitus with other skin ulcer; B95.62 Methicillin resistant Staphylococcus aureus infection as the cause of diseases classified elsewhere; B96.89 Other specified bacterial agents as the cause of diseases classified elsewhere; K74.60 Unspecified cirrhosis of liver; K75.81 Nonalcoholic steatohepatitis (NASH); I44.0 Atrioventricular block, first degree; I45.10 Unspecified right bundle-branch block; K21.9 Gastro-esophageal reflux disease without esophagitis; E78.5 Hyperlipidemia, unspecified; I87.8 Other specified disorders of veins; D63.1 Anemia in chronic kidney disease; G89.4 Chronic pain syndrome; M19.90 Unspecified osteoarthritis, unspecified site; M54.5 Low back pain; G47.33 Obstructive sleep apnea (adult) (pediatric); F32.9 Major depressive disorder, single episode, unspecified; F41.9 Anxiety disorder, unspecified; F17.200 Nicotine dependence, unspecified, uncomplicated; E66.01 Morbid (severe) obesity due to excess calories; Z23 Encounter for immunization; Z99.81 Dependence on supplemental oxygen; Z86.718 Personal history of other venous thrombosis and embolism; Z79.82 Long term (current) use of aspirin; Z79.891 Long term (current) use of opiate analgesic; Z79.899 Other long term (current) drug therapy